=== PATIENT | female | born 1945 | race Caucasian/White ===

== ENCOUNTER 2016-09-07 17:40 | Inpatient (IN) | payer MEDICARE, MEDICAID ==
[~2016-09-07] VITALS: Ht 162.6 cm; Wt 69.9 kg
[~2016-09-07 17:40] MED LIST: /FEXO18TA OR; /LOR25TA OR; ADVI200C5 PO; ASPI81TA83 OR; BACL10TA2 OR; BACL10TA2 PO; BENA25CA2 PO; BETA0.3I SC; BETASERON SC; CALC12502 OR; CALC600T10 PO; CALCTAB68 PO; CALCTAB75 PO; CRAN500C2 PO; EFFEXOR XR; MACR100C3 PO; MS MEDICATION PO; NORT10CA2 PO; OMEP20TA7 OR; OMEP40CA2 PO; TECF240C PO; VENL150C43 PO; VENL37.5 OR; VENL75TA2 OR; VENL75TA3 PO; VITA400T13 PO; VITA500019 PO; VITA500047 PO; [UNRECOGNIZED DRUG - OTHER]
[2016-09-07 18:48] LABS: BASO % 0.2 % (0.0-1.0); EOS % 0.3 % (0.0-3.0); LARGE UNSTAINED CELL # 0.1 K/mm3 (0.0-0.4); LYMPH # 0.4 K/mm3 (1.5-4.5); LYMPH % 3.7 % (24.0-44.0); MEAN CORPUSCULAR HEMOGLOBIN 31.4 pg (27.0-33.0); MEAN CORPUSCULAR HGB CONC 34.2 g/dl (32.0-36.5); MEAN CORPUSCULAR VOLUME 91.9 fl (80.0-96.0); MONO # 0.6 K/mm3 (0.0-0.8); NEUTROPHILS % 89.9 % (36.0-66.0); PLATELET COUNT, AUTOMATED 241 k/mm3 (150-450); RED CELL DISTRIBUTION WIDTH 12.8 % (11.5-14.5); WHITE BLOOD COUNT 11.1 K/mm3 (4.0-10.0)
[2016-09-07] MEDS ORDERED: ACETAMINOPHEN 325 MG TAB As Ordered ONE (18:52)
[2016-09-07 18:55] LABS: ANION GAP 10 MEQ/L (8-16); BLOOD UREA NITROGEN 36 MG/DL (7-18); CALCIUM LEVEL 10.4 MG/DL (8.8-10.2); CARBON DIOXIDE LEVEL 31 MEQ/L (21-32); CHLORIDE LEVEL 103 MEQ/L (98-107); CREATININE FOR GFR 0.74 MG/DL (0.55-1.02); GLOMERULAR FILTRATION RATE > 60.0 (>45); GLUCOSE, FASTING 125 MG/DL (80-110); POTASSIUM SERUM 4.1 MEQ/L (3.5-5.1); SODIUM LEVEL 144 MEQ/L (136-145)
--- NOTE | 2016-09-07 19:17 | REP ---
CHEST, ONE VIEW: HISTORY: Fever. COMPARISON: 09/21/2015 There is elevation of the left hemidiaphragm. The lungs are clear. The heart is normal in size. The pulmonary vasculature is normal in appearance. IMPRESSION: No acute disease. Signed by Kervin Mulligan MD 09/07/2016 07:28 P
[2016-09-07] MEDS ORDERED: methylPREDNISolone 1000 MG VIAL (J2930) As Ordered ONE (19:50)
[2016-09-07] MEDS ORDERED: VITA500046 PO (19:57)
[2016-09-07] MEDS ORDERED: OMEP40CA2 PO (19:57)
[2016-09-07] MEDS ORDERED: FORT600S SC (19:57)
[2016-09-07] MEDS ORDERED: ALLE180T33 PO (19:57)
[2016-09-07] MEDS ORDERED: ASPI81TA85 PO (19:57)
[2016-09-07] MEDS ORDERED: GLUCOSE 4 GM CHEW TABLET PO PRN (20:15)
[2016-09-07] MEDS ORDERED: GLUCAGON FOR INJ 1 MG VIAL (J1610) SC PRN (20:15)
[2016-09-07] MEDS ORDERED: DEXTROSE 50% 50 ML SYRINGE IV PRN (20:15)
[2016-09-07] MEDS ORDERED: ONDANSETRON 4MG/2ML VIAL (J2405) IV PRN (20:15)
--- NOTE | 2016-09-07 21:21 | EDDOCDS ---
Nurse's Notes [facility] Name: Munira Harrison Age: 70 yrs Sex: Female : 1945 Arrival Date: 09/07/2016 Time: 17:40 Bed 18 Private MD: Zurdo Skelton E. Diagnosis: Multiple sclerosis Presentation: 09/07 18:34 Presenting complaint: Patient states: became weak at home, weaker than normal. Adult [facility] Sepsis Screening: The patient does not have new or worsening altered mentation. Patient's respiratory rate is less than 22. Systolic blood pressure is greater than 100. Patient has a qSOFA score of 0- Negative Sepsis Screen. Suicide/Homicide risk assessment- the patient denies having any suicidal and/or homicidal ideations and does not present with any other emotional, behavioral or mental health complaints. Status: Patient is not a farm service consultant or dependent. Transition of care: patient was not received from another setting of care. 18:34 Acuity: SOFIE Level 3 [facility] 18:34 Method Of Arrival: Ambulance [facility] Triage Assessment: 18:34 General: Appears in no apparent distress, comfortable, Behavior is appropriate for age, [facility] cooperative. Pain: Denies pain. Neurological: Level of Consciousness is awake, alert, Oriented to person, place, time. Respiratory: Airway is patent Respiratory effort is even, unlabored, Respiratory pattern is regular, symmetrical. : incontinent large amount foul smelling urine. Musculoskeletal: Range of motion intact in all extremities. Historical: - Allergies: PENICILLINS (Rash); - Home Meds: 1. baclofen 10 mg Oral tab 1 tab every 3 hours 2. Calcium + Vitamin D 600/400 Oral tab 600 mg daily 3. cranberry fruit 475 mg oral cap nightly 4. nortriptyline 10 mg Oral cap bid 5. omeprazole 40 mg Oral cpDR 1 cap once daily 6. Vitamin D Oral 5000 unit daily 7. Tecfidera 250 mg oral cpDR 2 times per day 8. Forteo 600 mcg/2.4ml daily 9. aspirin 81 mg Oral tab 1 tab once daily - PMHx: Multiple Sclerosis; Fatty Liver Disease; History of recurrent UTI's and urinary retention; Depression; Osteoporosis; Obesity; Vitamin D deficiency; hyperlipidemia; - PSHx: Tonsillectomy; Hysterectomy; - The history from nurses notes was reviewed: and I agree with what is documented. - Social history: Smoking status: Patient states was never smoker of tobacco. No barriers to communication noted. - : The pt / caregiver states he / she is not on anticoagulants. Home medication list is obtained from primary care notes. - Hospitalizations: : No recent hospitalization is reported. - Exposure Risk Screening:: None identified. - Immunization history:: All immunizations up-to-date. - Family history: Not pertinent. - Social history:: the patient is a non-smoker, the patient does not drink alcohol. Screenin:58 Screening information is obtained from the patient. Fall risk: At risk due to [facility] immobility. Assistance ADL's: requires no assistance with activities of daily living. Abuse/DV Screen: The patient / caregiver reports he/she is: not in a situation that causes fear, pain or injury. Nutritional screening: No deficits noted. Advance Directives: Currently, there is no health care proxy. There is no active DNR order. There is no living will. There is no Power of Hotbed Operator. home support is adequate. Assessment: 18:58 General: see bedside triage assessment. [facility] 19:48 General: No changes from previous assessment, visitor at bedside, denies needs. [facility] 20:00 General: visitor at bedside, discussed medications and plan of care, IV infusing cjh without difficulty, denies needs at this time. 20:00 General: Appears in no apparent distress, comfortable, Behavior is appropriate for age, cjh cooperative, awaiting admission, no new problems or complaints, no changes from previous assessment. Vital Signs: 18:01 BP 130 / 66; Pulse 102; Resp 20; Temp 100.5(TE); Pulse Ox 98% on R/A; Height 5 ft. 4 ar3 in. (162.56 cm) (R); Pain 0/10; 20:34 BP 107 / 60; Pulse 90; Resp 18; Temp 99.6(O); Pulse Ox 96% on R/A; Pain 0/10; macey Vitals: 18:34 Log In Time N/A - ambulance arrival. [facility] ED Course: 17:41 Patient visited by Arminda Osorio, Physics Teacher. lbd 17:41 Zurdo Skelton is Private Physician. lbd 17:41 Patient moved to Waiting lbd 17:42 Patient moved to 18 lbd 17:48 Jose Quigley MD is Attending Physician. pc 18:01 Patient visited by Jazmyne Garcia PCA. ar3 18:01 patient cleaned of incontinence twice. ar3 18:02 Patient visited by Jazmyne Garcia PCA. ar3 18:09 Patient visited by Jose Quigley MD. pc 18:30 BLOOD CULTURES Sent. ct3 18:30 -Blood Culture Sent. ct3 18:30 MED Profile Sent. ct3 18:30 CBC with Diff Sent. ct3 18:35 [facility] Payment Agreement was scanned into [employer] and attached to record. ks16 18:36 Triage Initiated cjh 18:53 Urine Culture Sent. ct3 18:53 Urinalysis Sent. ct3 18:58 The patient / caregiver is instructed regarding the plan of care and ED course. [facility] 18:58 No IV's were initiated during this patient's visit. No procedures done that require [facility] assistance. Rosario cath inserted 16 Fr. Balloon inflated. To gravity drainage. Urine specimen collected. returned cloudy urine. 19:00 Patient visited by Vikki Crowell RN. [facility] 19:18 Chest, 1 View Returned. EDMS 19:26 Meng Centeno MD is Hospitalizing Provider. pc 19:48 Inserted saline lock: 20 gauge in left forearm. cjh 20:35 Patient visited by Yumi Solano PCA. macey Administered Medications: 18:57 Drug: Acetaminophen 650 mg [acetaminophen 325 mg tablet (2 tabs)] Route: PO; [facility] 20:11 Drug: Solu-MEDROL 1000 mg [Solu-Medrol 500 mg intravenous solution (1000 mg)] Route: [facility] IVP; Site: left forearm; Output: 21:15 Urine: 300.00ml (Rosario); Total: 300.00ml. [facility] Order Results: Lab Order: Urinalysis; SPEC'M 09/07/16 18:21 Test: APPEARANCE, URINE; Value: CLOUDY; Range: CLEAR; Abnormal: Above high normal; Status: F Test: COLOR, URINE; Value: SUMMER; Range: YELLOW; Status: F Test: PH,URINE; Value: 6.0; Range: 5.0-9.0; Units: UNITS; Status: F Test: SPECIFIC GRAVITY URINE AUTO; Value: 1.018; Range: 1.002-1.035; Status: F Test: PROTEIN, URINE AUTO; Value: 1+; Range: NEGATIVE; Abnormal: Above high normal; Units: mg/dL; Status: F Test: GLUCOSE, URINE (UA) AUTO; Value: NEGATIVE; Range: NEGATIVE; Units: mg/dL; Status: F Test: KETONE, URINE AUTO; Value: TRACE; Range: NEGATIVE; Abnormal: Above high normal; Units: mg/dL; Status: F Test: UROBILINOGEN, URINE AUTO; Value: 0.2; Range: 0.0-2.0; Units: mg/dL; Status: F Test: BILIRUBIN, URINE AUTO; Value: NEGATIVE; Range: NEGATIVE; Status: F Test: NITRITE, URINE AUTO; Value: NEGATIVE; Range: NEGATIVE; Status: F Test: LEUKOCYTE ESTERASE, URINE AUTO; Value: TRACE; Range: NEGATIVE; Abnormal: Above high normal; Status: F Test: BLOOD, URINE BLOOD; Value: 1+; Range: NEGATIVE; Abnormal: Above high normal; Status: F Test: WBC, URINE AUTO; Value: 3; Range: 0-3; Units: /HPF; Status: F Test: RBC, URINE AUTO; Value: 5; Range: 0-3; Abnormal: Above high normal; Units: /HPF; Status: F Test: BACTERIA, URINE AUTO; Value: NEGATIVE; Range: NEGATIVE; Status: F Test: SQUAMOUS EPITHELIAL CELL UR AU; Value: 0; Range: 0-6; Units: /HPF; Status: F Test: MUCUS, URINE; Value: SMALL; Range: NEGATIVE; Status: F Test: HYALINE CAST, URINE AUTO; Value: 0; Range: 0-1; Units: /LPF; Status: F Test: AMORPHOUS SEDIMENT; Value: LARGE; Range: NEGATIVE; Abnormal: Above high normal; Status: F Lab Order: CBC with Diff; SPEC'M 09/07/16 18:26 Test: WHITE BLOOD COUNT; Value: 11.1; Range: 4.0-10.0; Abnormal: Above high normal; Units: K/mm3; Status: F Test: RED BLOOD COUNT; Value: 4.38; Range: 4.00-5.40; Units: M/mm3; Status: F Test: HEMOGLOBIN; Value: 13.8; Range: 12.0-16.0; Units: g/dl; Status: F Test: HEMATOCRIT; Value: 40.3; Range: 36.0-47.0; Units: %; Status: F Test: MEAN CORPUSCULAR VOLUME; Value: 91.9; Range: 80.0-96.0; Units: fl; Status: F Test: MEAN CORPUSCULAR HEMOGLOBIN; Value: 31.4; Range: 27.0-33.0; Units: pg; Status: F Test: MEAN CORPUSCULAR HGB CONC; Value: 34.2; Range: 32.0-36.5; Units: g/dl; Status: F Test: RED CELL DISTRIBUTION WIDTH; Value: 12.8; Range: 11.5-14.5; Units: %; Status: F Test: PLATELET COUNT, AUTOMATED; Value: 241; Range: 150-450; Units: k/mm3; Status: F Test: NEUTROPHILS %; Value: 89.9; Range: 36.0-66.0; Abnormal: Above high normal; Units: %; Status: F Test: LYMPH %; Value: 3.7; Range: 24.0-44.0; Abnormal: Below low normal; Units: %; Status: F Test: MONO %; Value: 5.0; Range: 0.0-5.0; Units: %; Status: F Test: EOS %; Value: 0.3; Range: 0.0-3.0; Units: %; Status: F Test: BASO %; Value: 0.2; Range: 0.0-1.0; Units: %; Status: F Test: LARGE UNSTAINED CELL %; Value: 1.0; Range: 0.0-4.0; Units: %; Status: F Test: NEUTROPHILS #; Value: 10.0; Range: 1.8-7.7; Abnormal: Above high normal; Units: K/mm3; Status: F Test: LYMPH #; Value: 0.4; Range: 1.5-4.5; Abnormal: Below low normal; Units: K/mm3; Status: F Test: MONO #; Value: 0.6; Range: 0.0-0.8; Units: K/mm3; Status: F Test: EOS #; Value: 0.0; Range: 0.0-0.50; Units: K/mm3; Status: F Test: BASO #; Value: 0.0; Range: 0.0-0.2; Units: K/mm3; Status: F Test: LARGE UNSTAINED CELL #; Value: 0.1; Range: 0.0-0.4; Units: K/mm3; Status: F Lab Order: MED Profile; SPEC'M 09/07/16 18:26 Test: GLUCOSE, FASTING; Value: 125; Range: 80-110; Abnormal: Above high normal; Units: MG/DL; Status: F Test: BLOOD UREA NITROGEN; Value: 36; Range: 7-18; Abnormal: Above high normal; Units: MG/DL; Status: F Test: CREATININE FOR GFR; Value: 0.74; Range: 0.55-1.02; Units: MG/DL; Status: F Test: GLOMERULAR FILTRATION RATE; Value: > 60.0; Range: >45; Status: F Test: SODIUM LEVEL; Value: 144; Range: 136-145; Units: MEQ/L; Status: F Test: POTASSIUM SERUM; Value: 4.1; Range: 3.5-5.1; Units: MEQ/L; Status: F Test: CHLORIDE LEVEL; Value: 103; Range: 98-107; Units: MEQ/L; Status: F Test: CARBON DIOXIDE LEVEL; Value: 31; Range: 21-32; Units: MEQ/L; Status: F Test: ANION GAP; Value: 10; Range: 8-16; Units: MEQ/L; Status: F Test: CALCIUM LEVEL; Value: 10.4; Range: 8.8-10.2; Abnormal: Above high normal; Units: MG/DL; Status: F Test Note: ; Units are mL/min/1.73 m2 Chronic Kidney Disease Staging per NKF: Stage I & II GFR >=60 Normal to Mildly Decreased Stage III GFR 30-59 Moderately Decreased Stage IV GFR 15-29 Severely Decreased Stage V GFR <15 Very Little GFR Left ESRD GFR <15 on MOLD FILLER PLASTIC DOLLS Lab Order: -Influenza A&B Rapid Antigen - Nose; SPEC'M 09/07/16 18:21 Test: INFLUENZA A RAPID SCR by ICA; Value: INFLUENZA A RESULTS NEGATIVE; Status: F Test: INFLUENZA A RAPID SCR by ICA; Value: Comments:; Status: F Test: INFLUENZA B RAPID SCR by ICA; Value: INFLUENZA B RESULTS NEGATIVE; Status: F Test Note: ; The Influenza test is a direct rapid immunoassay for the qualitative detection of Influenza viral antigen. Cell culture (Viral Culture) testing should be considered to confirm NEGATIVE results and to assist in detecting other viruses that can provide similar clinical symptoms. Please contact the lab within 24 hours ([phone]) if confirmatory testing is desired. Lab Order: THYROID STIMULATING HORMONE; SPEC'M 09/07/16 18:26 Test: THYROID STIMULATING HORMONE; Value: 0.726; Range: 0.358-3.740; Units: uIU/ML; Status: F Radiology Order: Chest, 1 View Test: Chest, 1 View REASON FOR EXAMINATION: fever; CHEST, ONE VIEW:; ; HISTORY: Fever.; ; COMPARISON: 09/21/2015; ; There is elevation of the left hemidiaphragm. The lungs are clear. The heart is; normal in size. The pulmonary vasculature is normal in appearance.; ; IMPRESSION:; ; No acute disease.; ; ; Signed by; Kervin Mulligan MD 09/07/2016 07:28 P; Outcome: 19:26 Decision to Hospitalize by Provider. 20:00 Discharge Assessment: Patient awake, alert and oriented x 3. No cognitive and/or [facility] functional deficits noted. Patient verbalized understanding of disposition instructions. patient administered narcotics - no. The following High Risk Discharge criteria are identified: None. Admitted to Med/Surg accompanied by tech, via stretcher, with chart. Condition: good Condition: stable Condition: improved. No special radiology studies were completed. Property :Personal belongings accompany Pt. 20:40 Admission hand-off: Report Faxed Fax receipt verified by Cindy Roblero RN. ko2 21:20 Patient left the ED. [facility] Signatures: Dispatcher [employer] EDMS Jose Quigley MD MD pc Daly, Linda, Physics Teacher Unit lbd Jazmyne Garcia, REFERENCE INVESTIGATOR REFERENCE INVESTIGATOR ar3 Yumi Solano, REFERENCE INVESTIGATOR REFERENCE INVESTIGATOR macey Becka Arvizu, REFERENCE INVESTIGATOR REFERENCE INVESTIGATOR ct3 Vikki Crowell RN RN [facility] Peyton Gresahm RN RN ko2 Candi Izaguirre, Reg Reg [email or web address] MTDD
--- NOTE | 2016-09-07 21:21 | EDDOCDS ---
Physician Documentation [facility] Name: Munira Harrison Age: 70 yrs Sex: Female : 1945 Arrival Date: 09/07/2016 Time: 17:40 Bed 18 Private MD: Zurdo Skelton E. Disposition: 09/07 19:25 Critical Care: Critical care not applicable. pc Disposition: 09/07/16 19:26 Hospitalization ordered by Meng Centeno for Inpatient Admission. Preliminary diagnosis is Multiple sclerosis. - Bed requested for 4 [place]. - Status is Inpatient Admission. [facility] - Condition is Stable. - Problem is an acute exacerbation. - Symptoms are unchanged. HPI: 18:14 This 70 yrs old Female presents to ER with complaints of Can't walk. pc 18:14 The history is obtained from the patient. She has MS and can only stand to transfer to her wheelchair. She is unable to stand today. She lives in an adult apartment complex and her friends have been helping her. She denies any recent illnesses, denies any fevers or chills. She did not want to come to the ED but her friends told her they could not continue to help her, that she needed help. 18:25 The patient has not experienced similar symptoms in the past. The patient has been pc recently seen by Dr. Valiente. Historical: - Allergies: PENICILLINS (Rash); - Home Meds: 1. baclofen 10 mg Oral tab 1 tab every 3 hours 2. Calcium + Vitamin D 600/400 Oral tab 600 mg daily 3. cranberry fruit 475 mg oral cap nightly 4. nortriptyline 10 mg Oral cap bid 5. omeprazole 40 mg Oral cpDR 1 cap once daily 6. Vitamin D Oral 5000 unit daily 7. Tecfidera 250 mg oral cpDR 2 times per day 8. Forteo 600 mcg/2.4ml daily 9. aspirin 81 mg Oral tab 1 tab once daily - PMHx: Multiple Sclerosis; Fatty Liver Disease; History of recurrent UTI's and urinary retention; Depression; Osteoporosis; Obesity; Vitamin D deficiency; hyperlipidemia; - PSHx: Tonsillectomy; Hysterectomy; - The history from nurses notes was reviewed: and I agree with what is documented. - Social history: Smoking status: Patient states was never smoker of tobacco. No barriers to communication noted. - : The pt / caregiver states he / she is not on anticoagulants. Home medication list is obtained from primary care notes. - Hospitalizations: : No recent hospitalization is reported. - Exposure Risk Screening:: None identified. - Immunization history:: All immunizations up-to-date. - Family history: Not pertinent. - Social history:: the patient is a non-smoker, the patient does not drink alcohol. ROS: 18:25 All systems are negative except as listed. pc Exam: 18:25 General Appearance: no acute distress, alert. pc 18:25 EENT: normal eye inspection, ears, nose and throat normal, pharynx normal, mucous membranes moist 18:25 Neck: The exam reveals no acute abnormalities. ROM is normal and painless. No nuchal rigidity is noted.. 18:25 Respiratory: no respiratory distress, normal breath sounds. 18:25 CVS: regular pulse rate, regular rhythm, normal S1 and S2, no murmurs, strong peripheral pulses. 18:25 Abdomen: soft, non-tender, no organomegaly, normal bowel sounds. 18:25 Back: normal inspection. 18:25 Skin: skin color is normal, warm, dry. 18:25 Extremities: The extremities have a grossly normal appearance. 18:25 Neuro: oriented x 3, cranial nerves normal as tested, strength testing is normal except for strength is 1/5 in right leg and left leg. Vital Signs: 18:01 BP 130 / 66; Pulse 102; Resp 20; Temp 100.5(TE); Pulse Ox 98% on R/A; Height 5 ft. 4 ar3 in. (162.56 cm) (R); Pain 0/10; 20:34 BP 107 / 60; Pulse 90; Resp 18; Temp 99.6(O); Pulse Ox 96% on R/A; Pain 0/10; macey MDM: 18:11 Rosario ordered. pc 18:11 -Blood Culture (Adults Only), peripheral from different site, or from device/port/PICC pc etc. if present ordered. 18:11 Obtain sample by nasopharyngeal swab ordered. pc 18:11 Acetaminophen Tablet 650 mg PO once ordered. pc 18:11 Urinalysis Ordered. EDMS 18:11 Urine Culture Ordered. EDMS 18:11 CBC with Diff Ordered. EDMS 18:11 MED Profile Ordered. EDMS 18:11 -Blood Culture Ordered. EDMS 18:11 -Influenza A&B Rapid Antigen - Nose Ordered. EDMS 18:13 Chest, 1 View Ordered. EDMS 18:20 -Blood Culture (Adults Only), peripheral from different site, or from device/port/PICC dem1 etc. if present complete. 18:21 BLOOD CULTURES Ordered. EDMS 18:25 Differential Diagnosis: new LE weakness with history of MS, likely acute flare r/o pc infections; urinary incontinence. Plan: labs, imaging, d/w Neurology. 18:34 Financial registration complete. ks 18:35 [facility] Payment Agreement was scanned into [employer] and attached to record. ks16 19:08 Urinalysis Reviewed. pc 19:08 CBC with Diff Reviewed. pc 19:08 MED Profile Reviewed. pc 19:23 Solu-MEDROL 1000 mg IVP once ordered. pc 19:25 Data reviewed: old medical records, vital signs, nurses notes, lab test results, all pc radiology studies and available results. Test interpretation: LAB - all labs as ordered have been reviewed, interpreted and considered in the overall management of the clinical presentation; X-RAY - interpreted by Radiologist and personally reviewed, 1 view chest no acute disease. The patient has been re-examined and re-evaluated. There is no appreciated change of the patient's symptoms at this time. Physician consultation: Dr. Jordi Farfan was contacted at 19:25, regarding patient's condition, and he advises IV steroids and he will assess her tomorrow and decide which MRIs to perform. 19:25 Physician consultation: Dr. Meng Centeno MD was contacted at 19:26, regarding admission, pc and will see patient in ED. Disposition: The historical points, examination findings, and any diagnostic results supporting the provided diagnosis, were discussed with the patient or legal guardian. The need for further work-up and/or treatment in the hospital was explained. 20:07 Admission / Observation Status ordered. EDMS 20:08 CONSISTENT CARBOHYDRATES ordered. EDMS 20:09 COMPLETE BLOOD COUNT Ordered. EDMS 20:16 THYROID STIMULATING HORMONE Ordered. EDMS 20:16 PTH INTACT Ordered. EDMS 20:16 VITAMIN D, 25-HYDROXY Ordered. EDMS 20:49 BASIC METABOLIC PROFILE Ordered. EDMS Administered Medications: 18:57 Drug: Acetaminophen 650 mg [acetaminophen 325 mg tablet (2 tabs)] Route: PO; [facility] 20:11 Drug: Solu-MEDROL 1000 mg [Solu-Medrol 500 mg intravenous solution (1000 mg)] Route: [facility] IVP; Site: left forearm; Signatures: Dispatcher [employer] Jose Mooney MD MD pc Lopresti, Mary-Elizabeth, [place] Worker Unit ml3 Joey Willson Vikki Crowell RN RN [facility] Candi Izaguirre, Reg Reg [email or web address] The chart was reviewed and I authenticate all verbal orders and agree with the evaluation and treatment provided.Corrections: (The following items were deleted from the chart) 18:26 18:14 She has MS and can only stand to transfer to her wheelchair. She is unable to pc stand today. She lives in an adult apartment complex and her friends have been helping her. She denies any recent illnesses, denies any fevers or chills. pc 20:16 20:09 THYROID STIMULATING HORMONE ordered. EDMS EDMS 20:49 20:09 BASIC METABOLIC PROFILE ordered. EDMS EDMS Attachments: 18:35 [facility] Payment Agreement [email or web address] MTDD
[2016-09-07 21:53] VITALS: BP 123/59
[2016-09-07] MEDS: HumaLOG INSULIN (NovoLOG) PER UNIT SC SCH (21:57)
[2016-09-07] MEDS: NS 1,000 ML IV SCH (22:13)
[2016-09-07] MEDS: BACLOFEN 10 MG TAB PO SCH (22:13)
[2016-09-07] MEDS: cefTRIAXone SOD 1 GM in D5W MINI-BAG PLUS 50 ML IV SCH (22:13)
[2016-09-07] MEDS: NORTRIPTYLINE 10 MG CAP PO SCH (22:29)
[2016-09-08] MEDS: ACETAMINOPHEN TAB 650MG DOSE (2X325MG) PO PRN (05:23)
[2016-09-08 06:00] VITALS: BP 135/69
[2016-09-08 06:18] LABS: ANION GAP 10 MEQ/L (8-16); BLOOD UREA NITROGEN 24 MG/DL (7-18); CALCIUM LEVEL 9.4 MG/DL (8.8-10.2); CARBON DIOXIDE LEVEL 28 MEQ/L (21-32); CHLORIDE LEVEL 107 MEQ/L (98-107); CREATININE FOR GFR 0.53 MG/DL (0.55-1.02); GLOMERULAR FILTRATION RATE > 60.0 (>45); GLUCOSE, FASTING 159 MG/DL (80-110); POTASSIUM SERUM 3.8 MEQ/L (3.5-5.1); SODIUM LEVEL 145 MEQ/L (136-145)
[2016-09-08 06:23] LABS: MEAN CORPUSCULAR HEMOGLOBIN 30.7 pg (27.0-33.0); MEAN CORPUSCULAR VOLUME 93.2 fl (80.0-96.0); RED CELL DISTRIBUTION WIDTH 13.7 % (11.5-14.5); WHITE BLOOD COUNT 10.6 K/mm3 (4.0-10.0)
[2016-09-08] MEDS: BACLOFEN 10 MG TAB PO SCH ×3 (08:26→22:01)
[2016-09-08] MEDS: VITAMIN D 1,000 INTERNATIONAL UNITS TABLET PO SCH (08:26)
[2016-09-08] MEDS: NORTRIPTYLINE 10 MG CAP PO SCH ×2 (08:27→22:01)
[2016-09-08] MEDS: HumaLOG INSULIN (NovoLOG) PER UNIT SC SCH ×4 (08:27→21:00)
[2016-09-08] MEDS: OMEPRAZOLE 20 MG CAP PO SCH (08:28)
[2016-09-08] MEDS: NS 1,000 ML IV SCH (08:28)
[2016-09-08] MEDS: ASPIRIN 81 MG ENTERIC TAB PO SCH (08:28)
[2016-09-08] MEDS: ENOXAPARIN 40 MG/0.4 ML SYRINGE (J1650) SC SCH (08:28)
[2016-09-08] MEDS: FEXOFENADINE 60 MG TAB PO SCH (08:28)
--- NOTE | 2016-09-08 08:39 | HPE ---
DATE OF ADMISSION: 09/07/2016 This is a patient of Dr. Steffanie Ramirez. CHIEF COMPLAINT: "I wasn't feeling well." SUMMARY OF PRESENTATION: This is a 70-year-old who is wheelchair-bound. Is unable to walk based on a history of multiple sclerosis (MS) since the age of 34. Yesterday she fell at home while trying to get her gloves. She was out of her chair and trying to walk. A rescue squad came and put her back in her wheelchair. She has not had any pain since then. She does not suffer from paresthesias. This evening when her friend brought dinner, she could not transfer from her chair, which is very usual. Although she cannot walk, she can usually transfer well. She does suffer from urinary tract infections and has neurogenic bladder. She never experiences burning but usually noticed increased frequency. She has not had increased frequency and has not had nocturia. She has an allergy to PENICILLIN, which makes her feel dizzy. Does not cause rash. MEDICATIONS AT HOME: Listed as: - cranberry extract - aspirin 81 mg daily - Baclofen 10 mg by mouth three times a day - calcium with vitamin D supplement - Eveline 180 mg by mouth daily - Forteo 0.8 mL subcutaneous daily - nortriptyline 10 mg by mouth twice a day - omeprazole 40 mg by mouth daily - Tecfidera 240 mg by mouth twice a day PAST MEDICAL HISTORY: Notable for: 1. Longstanding multiple sclerosis. 2. Neurogenic bladder. 3. She does say that she had her last MRI within the last year but thinks it was done at Dr. Valiente's office. 4. She has impaired fasting glucose. 5. Non-alcoholic fatty liver disease. 6. History of urinary retention. 7. Recurrent urinary tract infections (UTIs). 8. Depression. 9. Gastroesophageal reflux disease (GERD). 10. Allergic rhinitis. 11. Osteoporosis. 12. Obesity. 13. Vitamin D deficiency. 14. Hyperlipidemia. SURGICAL HISTORY: Notable for: 1. Colon[place] [address] Meyer. 2. Total abdominal hysterectomy with retained ovaries. 3. Tonsillectomy as a child. FAMILY HISTORY: Notable for a father who at age 94. Mother who is alive and well. She is unsure of her mother's age. SOCIAL HISTORY: She is not a smoker. Does not use any alcohol. Does not limit her diet. She has a healthcare proxy, who is her daughter. She apparently has an [id number] DO NOT RESUSCITATE. REVIEW OF SYSTEMS: She has no headache, no visual changes, no runny nose, no sore throat. No neck pain. No cough, no shortness of breath, no orthopnea, paroxysmal nocturnal dyspnea. No abdominal pain, no change in her bowel or bladder habits. No paresthesias. She feels generally weak, otherwise is unremarkable. PHYSICAL EXAMINATION: Blood pressure 130/66, pulse 102, respiratory rate 20, temperature 100.5, pulse oximetry 98% on room air. Her weight is not recorded. She is 5 feet 4 inches tall. She is awake and appropriately interactive. Somewhat halting in her speech but seems to be a reasonable historian. Head is normocephalic. She is wearing corrective lenses. The glass frame is quite bent. Sinuses are nontender. Pupils equal, round, reactive, anicteric. Nasal septum is midline. Mucous membranes are moist. Neck is supple. No cervical or supraclavicular adenopathy. Breathing is symmetrical, rested. Inspiratory to expiratory (I-to-E) ratio is 1:3. No wheezes, rales, or rhonchi. She is speaking in complete sentences. No accessory muscle use. Heart is in a regular rate and rhythm. Is tachycardic on my exam with a rate between 100-110. Distal pulses are 2+. Capillary refill is less than 2 seconds. Her nails are a little long. Abdomen soft, doughy, nontender. There is no significant lower extremity edema. There is no tenderness over her shoulders, elbows, wrists, hips, knees, or ankles. I appreciate no bruises on exam. She is moving all four extremities but quite weakly. There are labs available for me to review, which include the following. Sodium 144, potassium 4.1, chloride 103, bicarbonate 31, BUN 36, creatinine 0.74, calcium is 10.4. White cell count is 11.1, hemoglobin 13.8, and platelets are 241. UA is notable for 1+ protein, 1+ blood, 3 whites, 5 reds, a large amount of amorphous sediment and on physical exam apparently is quite odiferous and is thick and milky appearing. Blood and urine culture are pending. Influenza swab is negative. Chest x-ray shows an elevated left hemidiaphragm. ASSESSMENT: This is a 70-year-old with increasing weakness, possibly multiple sclerosis exacerbation, possibly related to an early recurrent urinary tract infection. Last positive urine culture was in June and grew Streptococcus viridans. She has previously grow an Enterococcus (E) coli, which was [place] sensitive. PLAN: 1. Multiple sclerosis. Patient has had increasing weakness. Can only at this point transfer at home. Will be seen by neurology. Dr. Farfan was called from the emergency department. Consult will be placed so he can follow her in the hospital. He has suggested giving a dose of Solu-Medrol, which is ordered. 2. Patient has urinary tract infection possibly and will be treated empirically , as she presented with fever and white cell count elevated above her normal range. Will await culture results. I would not be surprised if culture appeared contaminated. Rosario catheter is currently in place. That will be left for the evening. 3. Patient has impaired glucose tolerance with the use of high dose of Solu-Medrol. Will place the patient on sliding scale with fingersticks. 4. Patient has hypercalcemia. Cause of this is unclear. Will give her some minimal hydration tonight. Will check an intact parathyroid hormone (PTH) in the morning. A TSH has been ordered. Will check a vitamin D level. Will withhold her calcium and vitamin D supplement. 5. Patient has gastroesophageal reflux disease (GERD) Continue her proton pump inhibitor (PPI). 6. Deep vein thrombosis (DVT) prophylaxis has been ordered. 7. I am continuing her home medications, including Baclofen, nortriptyline, omeprazole, vitamin D, Tecfidera, and Forteo. The last two she will need to bring from home but can likely be withheld in the current setting if she does not bring them in. 8. Patient has an [id number] DO NOT RESUSCITATE and a healthcare proxy. Will attempt to obtain DO NOT RESUSCITATE in the computer. If we are unable to, will need to be brought in from the office. The patient did not bring it in. [facility]
--- NOTE | 2016-09-08 08:53 | IPNPDOC ---
Assessment/Plan Date Seen The patient was seen on 09/08/16. Problems Problems: (1) UTI (urinary tract infection) Status: Acute Problem Text: Hx of Neurogenic bladder and recurrent UTI. Urine cx pending. Ceftriaxone 1 gram IV. (2) Multiple sclerosis exacerbation Status: Acute Problem Specific Plan: Consult Specialist Problem Text: Without Tecfidera x 2 days. Nursing confirmed delivery within next few days. Solumedrol 1 gram IV q 24hrs. Neuro consulted. To see patient today. PT ordered. (3) Hyperlipidemia Status: Chronic Response to Treatment: Stable (4) GERD (gastroesophageal reflux disease) Status: Chronic Response to Treatment: Stable (5) LEAL (nonalcoholic steatohepatitis) Status: Chronic Response to Treatment: Stable (6) Impaired fasting blood sugar Status: Chronic Response to Treatment: Stable Problem Specific Plan: Monitor Clinically Problem Text: fasting glucose of 159 this am. Will monitor. Plan / VTE VTE Prophylaxis Ordered?: Yes (Lovenox) Plan / Urinary Catheter Reason for insertion/continuin: Critical Pt monitoring Plan Therapy: PT Plan Text Attending note: I saw and evaluated the patient, and agree with the plan of care as discussed and documented. However, MRI noted new possible mass lesion of the spine. Skeletal survey was ordered. We will need to discuss possible biopsy versus tumor markers to determine source. Candido Miller MD Subjective Review of Systems CC/HPI The patient is a 70-year-old female admitted with a reason for visit of Multiple Sclerosis Exacerbation. Events since last encounter Admitted overnight for MS exacerbation. Has been out of her Tecfidera x 2 days due to delay in mail in pharmacy. States unable to ambulate x 3 days. Ususally able to get OOB to wheelchair independently. UTI noted on w/u in ED. Bl cx and urine cx pending. Constitutional: Denies: Chills, Fever ENT: Denies: Head Aches Skin: Denies: Rash Pulmonary: Denies: Cough, Dyspnea Cardiovascular: Denies: Chest Pain, Lt Headedness, Palpitations Gastrointestinal: Denies: Abdominal Pain, Constipation, Diarrhea, Nausea, Vomiting Genitourinary: Reports: Other Symptoms (stated hx of UTI in the past. ), Denies: Dysuria, Frequency, Incontinence Musculoskeletal: Reports: Other Symptoms (generalized weakness, inability to transfer/stand) Neurological: Reports: Weakness Psych: Reports: Mood Normal Objective Physical Examination General Exam: Positive: Alert, No Acute Distress Eye Exam: Positive: EOMI, PERRLA ENT Exam: Positive: Atraumatic, Mucous membr. moist/pink Neck Exam: Positive: Supple, Negative: JVD Chest Exam: Positive: Clear to auscultation, Normal air movement Heart Exam: Positive: Normal S1, Normal S2, Rate Normal Abdomen Exam: Positive: Normal bowel sounds, Soft, Tenderness Skin Exam: Positive: Nl turgor and temperature Neuro Exam: Positive: Normal Speech, Other (BLE strength 3/5 Bilateral) Vital Signs/I&O Vital Signs Date Time Temp Pulse Resp B/P Pulse Ox O2 Delivery O2 Flow Rate FiO2 09/08/16 06:00 97.1 97 18 135/69 94 Room Air I&O- Last 24 Hours up to 6 AM 09/08/16 06:00 Intake Total 610 ml Output Total 725 ml Balance -115 ml Laboratory Data Labs 24H Laboratory Tests 2 09/07/16 18:21: Urine Amorphous Sediment LARGEH, Urine Appearance CLOUDYH, Urine Color SUMMER, Urine pH 6.0, Urine Specific [place] 1.018, Urine Protein 1+H, Urine Glucose (UA ) NEGATIVE, Urine Ketones TRACEH, Urine Urobilinogen 0.2, Urine Bilirubin NEGATIVE, Urine Leukocyte Esterase TRACEH, Urine Bacteria (Auto) NEGATIVE, Urine Blood 1+H, Urine Calcium Carbonate Cryst(Auto) , Urine Calcium Oxalate Cryst (Auto) , Urine Calcium Phosphate Janina (Auto) , Urine Cellular Casts , Urine Cystine Crystals , Urine Granular Casts (Auto) , Urine Hyaline Casts (Auto ) 0, Urine Leucine Crystals , Urine Mucus (Auto) SMALL, Urine Nitrite NEGATIVE, Urine Oval Fat Bodies (Auto) , Urine RBC (Auto) 5H, Urine Renal Epithelial Cells , Urine Sperm (Auto) , Urine Squamous Epithelial Cells 0, Urine Transitional Epithelial Cells , Urine Trichomonas (Auto) , Urine Triple Phosphate Cryst (Auto) , Urine Tyrosine Crystals , Urine Uric Acid Crystals ( Auto) , Urine WBC (Auto) 3, Urine Waxy Casts (Auto) , Urine Yeast-Like Cells ( Auto) 09/07/16 18:26: Anion Gap 10, White Blood Count 11.1H, Red Blood Count 4.38, Hemoglobin 13.8, Hematocrit 40.3, Mean Corpuscular Volume 91.9, Mean Corpuscular Hemoglobin 31.4 , Mean Corpuscular Hemoglobin Concent 34.2, Red Cell Distribution Width 12.8, Platelet Count 241, Neutrophils (%) (Auto) 89.9H, Lymphocytes (%) (Auto) 3.7L, Monocytes (%) (Auto) 5.0, Eosinophils (%) (Auto) 0.3, Basophils (%) (Auto) 0.2, Neutrophils # (Auto) 10.0H, Lymphocytes # (Auto) 0.4L, Monocytes # (Auto) 0.6, Eosinophils # (Auto) 0.0, Basophils # (Auto) 0.0, Blood Urea Nitrogen 36H, Creatinine 0.74, Sodium Level 144, Potassium Level 4.1, Chloride Level 103, Carbon Dioxide Level 31, Calcium Level 10.4H, Glomerular Filtration Rate > 60.0 , Large Unclassified Cells # 0.1, Large Unclassified Cells % 1.0, Thyroid Stimulating Hormone (TSH) 0.726 09/08/16 05:20: Anion Gap 10, Blood Urea Nitrogen 24H, Creatinine 0.53L, Sodium Level 145, Potassium Level 3.8, Chloride Level 107, Carbon Dioxide Level 28, Calcium Level 9.4, Glomerular Filtration Rate > 60.0 CBC/BMP Laboratory Tests 09/07/16 18:26 Calcium Level 10.4 H, Red Blood Count 4.38, Mean Corpuscular Volume 91.9, Mean Corpuscular Hemoglobin 31.4, Mean Corpuscular Hemoglobin Concent 34.2, Red Cell Distribution Width 12.8, Neutrophils (%) (Auto) 89.9 H, Lymphocytes (%) (Auto) 3.7 L, Monocytes (%) (Auto) 5.0, Eosinophils (%) (Auto) 0.3, Basophils (%) (Auto ) 0.2, Neutrophils # (Auto) 10.0 H, Lymphocytes # (Auto) 0.4 L, Monocytes # ( Auto) 0.6, Eosinophils # (Auto) 0.0, Basophils # (Auto) 0.0 09/08/16 05:20 Calcium Level 9.4, Red Blood Count 3.89 L, Mean Corpuscular Volume 93.2, Mean Corpuscular Hemoglobin 30.7, Mean Corpuscular Hemoglobin Concent 33.0, Red Cell Distribution Width 13.7 Microbiology Microbiology 09/07/16 Blood Culture, Received Pending 09/07/16 Blood Culture, Received Pending 09/07/16 Influenza Virus Type A Antigen - Final, Complete 09/07/16 Influenza Virus Type B Antigen - Final, Complete 09/07/16 Urine Culture, Received Pending Tosha Urban Sep 08, 2016 08:53 CANDIDO MILLER MD Sep 14, 2016 19:28
[2016-09-08] MEDS ORDERED: CALCIUM/VITAMIN D 500 MG TAB PO SCH (09:00)
[2016-09-08 15:00] VITALS: BP 129/73
[2016-09-08 22:00] VITALS: BP 107/56
[2016-09-08] MEDS: cefTRIAXone SOD 1 GM in D5W MINI-BAG PLUS 50 ML IV SCH (22:02)
[2016-09-09] MEDS: NS 1,000 ML IV SCH (02:36)
[2016-09-09 06:00] VITALS: BP 138/88
[2016-09-09 06:25] LABS: MEAN CORPUSCULAR HEMOGLOBIN 31.6 pg (27.0-33.0); MEAN CORPUSCULAR HGB CONC 33.9 g/dl (32.0-36.5); MEAN CORPUSCULAR VOLUME 93.3 fl (80.0-96.0); RED CELL DISTRIBUTION WIDTH 13.1 % (11.5-14.5); WHITE BLOOD COUNT 11.5 K/mm3 (4.0-10.0)
[2016-09-09 07:01] LABS: ANION GAP 6 MEQ/L (8-16); BLOOD UREA NITROGEN 22 MG/DL (7-18); CALCIUM LEVEL 9.2 MG/DL (8.8-10.2); CARBON DIOXIDE LEVEL 29 MEQ/L (21-32); CHLORIDE LEVEL 111 MEQ/L (98-107); GLOMERULAR FILTRATION RATE > 60.0 (>45); GLUCOSE, FASTING 109 MG/DL (80-110); SODIUM LEVEL 146 MEQ/L (136-145)
--- NOTE | 2016-09-09 08:22 | IPNPDOC ---
Assessment/Plan Date Seen The patient was seen on 09/09/16. Problems Problems: (1) UTI (urinary tract infection) Status: Acute Problem Text: Hx of Neurogenic bladder and recurrent UTI. Urine cx pending. Ceftriaxone 1 gram IV. Cx + for aeroccocus less than 80,000. Usually sensitive to cefepime and PCN or pipercillin. + PCN allergy. Changed to ceftaroline to help also cover skin structure infection. (2) Multiple sclerosis exacerbation Status: Acute Problem Specific Plan: Consult Specialist Problem Text: Without Tecfidera x 2 days. Nursing confirmed delivery within next few days. Solumedrol 1 gram IV q 24hrs. Neuro consulted. To see patient today. PT ordered. See Neuro Consult. (3) Cellulitis of right lower extremity Status: Acute Problem Text: Will r/o DVT based on patients decreased activity recently. Ceftaroline added on. Nursing to monitor. (4) Hyperlipidemia Status: Chronic Response to Treatment: Stable (5) GERD (gastroesophageal reflux disease) Status: Chronic Response to Treatment: Stable (6) LEAL (nonalcoholic steatohepatitis) Status: Chronic Response to Treatment: Stable (7) Impaired fasting blood sugar Status: Chronic Response to Treatment: Stable Problem Specific Plan: Monitor Clinically Problem Text: fasting glucose of 159 this am. Will monitor. Plan / VTE VTE Prophylaxis Ordered?: Yes (Lovenox) Plan / Urinary Catheter Reason for insertion/continuin: Critical Pt monitoring Plan Therapy: PT Subjective Review of Systems CC/HPI The patient is a 70-year-old female admitted with a reason for visit of Multiple Sclerosis Exacerbation. Events since last encounter RLE with erythema and swelling. Patient denies severe pain,but sensation in LE is diminished due to MS. Has some abrasions noted on right ankle on admission. Afebrile. Neuro has consulted. Attempting to get Tecfidera, so patient can resume her medication. Constitutional: Denies: Chills, Fever ENT: Denies: Head Aches Skin: Reports: Other (RLE erythema and swelling with warmth) Pulmonary: Denies: Cough, Dyspnea Cardiovascular: Denies: Chest Pain, Palpitations Gastrointestinal: Denies: Abdominal Pain, Diarrhea, Nausea, Vomiting Genitourinary: Reports: Other Symptoms ([place]) Endocrine: Denies: Polydipsia, Polyphagia, Polyuria Neurological: Reports: Weakness Psych: Reports: Mood Normal Objective Physical Examination General Exam: Positive: Alert, No Acute Distress Eye Exam: Positive: EOMI, PERRLA ENT Exam: Positive: Atraumatic, Mucous membr. moist/pink Neck Exam: Positive: Supple, Negative: JVD Chest Exam: Positive: Clear to auscultation, Normal air movement Heart Exam: Positive: Normal S1, Normal S2, Rate Normal Abdomen Exam: Positive: Normal bowel sounds, Soft, Tenderness Extremity Exam: Positive: Other (RLE: erythema and warmth up to mid thigh, + swelling. ) Skin Exam: Positive: Nl turgor and temperature Neuro Exam: Positive: Normal Speech, Other (BLE strength 3/5 Bilateral) Vital Signs/I&O Vital Signs Date Time Temp Pulse Resp B/P Pulse Ox O2 Delivery O2 Flow Rate FiO2 09/09/16 06:00 97.6 79 19 138/88 96 Room Air I&O- Last 24 Hours up to 6 AM 09/09/16 06:00 Intake Total 2370 ml Output Total 1225 ml Balance 1145 ml Laboratory Data Labs 24H Laboratory Tests 2 09/08/16 11:46: Bedside Glucose (Misc Panel) 145H 09/08/16 16:42: Bedside Glucose (Misc Panel) 120H 09/08/16 20:15: Bedside Glucose (Misc Panel) 118H 09/09/16 05:54: Anion Gap 6L, Blood Urea Nitrogen 22H, Creatinine 0.50L, Sodium Level 146H, Potassium Level 4.0, Chloride Level 111H, Carbon Dioxide Level 29, Calcium Level 9.2, Glomerular Filtration Rate > 60.0 CBC/BMP Laboratory Tests 09/09/16 05:54 Calcium Level 9.2, Red Blood Count 3.66 L, Mean Corpuscular Volume 93.3, Mean Corpuscular Hemoglobin 31.6, Mean Corpuscular Hemoglobin Concent 33.9, Red Cell Distribution Width 13.1 FSBS Laboratory Tests Test 09/08/16 11:46 09/08/16 16:42 09/08/16 20:15 Range/Units Bedside Glucose (Misc Panel) 145 120 118 80-115 MG/DL Microbiology Microbiology 09/07/16 Blood Culture - Preliminary, Resulted No growth after 24 hours . All specim... 09/07/16 Blood Culture - Preliminary, Resulted No growth after 24 hours . All specim... 09/07/16 Influenza Virus Type A Antigen - Final, Complete 09/07/16 Influenza Virus Type B Antigen - Final, Complete 09/07/16 Urine Culture - Final, Complete Aerococcus Urinae Tosha Urban [facility] Sep 09, 2016 08:21
[2016-09-09] MEDS: FEXOFENADINE 60 MG TAB PO SCH (08:50)
[2016-09-09] MEDS: ASPIRIN 81 MG ENTERIC TAB PO SCH (08:50)
[2016-09-09] MEDS: VITAMIN D 1,000 INTERNATIONAL UNITS TABLET PO SCH (08:50)
[2016-09-09] MEDS: BACLOFEN 10 MG TAB PO SCH ×3 (08:50→22:15)
[2016-09-09] MEDS: ENOXAPARIN 40 MG/0.4 ML SYRINGE (J1650) SC SCH (08:51)
[2016-09-09] MEDS: HumaLOG INSULIN (NovoLOG) PER UNIT SC SCH ×4 (08:51→21:00)
[2016-09-09] MEDS: NORTRIPTYLINE 10 MG CAP PO SCH ×2 (08:51→22:15)
[2016-09-09] MEDS: OMEPRAZOLE 20 MG CAP PO SCH (08:51)
[2016-09-09] MEDS ORDERED: CEFTAROLINE FOSAMIL 600 MG in D5W MINI-BAG PLUS 50 ML IV SCH (09:00)
[2016-09-09] MEDS ORDERED: PREVNAR 13 VACCINE SYRINGE (CPT CODE:90670) IM ONE (09:00)
[2016-09-09] MEDS ORDERED: diphenhydrAMINE INJ 50MG/ML VIAL (J1200) IV STA (11:13)
[2016-09-09] MEDS ORDERED: methylPREDNISolone INJ 40 MG/1 ML VIAL (J2920) IV STA (11:13)
[2016-09-09] MEDS ORDERED: methylPREDNISolone INJ 125 MG/2 ML VIAL (J2930) IV STA (11:16)
--- NOTE | 2016-09-09 11:55 | REP ---
Duplex extremity venous ultrasound: Right lower extremity. History: Question DVT. Findings: The deep veins are anechoic and fully compressible from the groin to the popliteal fossa in the right lower extremity. Color flow imaging is homogeneous. Spectral Doppler interrogation demonstrates intact respiratory variation in flow and normal manual augmentation of flow. There is no evidence of deep vein thrombosis. There is a normal-appearing right groin lymph node measuring 2.6 x 0.9 x 1.0 cm. Impression: Negative right lower extremity duplex venous ultrasound. No evidence of deep vein thrombosis. Signed by Angel Glasgow MD 09/09/2016 11:46 A
[2016-09-09] MEDS ORDERED: **NOTE PATIENT COMMENT** MISC XX SCH (12:45)
[2016-09-09] MEDS: NITROFURANTOIN (MACROBID) 100 MG CAP PO SCH ×2 (13:26→22:15)
[2016-09-09 14:00] VITALS: BP 156/74
[2016-09-09] MEDS ORDERED: methylPREDNISolone 1000 MG VIAL (J2930) IV SCH (21:00)
[2016-09-09 22:00] VITALS: BP 124/69
--- NOTE | 2016-09-09 22:21 | EDDOCDS ---
Physician Documentation [facility] Name: Munira Harrison Age: 70 yrs Sex: Female : 1945 Arrival Date: 09/07/2016 Time: 17:40 Bed 18 Private MD: Zurdo Skelton E. Disposition: 09/07 19:25 Critical Care: Critical care not applicable. pc Disposition: 09/07/16 19:26 Hospitalization ordered by Meng Centeno for Inpatient Admission. Preliminary diagnosis is Multiple sclerosis. - Bed requested for 4 Martin. - Status is Inpatient Admission. [facility] - Condition is Stable. - Problem is an acute exacerbation. - Symptoms are unchanged. HPI: 18:14 This 70 yrs old Female presents to ER with complaints of Can't walk. pc 18:14 The history is obtained from the patient. She has MS and can only stand to transfer to her wheelchair. She is unable to stand today. She lives in an adult apartment complex and her friends have been helping her. She denies any recent illnesses, denies any fevers or chills. She did not want to come to the ED but her friends told her they could not continue to help her, that she needed help. 18:25 The patient has not experienced similar symptoms in the past. The patient has been pc recently seen by Dr. Valiente. Historical: - Allergies: PENICILLINS (Rash); - Home Meds: 1. baclofen 10 mg Oral tab 1 tab every 3 hours 2. Calcium + Vitamin D 600/400 Oral tab 600 mg daily 3. cranberry fruit 475 mg oral cap nightly 4. nortriptyline 10 mg Oral cap bid 5. omeprazole 40 mg Oral cpDR 1 cap once daily 6. Vitamin D Oral 5000 unit daily 7. Tecfidera 250 mg oral cpDR 2 times per day 8. Forteo 600 mcg/2.4ml daily 9. aspirin 81 mg Oral tab 1 tab once daily - PMHx: Multiple Sclerosis; Fatty Liver Disease; History of recurrent UTI's and urinary retention; Depression; Osteoporosis; Obesity; Vitamin D deficiency; hyperlipidemia; - PSHx: Tonsillectomy; Hysterectomy; - The history from nurses notes was reviewed: and I agree with what is documented. - Social history: Smoking status: Patient states was never smoker of tobacco. No barriers to communication noted. - : The pt / caregiver states he / she is not on anticoagulants. Home medication list is obtained from primary care notes. - Hospitalizations: : No recent hospitalization is reported. - Exposure Risk Screening:: None identified. - Immunization history:: All immunizations up-to-date. - Family history: Not pertinent. - Social history:: the patient is a non-smoker, the patient does not drink alcohol. ROS: 18:25 All systems are negative except as listed. pc Exam: 18:25 General Appearance: no acute distress, alert. pc 18:25 EENT: normal eye inspection, ears, nose and throat normal, pharynx normal, mucous membranes moist 18:25 Neck: The exam reveals no acute abnormalities. ROM is normal and painless. No nuchal rigidity is noted.. 18:25 Respiratory: no respiratory distress, normal breath sounds. 18:25 CVS: regular pulse rate, regular rhythm, normal S1 and S2, no murmurs, strong peripheral pulses. 18:25 Abdomen: soft, non-tender, no organomegaly, normal bowel sounds. 18:25 Back: normal inspection. 18:25 Skin: skin color is normal, warm, dry. 18:25 Extremities: The extremities have a grossly normal appearance. 18:25 Neuro: oriented x 3, cranial nerves normal as tested, strength testing is normal except for strength is 1/5 in right leg and left leg. Vital Signs: 18:01 BP 130 / 66; Pulse 102; Resp 20; Temp 100.5(TE); Pulse Ox 98% on R/A; Height 5 ft. 4 ar3 in. (162.56 cm) (R); Pain 0/10; 20:34 BP 107 / 60; Pulse 90; Resp 18; Temp 99.6(O); Pulse Ox 96% on R/A; Pain 0/10; macey MDM: 18:11 Rosario ordered. pc 18:11 -Blood Culture (Adults Only), peripheral from different site, or from device/port/PICC pc etc. if present ordered. 18:11 Obtain sample by nasopharyngeal swab ordered. pc 18:11 Acetaminophen Tablet 650 mg PO once ordered. pc 18:11 Urinalysis Ordered. EDMS 18:11 Urine Culture Ordered. EDMS 18:11 CBC with Diff Ordered. EDMS 18:11 MED Profile Ordered. EDMS 18:11 -Blood Culture Ordered. EDMS 18:11 -Influenza A&B Rapid Antigen - Nose Ordered. EDMS 18:13 Chest, 1 View Ordered. EDMS 18:20 -Blood Culture (Adults Only), peripheral from different site, or from device/port/PICC dem1 etc. if present complete. 18:21 BLOOD CULTURES Ordered. EDMS 18:25 Differential Diagnosis: new LE weakness with history of MS, likely acute flare r/o pc infections; urinary incontinence. Plan: labs, imaging, d/w Neurology. 18:34 Financial registration complete. ks16 18:35 [facility] Payment Agreement was scanned into [employer] and attached to record. ks16 19:08 Urinalysis Reviewed. pc 19:08 CBC with Diff Reviewed. pc 19:08 MED Profile Reviewed. pc 19:23 Solu-MEDROL 1000 mg IVP once ordered. pc 19:25 Data reviewed: old medical records, vital signs, nurses notes, lab test results, all pc radiology studies and available results. Test interpretation: LAB - all labs as ordered have been reviewed, interpreted and considered in the overall management of the clinical presentation; X-RAY - interpreted by Radiologist and personally reviewed, 1 view chest no acute disease. The patient has been re-examined and re-evaluated. There is no appreciated change of the patient's symptoms at this time. Physician consultation: Dr. Jordi Farfan was contacted at 19:25, regarding patient's condition, and he advises IV steroids and he will assess her tomorrow and decide which MRIs to perform. 19:25 Physician consultation: Dr. Meng Centeno MD was contacted at 19:26, regarding admission, pc and will see patient in ED. Disposition: The historical points, examination findings, and any diagnostic results supporting the provided diagnosis, were discussed with the patient or legal guardian. The need for further work-up and/or treatment in the hospital was explained. 20:07 Admission / Observation Status ordered. EDMS 20:08 CONSISTENT CARBOHYDRATES ordered. EDMS 20:09 COMPLETE BLOOD COUNT Ordered. EDMS 20:16 THYROID STIMULATING HORMONE Ordered. EDMS 20:16 PTH INTACT Ordered. EDMS 20:16 VITAMIN D, 25-HYDROXY Ordered. EDMS 20:49 BASIC METABOLIC PROFILE Ordered. EDMS 18 09:05 PCR was scanned into [employer] and attached to record. gb Administered Medications: 09/07 18:57 Drug: Acetaminophen 650 mg [acetaminophen 325 mg tablet (2 tabs)] Route: PO; [facility] 20:11 Drug: Solu-MEDROL 1000 mg [Solu-Medrol 500 mg intravenous solution (1000 mg)] Route: [facility] IVP; Site: left forearm; Signatures: Dispatcher [employer] Jose Mooney MD MD Trish Reed, Reg Reg gb Yeyo Pierre, [employer] Cream Warmer Unit ml3 DemetrisBeverleyraphael dem1 Vikki Crowell RN RN [facility] Candi Izaguirre, Reg Reg ks16 The chart was reviewed and I authenticate all verbal orders and agree with the evaluation and treatment provided.Corrections: (The following items were deleted from the chart) 18:26 18:14 She has MS and can only stand to transfer to her wheelchair. She is unable to pc stand today. She lives in an adult apartment complex and her friends have been helping her. She denies any recent illnesses, denies any fevers or chills. pc 20:16 20:09 THYROID STIMULATING HORMONE ordered. EDMS EDMS 20:49 20:09 BASIC METABOLIC PROFILE ordered. EDMS EDMS Attachments: 18:35 [facility] Payment Agreement [email or web address] Chart Complete MTDD
--- NOTE | 2016-09-09 22:21 | EDDOCDS ---
Nurse's Notes [facility] Name: Munira Harrison Age: 70 yrs Sex: Female : 1945 Arrival Date: 09/07/2016 Time: 17:40 Bed 18 Private MD: Zurdo Skelton E. Diagnosis: Multiple sclerosis Presentation: 09/07 18:34 Presenting complaint: Patient states: became weak at home, weaker than normal. Adult [facility] Sepsis Screening: The patient does not have new or worsening altered mentation. Patient's respiratory rate is less than 22. Systolic blood pressure is greater than 100. Patient has a qSOFA score of 0- Negative Sepsis Screen. Suicide/Homicide risk assessment- the patient denies having any suicidal and/or homicidal ideations and does not present with any other emotional, behavioral or mental health complaints. 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 Transition of care: patient was not received from another setting of care. 18:34 Acuity: SOFIE Level 3 [facility] 18:34 Method Of Arrival: Ambulance [facility] Triage Assessment: 18:34 General: Appears in no apparent distress, comfortable, Behavior is appropriate for age, [facility] cooperative. Pain: Denies pain. Neurological: Level of Consciousness is awake, alert, Oriented to person, place, time. Respiratory: Airway is patent Respiratory effort is even, unlabored, Respiratory pattern is regular, symmetrical. : incontinent large amount foul smelling urine. Musculoskeletal: Range of motion intact in all extremities. Historical: - Allergies: PENICILLINS (Rash); - Home Meds: 1. baclofen 10 mg Oral tab 1 tab every 3 hours 2. Calcium + Vitamin D 600/400 Oral tab 600 mg daily 3. cranberry fruit 475 mg oral cap nightly 4. nortriptyline 10 mg Oral cap bid 5. omeprazole 40 mg Oral cpDR 1 cap once daily 6. Vitamin D Oral 5000 unit daily 7. Tecfidera 250 mg oral cpDR 2 times per day 8. Forteo 600 mcg/2.4ml daily 9. aspirin 81 mg Oral tab 1 tab once daily - PMHx: Multiple Sclerosis; Fatty Liver Disease; History of recurrent UTI's and urinary retention; Depression; Osteoporosis; Obesity; Vitamin D deficiency; hyperlipidemia; - PSHx: Tonsillectomy; Hysterectomy; - The history from nurses notes was reviewed: and I agree with what is documented. - Social history: Smoking status: Patient states was never smoker of tobacco. No barriers to communication noted. - : The pt / caregiver states he / she is not on anticoagulants. Home medication list is obtained from primary care notes. - Hospitalizations: : No recent hospitalization is reported. - Exposure Risk Screening:: None identified. - Immunization history:: All immunizations up-to-date. - Family history: Not pertinent. - Social history:: the patient is a non-smoker, the patient does not drink alcohol. Screenin:58 Screening information is obtained from the patient. Fall risk: At risk due to [facility] immobility. Assistance ADL's: requires no assistance with activities of daily living. Abuse/DV Screen: The patient / caregiver reports he/she is: not in a situation that causes fear, pain or injury. Nutritional screening: No deficits noted. Advance Directives: Currently, there is no health care proxy. There is no active DNR order. There is no living will. There is no Power of Bookkeeping Assistant. home support is adequate. Assessment: 18:58 General: see bedside triage assessment. [facility] 19:48 General: No changes from previous assessment, visitor at bedside, denies needs. [facility] 20:00 General: visitor at bedside, discussed medications and plan of care, IV infusing cjh without difficulty, denies needs at this time. 20:00 General: Appears in no apparent distress, comfortable, Behavior is appropriate for age, cjh cooperative, awaiting admission, no new problems or complaints, no changes from previous assessment. Vital Signs: 18:01 BP 130 / 66; Pulse 102; Resp 20; Temp 100.5(TE); Pulse Ox 98% on R/A; Height 5 ft. 4 ar3 in. (162.56 cm) (R); Pain 0/10; 20:34 BP 107 / 60; Pulse 90; Resp 18; Temp 99.6(O); Pulse Ox 96% on R/A; Pain 0/10; macey Vitals: 18:34 Log In Time N/A - ambulance arrival. [facility] ED Course: 17:41 Patient visited by Arminda Osorio, Lead Informatica Developer. lbd 17:41 Zurdo Skelton is Private Physician. lbd 17:41 Patient moved to Waiting lbd 17:42 Patient moved to 18 lbd 17:48 Jose Quigley MD is Attending Physician. pc 18:01 Patient visited by Jazmyne Garcia PCA. ar3 18:01 patient cleaned of incontinence twice. ar3 18:02 Patient visited by Jazmyne Garcia PCA. ar3 18:09 Patient visited by Jose Quigley MD. pc 18:30 BLOOD CULTURES Sent. ct3 18:30 -Blood Culture Sent. ct3 18:30 MED Profile Sent. ct3 18:30 CBC with Diff Sent. ct3 18:35 [facility] Payment Agreement was scanned into [employer] and attached to record. ks16 18:36 Triage Initiated cjh 18:53 Urine Culture Sent. ct3 18:53 Urinalysis Sent. ct3 18:58 The patient / caregiver is instructed regarding the plan of care and ED course. cjh 18:58 No IV's were initiated during this patient's visit. No procedures done that require [facility] assistance. Rosario cath inserted 16 Fr. Balloon inflated. To gravity drainage. Urine specimen collected. returned cloudy urine. 19:00 Patient visited by Vikki Crowell RN. [facility] 19:18 Chest, 1 View Returned. EDMS 19:26 Meng Centeno MD is Hospitalizing Provider. pc 19:48 Inserted saline lock: 20 gauge in left forearm. cjh 20:35 Patient visited by Yumi Solano PCA. macey 09/08 09:05 PCR was scanned into [employer] and attached to record. gb Administered Medications: 09/07 18:57 Drug: Acetaminophen 650 mg [acetaminophen 325 mg tablet (2 tabs)] Route: PO; [facility] 20:11 Drug: Solu-MEDROL 1000 mg [Solu-Medrol 500 mg intravenous solution (1000 mg)] Route: [facility] IVP; Site: left forearm; Output: 21:15 Urine: 300.00ml (Rosario); Total: 300.00ml. [facility] Order Results: Lab Order: Urinalysis; SPEC'M 09/07/16 18:21 Test: APPEARANCE, URINE; Value: CLOUDY; Range: CLEAR; Abnormal: Above high normal; Status: F Test: COLOR, URINE; Value: SUMMER; Range: YELLOW; Status: F Test: PH,URINE; Value: 6.0; Range: 5.0-9.0; Units: UNITS; Status: F Test: SPECIFIC GRAVITY URINE AUTO; Value: 1.018; Range: 1.002-1.035; Status: F Test: PROTEIN, URINE AUTO; Value: 1+; Range: NEGATIVE; Abnormal: Above high normal; Units: mg/dL; Status: F Test: GLUCOSE, URINE (UA) AUTO; Value: NEGATIVE; Range: NEGATIVE; Units: mg/dL; Status: F Test: KETONE, URINE AUTO; Value: TRACE; Range: NEGATIVE; Abnormal: Above high normal; Units: mg/dL; Status: F Test: UROBILINOGEN, URINE AUTO; Value: 0.2; Range: 0.0-2.0; Units: mg/dL; Status: F Test: BILIRUBIN, URINE AUTO; Value: NEGATIVE; Range: NEGATIVE; Status: F Test: NITRITE, URINE AUTO; Value: NEGATIVE; Range: NEGATIVE; Status: F Test: LEUKOCYTE ESTERASE, URINE AUTO; Value: TRACE; Range: NEGATIVE; Abnormal: Above high normal; Status: F Test: BLOOD, URINE BLOOD; Value: 1+; Range: NEGATIVE; Abnormal: Above high normal; Status: F Test: WBC, URINE AUTO; Value: 3; Range: 0-3; Units: /HPF; Status: F Test: RBC, URINE AUTO; Value: 5; Range: 0-3; Abnormal: Above high normal; Units: /HPF; Status: F Test: BACTERIA, URINE AUTO; Value: NEGATIVE; Range: NEGATIVE; Status: F Test: SQUAMOUS EPITHELIAL CELL UR AU; Value: 0; Range: 0-6; Units: /HPF; Status: F Test: MUCUS, URINE; Value: SMALL; Range: NEGATIVE; Status: F Test: HYALINE CAST, URINE AUTO; Value: 0; Range: 0-1; Units: /LPF; Status: F Test: AMORPHOUS SEDIMENT; Value: LARGE; Range: NEGATIVE; Abnormal: Above high normal; Status: F Lab Order: CBC with Diff; SPEC'M 09/07/16 18:26 Test: WHITE BLOOD COUNT; Value: 11.1; Range: 4.0-10.0; Abnormal: Above high normal; Units: K/mm3; Status: F Test: RED BLOOD COUNT; Value: 4.38; Range: 4.00-5.40; Units: M/mm3; Status: F Test: HEMOGLOBIN; Value: 13.8; Range: 12.0-16.0; Units: g/dl; Status: F Test: HEMATOCRIT; Value: 40.3; Range: 36.0-47.0; Units: %; Status: F Test: MEAN CORPUSCULAR VOLUME; Value: 91.9; Range: 80.0-96.0; Units: fl; Status: F Test: MEAN CORPUSCULAR HEMOGLOBIN; Value: 31.4; Range: 27.0-33.0; Units: pg; Status: F Test: MEAN CORPUSCULAR HGB CONC; Value: 34.2; Range: 32.0-36.5; Units: g/dl; Status: F Test: RED CELL DISTRIBUTION WIDTH; Value: 12.8; Range: 11.5-14.5; Units: %; Status: F Test: PLATELET COUNT, AUTOMATED; Value: 241; Range: 150-450; Units: k/mm3; Status: F Test: NEUTROPHILS %; Value: 89.9; Range: 36.0-66.0; Abnormal: Above high normal; Units: %; Status: F Test: LYMPH %; Value: 3.7; Range: 24.0-44.0; Abnormal: Below low normal; Units: %; Status: F Test: MONO %; Value: 5.0; Range: 0.0-5.0; Units: %; Status: F Test: EOS %; Value: 0.3; Range: 0.0-3.0; Units: %; Status: F Test: BASO %; Value: 0.2; Range: 0.0-1.0; Units: %; Status: F Test: LARGE UNSTAINED CELL %; Value: 1.0; Range: 0.0-4.0; Units: %; Status: F Test: NEUTROPHILS #; Value: 10.0; Range: 1.8-7.7; Abnormal: Above high normal; Units: K/mm3; Status: F Test: LYMPH #; Value: 0.4; Range: 1.5-4.5; Abnormal: Below low normal; Units: K/mm3; Status: F Test: MONO #; Value: 0.6; Range: 0.0-0.8; Units: K/mm3; Status: F Test: EOS #; Value: 0.0; Range: 0.0-0.50; Units: K/mm3; Status: F Test: BASO #; Value: 0.0; Range: 0.0-0.2; Units: K/mm3; Status: F Test: LARGE UNSTAINED CELL #; Value: 0.1; Range: 0.0-0.4; Units: K/mm3; Status: F Lab Order: MED Profile; SPEC'M 09/07/16 18:26 Test: GLUCOSE, FASTING; Value: 125; Range: 80-110; Abnormal: Above high normal; Units: MG/DL; Status: F Test: BLOOD UREA NITROGEN; Value: 36; Range: 7-18; Abnormal: Above high normal; Units: MG/DL; Status: F Test: CREATININE FOR GFR; Value: 0.74; Range: 0.55-1.02; Units: MG/DL; Status: F Test: GLOMERULAR FILTRATION RATE; Value: > 60.0; Range: >45; Status: F Test: SODIUM LEVEL; Value: 144; Range: 136-145; Units: MEQ/L; Status: F Test: POTASSIUM SERUM; Value: 4.1; Range: 3.5-5.1; Units: MEQ/L; Status: F Test: CHLORIDE LEVEL; Value: 103; Range: 98-107; Units: MEQ/L; Status: F Test: CARBON DIOXIDE LEVEL; Value: 31; Range: 21-32; Units: MEQ/L; Status: F Test: ANION GAP; Value: 10; Range: 8-16; Units: MEQ/L; Status: F Test: CALCIUM LEVEL; Value: 10.4; Range: 8.8-10.2; Abnormal: Above high normal; Units: MG/DL; Status: F Test Note: ; Units are mL/min/1.73 m2 Chronic Kidney Disease Staging per NKF: Stage I & II GFR >=60 Normal to Mildly Decreased Stage III GFR 30-59 Moderately Decreased Stage IV GFR 15-29 Severely Decreased Stage V GFR <15 Very Little GFR Left ESRD GFR <15 on HAZARDOUS SUBSTANCES ENGINEER Lab Order: -Influenza A&B Rapid Antigen - Nose; SPEC'M 09/07/16 18:21 Test: INFLUENZA A RAPID SCR by ICA; Value: INFLUENZA A RESULTS NEGATIVE; Status: F Test: INFLUENZA A RAPID SCR by ICA; Value: Comments:; Status: F Test: INFLUENZA B RAPID SCR by ICA; Value: INFLUENZA B RESULTS NEGATIVE; Status: F Test Note: ; The Influenza test is a direct rapid immunoassay for the qualitative detection of Influenza viral antigen. Cell culture (Viral Culture) testing should be considered to confirm NEGATIVE results and to assist in detecting other viruses that can provide similar clinical symptoms. Please contact the lab within 24 hours ([phone] if confirmatory testing is desired. Lab Order: THYROID STIMULATING HORMONE; SPEC'M 09/07/16 18:26 Test: THYROID STIMULATING HORMONE; Value: 0.726; Range: 0.358-3.740; Units: uIU/ML; Status: F Radiology Order: Chest, 1 View Test: Chest, 1 View REASON FOR EXAMINATION: fever; CHEST, ONE VIEW:; ; HISTORY: Fever.; ; COMPARISON: 09/21/2015; ; There is elevation of the left hemidiaphragm. The lungs are clear. The heart is; normal in size. The pulmonary vasculature is normal in appearance.; ; IMPRESSION:; ; No acute disease.; ; ; Signed by; Kervin Mulligan MD 09/07/2016 07:28 P; Outcome: 19:26 Decision to Hospitalize by Provider. 20:00 Discharge Assessment: Patient awake, alert and oriented x 3. No cognitive and/or [facility] functional deficits noted. Patient verbalized understanding of disposition instructions. patient administered narcotics - no. The following High Risk Discharge criteria are identified: None. Admitted to Med/Surg accompanied by tech, via stretcher, with chart. Condition: good Condition: stable Condition: improved. No special radiology studies were completed. Property :Personal belongings accompany Pt. 20:40 Admission hand-off: Report Faxed Fax receipt verified by Cindy Roblero RN. ko2 21:20 Patient left the ED. [facility] Signatures: Dispatcher [employer] EDMS Jose Quigley MD MD pc Daly, Linda, Lead Informatica Developer Unit lbd Trish Reed, Reg Reg gb Jose, Jazmyne, PRECISION DYER PRECISION DYER ar3 Yumi Solano, PRECISION DYER PRECISION DYER macey Arvizu, Becka, PRECISION DYER PRECISION DYER ct3 Vikki Crowell RN RN [facility] Peyton Gresham RN RN ko2 Candi Izaguirre, Reg Reg [email or web address] Chart Complete MTDD
--- NOTE | 2016-09-09 22:21 | EDDOCDS ---
Physician Documentation [facility] Name: Munira Harrison Age: 70 yrs Sex: Female : 1945 Arrival Date: 09/07/2016 Time: 17:40 Bed 18 Private MD: Zurdo Skelton E. Disposition: 09/07 19:25 Critical Care: Critical care not applicable. pc Disposition: 09/07/16 19:26 Hospitalization ordered by Meng Centeno for Inpatient Admission. Preliminary diagnosis is Multiple sclerosis. - Bed requested for 4 [place]. - Status is Inpatient Admission. [facility] - Condition is Stable. - Problem is an acute exacerbation. - Symptoms are unchanged. HPI: 18:14 This 70 yrs old Female presents to ER with complaints of Can't walk. pc 18:14 The history is obtained from the patient. She has MS and can only stand to transfer to her wheelchair. She is unable to stand today. She lives in an adult apartment complex and her friends have been helping her. She denies any recent illnesses, denies any fevers or chills. She did not want to come to the ED but her friends told her they could not continue to help her, that she needed help. 18:25 The patient has not experienced similar symptoms in the past. The patient has been pc recently seen by Dr. Valiente. Historical: - Allergies: PENICILLINS (Rash); - Home Meds: 1. baclofen 10 mg Oral tab 1 tab every 3 hours 2. Calcium + Vitamin D 600/400 Oral tab 600 mg daily 3. cranberry fruit 475 mg oral cap nightly 4. nortriptyline 10 mg Oral cap bid 5. omeprazole 40 mg Oral cpDR 1 cap once daily 6. Vitamin D Oral 5000 unit daily 7. Tecfidera 250 mg oral cpDR 2 times per day 8. Forteo 600 mcg/2.4ml daily 9. aspirin 81 mg Oral tab 1 tab once daily - PMHx: Multiple Sclerosis; Fatty Liver Disease; History of recurrent UTI's and urinary retention; Depression; Osteoporosis; Obesity; Vitamin D deficiency; hyperlipidemia; - PSHx: Tonsillectomy; Hysterectomy; - The history from nurses notes was reviewed: and I agree with what is documented. - Social history: Smoking status: Patient states was never smoker of tobacco. No barriers to communication noted. - : The pt / caregiver states he / she is not on anticoagulants. Home medication list is obtained from primary care notes. - Hospitalizations: : No recent hospitalization is reported. - Exposure Risk Screening:: None identified. - Immunization history:: All immunizations up-to-date. - Family history: Not pertinent. - Social history:: the patient is a non-smoker, the patient does not drink alcohol. ROS: 18:25 All systems are negative except as listed. pc Exam: 18:25 General Appearance: no acute distress, alert. pc 18:25 EENT: normal eye inspection, ears, nose and throat normal, pharynx normal, mucous membranes moist 18:25 Neck: The exam reveals no acute abnormalities. ROM is normal and painless. No nuchal rigidity is noted.. 18:25 Respiratory: no respiratory distress, normal breath sounds. 18:25 CVS: regular pulse rate, regular rhythm, normal S1 and S2, no murmurs, strong peripheral pulses. 18:25 Abdomen: soft, non-tender, no organomegaly, normal bowel sounds. 18:25 Back: normal inspection. 18:25 Skin: skin color is normal, warm, dry. 18:25 Extremities: The extremities have a grossly normal appearance. 18:25 Neuro: oriented x 3, cranial nerves normal as tested, strength testing is normal except for strength is 1/5 in right leg and left leg. Vital Signs: 18:01 BP 130 / 66; Pulse 102; Resp 20; Temp 100.5(TE); Pulse Ox 98% on R/A; Height 5 ft. 4 ar3 in. (162.56 cm) (R); Pain 0/10; 20:34 BP 107 / 60; Pulse 90; Resp 18; Temp 99.6(O); Pulse Ox 96% on R/A; Pain 0/10; macey MDM: 18:11 Rosario ordered. pc 18:11 -Blood Culture (Adults Only), peripheral from different site, or from device/port/PICC pc etc. if present ordered. 18:11 Obtain sample by nasopharyngeal swab ordered. pc 18:11 Acetaminophen Tablet 650 mg PO once ordered. pc 18:11 Urinalysis Ordered. EDMS 18:11 Urine Culture Ordered. EDMS 18:11 CBC with Diff Ordered. EDMS 18:11 MED Profile Ordered. EDMS 18:11 -Blood Culture Ordered. EDMS 18:11 -Influenza A&B Rapid Antigen - Nose Ordered. EDMS 18:13 Chest, 1 View Ordered. EDMS 18:20 -Blood Culture (Adults Only), peripheral from different site, or from device/port/PICC dem1 etc. if present complete. 18:21 BLOOD CULTURES Ordered. EDMS 18:25 Differential Diagnosis: new LE weakness with history of MS, likely acute flare r/o pc infections; urinary incontinence. Plan: labs, imaging, d/w Neurology. 18:34 Financial registration complete. [email or web address] 18:35 [facility] Payment Agreement was scanned into [employer] and attached to record. [email or web address] 19:08 Urinalysis Reviewed. pc 19:08 CBC with Diff Reviewed. pc 19:08 MED Profile Reviewed. pc 19:23 Solu-MEDROL 1000 mg IVP once ordered. pc 19:25 Data reviewed: old medical records, vital signs, nurses notes, lab test results, all pc radiology studies and available results. Test interpretation: LAB - all labs as ordered have been reviewed, interpreted and considered in the overall management of the clinical presentation; X-RAY - interpreted by Radiologist and personally reviewed, 1 view chest no acute disease. The patient has been re-examined and re-evaluated. There is no appreciated change of the patient's symptoms at this time. Physician consultation: Dr. Jordi Farfan was contacted at 19:25, regarding patient's condition, and he advises IV steroids and he will assess her tomorrow and decide which MRIs to perform. 19:25 Physician consultation: Dr. Meng Centeno MD was contacted at 19:26, regarding admission, pc and will see patient in ED. Disposition: The historical points, examination findings, and any diagnostic results supporting the provided diagnosis, were discussed with the patient or legal guardian. The need for further work-up and/or treatment in the hospital was explained. 20:07 Admission / Observation Status ordered. EDMS 20:08 CONSISTENT CARBOHYDRATES ordered. EDMS 20:09 COMPLETE BLOOD COUNT Ordered. EDMS 20:16 THYROID STIMULATING HORMONE Ordered. EDMS 20:16 PTH INTACT Ordered. EDMS 20:16 VITAMIN D, 25-HYDROXY Ordered. EDMS 20:49 BASIC METABOLIC PROFILE Ordered. EDMS 18 09:05 PCR was scanned into [employer] and attached to record. gb Administered Medications: 09/07 18:57 Drug: Acetaminophen 650 mg [acetaminophen 325 mg tablet (2 tabs)] Route: PO; [facility] 20:11 Drug: Solu-MEDROL 1000 mg [Solu-Medrol 500 mg intravenous solution (1000 mg)] Route: [facility] IVP; Site: left forearm; Signatures: Dispatcher [employer] Jose Mooney MD MD Trish Reed, Reg Reg gb Yeyo Pierre, Soil Technologist Unit ml3 DemetrisBeverleyraphael dem1 Vikki Crowell RN RN [facility] Candi Izaguirre, Reg Reg [email or web address] The chart was reviewed and I authenticate all verbal orders and agree with the evaluation and treatment provided.Corrections: (The following items were deleted from the chart) 18:26 18:14 She has MS and can only stand to transfer to her wheelchair. She is unable to pc stand today. She lives in an adult apartment complex and her friends have been helping her. She denies any recent illnesses, denies any fevers or chills. pc 20:16 20:09 THYROID STIMULATING HORMONE ordered. EDMS EDMS 20:49 20:09 BASIC METABOLIC PROFILE ordered. EDMS EDMS Attachments: 18:35 [facility] Payment Agreement [email or web address] Chart Complete MTDD
[2016-09-10 06:00] VITALS: BP 149/75
[2016-09-10 06:19] LABS: MEAN CORPUSCULAR HEMOGLOBIN 30.9 pg (27.0-33.0); MEAN CORPUSCULAR HGB CONC 33.4 g/dl (32.0-36.5); MEAN CORPUSCULAR VOLUME 92.5 fl (80.0-96.0); RED CELL DISTRIBUTION WIDTH 13.1 % (11.5-14.5); WHITE BLOOD COUNT 6.7 K/mm3 (4.0-10.0)
[2016-09-10 06:32] LABS: ANION GAP 8 MEQ/L (8-16); BLOOD UREA NITROGEN 24 MG/DL (7-18); CALCIUM LEVEL 9.3 MG/DL (8.8-10.2); CARBON DIOXIDE LEVEL 27 MEQ/L (21-32); CHLORIDE LEVEL 111 MEQ/L (98-107); CREATININE FOR GFR 0.55 MG/DL (0.55-1.02); GLOMERULAR FILTRATION RATE > 60.0 (>45); GLUCOSE, FASTING 131 MG/DL (80-110); POTASSIUM SERUM 3.9 MEQ/L (3.5-5.1); SODIUM LEVEL 146 MEQ/L (136-145)
[2016-09-10] MEDS: NORTRIPTYLINE 10 MG CAP PO SCH ×2 (08:10→22:09)
[2016-09-10] MEDS: NITROFURANTOIN (MACROBID) 100 MG CAP PO SCH ×2 (08:11→22:10)
[2016-09-10] MEDS: OMEPRAZOLE 20 MG CAP PO SCH (08:11)
[2016-09-10] MEDS: VITAMIN D 1,000 INTERNATIONAL UNITS TABLET PO SCH (08:11)
[2016-09-10] MEDS: FEXOFENADINE 60 MG TAB PO SCH (08:11)
[2016-09-10] MEDS: ENOXAPARIN 40 MG/0.4 ML SYRINGE (J1650) SC SCH (08:11)
[2016-09-10] MEDS: BACLOFEN 10 MG TAB PO SCH ×3 (08:11→22:10)
[2016-09-10] MEDS: ASPIRIN 81 MG ENTERIC TAB PO SCH (08:11)
[2016-09-10] MEDS: HumaLOG INSULIN (NovoLOG) PER UNIT SC SCH ×4 (08:12→21:00)
--- NOTE | 2016-09-10 08:28 | IPNPDOC ---
Assessment/Plan Date Seen The patient was seen on 09/10/16. Problems Problems: (1) Multiple sclerosis exacerbation Status: Acute Problem Specific Plan: Consult Specialist Problem Text: Without Tecfidera x 2 days. Nursing confirmed delivery within next few days. Solumedrol 1 gram IV q 24hrs. Neuro consulted. To see patient today. PT ordered. See Neuro Consult. s/p MRI: reports pending (2) UTI (urinary tract infection) Status: Acute Problem Text: Hx of Neurogenic bladder and recurrent UTI. Urine cx pending. Ceftriaxone 1 gram IV. Cx + for aeroccocus less than 80,000. Usually sensitive to cefepime and PCN or pipercillin. + PCN allergy. Changed to ceftaroline to help also cover skin structure infection. 09/10/2016: On Macrobid po. (3) Cellulitis of right lower extremity Status: Acute Problem Text: Will r/o DVT based on patients decreased activity recently. Ceftaroline added on. Nursing to monitor. (4) Hyperlipidemia Status: Chronic Response to Treatment: Stable (5) GERD (gastroesophageal reflux disease) Status: Chronic Response to Treatment: Stable (6) LEAL (nonalcoholic steatohepatitis) Status: Chronic Response to Treatment: Stable (7) Impaired fasting blood sugar Status: Chronic Response to Treatment: Stable Problem Specific Plan: Monitor Clinically Problem Text: fasting glucose of 159 this am. Will monitor. Plan / VTE VTE Prophylaxis Ordered?: Yes (Lovenox) Plan / Urinary Catheter Reason for insertion/continuin: Critical Pt monitoring Plan Therapy: PT Plan Text Attending note: I saw and evaluated the patient, and agree with the plan of care as discussed and documented above, with the following interval change: MRI of brain, thoracic spine, and lumbar spine done by neurology. Thoracic spine demonstrates possible metastatic lesion at T9. Patient has had a recent negative mammogram in 2016, recent colonoscopy within the last 10 years, and has a history of GIANNA with BSO, so unclear where this may be from, or if it is in fact metastatic disease. Will start with a skeletal survey. May need to involve oncology to review imaging, and give recommendations for further workup , including recommended tumor markers. Christian Pennington MD Subjective Review of Systems CC/HPI The patient is a 70-year-old female admitted with a reason for visit of Multiple Sclerosis Exacerbation. Events since last encounter Denies c/o. Had reaction to cephalosporin Abx yesterday. RLE erythema and swelling resolved with benadryl and Solumedrol IV x 1. Changed to macrobid or UTI. MRI completed. report pending. Constitutional: Denies: Chills, Fever, Malaise, Night Sweats, Weakness Eyes: Denies: Pain, Vision change ENT: Denies: Dysphagia, Ear Pain, Head Aches Skin: Reports: Other (abrasion Right lateral ankle) Pulmonary: Denies: Cough, Dyspnea Cardiovascular: Denies: Chest Pain, Lt Headedness, Orthopnea, Palpitations, Paroxysmal Noc. Dyspnea Gastrointestinal: Denies: Abdominal Pain, Diarrhea, Nausea, Vomiting Genitourinary: Reports: Other Symptoms ([place]. Hx of neurogenic bladder) Psych: Reports: Mood Normal, Denies: Depression, Memory Issues Objective Physical Examination General Exam: Positive: Alert, No Acute Distress Eye Exam: Positive: EOMI, PERRLA ENT Exam: Positive: Atraumatic, Mucous membr. moist/pink Neck Exam: Positive: Supple, Negative: JVD Chest Exam: Positive: Clear to auscultation, Normal air movement Heart Exam: Positive: Normal S1, Normal S2, Rate Normal Abdomen Exam: Positive: Normal bowel sounds, Soft, Tenderness Extremity Exam: Positive: Other (RLE: erythema and warmth up to mid thigh, + swelling. ) Skin Exam: Positive: Nl turgor and temperature Neuro Exam: Positive: Normal Speech, Other (BLE strength 3/5 Bilateral) Vital Signs/I&O Vital Signs Date Time Temp Pulse Resp B/P Pulse Ox O2 Delivery O2 Flow Rate FiO2 09/10/16 06:00 96.4 72 19 149/75 95 Room Air I&O- Last 24 Hours up to 6 AM 09/10/16 06:00 Intake Total 1680 ml Output Total 1100 ml Balance 580 ml Laboratory Data Labs 24H Laboratory Tests 2 09/09/16 11:29: Bedside Glucose (Misc Panel) 95 09/09/16 16:56: Bedside Glucose (Misc Panel) 146H 09/09/16 21:44: Bedside Glucose (Misc Panel) 129H 09/10/16 05:35: Anion Gap 8, Blood Urea Nitrogen 24H, Creatinine 0.55, Sodium Level 146H, Potassium Level 3.9, Chloride Level 111H, Carbon Dioxide Level 27, Calcium Level 9.3, Glomerular Filtration Rate > 60.0 CBC/BMP Laboratory Tests 09/10/16 05:35 Calcium Level 9.3, Red Blood Count 3.75 L, Mean Corpuscular Volume 92.5, Mean Corpuscular Hemoglobin 30.9, Mean Corpuscular Hemoglobin Concent 33.4, Red Cell Distribution Width 13.1 FSBS Laboratory Tests Test 09/09/16 11:29 09/09/16 16:56 09/09/16 21:44 Range/Units Bedside Glucose (Misc Panel) 95 146 129 80-115 MG/DL Microbiology Microbiology 09/07/16 Blood Culture - Preliminary, Resulted No Growth after 48 hours. All Specime... 09/07/16 Blood Culture - Preliminary, Resulted No Growth after 48 hours. All Specime... 09/07/16 Influenza Virus Type A Antigen - Final, Complete 09/07/16 Influenza Virus Type B Antigen - Final, Complete 09/07/16 Urine Culture - Final, Complete Aerococcus Urinae Tosha Urban Sep 10, 2016 08:28 CHRISTIAN PENNINGTON MD Sep 10, 2016 18:45
--- NOTE | 2016-09-10 08:32 | REP ---
MR BRAIN WITHOUT AND WITH CONTRAST: HISTORY: Multiple sclerosis. Contrast: ProHance 13 mL. Multiple areas of increased signal intensity on T2-weighted images are present in the periventricular and subcortical white matter. Additional areas of increased signal intensity are present in the corpus callosum. There is no intraparenchymal hemorrhage, mass or midline shift. There is no abnormal enhancement . The ventricular system and cortical sulci are dilated consistent with moderate volume loss. There is no extracerebral collection. Mucosal thickening is present in the right maxillary sinus. IMPRESSION: The above findings are consistent with multiple sclerosis. ? Signed by Kervin Mulligan MD 09/10/2016 08:42 A
--- NOTE | 2016-09-10 09:05 | REP ---
MR CERVICAL SPINE WITHOUT AND WITH CONTRAST: HISTORY: Multiple sclerosis. Contrast: ProHance 13 mL. A disc bulge is present at the C3-4 level. There is minimal effacement of the thecal sac without spinal cord compression. Bilateral uncinate process hypertrophy is present. This produces minimal narrowing of the C3 neural foramina. A disc bulge is present at the C4-5 level. There is mild effacement of the thecal sac without spinal cord compression. Bilateral uncinate process hypertrophy is present. This produces minimal narrowing of the C4 neural foramina. A disc bulge is present at the C5-6 level. There is mild effacement of the thecal sac without spinal cord compression. Uncinate process hypertrophy is present on the left. This produces minimal narrowing of the left C5 neural foramen. The right C5 neural foramen is patent. A disc bulge is present at the C6-7 level. There is minimal effacement of the thecal sac without spinal cord compression. Uncinate process hypertrophy is present on the right. This produces minimal narrowing of the right C6 neural foramen. The left C6 neural foremen is patent. There is no other disc bulge or herniation. The remaining neural foramina are patent. The spinal cord is normal in signal intensity. There is no intradural extramedullary lesion. There is no abnormal enhancement. The C3-4 through C5-6 intervertebral discs are decreased in height consistent with disc degeneration. Increased signal intensity on T2-weighted images is present in the superior endplate of the C7 vertebral body. This represents degenerative change. IMPRESSION: There is cervical spondylosis at the C3-4 through C6-7 levels without spinal cord compression. Signed by Kervin Mulligan MD 09/10/2016 09:08 A
--- NOTE | 2016-09-10 09:14 | REP ---
MR THORACIC SPINE WITHOUT AND WITH CONTRAST: HISTORY: Multiple sclerosis. Contrast: ProHance 13 mL. There is no disc bulge or herniation. Increased signal intensity on T2-weighted images is present in the posterior T9 vertebral body. There is extension into the pedicles and left T9 facet. There is moderate enhancement with contrast. Small epidural and paravertebral components are present. There is extension into the left T9 neural foremen. There is minimal spinal cord compression. There is no loss of vertebral body height. There is no subluxation. A hemangioma is present in the T11 vertebral body. Normal signal intensity is present in the remaining thoracic vertebral bodies. The spinal cord is normal in signal intensity. IMPRESSION: 1. There is no disc bulge or herniation. 2. There is an enhancing lesion in the T9 vertebral body with epidural and paravertebral extension and minimal spinal cord compression. This is consistent with a metastasis. ? Signed by Kervin Mulligan MD 09/10/2016 09:21 A
[2016-09-10 14:00] VITALS: BP 129/60
[2016-09-10] MEDS: FORTEO SQ SCH (17:00)
[2016-09-10 22:00] VITALS: BP 142/73
[2016-09-10] MEDS: methylPREDNISolone 1,000 MG, VIAL MATE ADAPTER 1 EACH in D5W 250 ML IV SCH (22:09)
[2016-09-10] MEDS: TECFIDERA PO SCH (22:10)
[2016-09-11 06:00] VITALS: BP 124/73
[2016-09-11 06:33] LABS: MEAN CORPUSCULAR HEMOGLOBIN 30.9 pg (27.0-33.0); MEAN CORPUSCULAR HGB CONC 33.4 g/dl (32.0-36.5); MEAN CORPUSCULAR VOLUME 92.4 fl (80.0-96.0); WHITE BLOOD COUNT 6.4 K/mm3 (4.0-10.0)
[2016-09-11 06:45] LABS: ANION GAP 8 MEQ/L (8-16); BLOOD UREA NITROGEN 26 MG/DL (7-18); CALCIUM LEVEL 9.2 MG/DL (8.8-10.2); CARBON DIOXIDE LEVEL 27 MEQ/L (21-32); CHLORIDE LEVEL 109 MEQ/L (98-107); CREATININE FOR GFR 0.52 MG/DL (0.55-1.02); GLOMERULAR FILTRATION RATE > 60.0 (>45); GLUCOSE, FASTING 141 MG/DL (80-110); POTASSIUM SERUM 3.6 MEQ/L (3.5-5.1); SODIUM LEVEL 144 MEQ/L (136-145)
[2016-09-11] MEDS: HumaLOG INSULIN (NovoLOG) PER UNIT SC SCH ×4 (08:14→21:39)
[2016-09-11] MEDS: TECFIDERA PO SCH ×2 (08:14→21:48)
[2016-09-11] MEDS: FEXOFENADINE 60 MG TAB PO SCH (08:14)
[2016-09-11] MEDS: VITAMIN D 1,000 INTERNATIONAL UNITS TABLET PO SCH (08:15)
[2016-09-11] MEDS: ASPIRIN 81 MG ENTERIC TAB PO SCH (08:15)
[2016-09-11] MEDS: OMEPRAZOLE 20 MG CAP PO SCH (08:15)
[2016-09-11] MEDS: BACLOFEN 10 MG TAB PO SCH ×3 (08:15→21:47)
[2016-09-11] MEDS: NORTRIPTYLINE 10 MG CAP PO SCH ×2 (08:15→21:47)
[2016-09-11] MEDS: ENOXAPARIN 40 MG/0.4 ML SYRINGE (J1650) SC SCH (08:15)
[2016-09-11] MEDS: NITROFURANTOIN (MACROBID) 100 MG CAP PO SCH (08:15)
--- NOTE | 2016-09-11 10:52 | IPNPDOC ---
Assessment/Plan Date Seen The patient was seen on 09/11/16. Problems Problems: (1) Metastasis Status: Acute Problem Text: 09/11/[address] series 09/09/16 incidental finding of T9 vertebral enhancing lesion c epidural extension , minimal cord compression 09/11/16 - WB bone survey 03/2007 - colonoscopy-Betsy 11/2015 normal B mammo Unknown primary source (2) Multiple sclerosis exacerbation Status: Acute Problem Specific Plan: Consult Specialist Problem Text: Without Tecfidera x 2 days. Nursing confirmed delivery within next few days. Solumedrol 1 gram IV q 24hrs. Neuro consulted. To see patient today. PT ordered. See Neuro Consult. s/p MRI: reports pending (3) UTI (urinary tract infection) Status: Acute Problem Text: patient asymptomatic Hx of Neurogenic bladder and recurrent UTI. D3 ceftaroline 07/12/17 nitro po held 07/08/17 UCX aeroccocus less than 80,000 (4) Cellulitis of right lower extremity Status: Acute Problem Text: improving D3 ceftaroline Plan / VTE VTE Prophylaxis Ordered?: Yes (Lovenox) Plan / Urinary Catheter Reason for insertion/continuin: Critical Pt monitoring Plan Therapy: PT Subjective Review of Systems CC/HPI The patient is a 70-year-old female admitted with a reason for visit of Multiple Sclerosis Exacerbation. Events since last encounter Found to have concern for a metastatic lesion to thoracic spine on MRI. Bone scan ordered, results pending. Mammogram and colonoscopy are up to date. Constitutional: Denies: Chills, Fever, Malaise, Night Sweats, Weakness ENT: Denies: Dysphagia, Ear Pain, Head Aches Skin: Denies: Breakdown, Lesions, Rash Pulmonary: Denies: Cough, Dyspnea Cardiovascular: Denies: Chest Pain, Lt Headedness, Orthopnea, Palpitations, Paroxysmal Noc. Dyspnea Gastrointestinal: Denies: Abdominal Pain, Diarrhea, Nausea, Vomiting Genitourinary: Denies: Dysuria, Frequency, Incontinence, Retention Hematologic: Denies: Bleeding Excessively, Bruising Neurological: Reports: Weakness (general and right sided) Psych: Reports: Mood Normal, Denies: Depression, Memory Issues Objective Physical Examination General Exam: Positive: Alert, No Acute Distress Eye Exam: Positive: EOMI, PERRLA ENT Exam: Positive: Atraumatic, Mucous membr. moist/pink Neck Exam: Positive: Supple, Negative: JVD Chest Exam: Positive: Clear to auscultation, Normal air movement Heart Exam: Positive: Normal S1, Normal S2, Rate Normal Abdomen Exam: Positive: Normal bowel sounds, Soft, Tenderness Extremity Exam: Positive: Other (RLE: erythema and warmth up to mid thigh, + swelling. ) Skin Exam: Positive: Nl turgor and temperature Neuro Exam: Positive: Normal Speech, Other (BLE strength 3/5 Bilateral) Vital Signs/I&O Vital Signs Date Time Temp Pulse Resp B/P Pulse Ox O2 Delivery O2 Flow Rate FiO2 09/11/16 09:00 Room Air 09/11/16 06:00 97.0 74 16 124/73 94 I&O- Last 24 Hours up to 6 AM 09/11/16 05:59 Intake Total 2026 ml Output Total 1400 ml Balance 626 ml Laboratory Data Labs 24H Laboratory Tests 2 09/10/16 11:29: Bedside Glucose (Misc Panel) 136H 09/10/16 16:28: Bedside Glucose (Misc Panel) 127H 09/10/16 20:18: Bedside Glucose (Misc Panel) 142H 09/11/16 06:07: Anion Gap 8, Blood Urea Nitrogen 26H, Creatinine 0.52L, Sodium Level 144, Potassium Level 3.6, Chloride Level 109H, Carbon Dioxide Level 27, Calcium Level 9.2, Glomerular Filtration Rate > 60.0 CBC/BMP Laboratory Tests 09/11/16 06:07 Calcium Level 9.2, Red Blood Count 3.85 L, Mean Corpuscular Volume 92.4, Mean Corpuscular Hemoglobin 30.9, Mean Corpuscular Hemoglobin Concent 33.4, Red Cell Distribution Width 13.0 FSBS Laboratory Tests Test 09/10/16 11:29 09/10/16 16:28 09/10/16 20:18 Range/Units Bedside Glucose (Misc Panel) 136 127 142 80-115 MG/DL Microbiology Microbiology 09/07/16 Blood Culture - Preliminary, Resulted No Growth after 72 hours. All specime... 09/07/16 Blood Culture - Preliminary, Resulted No Growth after 72 hours. All specime... 09/07/16 Influenza Virus Type A Antigen - Final, Complete 09/07/16 Influenza Virus Type B Antigen - Final, Complete 09/07/16 Urine Culture - Final, Complete Aerococcus Urinae Alberry,Tosha D [employer] Sep 11, 2016 10:52 Zurdo Skelton M.D. Sep 11, 2016 11:58 09/07/16 Urine Culture - Final, Complete Aerococcus UrTosha Yo [facility] Sep 11, 2016 10:52
--- NOTE | 2016-09-11 11:35 | REP ---
Adult bone survey: 16 views. History: Possible new metastatic disease. Enhancing lesion in the T9 vertebral body involving the left sided pedicle and epidural space seen on MRI study of the T-spine September 09, 2016. Technique: AP and lateral views of the skull, cervical, thoracic and lumbar spine, AP views of the pelvis and chest, and AP views of each humerus and each femur are presented. Findings: There are degenerative disc changes in the cervical spine at C4-5, C5-6 and C6-7. No bony calvarial defect is seen. There is a levoconvex scoliotic curve in the lumbar spine and some lumbar spine degenerative disc changes are seen. The pedicles and posterior elements appear intact in the thoracic spine on plain radiograph in the AP projection. The known T9 lesion is not well visualized radiographically. There are clips in the gallbladder fossa. No bony destructive lesion is seen in the pelvis. There is evidence of an old healed femoral neck fracture on the right. No bony destructive femoral or humeral lesion is seen. No vertebral collapse is noted. Impression: No focal bony destructive lesion is visible. Signed by Angel Glasgow MD 09/11/2016 01:14 P
[2016-09-11] MEDS ORDERED: GASTROGRAFIN SOLUTION 30ML (Q9963) PO ONE (13:00)
[2016-09-11] MEDS ORDERED: GASTROGRAFIN SOLUTION 30ML PO ONE (13:30)
[2016-09-11] MEDS ORDERED: ISOVUE-370 76% 100ML VIAL (Q9967) As Ordered ONE (14:30)
[2016-09-11] MEDS: FORTEO SQ SCH (16:10)
--- NOTE | 2016-09-11 18:36 | REP ---
CT abdomen pelvis without and with IV contrast. Bowel contrast is used on both phases of the study. Prior IV contrast scan is performed in the abdomen, pelvis not included. After IV contrast the abdomen and pelvis are included in the scan. There are no comparison studies. There are small lucencies posteriorly in the T9 vertebral body, nonspecific, hemangioma versus lytic lesions. There is a small sclerotic density anteriorly in the T9 vertebral body, nonspecific, bone island versus blastic lesion. There is advanced degenerative disc disease at L1-2 with disc space narrowing, osteophytic formation and eburnation of the opposing endplates. There is degenerative disc disease at L2-3 with this vacuum phenomenon small osteophytic growth. There is degenerative disc disease at the L 02/03. The disc space narrowing and irregularity of the inferior endplate of L3. There are two focal sclerotic lesions in the sacrum on the left, nonspecific, bone islands versus blastic metastases. There is an impacted fracture of the right femoral neck. There are no associated lytic, blastic or destructive skeletal changes. The hepatic parenchyma is homogeneous. There are surgical clips in the gallbladder fossa. The pancreas and spleen are normal size and homogeneous. The adrenals are unremarkable. There are two small nonobstructive right renal calculi at the mid pole approximately 3 mm diameter each. There is no hydronephrosis. There is a tiny less than 1 cm cyst in the lower pole of the right kidney. The left kidney is unremarkable. The abdominal aorta is unremarkable. There is no periaortic adenopathy. There are a few normal-sized mediastinal nodes. There is no bowel distension. No bowel wall thickening. Pelvis: The appendix is unremarkable. There is a hysterectomy. Vaginal cuff and adnexa are unremarkable. There is a Rosario catheter in the bladder. The bladder is otherwise unremarkable. There is no pelvic ascites or adenopathy. Impression: There are skeletal lesions as described. Fracture of the right femoral neck. Nonobstructive right renal calculi. No adenopathy or ascites. Rosario catheter. Cholecystectomy. Signed by Robert Ledezma MD 09/11/2016 06:27 P
[2016-09-11] MEDS: methylPREDNISolone 1,000 MG, VIAL MATE ADAPTER 1 EACH in D5W 250 ML IV SCH (21:47)
[2016-09-11 22:00] VITALS: BP 123/64
[2016-09-12 06:00] VITALS: BP 155/86
[2016-09-12 06:29] LABS: MEAN CORPUSCULAR HEMOGLOBIN 31.9 pg (27.0-33.0); MEAN CORPUSCULAR HGB CONC 34.2 g/dl (32.0-36.5); MEAN CORPUSCULAR VOLUME 93.2 fl (80.0-96.0)
[2016-09-12 06:42] LABS: ANION GAP 7 MEQ/L (8-16); BLOOD UREA NITROGEN 25 MG/DL (7-18); CALCIUM LEVEL 9.5 MG/DL (8.8-10.2); CARBON DIOXIDE LEVEL 30 MEQ/L (21-32); CHLORIDE LEVEL 107 MEQ/L (98-107); CREATININE FOR GFR 0.49 MG/DL (0.55-1.02); GLOMERULAR FILTRATION RATE > 60.0 (>45); GLUCOSE, FASTING 134 MG/DL (80-110); POTASSIUM SERUM 3.8 MEQ/L (3.5-5.1); SODIUM LEVEL 144 MEQ/L (136-145)
[2016-09-12] MEDS: TECFIDERA PO SCH ×2 (08:07→20:11)
[2016-09-12] MEDS: HumaLOG INSULIN (NovoLOG) PER UNIT SC SCH ×4 (08:07→21:00)
[2016-09-12] MEDS: VITAMIN D 1,000 INTERNATIONAL UNITS TABLET PO SCH (08:07)
[2016-09-12] MEDS: ENOXAPARIN 40 MG/0.4 ML SYRINGE (J1650) SC SCH (08:07)
[2016-09-12] MEDS: NORTRIPTYLINE 10 MG CAP PO SCH ×2 (08:07→20:11)
[2016-09-12] MEDS: FEXOFENADINE 60 MG TAB PO SCH (08:08)
[2016-09-12] MEDS: ASPIRIN 81 MG ENTERIC TAB PO SCH (08:08)
[2016-09-12] MEDS: BACLOFEN 10 MG TAB PO SCH ×3 (08:08→20:11)
[2016-09-12] MEDS: OMEPRAZOLE 20 MG CAP PO SCH (08:08)
--- NOTE | 2016-09-12 09:03 | REP ---
CTA chest, 09/11/2016: Indication: T9 vertebral body metastasis. Comparison: MRI thoracic spine without contrast, and subsequently following IV contrast. Findings: The thoracic aorta is without aneurysm or dissection. The heart is of normal size. There are no pathologically enlarged mediastinal or hilar lymph nodes. A small amount of dependent atelectasis in the lung bases bilaterally, left greater than right. There are no pleural effusions or pulmonary nodules. Visualized portions of the liver without focal lesions. The spleen, included portions of pancreas within normal limits. Adrenal glands are normal. Multiple lucencies are seen in the T9 vertebral body suggestive of hemangioma of bone. Additionally, there is superimposed sclerotic density seen within T9 vertebral body, which may represent blastic metastases. There is evidence of small enhancing lesion within the left side of T9 vertebral body with epidural enhancement and paravertebral extension. This likely intradural extramedullary mass measures approximately 9 mm AP by 5 mm transverse by 15 mm craniocaudal extension Impression: Thoracic aorta without aneurysm or dissection. No pathologically enlarged mediastinal or hilar adenopathy. Small intradural extramedullary mass, likely metastatic ,involving the T9 vertebral body measuring 9 x 5 x 15 mm. Benign hemangioma of bone is suggested of the T9 vertebral body. Small associated sclerotic focus raises concern for tiny blastic bony lesion. Signed by Sherrell Osorio MD 09/13/2016 10:51 A
--- NOTE | 2016-09-12 11:30 | IPNPDOC ---
Assessment/Plan Date Seen The patient was seen on 09/12/16. Problems Problems: (1) Metastasis Status: Acute Problem Text: 09/12/2016: 2 new lesions on sacrum. no Primary etiology per CT abd/pelvis and chest. Will eval CT neck. Bone scan order via Nuclear Medicine. Will be completed in am. 09/11/[address] series 09/09/16 incidental finding of T9 vertebral enhancing lesion c epidural extension , minimal cord compression 09/11/16 - WB bone survey 03/2007 - colonoscopy-Betsy 11/2015 normal B mammo Unknown primary source (2) Multiple sclerosis exacerbation Status: Acute Problem Specific Plan: Consult Specialist Problem Text: Without Tecfidera x 2 days. Nursing confirmed delivery within next few days. Solumedrol 1 gram IV q 24hrs. Neuro consulted. To see patient today. PT ordered. See Neuro Consult. s/p MRI: reports pending (3) Hip fracture, right Status: Acute Problem Text: Ortho consulted. MRI hip and plain films ordered per Ortho recommendations. NWB RLE. Nursing notified. Patient has no pain (4) UTI (urinary tract infection) Status: Acute Problem Text: patient asymptomatic Hx of Neurogenic bladder and recurrent UTI. D3 ceftaroline 07/12/17 nitro po held 07/08/17 UCX aeroccocus less than 80,000 (5) Cellulitis of right lower extremity Status: Acute Problem Text: improving D3 ceftaroline Plan / VTE VTE Prophylaxis Ordered?: Yes (Lovenox) Plan / Urinary Catheter Reason for insertion/continuin: Critical Pt monitoring Plan Therapy: PT Subjective Review of Systems CC/HPI The patient is a 70-year-old female admitted with a reason for visit of Multiple Sclerosis Exacerbation. Events since last encounter W/u for metastasis includes CT chest and abd/pelvis. Noted to have impacted right femoral neck fracture on CT abd/pelvis. Also 2 lesions to sacrum. Constitutional: Denies: Chills, Fever, Malaise, Night Sweats, Weakness ENT: Denies: Dysphagia, Ear Pain, Head Aches Skin: Denies: Breakdown, Lesions, Rash Pulmonary: Denies: Cough, Dyspnea Gastrointestinal: Denies: Abdominal Pain, Diarrhea, Nausea, Vomiting Genitourinary: Reports: Other Symptoms (neurogenic bladder. Braswell catheter) Musculoskeletal: Reports: Other Symptoms (RLE weakness) Neurological: Reports: Weakness Objective Physical Examination General Exam: Positive: Alert, No Acute Distress Eye Exam: Positive: EOMI, PERRLA ENT Exam: Positive: Atraumatic, Mucous membr. moist/pink Neck Exam: Positive: Supple, Negative: JVD Chest Exam: Positive: Clear to auscultation, Normal air movement Heart Exam: Positive: Normal S1, Normal S2, Rate Normal Abdomen Exam: Positive: Normal bowel sounds, Soft, Tenderness Extremity Exam: Positive: Other (RLE: erythema and warmth up to mid thigh, + swelling. ) Skin Exam: Positive: Nl turgor and temperature Neuro Exam: Positive: Normal Speech, Other (BLE strength 3/5 Bilateral) Vital Signs/I&O Vital Signs Date Time Temp Pulse Resp B/P Pulse Ox O2 Delivery O2 Flow Rate FiO2 09/12/16 09:00 Room Air 09/12/16 06:00 97.5 75 17 155/86 98 I&O- Last 24 Hours up to 6 AM 09/12/16 06:00 Intake Total 2066 ml Output Total 2200 ml Balance -134 ml Laboratory Data Labs 24H Laboratory Tests 2 09/11/16 12:02: Bedside Glucose (Misc Panel) 116H 09/11/16 17:20: Bedside Glucose (Misc Panel) 142H 09/11/16 20:30: Bedside Glucose (Misc Panel) 153H 09/12/16 06:05: Anion Gap 7L, Blood Urea Nitrogen 25H, Creatinine 0.49L, Sodium Level 144, Potassium Level 3.8, Chloride Level 107, Carbon Dioxide Level 30, Calcium Level 9.5, Glomerular Filtration Rate > 60.0 CBC/BMP Laboratory Tests 09/12/16 06:05 Calcium Level 9.5, Red Blood Count 4.08, Mean Corpuscular Volume 93.2, Mean Corpuscular Hemoglobin 31.9, Mean Corpuscular Hemoglobin Concent 34.2, Red Cell Distribution Width 13.0 FSBS Laboratory Tests Test 09/11/16 12:02 09/11/16 17:20 09/11/16 20:30 Range/Units Bedside Glucose (Misc Panel) 116 142 153 80-115 MG/DL Microbiology Microbiology 09/07/16 Blood Culture - Preliminary, Resulted No Growth after 72 hours. All specime... 09/07/16 Blood Culture - Preliminary, Resulted No Growth after 72 hours. All specime... 1/17/17 Influenza Virus Type A Antigen - Final, Complete 09/07/16 Influenza Virus Type B Antigen - Final, Complete 09/07/16 Urine Culture - Final, Complete Aerococcus Urinae Tosha UrbanP Sep 12, 2016 11:30
[2016-09-12] MEDS ORDERED: ISOVUE-370 76% 100ML VIAL (Q9967) As Ordered ONE (14:51)
[2016-09-12] MEDS: FORTEO SQ SCH (17:53)
--- NOTE | 2016-09-12 17:56 | REP ---
Right hip three views: There is an impacted fracture of the femoral neck. There is no dislocation. Mineralization is normal. There are no associated lytic, blastic or destructive skeletal changes. No unusual calcifications. Signed by Robert Ledezma MD 09/12/2016 05:47 P
[2016-09-12] MEDS: methylPREDNISolone 1,000 MG, VIAL MATE ADAPTER 1 EACH in D5W 250 ML IV SCH (20:11)
[2016-09-12 22:00] VITALS: BP 130/60
[2016-09-13 06:00] VITALS: BP 143/91
[2016-09-13 06:08] LABS: MEAN CORPUSCULAR HEMOGLOBIN 31.4 pg (27.0-33.0); MEAN CORPUSCULAR HGB CONC 33.6 g/dl (32.0-36.5); MEAN CORPUSCULAR VOLUME 93.4 fl (80.0-96.0); WHITE BLOOD COUNT 6.8 K/mm3 (4.0-10.0)
[2016-09-13 06:54] LABS: ANION GAP 10 MEQ/L (8-16); BLOOD UREA NITROGEN 31 MG/DL (7-18); CALCIUM LEVEL 9.4 MG/DL (8.8-10.2); CARBON DIOXIDE LEVEL 28 MEQ/L (21-32); CHLORIDE LEVEL 107 MEQ/L (98-107); CREATININE FOR GFR 0.59 MG/DL (0.55-1.02); GLOMERULAR FILTRATION RATE > 60.0 (>45); GLUCOSE, FASTING 121 MG/DL (80-110); POTASSIUM SERUM 4.5 MEQ/L (3.5-5.1); SODIUM LEVEL 145 MEQ/L (136-145); TOTAL PROTEIN 6.6 GM/DL (6.4-8.2)
--- NOTE | 2016-09-13 08:51 | CR ---
DATE OF CONSULTATION: 09/12/2016 REASON FOR CONSULTATION: Right femoral neck fracture and newly diagnosis of metastatic skeletal lesions. HISTORY OF PRESENT ILLNESS: She is a 70-year-old female with severe multiple sclerosis, who is a nonambulator with a manual wheelchair, who functions with just bed to chair, pivoting. On 09/07/2016 she was getting out of her wheelchair, standing to reach for some gloves and she fell over and presented to the emergency room and noted to have new onset weakness in her lower extremities on the right side. Thought to have an exacerbation of her multiple sclerosis and also found to have a urinary tract infection (UTI) and possibly some cellulitis of her lower extremities. She was treated with intravenous steroids, as well as antibiotic for urinary tract infection. Neurology consultation was obtained. During the evaluation, MRI scans of her spine showed a blastic lesion of T9 with extension into the intradural space but no spinal cord compression. Further workup for that lesion, including abdomen and pelvis CT scan, revealed a right femoral neck fracture. Because of that finding, I was called to see the patient. It was also noted that she had a sacral lesion as well, appears to be a blastic lesion. From my review of the CT scan, it was at S2 vertebrae and also in the sacrum on the left side. In addition, there were some degenerative changes at L2-3, which is chronic. No other metastatic lesion were noted. There are no multiple sclerotic lesions noted of her spine. There were multiple sclerosis lesions noted in her brain, to be expected. Skeletal survey did not reveal any other areas of obvious metastases. I was asked to see her for this problem. Presently, she is not really complaining of much pain anywhere at all, but she does feel that she has weakness in her right leg, it is getting a little bit stronger, she describes, but she has really no pain in her groin or hip area, but does notice that there is a change in her functional ability to move her right leg compared to how it was before 09/07/2016. PAST MEDICAL HISTORY: Significant for: 1. Severe multiple sclerosis. 2. Chronic Rosario catheter for neurogenic bladder. 3. Mild diabetes. 4. Gastric reflux. 5. Osteoporosis. 6. Obesity. 7. Depression. 8. Recurrent urinary tract infections. 9. Nonalcoholic fatty liver disease. 10. Hyperlipidemia. 11. Vitamin D deficiency. PAST SURGICAL HISTORY She has had: 1. Colonoscopy. 2. Total abdominal hysterectomy with retained ovaries. 3. Tonsillectomy in the past. PRIMARY CARE PROVIDER: Dr. Zurdo Skelton cares for her medically. SOCIAL HISTORY: She has three older brothers and a mother who is still living. She has a daughter. She lives in an independent living situation in an apartment complex in [place] that is handicapped accessible with her manual wheelchair. She does not smoke or drink alcohol excessively. REVIEW OF SYSTEMS: Otherwise per the history of present illness. When I examine her, she is a very pleasant female just getting back from her MRI scan and her x-ray of the right hip. I examined her lying in the hospital bed. She is alert. She is oriented. She does not have any pain. Present vital signs, she has a temperature of 97.5, pulse 75, respirations 17, blood pressure 155/86, oxygen saturation is 98% on room air. HEENT EXAM: Otherwise benign. UPPER EXTREMITIES EXAM: She had some mild weakness in her shoulder abductors, but she is able to elevate her arms up overhead, flex and extend her elbows, flex and extend her hands and fingers without neurologic compromise other than some mild weakness, which is basically, she felt, her baseline strength. Lower extremities: On the left side, she could do a straight leg raise. On the right side, she could just barely lift the right leg off the bed, but could just barely do so without discomfort or pain, just felt weak to her, but she had good dorsiflexion, plantar flexion, strength of her ankles. She has strong palpable pulses in both feet and had sensation that was intact to light touch throughout her lower extremities. There was some mild redness throughout both lower extremities, but no real pitting edema. As I internally and externally rotated her right hip, it really did not cause any significant irritability, surprisingly. IMAGING STUDIES: I reviewed. The MRI scan of her right hip I reviewed myself, not read yet by the radiologist, shows an impacted femoral neck fracture, consistent with this being several days old. Plain film x-rays look the same. Abdomen and pelvis CT scan showing the blastic lesion at S2. Chest CT, you can see the T9 lesion, which is again a blastic lesion in T9. The MRI scan in that area demonstrates the tumor has extruded posteriorly but off to the side and not directly impacting on the spinal cord. The osseus survey did not show any other fractures; however, on the pelvis view you can tell that there is a right femoral neck fracture. Ultrasound did not show a deep vein thrombosis (DVT). Brain MRI scan showed multiple sclerosis. Cervical and thoracic spine MRI as described above. Chest x-ray with no acute disease. LABORATORY STUDIES: Otherwise benign other than she did have a urinary tract culture that was positive for Aerococcus urinae. Influenza test was negative. Her white count today was normal at 6 with hematocrit of 38, platelets of 242. Chemistries showed sodium 144, potassium 3.8, chloride 107, bicarbonate 30, BUN 25, creatinine 0.49. Calcium was elevated at 9.5. She had a PTH on 09/08/2016, which was elevated at 75.7 with a vitamin D level of 40.7. IMPRESSION: My impression with putting this altogether is that the reason for her new onset weakness was probably because of the femoral neck fracture on the right side, not necessarily an exacerbation of her multiple sclerosis, but I defer that to the neurologist. If that is the case, we may want to back off on her intravenous steroids. However, this is also dependent upon a formal neurologic decision. Newly diagnosed of what would appear to be metastatic tumors at T9 and at her sacrum. There is some extrusion of the tumor posteriorly at T9, but it does not appear to affect the spinal cord. Would warrant oncologic evaluation and may need tissue diagnosis. I will defer that to her primary care doctor and oncologist. In terms of treatment for the femoral neck fracture, from an orthopedic standpoint, I think she is questionable surgical candidate given that she is a nonambulator with minimal pain and the fracture is impacted into valgus and therefore relatively stable. It may heal without surgery. However, we can always proceed with surgery if the fracture displaces and she becomes symptomatic. THe steroids and possible chemotherapeutic agents that might be employed in the future may negatively affect healing. We will have to monitor. I think that we will defer that decision until I get a chance to discuss this further with her primary care provider and once the workup from her neurologist and oncologist have been completed and we will discuss with the family. Presently, I talked to her about this and she is leaning toward nonsurgical management, because she does not really have much pain. JOSEMANUEL
--- NOTE | 2016-09-13 08:52 | REP ---
CT NECK WITH CONTRAST: HISTORY: Metastasis. CONTRAST: Isovue 370, 75 mL. The naso-, maylin-, and hypopharynx, larynx, and subglottic trachea are normal in appearance. The salivary and thyroid glands are normal. Small lymph nodes less than 1 cm in size are present in the internal jugular chains, posterior triangles, submandibular and submental areas. There is no neck mass or adenopathy. Degenerative change is present in the cervical spine. The lung apices are clear. The visualized sinuses are clear. IMPRESSION: There is no neck mass or adenopathy. Signed by Kervin Mulligan MD 09/13/2016 08:53 A
[2016-09-13] MEDS: HumaLOG INSULIN (NovoLOG) PER UNIT SC SCH ×4 (09:07→21:00)
[2016-09-13] MEDS: ASPIRIN 81 MG ENTERIC TAB PO SCH (09:08)
[2016-09-13] MEDS: VITAMIN D 1,000 INTERNATIONAL UNITS TABLET PO SCH (09:08)
[2016-09-13] MEDS: FEXOFENADINE 60 MG TAB PO SCH (09:08)
[2016-09-13] MEDS: NORTRIPTYLINE 10 MG CAP PO SCH ×2 (09:08→20:42)
[2016-09-13] MEDS: OMEPRAZOLE 20 MG CAP PO SCH (09:08)
[2016-09-13] MEDS: ENOXAPARIN 40 MG/0.4 ML SYRINGE (J1650) SC SCH (09:09)
[2016-09-13] MEDS: TECFIDERA PO SCH ×2 (09:09→20:42)
[2016-09-13] MEDS: BACLOFEN 10 MG TAB PO SCH ×3 (09:09→20:42)
--- NOTE | 2016-09-13 09:19 | REP ---
MRI study of the right hip without and with IV gadolinium: History: Impacted right hip fracture on CT abdomen and pelvis on plain radiographs. Question metastatic lesion. Comparison is made with CT study of the chest, abdomen, and pelvis from the previous day. Comparison is made with previous day's radiographs. Technique: Axial, coronal, and sagittal imaging planes were utilized. T1 and T2-weighted scans were obtained in the usual fashion with and without fat saturation. MR gadolinium enhancement dose: 14 mL of intravenous ProHance. MRI findings: A Rosario catheter is visible in the urinary bladder. Cortical and medullary bone signal intensity are normal in the femoral heads bilaterally. There is no evidence to suggest avascular necrosis. The bony pelvic ring appears intact. There is an impacted fracture in the femoral neck with slight varus. No evidence of pathologic fracture or metastatic lesion. There is a small amount of joint fluid in the right hip and minimal marrow edema is seen. Question subacute fracture. There is no evidence of skeletal metastatic disease elsewhere. There is some diffuse skeletal muscle edema in the medial thigh abductors and to a lesser extent in the lateral thigh musculature on the right side. No abdominal wall defect is seen. No other fracture is noted. Impression: Impacted and possibly subacute fracture of the femoral neck on the right side without evidence of pathologic fracture or metastatic lesion. Diffuse intramuscular soft tissue edema in the proximal thigh. No other evidence of skeletal lesion. Diffuse osteopenia. Signed by Angel Glasgow MD 09/13/2016 10:18 A
--- NOTE | 2016-09-13 10:54 | IPNPDOC ---
Assessment/Plan Date Seen The patient was seen on 09/13/16. Family Medicine Attending Note: Patient seen and examined; I d/w PEDRO Oliveros and I agree with her note below. Patient states she is feeling well today - has some generalized weakness but otherwise feels she is at baseline. Bone scan was negative for mets. Neuro following for MS exacerbation, currently being treated with solumedrol. (KES) Problems Problems: (1) Metastasis Status: Acute Problem Text: 09/13 - Neg CT neck, A & P, chest, bone scan pending. 09/12/2016: 2 new lesions on sacrum. no Primary etiology per CT abd/pelvis and chest. Will eval CT neck. Bone scan order via Nuclear Medicine. Will be completed in am. 09/11/[address] series 09/09/16 incidental finding of T9 vertebral enhancing lesion c epidural extension , minimal cord compression 09/11/16 - WB bone survey 03/2007 - colonoscopy-Betsy 11/2015 normal B mammo Unknown primary source (2) Multiple sclerosis exacerbation Status: Acute Problem Specific Plan: Consult Specialist Problem Text: Without Tecfidera x 2 days. Nursing confirmed delivery within next few days. Solumedrol 1 gram IV q 24hrs. Neuro consulted. To see patient today. PT ordered. See Neuro Consult. s/p MRI: reports pending 09/13 - Ortho saw pt, feels RLE weakness more likely related to Subacute fracture vs MS exacerbation, recommended reducing steroid dose, Neuro has been consulted await input on this. Pt opting for nonsurgical intervention at this point. (3) Hip fracture, right Status: Acute Problem Text: Ortho consulted. MRI hip and plain films ordered per Ortho recommendations. NWB RLE. Nursing notified. Patient has no pain 09/13 Ortho and pt leaning towards nonsurgical intervention, no pain. (4) UTI (urinary tract infection) Status: Acute Problem Text: patient asymptomatic Hx of Neurogenic bladder and recurrent UTI. D4 ceftaroline, listed under pts' own med 07/12/17 nitro po held 07/08/17 UCX aeroccocus less than 80,000 (5) Cellulitis of right lower extremity Status: Acute Problem Text: improving D4 ceftaroline Plan / VTE VTE Prophylaxis Ordered?: Yes (Lovenox) Plan / Urinary Catheter Reason for insertion/continuin: Critical Pt monitoring Plan Therapy: PT Subjective Review of Systems CC/HPI Pt feeling better. She is eager to go back home. She resides at [facility]. Constitutional: Denies: Chills, Fever Pulmonary: Denies: Cough, Dyspnea Cardiovascular: Denies: Palpitations Gastrointestinal: Denies: Nausea, Vomiting Musculoskeletal: Denies: Back Pain Neurological: Reports: Weakness Psych: Denies: Mood Normal Objective Physical Examination General Exam: Positive: Alert, No Acute Distress ENT Exam: Positive: Atraumatic, Mucous membr. moist/pink Neck Exam: Positive: Supple, Negative: JVD Chest Exam: Positive: Clear to auscultation, Normal air movement Heart Exam: Positive: Normal S1, Normal S2, Rate Normal Abdomen Exam: Positive: Normal bowel sounds, Soft, Tenderness Extremity Exam: Positive: Other (RLE: erythema over the mid thigh to the knee, no notable swelling, nontender) Skin Exam: Positive: Nl turgor and temperature Neuro Exam: Positive: Normal Speech, Other (BLE strength 3/5 Bilateral) Vital Signs/I&O Vital Signs Date Time Temp Pulse Resp B/P Pulse Ox O2 Delivery O2 Flow Rate FiO2 09/13/16 06:00 96.6 80 18 143/91 99 Room Air I&O- Last 24 Hours up to 6 AM 09/13/16 06:00 Intake Total 1826 ml Output Total 2650 ml Balance -824 ml Laboratory Data Labs 24H Laboratory Tests 2 09/12/16 11:50: Bedside Glucose (Misc Panel) 138H 09/12/16 17:43: Bedside Glucose (Misc Panel) 113 09/12/16 20:08: Bedside Glucose (Misc Panel) 200H 09/13/16 05:41: Anion Gap 10, Blood Urea Nitrogen 31H, Creatinine 0.59, Sodium Level 145, Potassium Level 4.5, Chloride Level 107, Carbon Dioxide Level 28, Calcium Level 9.4, Glomerular Filtration Rate > 60.0, Total Protein 6.6 CBC/BMP Laboratory Tests 09/13/16 05:41 Calcium Level 9.4, Red Blood Count 4.06, Mean Corpuscular Volume 93.4, Mean Corpuscular Hemoglobin 31.4, Mean Corpuscular Hemoglobin Concent 33.6, Red Cell Distribution Width 13.0 FSBS Laboratory Tests Test 09/12/16 11:50 09/12/16 17:43 09/12/16 20:08 Range/Units Bedside Glucose (Misc Panel) 138 113 200 80-115 MG/DL Microbiology Microbiology 09/07/16 Blood Culture - Final, Complete NO GROWTH AFTER 5 DAYS 09/07/16 Blood Culture - Final, Complete NO GROWTH AFTER 5 DAYS 09/07/16 Influenza Virus Type A Antigen - Final, Complete 09/07/16 Influenza Virus Type B Antigen - Final, Complete 09/07/16 Urine Culture - Final, Complete Aerococcus Urinae JEREMY GONZALES PA-C Sep 13, 2016 10:54 MATTHEW RIVAS MD Sep 13, 2016 19:21
[2016-09-13 12:00] VITALS: BP 131/67
--- NOTE | 2016-09-13 12:43 | REP ---
WHOLE BODY RADIONUCLIDE BONE SCAN: HISTORY: Check for metastatic lesions. No comparison study. Impacted right hip fracture radiographically. TECHNIQUE: 22.0 mCi technetium 99m MDP is injected and standard whole body bone scan imaging was acquired. SCINTIGRAPHIC FINDINGS: There is photopenia in the area of the right femoral head and neck at the site of the known impacted fracture. This may be seen in avascular necrosis and the fracture may have disrupted the blood supply to the femoral head. There is only slightly increased uptake across the intertrochanteric region of the right proximal femur. The right femur is subluxed somewhat superiorly because of the impaction with right leg shortening. Mild arthritic uptake is seen in both knees. There is degenerative disc uptake in the thoracic and lumbar spine. There is uptake in bilateral kidneys and in the urinary bladder. There is no evidence to suggest skeletal metastatic disease. IMPRESSION: No evidence to suggest skeletal metastases. Photopenia in the region of the femoral head on the right and slightly increased uptake in the intertrochanteric femur on the right at the site of the known impacted fracture here. Signed by Angel Glasgow MD 09/13/2016 01:43 P
[2016-09-13 12:59] LABS: ALBUMIN 3.56 GM/DL (3.29-5.55); ALBUMIN % 53.9 % (55.8-66.1); GAMMA GLOBULIN % 14.9 % (11.1-18.8)
[2016-09-13 14:00] VITALS: BP 131/62
[2016-09-13] MEDS: FORTEO SQ SCH (16:45)
[2016-09-13 22:00] VITALS: BP 138/77
[2016-09-14 06:00] VITALS: BP 136/72
[2016-09-14 07:03] LABS: MEAN CORPUSCULAR HEMOGLOBIN 31.1 pg (27.0-33.0); MEAN CORPUSCULAR HGB CONC 33.8 g/dl (32.0-36.5); MEAN CORPUSCULAR VOLUME 92.1 fl (80.0-96.0); WHITE BLOOD COUNT 6.4 K/mm3 (4.0-10.0)
[2016-09-14 07:29] LABS: ANION GAP 8 MEQ/L (8-16); BLOOD UREA NITROGEN 31 MG/DL (7-18); CALCIUM LEVEL 9.2 MG/DL (8.8-10.2); CARBON DIOXIDE LEVEL 31 MEQ/L (21-32); CHLORIDE LEVEL 106 MEQ/L (98-107); CREATININE FOR GFR 0.48 MG/DL (0.55-1.02); GLOMERULAR FILTRATION RATE > 60.0 (>45); GLUCOSE, FASTING 83 MG/DL (80-110); SODIUM LEVEL 145 MEQ/L (136-145)
[2016-09-14] MEDS: HumaLOG INSULIN (NovoLOG) PER UNIT SC SCH ×4 (07:30→21:00)
[2016-09-14] MEDS: OMEPRAZOLE 20 MG CAP PO SCH (08:47)
[2016-09-14] MEDS: NORTRIPTYLINE 10 MG CAP PO SCH ×2 (08:48→20:37)
[2016-09-14] MEDS: ASPIRIN 81 MG ENTERIC TAB PO SCH (08:48)
[2016-09-14] MEDS: TECFIDERA PO SCH ×2 (08:48→20:36)
[2016-09-14] MEDS: VITAMIN D 1,000 INTERNATIONAL UNITS TABLET PO SCH (08:48)
[2016-09-14] MEDS: FEXOFENADINE 60 MG TAB PO SCH (08:48)
[2016-09-14] MEDS: ENOXAPARIN 40 MG/0.4 ML SYRINGE (J1650) SC SCH (08:48)
[2016-09-14] MEDS: BACLOFEN 10 MG TAB PO SCH ×3 (08:48→20:37)
--- NOTE | 2016-09-14 09:54 | IPNPDOC ---
Assessment/Plan Date Seen The patient was seen on 09/14/16. Problems Problems: (1) Mass of thoracic vertebra Status: Acute Problem Text: favor outpatient by Dr. Castro 09/14 - WBBS 09/14 - SPEP 09/13 - CT neck. 09/12/2016: 2 new lesions on sacrum. no Primary etiology per CT abd/pelvis and chest. Will eval CT neck. Bone scan order via Nuclear Medicine. Will be completed in am. 09/11/[address] series 09/09/16 incidental finding of T9 vertebral enhancing lesion c epidural extension , minimal cord compression 09/11/16 - WB bone survey 03/2007 - colonoscopy-B[facility]y 11/2015 normal B mammo (2) Multiple sclerosis exacerbation Status: Acute Problem Specific Plan: Consult Specialist Problem Text: Without Tecfidera x 2 days. Nursing confirmed delivery within next few days. Solumedrol 1 gram IV q 24hrs. Neuro consulted. To see patient today. PT ordered. See Neuro Consult. s/p MRI: reports pending 09/13 - Ortho saw pt, feels RLE weakness more likely related to Subacute fracture vs MS exacerbation, recommended reducing steroid dose, Neuro has been consulted await input on this. Pt opting for nonsurgical intervention at this point. 09/14 - Solumedrol dose has been d/c. weakness secondary to fracture-not safe per PT (3) Hip fracture, right Status: Acute Problem Text: Ortho consulted. MRI hip and plain films ordered per Ortho recommendations. NWB RLE. Nursing notified. Patient has no pain 09/13 Ortho and pt leaning towards nonsurgical intervention, no pain. 09/14 - Pt working with PT, she has good UE strength and they anticipate just a couple days and she will be able to be d/c. (4) UTI (urinary tract infection) Status: Acute Problem Text: patient asymptomatic Hx of Neurogenic bladder and recurrent UTI. 07/12/17 nitro po held 07/08/17 UCX aeroccocus less than 80,000 09/14 rec 3 d IV abx Plan / VTE VTE Prophylaxis Ordered?: Yes (Lovenox) Plan / Urinary Catheter Reason for insertion/continuin: Critical Pt monitoring Plan Therapy: PT (PT to work with pt for next couple days, then plan for d/c.) Subjective Review of Systems CC/HPI Pt without new concerns. She notes that she has no pain. Eager to get home. General: Denies: Fatigue Constitutional: Denies: Chills, Fever ENT: Denies: Head Aches Pulmonary: Denies: Cough, Dyspnea Cardiovascular: Denies: Chest Pain, Palpitations Gastrointestinal: Denies: Diarrhea, Nausea, Vomiting Neurological: Denies: Weakness Psych: Reports: Mood Normal Objective Physical Examination General Exam: Positive: Alert, No Acute Distress ENT Exam: Positive: Atraumatic, Mucous membr. moist/pink Neck Exam: Positive: Supple, Negative: JVD Chest Exam: Positive: Clear to auscultation, Normal air movement Heart Exam: Positive: Normal S1, Normal S2, Rate Normal Abdomen Exam: Positive: Normal bowel sounds, Soft, Tenderness Extremity Exam: Positive: Other (RLE: erythema over the mid thigh to the knee, no notable swelling, nontender) Skin Exam: Positive: Nl turgor and temperature Neuro Exam: Positive: Normal Speech, Other (BLE strength 3/5 Bilateral) Vital Signs/I&O Vital Signs Date Time Temp Pulse Resp B/P Pulse Ox O2 Delivery O2 Flow Rate FiO2 09/14/16 06:00 97.5 76 20 136/72 97 09/13/16 21:00 Room Air I&O- Last 24 Hours up to 6 AM 09/14/16 06:00 Intake Total 2040 ml Output Total 1350 ml Balance 690 ml Laboratory Data Labs 24H Laboratory Tests 2 09/13/16 12:22: Bedside Glucose (Misc Panel) 148H 09/13/16 16:34: Bedside Glucose (Misc Panel) 118H 09/13/16 20:45: Bedside Glucose (Misc Panel) 135H 09/14/16 06:32: Anion Gap 8, Blood Urea Nitrogen 31H, Creatinine 0.48L, Sodium Level 145, Potassium Level 4.0, Chloride Level 106, Carbon Dioxide Level 31, Calcium Level 9.2, Glomerular Filtration Rate > 60.0 CBC/BMP Laboratory Tests 09/14/16 06:32 Calcium Level 9.2, Red Blood Count 4.01, Mean Corpuscular Volume 92.1, Mean Corpuscular Hemoglobin 31.1, Mean Corpuscular Hemoglobin Concent 33.8, Red Cell Distribution Width 13.0 FSBS Laboratory Tests Test 09/13/16 12:22 09/13/16 16:34 09/13/16 20:45 Range/Units Bedside Glucose (Misc Panel) 148 118 135 80-115 MG/DL Microbiology Microbiology 09/07/16 Blood Culture - Final, Complete NO GROWTH AFTER 5 DAYS 09/07/16 Blood Culture - Final, Complete NO GROWTH AFTER 5 DAYS 09/07/16 Influenza Virus Type A Antigen - Final, Complete 09/07/16 Influenza Virus Type B Antigen - Final, Complete 09/07/16 Urine Culture - Final, Complete Aerococcus Urinae JEREMY GONZALES PA-C Sep 14, 2016 09:54 Zurdo Skelton M.D. Sep 14, 2016 17:30
[2016-09-14 14:00] VITALS: BP 122/69
[2016-09-14] MEDS: FORTEO SQ SCH (17:29)
[2016-09-14 22:00] VITALS: BP 135/65
[2016-09-15 00:08] LABS: FREE KAPPA LIGHT CHAINS SERUM 9.29 mg/L (3.30-19.40); FREE LAMBDA LIGHT CHAINS SERUM 13.92 mg/L (5.71-26.30); KAPPA/LAMBDA RATIO SERUM 0.67 (0.26-1.65)
[2016-09-15] MEDS: ACETAMINOPHEN TAB 650MG DOSE (2X325MG) PO PRN ×2 (01:52→20:26)
[2016-09-15 06:00] VITALS: BP 121/64
[2016-09-15] MEDS: HumaLOG INSULIN (NovoLOG) PER UNIT SC SCH ×4 (07:25→21:09)
[2016-09-15] MEDS: TECFIDERA PO SCH ×2 (09:44→20:26)
[2016-09-15] MEDS: VITAMIN D 1,000 INTERNATIONAL UNITS TABLET PO SCH (09:45)
[2016-09-15] MEDS: BACLOFEN 10 MG TAB PO SCH ×3 (09:45→20:26)
[2016-09-15] MEDS: ENOXAPARIN 40 MG/0.4 ML SYRINGE (J1650) SC SCH (09:45)
[2016-09-15] MEDS: ASPIRIN 81 MG ENTERIC TAB PO SCH (09:45)
[2016-09-15] MEDS: OMEPRAZOLE 20 MG CAP PO SCH (09:45)
[2016-09-15] MEDS: NORTRIPTYLINE 10 MG CAP PO SCH ×2 (09:45→20:26)
[2016-09-15] MEDS: FEXOFENADINE 60 MG TAB PO SCH (09:45)
[2016-09-15 14:00] VITALS: BP 135/85
[2016-09-15] MEDS: FORTEO SQ SCH (16:25)
[2016-09-15 22:00] VITALS: BP 125/65
--- NOTE | 2016-09-15 23:48 | IPNPDOC ---
Assessment/Plan Date Seen The patient was seen on 09/15/16. Problems Problems: (1) Mass of thoracic vertebra Status: Acute Problem Text: favor outpatient by Dr. Castro 09/14 - WBBS 09/14 - SPEP 09/13 - CT neck. 09/12/2016: 2 new lesions on sacrum. no Primary etiology per CT abd/pelvis and chest. Will eval CT neck. Bone scan order via Nuclear Medicine. Will be completed in am. 09/11/[address] series 09/09/16 incidental finding of T9 vertebral enhancing lesion c epidural extension , minimal cord compression 09/11/16 - WB bone survey 03/2007 - colonoscopy-[facility] 11/2015 normal B mammo (2) Multiple sclerosis exacerbation Status: Acute Problem Specific Plan: Consult Specialist Problem Text: Without Tecfidera x 2 days. Nursing confirmed delivery within next few days. Solumedrol 1 gram IV q 24hrs. Neuro consulted. To see patient today. PT ordered. See Neuro Consult. s/p MRI: reports pending 09/13 - Ortho saw pt, feels RLE weakness more likely related to Subacute fracture vs MS exacerbation, recommended reducing steroid dose, Neuro has been consulted await input on this. Pt opting for nonsurgical intervention at this point. 09/14 - Solumedrol dose has been d/c. weakness secondary to fracture-not safe per PT (3) Hip fracture, right Status: Acute Problem Text: Ortho consulted. MRI hip and plain films ordered per Ortho recommendations. NWB RLE. Nursing notified. Patient has no pain 09/13 Ortho and pt leaning towards nonsurgical intervention, no pain. 09/14 - Pt working with PT, she has good UE strength and they anticipate just a couple days and she will be able to be d/c. 09/15 -- not clear yet per PT, per nursing most likely to be DCed to SNF vs PMR (4) UTI (urinary tract infection) Status: Acute Problem Text: patient asymptomatic Hx of Neurogenic bladder and recurrent UTI. 07/12/17 nitro po held 07/08/17 UCX aeroccocus less than 80,000 09/14 rec 3 d IV abx Plan / VTE VTE Prophylaxis Ordered?: Yes (Lovenox) Plan / Urinary Catheter Reason for insertion/continuin: Critical Pt monitoring Plan Therapy: PT (PT to work with pt for next couple days, then plan for d/c.) Subjective Review of Systems CC/HPI The patient is a 70-year-old female admitted with a reason for visit of weakness Events since last encounter Patient feels that she is doing a bit better. She has a visitor in room with her today. It is felt that she will need discharge to PMR or SNF secondary to her nonweightbearing status. Constitutional: Denies: Chills, Fever Pulmonary: Denies: Cough, Dyspnea Cardiovascular: Denies: Chest Pain Gastrointestinal: Denies: Constipation, Diarrhea, Nausea, Vomiting Objective Physical Examination General Exam: Positive: Alert, No Acute Distress Eye Exam: Positive: EOMI, PERRLA ENT Exam: Positive: Atraumatic, Mucous membr. moist/pink Neck Exam: Positive: Supple, Negative: JVD Chest Exam: Positive: Clear to auscultation, Normal air movement Heart Exam: Positive: Normal S1, Normal S2, Rate Normal Abdomen Exam: Positive: Normal bowel sounds, Soft, Negative: Tenderness Extremity Exam: Positive: Other (RLE: erythema over the mid thigh to the knee, no notable swelling, nontender; foam dressing over R lateral malleolus abrasion ; RLE externally rotated) Skin Exam: Positive: Nl turgor and temperature Neuro Exam: Positive: Normal Speech, Other (BLE strength 3/5 Bilateral) Vital Signs/I&O Vital Signs Date Time Temp Pulse Resp B/P Pulse Ox O2 Delivery O2 Flow Rate FiO2 09/15/16 22:00 97.8 92 18 125/65 96 Room Air I&O- Last 24 Hours up to 6 AM 09/15/16 06:00 Intake Total 1860 ml Output Total 3075 ml Balance -1215 ml Laboratory Data Labs 24H Laboratory Tests 2 09/15/16 06:44: Bedside Glucose (Misc Panel) 82 09/15/16 11:47: Bedside Glucose (Misc Panel) 108 09/15/16 16:31: Bedside Glucose (Misc Panel) 123H 09/15/16 20:59: Bedside Glucose (Misc Panel) 110 FSBS Laboratory Tests Test 09/15/16 06:44 09/15/16 11:47 09/15/16 16:31 09/15/16 20:59 Range/Units Bedside Glucose (Misc Panel) 82 108 123 110 80-115 MG/DL Microbiology Microbiology 09/07/16 Blood Culture - Final, Complete NO GROWTH AFTER 5 DAYS 09/07/16 Blood Culture - Final, Complete NO GROWTH AFTER 5 DAYS 09/07/16 Influenza Virus Type A Antigen - Final, Complete 09/07/16 Influenza Virus Type B Antigen - Final, Complete 09/07/16 Urine Culture - Final, Complete Aerococcus Urinae SHERRIE HOLLINGSWORTH DO Sep 15, 2016 23:48
[2016-09-16 06:00] VITALS: BP 118/65
[2016-09-16 06:47] LABS: MEAN CORPUSCULAR HEMOGLOBIN 30.8 pg (27.0-33.0); MEAN CORPUSCULAR HGB CONC 32.7 g/dl (32.0-36.5); MEAN CORPUSCULAR VOLUME 94.1 fl (80.0-96.0); PLATELET COUNT, AUTOMATED 185 k/mm3 (150-450); RED CELL DISTRIBUTION WIDTH 14.2 % (11.5-14.5); WHITE BLOOD COUNT 4.8 K/mm3 (4.0-10.0)
[2016-09-16 06:58] LABS: ALBUMIN 2.7 GM/DL (3.2-5.2); ALBUMIN/GLOBULIN RATIO 0.84 (1.00-1.93); ALKALINE PHOSPHATASE 62 U/L (45-117); ALT/SGPT 146 U/L (12-78); ANION GAP 6 MEQ/L (8-16); AST/SGOT 33 U/L (15-37); BILIRUBIN,TOTAL 0.6 MG/DL (0.2-1.0); BLOOD UREA NITROGEN 20 MG/DL (7-18); CALCIUM LEVEL 8.5 MG/DL (8.8-10.2); CARBON DIOXIDE LEVEL 31 MEQ/L (21-32); CHLORIDE LEVEL 104 MEQ/L (98-107); CREATININE FOR GFR 0.46 MG/DL (0.55-1.02); GLOMERULAR FILTRATION RATE > 60.0 (>45); GLUCOSE, FASTING 91 MG/DL (80-110); POTASSIUM SERUM 3.9 MEQ/L (3.5-5.1); SODIUM LEVEL 141 MEQ/L (136-145); TOTAL PROTEIN 5.9 GM/DL (6.4-8.2)
[2016-09-16 07:20] LABS: BANDS 3 % (< 11); EOSINOPHILS 12 % (0-5)
[2016-09-16] MEDS: HumaLOG INSULIN (NovoLOG) PER UNIT SC SCH ×4 (07:30→20:10)
[2016-09-16] MEDS: ENOXAPARIN 40 MG/0.4 ML SYRINGE (J1650) SC SCH (08:53)
[2016-09-16] MEDS: OMEPRAZOLE 20 MG CAP PO SCH (08:54)
[2016-09-16] MEDS: VITAMIN D 1,000 INTERNATIONAL UNITS TABLET PO SCH (08:54)
[2016-09-16] MEDS: NORTRIPTYLINE 10 MG CAP PO SCH ×2 (08:54→20:19)
[2016-09-16] MEDS: TECFIDERA PO SCH ×2 (08:54→20:19)
[2016-09-16] MEDS: BACLOFEN 10 MG TAB PO SCH ×3 (08:54→20:19)
[2016-09-16] MEDS: ASPIRIN 81 MG ENTERIC TAB PO SCH (08:54)
[2016-09-16] MEDS: FEXOFENADINE 60 MG TAB PO SCH (08:54)
--- NOTE | 2016-09-16 11:23 | IPNPDOC ---
Assessment/Plan Date Seen The patient was seen on 09/16/16. Problems Problems: (1) Mass of thoracic vertebra Status: Acute Problem Text: 09/16 case d/w Dr. Red dedicated T9 MRI and then IR biopsy ( if Oncology feels this is best approach to w/u), check CA 15-11/15-29 09/14 - WBBS 09/14 - SPEP, normal K/L ratio 09/13 - CT neck. 09/11/[address] CAP impacted R femoral neck fracture, T9 lesion and two focal sclerotic lesions in the sacrum on the left, nonspecific, bone islands versus blastic metastases 09/09/16 incidental finding of T9 vertebral enhancing lesion c epidural extension , minimal cord compression 09/11/16 - WB bone survey 03/2007 - colonoscopy-B[facility] 11/2015 normal B mammo (2) Multiple sclerosis exacerbation Status: Acute Problem Specific Plan: Consult Specialist Problem Text: Without Tecfidera x 2 days. Nursing confirmed delivery within next few days. Solumedrol 1 gram IV q 24hrs. Neuro consulted. To see patient today. PT ordered. See Neuro Consult. s/p MRI: reports pending 09/13 - Ortho saw pt, feels RLE weakness more likely related to Subacute fracture vs MS exacerbation, recommended reducing steroid dose, Neuro has been consulted await input on this. Pt opting for nonsurgical intervention at this point. 09/14 - Solumedrol dose has been d/c. weakness secondary to fracture-not safe per PT (3) Hip fracture, right Status: Acute Problem Text: Ortho consulted. MRI hip and plain films ordered per Ortho recommendations. NWB RLE. Nursing notified. Patient has no pain 09/13 Ortho and pt leaning towards nonsurgical intervention, no pain. 09/14 - Pt working with PT, she has good UE strength and they anticipate just a couple days and she will be able to be d/c. 09/15 -- not clear yet per PT, per nursing most likely to be DCed to SNF vs PMR (4) UTI (urinary tract infection) Status: Acute Problem Text: patient asymptomatic Hx of Neurogenic bladder and recurrent UTI. 07/12/17 nitro po held 07/08/17 UCX aeroccocus less than 80,000 09/14 rec 3 d IV abx Plan / VTE VTE Prophylaxis Ordered?: Yes (Lovenox) Plan / Urinary Catheter Reason for insertion/continuin: Critical Pt monitoring Plan Therapy: PT (PT to work with pt for next couple days, then plan for d/c.) Subjective Review of Systems CC/HPI Pt doing well. She has no new concerns. Waiting for insurance approval for PMR , otherwise will need STR General: Denies: Fatigue Constitutional: Denies: Chills, Fever Pulmonary: Denies: Cough, Dyspnea Cardiovascular: Denies: Chest Pain, Palpitations Gastrointestinal: Denies: Diarrhea, Nausea, Vomiting Neurological: Reports: Weakness Psych: Reports: Mood Normal Objective Physical Examination General Exam: Positive: Alert, No Acute Distress Eye Exam: Positive: EOMI, PERRLA ENT Exam: Positive: Atraumatic, Mucous membr. moist/pink Neck Exam: Positive: Supple, Negative: JVD Chest Exam: Positive: Clear to auscultation, Normal air movement Heart Exam: Positive: Normal S1, Normal S2, Rate Normal Abdomen Exam: Positive: Normal bowel sounds, Soft, Negative: Tenderness Extremity Exam: Positive: Other (RLE: erythema over the mid thigh to the knee, no notable swelling, nontender; foam dressing over R lateral malleolus abrasion ; RLE externally rotated) Skin Exam: Positive: Nl turgor and temperature Neuro Exam: Positive: Normal Speech, Other (BLE strength 3/5 Bilateral) Vital Signs/I&O Vital Signs Date Time Temp Pulse Resp B/P Pulse Ox O2 Delivery O2 Flow Rate FiO2 09/16/16 06:00 96.7 88 18 118/65 97 Room Air I&O- Last 24 Hours up to 6 AM 09/16/16 05:59 Intake Total 1400 ml Output Total 2425 ml Balance -1025 ml Laboratory Data Labs 24H Laboratory Tests 2 09/15/16 11:47: Bedside Glucose (Misc Panel) 108 09/15/16 16:31: Bedside Glucose (Misc Panel) 123H 09/15/16 20:59: Bedside Glucose (Misc Panel) 110 09/16/16 06:20: Blood Urea Nitrogen 20H, Creatinine 0.46L, Sodium Level 141, Potassium Level 3.9 , Chloride Level 104, Carbon Dioxide Level 31, Calcium Level 8.5L, Aspartate Amino Transf (AST/SGOT) 33, Alanine Aminotransferase (ALT/SGPT) 146H, Alkaline Phosphatase 62, Total Bilirubin 0.6, Total Protein 5.9L, Albumin 2.7L, Albumin/ Globulin Ratio 0.84L, Anion Gap 6L, Atypical Lymphocytes 1, Band Neutrophils 3, White Blood Count 4.8, Red Blood Count 4.41, Hemoglobin 13.6, Hematocrit 41.5, Mean Corpuscular Volume 94.1, Mean Corpuscular Hemoglobin 30.8, Mean Corpuscular Hemoglobin Concent 32.7, Red Cell Distribution Width 14.2, Platelet Count 185, Neutrophils (%) (Auto) , Lymphocytes (%) (Auto) , Monocytes (%) (Auto ) , Eosinophils (%) (Auto) , Basophils (%) (Auto) , Neutrophils # (Auto) , Lymphocytes # (Auto) , Monocytes # (Auto) , Eosinophils # (Auto) , Basophils # ( Auto) , Eosinophils (Manual) 12H, Glomerular Filtration Rate > 60.0, Large Unclassified Cells # , Large Unclassified Cells % , Lymphocytes (Manual) 13L, Monocytes (Manual) 8, Neutrophils 63, Platelet Estimate NORMAL CBC/BMP Laboratory Tests 09/16/16 06:20 Calcium Level 8.5 L, Aspartate Amino Transf (AST/SGOT) 33, Alanine Aminotransferase (ALT/SGPT) 146 H, Alkaline Phosphatase 62, Total Bilirubin 0.6 , Total Protein 5.9 L, Albumin 2.7 L, Red Blood Count 4.41, Mean Corpuscular Volume 94.1, Mean Corpuscular Hemoglobin 30.8, Mean Corpuscular Hemoglobin Concent 32.7, Red Cell Distribution Width 14.2, Neutrophils (%) (Auto) , Lymphocytes (%) (Auto) , Monocytes (%) (Auto) , Eosinophils (%) (Auto) , Basophils (%) (Auto) , Neutrophils # (Auto) , Lymphocytes # (Auto) , Monocytes # (Auto) , Eosinophils # (Auto) , Basophils # (Auto) FSBS Laboratory Tests Test 09/15/16 11:47 09/15/16 16:31 09/15/16 20:59 Range/Units Bedside Glucose (Misc Panel) 108 123 110 80-115 MG/DL Microbiology Microbiology 09/07/16 Blood Culture - Final, Complete NO GROWTH AFTER 5 DAYS 09/07/16 Blood Culture - Final, Complete NO GROWTH AFTER 5 DAYS 09/07/16 Influenza Virus Type A Antigen - Final, Complete 09/07/16 Influenza Virus Type B Antigen - Final, Complete 09/07/16 Urine Culture - Final, Complete Aerococcus Urinae JEREMY GONZALES PA-C Sep 16, 2016 11:23 Zurdo Skelton M.D. Sep 16, 2016 14:38
[2016-09-16 14:00] VITALS: BP 110/72
--- NOTE | 2016-09-16 17:38 | REP ---
MRI THORACIC SPINE WITHOUT CONTRAST: HISTORY: T9 mass. CONTRAST: ProHance 14.4 mL. COMPARISON: 09/09/2016 There is no disc bulge or herniation. Increased signal intensity on T2-weighted images is present in the posterior T9 vertebral body. There is extension into the pedicles and left T9 facet. There is moderate heterogeneous enhancement with contrast. These findings are consistent with a metastases. The T9 vertebral body is normal in height. Small paravertebral and epidural components are present. There is minimal spinal cord compression. There is extension into the left T9 neural foramen. There is compression of the left T9 nerve in the neural foramen. There is no subluxation. A hemangioma is present in the T11 vertebral body. Normal signal intensity is present in the remaining thoracic vertebral bodies. The spinal cord is normal in signal intensity. IMPRESSION: 1. There is no disc bulge or herniation. 2. 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 There is minimal spinal cord compression. Signed by Kervin Mulligan MD 09/16/2016 05:41 P
[2016-09-16] MEDS: FORTEO SQ SCH (18:26)
[2016-09-16] MEDS: ACETAMINOPHEN TAB 650MG DOSE (2X325MG) PO PRN (19:30)
[2016-09-16 22:00] VITALS: BP 112/57
[2016-09-17 06:00] VITALS: BP 125/80
[2016-09-17 06:19] LABS: BASO # 0.1 K/mm3 (0.0-0.2); BASO % 1.3 % (0.0-1.0); EOS # 0.4 K/mm3 (0.0-0.50); EOS % 5.4 % (0.0-3.0); LARGE UNSTAINED CELL # 0.2 K/mm3 (0.0-0.4); LARGE UNSTAINED CELL % 2.7 % (0.0-4.0); LYMPH # 0.6 K/mm3 (1.5-4.5); LYMPH % 5.2 % (24.0-44.0); MEAN CORPUSCULAR HEMOGLOBIN 30.9 pg (27.0-33.0); MEAN CORPUSCULAR HGB CONC 33.5 g/dl (32.0-36.5); MEAN CORPUSCULAR VOLUME 92.1 fl (80.0-96.0); MONO # 0.8 K/mm3 (0.0-0.8); MONO % 10.1 % (0.0-5.0); NEUTROPHILS # 5.6 K/mm3 (1.8-7.7); NEUTROPHILS % 75.2 % (36.0-66.0); PLATELET COUNT, AUTOMATED 200 k/mm3 (150-450); RED CELL DISTRIBUTION WIDTH 14.2 % (11.5-14.5); WHITE BLOOD COUNT 7.4 K/mm3 (4.0-10.0)
[2016-09-17 06:34] LABS: ALBUMIN 3.1 GM/DL (3.2-5.2); ALBUMIN/GLOBULIN RATIO 1.03 (1.00-1.93); ALKALINE PHOSPHATASE 65 U/L (45-117); ALT/SGPT 122 U/L (12-78); ANION GAP 10 MEQ/L (8-16); AST/SGOT 26 U/L (15-37); BILIRUBIN,TOTAL 0.6 MG/DL (0.2-1.0); BLOOD UREA NITROGEN 19 MG/DL (7-18); CALCIUM LEVEL 9.2 MG/DL (8.8-10.2); CARBON DIOXIDE LEVEL 28 MEQ/L (21-32); CHLORIDE LEVEL 103 MEQ/L (98-107); GLOMERULAR FILTRATION RATE > 60.0 (>45); GLUCOSE, FASTING 102 MG/DL (80-110); POTASSIUM SERUM 4.2 MEQ/L (3.5-5.1); SODIUM LEVEL 141 MEQ/L (136-145); TOTAL PROTEIN 6.1 GM/DL (6.4-8.2)
[2016-09-17] MEDS: HumaLOG INSULIN (NovoLOG) PER UNIT SC SCH ×4 (07:23→21:00)
[2016-09-17] MEDS: ENOXAPARIN 40 MG/0.4 ML SYRINGE (J1650) SC SCH (08:09)
[2016-09-17] MEDS: BACLOFEN 10 MG TAB PO SCH ×3 (08:09→20:34)
[2016-09-17] MEDS: TECFIDERA PO SCH ×2 (08:09→20:35)
[2016-09-17] MEDS: VITAMIN D 1,000 INTERNATIONAL UNITS TABLET PO SCH (08:10)
[2016-09-17] MEDS: OMEPRAZOLE 20 MG CAP PO SCH (08:10)
[2016-09-17] MEDS: ASPIRIN 81 MG ENTERIC TAB PO SCH (08:10)
[2016-09-17] MEDS: FEXOFENADINE 60 MG TAB PO SCH (08:10)
[2016-09-17] MEDS: NORTRIPTYLINE 10 MG CAP PO SCH ×2 (08:17→20:34)
[2016-09-17] MEDS: ACETAMINOPHEN TAB 650MG DOSE (2X325MG) PO PRN ×3 (10:02→18:49)
[2016-09-17 14:00] VITALS: BP 109/62
--- NOTE | 2016-09-17 15:55 | DSES ---
DATE OF ADMISSION: 09/07/2016 DATE OF DISCHARGE: [facility] facility (SNF) status: 09/17/2016 PRIMARY CARE PROVIDER: Dr. Zurdo Skelton Patient is a wheelchair bound 70-year-old female who has limited mobility secondary to multiple sclerosis (MS). She fell at home trying to get her gloves. She called the rescue squad who was able to get her back up and into her wheelchair. She denied any pain or paresthesias but she was having difficulty with transfers later in the evening and therefore was brought to the emergency room for further evaluation. She was felt to have a multiple sclerosis exacerbation. Neurology was consulted. She was started on high dose Solu-Medrol. She was also treated empirically for a urinary tract infection. Further evaluation revealed enhancing lesion of the T9 vertebral body as well as impacted fracture of the femoral neck. Orthopedic group was consulted who felt as though this was likely the cause of her lower extremity weakness and therefore her Solu-Medrol was discontinued. After discussion with orthopedic group, the orthopedist opted for conservative, nonsurgical management of this fracture and therefore, she is non-weightbearing on that extremity. Her pain is well controlled. She is on bowel care. In terms of the T9 mass, she did have a thoracic spine MRI which confirmed the suspicion of a metastatic lesion with minimal cord compression. Dr. Skelton has spoken with Dr. Orona who feels as though he will be able to biopsy this through interventional radiology. Subsequently, a CT guided biopsy order has been placed. Patient has continued to work with physical therapy, although the recommendation is for short-term rehabilitation and therefore she will be placed on senior care level of care until this can be coordinated for her. DISCHARGE DIAGNOSES: Include: 1. Mass of the T9 thoracic vertebrae. 2. Multiple sclerosis exacerbation. 3. Right hip fracture. 4. Urinary tract infection. Discharge medications and plan will be summarized at time of discharge from the hospital.
[2016-09-17] MEDS: FORTEO SQ SCH (17:14)
[2016-09-17] MEDS ORDERED: traMADol 50 MG TAB PO ONE (19:15)
[2016-09-18 06:00] VITALS: BP 135/74
[2016-09-18 06:05] LABS: BASO % 0.1 % (0.0-1.0); EOS # 0.2 K/mm3 (0.0-0.50); LARGE UNSTAINED CELL # 0.1 K/mm3 (0.0-0.4); LARGE UNSTAINED CELL % 2.2 % (0.0-4.0); LYMPH # 0.5 K/mm3 (1.5-4.5); LYMPH % 7.9 % (24.0-44.0); MEAN CORPUSCULAR HEMOGLOBIN 30.9 pg (27.0-33.0); MEAN CORPUSCULAR HGB CONC 33.1 g/dl (32.0-36.5); MEAN CORPUSCULAR VOLUME 93.6 fl (80.0-96.0); MONO # 0.5 K/mm3 (0.0-0.8); MONO % 7.5 % (0.0-5.0); NEUTROPHILS # 4.7 K/mm3 (1.8-7.7); NEUTROPHILS % 78.4 % (36.0-66.0); PLATELET COUNT, AUTOMATED 205 k/mm3 (150-450); RED CELL DISTRIBUTION WIDTH 13.2 % (11.5-14.5)
[2016-09-18 06:25] LABS: ALBUMIN 3.2 GM/DL (3.2-5.2); ALKALINE PHOSPHATASE 65 U/L (45-117); ALT/SGPT 94 U/L (12-78); ANION GAP 10 MEQ/L (8-16); AST/SGOT 19 U/L (15-37); BILIRUBIN,TOTAL 0.6 MG/DL (0.2-1.0); BLOOD UREA NITROGEN 19 MG/DL (7-18); CALCIUM LEVEL 9.4 MG/DL (8.8-10.2); CARBON DIOXIDE LEVEL 27 MEQ/L (21-32); CHLORIDE LEVEL 103 MEQ/L (98-107); CREATININE FOR GFR 0.44 MG/DL (0.55-1.02); GLOMERULAR FILTRATION RATE > 60.0 (>45); GLUCOSE, FASTING 110 MG/DL (80-110); POTASSIUM SERUM 4.1 MEQ/L (3.5-5.1); SODIUM LEVEL 140 MEQ/L (136-145); TOTAL PROTEIN 6.4 GM/DL (6.4-8.2)
[2016-09-18] MEDS: HumaLOG INSULIN (NovoLOG) PER UNIT SC SCH ×4 (06:44→20:12)
[2016-09-18] MEDS: VITAMIN D 1,000 INTERNATIONAL UNITS TABLET PO SCH (08:33)
[2016-09-18] MEDS: FEXOFENADINE 60 MG TAB PO SCH (08:33)
[2016-09-18] MEDS: OMEPRAZOLE 20 MG CAP PO SCH (08:33)
[2016-09-18] MEDS: NORTRIPTYLINE 10 MG CAP PO SCH ×2 (08:33→20:19)
[2016-09-18] MEDS: BACLOFEN 10 MG TAB PO SCH ×3 (08:33→20:19)
[2016-09-18] MEDS: ASPIRIN 81 MG ENTERIC TAB PO SCH (08:33)
[2016-09-18] MEDS: TECFIDERA PO SCH ×2 (08:34→20:19)
[2016-09-18] MEDS: ENOXAPARIN 40 MG/0.4 ML SYRINGE (J1650) SC SCH (08:34)
[2016-09-18 08:45] VITALS: BP 110/63
[2016-09-18 14:04] VITALS: BP 132/63
[2016-09-18] MEDS: ACETAMINOPHEN TAB 650MG DOSE (2X325MG) PO PRN (14:10)
[2016-09-18] MEDS: FORTEO SQ SCH (17:24)
[2016-09-19] MEDS: ACETAMINOPHEN TAB 650MG DOSE (2X325MG) PO PRN ×2 (01:47→13:37)
[2016-09-19 06:00] VITALS: BP 140/93
[2016-09-19 06:23] LABS: BASO # 0.1 K/mm3 (0.0-0.2); BASO % 1.3 % (0.0-1.0); EOS # 0.2 K/mm3 (0.0-0.50); EOS % 3.6 % (0.0-3.0); LARGE UNSTAINED CELL # 0.1 K/mm3 (0.0-0.4); LARGE UNSTAINED CELL % 1.9 % (0.0-4.0); LYMPH # 0.6 K/mm3 (1.5-4.5); LYMPH % 6.4 % (24.0-44.0); MEAN CORPUSCULAR HEMOGLOBIN 30.9 pg (27.0-33.0); MEAN CORPUSCULAR HGB CONC 33.4 g/dl (32.0-36.5); MEAN CORPUSCULAR VOLUME 92.5 fl (80.0-96.0); MONO # 0.6 K/mm3 (0.0-0.8); MONO % 8.6 % (0.0-5.0); NEUTROPHILS # 5.5 K/mm3 (1.8-7.7); NEUTROPHILS % 78.2 % (36.0-66.0); PLATELET COUNT, AUTOMATED 201 k/mm3 (150-450); RED CELL DISTRIBUTION WIDTH 14.3 % (11.5-14.5); WHITE BLOOD COUNT 7.1 K/mm3 (4.0-10.0)
[2016-09-19 06:43] LABS: ALBUMIN 3.2 GM/DL (3.2-5.2); ALKALINE PHOSPHATASE 58 U/L (45-117); ALT/SGPT 75 U/L (12-78); ANION GAP 9 MEQ/L (8-16); AST/SGOT 23 U/L (15-37); BILIRUBIN,TOTAL 0.5 MG/DL (0.2-1.0); BLOOD UREA NITROGEN 21 MG/DL (7-18); CARBON DIOXIDE LEVEL 28 MEQ/L (21-32); CHLORIDE LEVEL 104 MEQ/L (98-107); CREATININE FOR GFR 0.46 MG/DL (0.55-1.02); GLOMERULAR FILTRATION RATE > 60.0 (>45); GLUCOSE, FASTING 90 MG/DL (80-110); POTASSIUM SERUM 4.2 MEQ/L (3.5-5.1); SODIUM LEVEL 141 MEQ/L (136-145); TOTAL PROTEIN 6.1 GM/DL (6.4-8.2)
[2016-09-19] MEDS: HumaLOG INSULIN (NovoLOG) PER UNIT SC SCH ×4 (07:50→21:00)
[2016-09-19] MEDS: TECFIDERA PO SCH ×2 (09:40→20:28)
[2016-09-19] MEDS: ASPIRIN 81 MG ENTERIC TAB PO SCH (09:41)
[2016-09-19] MEDS: BACLOFEN 10 MG TAB PO SCH ×3 (09:41→20:27)
[2016-09-19] MEDS: FEXOFENADINE 60 MG TAB PO SCH (09:41)
[2016-09-19] MEDS: ENOXAPARIN 40 MG/0.4 ML SYRINGE (J1650) SC SCH (09:41)
[2016-09-19] MEDS: OMEPRAZOLE 20 MG CAP PO SCH (09:41)
[2016-09-19] MEDS: NORTRIPTYLINE 10 MG CAP PO SCH ×2 (09:41→20:27)
[2016-09-19] MEDS: VITAMIN D 1,000 INTERNATIONAL UNITS TABLET PO SCH (09:41)
[2016-09-19 14:00] VITALS: BP 125/66
[2016-09-19] MEDS: FORTEO SQ SCH (16:43)
[2016-09-19 22:00] VITALS: BP 127/73
[2016-09-20] MEDS: ACETAMINOPHEN TAB 650MG DOSE (2X325MG) PO PRN (05:01)
[2016-09-20 06:00] VITALS: BP 119/70
[2016-09-20 06:47] LABS: BASO # 0.1 K/mm3 (0.0-0.2); BASO % 0.9 % (0.0-1.0); EOS # 0.2 K/mm3 (0.0-0.50); EOS % 2.8 % (0.0-3.0); LARGE UNSTAINED CELL # 0.2 K/mm3 (0.0-0.4); LARGE UNSTAINED CELL % 1.8 % (0.0-4.0); LYMPH # 0.7 K/mm3 (1.5-4.5); LYMPH % 6.2 % (24.0-44.0); MEAN CORPUSCULAR HEMOGLOBIN 30.7 pg (27.0-33.0); MEAN CORPUSCULAR HGB CONC 33.2 g/dl (32.0-36.5); MEAN CORPUSCULAR VOLUME 92.3 fl (80.0-96.0); MONO # 0.6 K/mm3 (0.0-0.8); NEUTROPHILS # 6.9 K/mm3 (1.8-7.7); NEUTROPHILS % 81.3 % (36.0-66.0); PLATELET COUNT, AUTOMATED 214 k/mm3 (150-450); RED CELL DISTRIBUTION WIDTH 14.1 % (11.5-14.5); WHITE BLOOD COUNT 8.5 K/mm3 (4.0-10.0)
[2016-09-20 07:05] LABS: ALBUMIN 3.3 GM/DL (3.2-5.2); ALBUMIN/GLOBULIN RATIO 0.89 (1.00-1.93); ALKALINE PHOSPHATASE 63 U/L (45-117); ALT/SGPT 71 U/L (12-78); ANION GAP 9 MEQ/L (8-16); AST/SGOT 23 U/L (15-37); BILIRUBIN,TOTAL 0.5 MG/DL (0.2-1.0); BLOOD UREA NITROGEN 17 MG/DL (7-18); CALCIUM LEVEL 9.8 MG/DL (8.8-10.2); CARBON DIOXIDE LEVEL 27 MEQ/L (21-32); CHLORIDE LEVEL 103 MEQ/L (98-107); CREATININE FOR GFR 0.47 MG/DL (0.55-1.02); GLOMERULAR FILTRATION RATE > 60.0 (>45); GLUCOSE, FASTING 92 MG/DL (80-110); POTASSIUM SERUM 3.9 MEQ/L (3.5-5.1); SODIUM LEVEL 139 MEQ/L (136-145)
[2016-09-20] MEDS: HumaLOG INSULIN (NovoLOG) PER UNIT SC SCH ×4 (07:29→21:00)
[2016-09-20] MEDS: ENOXAPARIN 40 MG/0.4 ML SYRINGE (J1650) SC SCH (07:54)
[2016-09-20 08:14] LABS: INR 0.89
[2016-09-20] MEDS: TECFIDERA PO SCH ×2 (08:29→20:41)
[2016-09-20] MEDS: OMEPRAZOLE 20 MG CAP PO SCH (08:29)
[2016-09-20] MEDS: NORTRIPTYLINE 10 MG CAP PO SCH ×2 (08:29→20:41)
[2016-09-20] MEDS: VITAMIN D 1,000 INTERNATIONAL UNITS TABLET PO SCH (08:29)
[2016-09-20] MEDS: ASPIRIN 81 MG ENTERIC TAB PO SCH (08:29)
[2016-09-20] MEDS: FEXOFENADINE 60 MG TAB PO SCH (08:29)
[2016-09-20] MEDS: BACLOFEN 10 MG TAB PO SCH ×3 (08:29→20:41)
[2016-09-20] MEDS ORDERED: MOM 30ML SUSPENSION UDC PO PRN (10:15)
[2016-09-20] MEDS ORDERED: LIDOCAINE 1% MDV 20ML VIAL As Ordered ONE (12:49)
[2016-09-20] MEDS ORDERED: LIDOCAINE 2% MDV 20 ML VIAL As Ordered ONE (12:54)
[2016-09-20] MEDS ORDERED: SODIUM BICARBONATE 8.4% INJ 50MEQ 50 ML VIAL As Ordered ONE (12:54)
[2016-09-20] MEDS ORDERED: LIDOCAINE W/EPINEPHRINE 1% 20ML VIAL As Ordered ONE (12:54)
[2016-09-20] MEDS: FORTEO SQ SCH (16:21)
--- NOTE | 2016-09-20 16:41 | REPKIM ---
CLINICAL HISTORY: Patient presents with T9 lesion as documented by the recent MRI/CT. The referring service has asked a biopsy of the T9 vertebral body lesion. PROCEDURE PERFORMED: Percutaneous T9 vertebral body lesion under CT guidance INTERVENTIONALIST: Twyla Orona MD CONSENT: The risks, benefits and alternatives to the procedure were explained to the patient and informed written consent was obtained and witnessed. SEDATION: Local Lidocaine EBL: less than 3 mL PROCEDURE/FINDINGS: The patient was placed in the prone position on the CT table. Time out procedure was performed. CT of the thoracic spine /chest was performed. This localized the T9 vertebral body lesion corresponding to the prior MRI/CT study. Using CT guidance, a 16-gauge bone biopsy needle was advanced to the targeted T9 vertebral body lesion in a transpedicle approach on the left, after infiltration of the skin and deep tissues with local anesthetic. Then using coaxial technique, core samples were obtained using a 19-gauge biopsy device. The specimens also obtained using the 16-gauge bone biopsy needle. The specimens sent to pathology. Immediate follow-up imaging showed no obvious hemorrhage at the biopsy sites. Direct manual pressure was applied over the skin entrance site. A sterile dressing was applied. This procedure was performed using CT. The patient tolerated the procedure well with no immediate complications. Dr. Orona was present. IMPRESSION: Percutaneous biopsy of the T9 vertebral body lesion as described above. cc: MD MICHELLE Monahan MD Maria Alicea, PA-C MTDD
[2016-09-21 06:00] VITALS: BP 124/64
[2016-09-21 06:46] LABS: ALBUMIN 3.2 GM/DL (3.2-5.2); ALBUMIN/GLOBULIN RATIO 0.86 (1.00-1.93); ALKALINE PHOSPHATASE 64 U/L (45-117); ALT/SGPT 65 U/L (12-78); ANION GAP 9 MEQ/L (8-16); AST/SGOT 19 U/L (15-37); BILIRUBIN,TOTAL 0.4 MG/DL (0.2-1.0); BLOOD UREA NITROGEN 22 MG/DL (7-18); CALCIUM LEVEL 9.6 MG/DL (8.8-10.2); CARBON DIOXIDE LEVEL 25 MEQ/L (21-32); CHLORIDE LEVEL 105 MEQ/L (98-107); CREATININE FOR GFR 0.47 MG/DL (0.55-1.02); GLOMERULAR FILTRATION RATE > 60.0 (>45); GLUCOSE, FASTING 98 MG/DL (80-110); SODIUM LEVEL 139 MEQ/L (136-145); TOTAL PROTEIN 6.9 GM/DL (6.4-8.2)
[2016-09-21 07:00] LABS: BASO % 0.2 % (0.0-1.0); EOS # 0.2 K/mm3 (0.0-0.50); EOS % 1.9 % (0.0-3.0); LARGE UNSTAINED CELL # 0.2 K/mm3 (0.0-0.4); LARGE UNSTAINED CELL % 2.5 % (0.0-4.0); LYMPH # 0.5 K/mm3 (1.5-4.5); LYMPH % 5.7 % (24.0-44.0); MEAN CORPUSCULAR HGB CONC 32.5 g/dl (32.0-36.5); MEAN CORPUSCULAR VOLUME 95.4 fl (80.0-96.0); MONO # 0.5 K/mm3 (0.0-0.8); MONO % 5.7 % (0.0-5.0); NEUTROPHILS # 7.1 K/mm3 (1.8-7.7); PLATELET COUNT, AUTOMATED 190 k/mm3 (150-450); RED CELL DISTRIBUTION WIDTH 13.2 % (11.5-14.5); WHITE BLOOD COUNT 8.4 K/mm3 (4.0-10.0)
[2016-09-21] MEDS: HumaLOG INSULIN (NovoLOG) PER UNIT SC SCH ×4 (07:25→20:59)
[2016-09-21] MEDS: TECFIDERA PO SCH ×2 (09:00→21:00)
[2016-09-21] MEDS: OMEPRAZOLE 20 MG CAP PO SCH (09:13)
[2016-09-21] MEDS: VITAMIN D 1,000 INTERNATIONAL UNITS TABLET PO SCH (09:13)
[2016-09-21] MEDS: BACLOFEN 10 MG TAB PO SCH ×3 (09:14→21:00)
[2016-09-21] MEDS: NORTRIPTYLINE 10 MG CAP PO SCH ×2 (09:14→21:00)
[2016-09-21] MEDS: FEXOFENADINE 60 MG TAB PO SCH (09:14)
[2016-09-21] MEDS: ASPIRIN 81 MG ENTERIC TAB PO SCH (09:14)
[2016-09-21] MEDS: ENOXAPARIN 40 MG/0.4 ML SYRINGE (J1650) SC SCH (09:15)
[2016-09-21] MEDS: ACETAMINOPHEN TAB 650MG DOSE (2X325MG) PO PRN ×2 (11:07→17:20)
[2016-09-21] MEDS: FORTEO SQ SCH (16:38)
[2016-09-22] MEDS: ACETAMINOPHEN TAB 650MG DOSE (2X325MG) PO PRN (04:24)
[2016-09-22 06:00] VITALS: BP 110/80
[2016-09-22 06:25] LABS: BASO % 0.3 % (0.0-1.0); EOS # 0.2 K/mm3 (0.0-0.50); EOS % 3.5 % (0.0-3.0); LARGE UNSTAINED CELL # 0.1 K/mm3 (0.0-0.4); LARGE UNSTAINED CELL % 2.3 % (0.0-4.0); LYMPH # 0.4 K/mm3 (1.5-4.5); LYMPH % 7.7 % (24.0-44.0); MEAN CORPUSCULAR HEMOGLOBIN 30.4 pg (27.0-33.0); MEAN CORPUSCULAR HGB CONC 32.6 g/dl (32.0-36.5); MEAN CORPUSCULAR VOLUME 93.2 fl (80.0-96.0); MONO # 0.3 K/mm3 (0.0-0.8); MONO % 5.9 % (0.0-5.0); NEUTROPHILS # 4.6 K/mm3 (1.8-7.7); NEUTROPHILS % 80.3 % (36.0-66.0); PLATELET COUNT, AUTOMATED 199 k/mm3 (150-450); RED CELL DISTRIBUTION WIDTH 13.2 % (11.5-14.5); WHITE BLOOD COUNT 5.7 K/mm3 (4.0-10.0)
[2016-09-22 06:42] LABS: ALBUMIN 3.1 GM/DL (3.2-5.2); ALBUMIN/GLOBULIN RATIO 0.89 (1.00-1.93); ALKALINE PHOSPHATASE 62 U/L (45-117); ALT/SGPT 53 U/L (12-78); ANION GAP 7 MEQ/L (8-16); AST/SGOT 20 U/L (15-37); BILIRUBIN,TOTAL 0.4 MG/DL (0.2-1.0); BLOOD UREA NITROGEN 20 MG/DL (7-18); CALCIUM LEVEL 9.5 MG/DL (8.8-10.2); CARBON DIOXIDE LEVEL 29 MEQ/L (21-32); CHLORIDE LEVEL 105 MEQ/L (98-107); CREATININE FOR GFR 0.41 MG/DL (0.55-1.02); GLOMERULAR FILTRATION RATE > 60.0 (>45); GLUCOSE, FASTING 103 MG/DL (80-110); POTASSIUM SERUM 3.9 MEQ/L (3.5-5.1); SODIUM LEVEL 141 MEQ/L (136-145); TOTAL PROTEIN 6.6 GM/DL (6.4-8.2)
[2016-09-22] MEDS: HumaLOG INSULIN (NovoLOG) PER UNIT SC SCH ×4 (07:30→20:58)
[2016-09-22] MEDS: ENOXAPARIN 40 MG/0.4 ML SYRINGE (J1650) SC SCH (08:52)
[2016-09-22] MEDS: VITAMIN D 1,000 INTERNATIONAL UNITS TABLET PO SCH (08:53)
[2016-09-22] MEDS: TECFIDERA PO SCH ×2 (08:53→20:36)
[2016-09-22] MEDS: BACLOFEN 10 MG TAB PO SCH ×3 (08:54→20:36)
[2016-09-22] MEDS: OMEPRAZOLE 20 MG CAP PO SCH (08:54)
[2016-09-22] MEDS: NORTRIPTYLINE 10 MG CAP PO SCH ×2 (08:54→20:36)
[2016-09-22] MEDS: ASPIRIN 81 MG ENTERIC TAB PO SCH (08:55)
[2016-09-22] MEDS: FEXOFENADINE 60 MG TAB PO SCH (08:55)
[2016-09-22] MEDS: FORTEO SQ SCH (16:55)
[2016-09-23] MEDS: ACETAMINOPHEN TAB 650MG DOSE (2X325MG) PO PRN (03:30)
[2016-09-23 06:00] VITALS: BP 114/65
[2016-09-23] MEDS: HumaLOG INSULIN (NovoLOG) PER UNIT SC SCH ×4 (07:26→21:00)
[2016-09-23] MEDS: OMEPRAZOLE 20 MG CAP PO SCH (09:18)
[2016-09-23] MEDS: BACLOFEN 10 MG TAB PO SCH ×3 (09:18→20:27)
[2016-09-23] MEDS: ENOXAPARIN 40 MG/0.4 ML SYRINGE (J1650) SC SCH (09:18)
[2016-09-23] MEDS: VITAMIN D 1,000 INTERNATIONAL UNITS TABLET PO SCH (09:18)
[2016-09-23] MEDS: NORTRIPTYLINE 10 MG CAP PO SCH ×2 (09:18→20:27)
[2016-09-23] MEDS: ASPIRIN 81 MG ENTERIC TAB PO SCH (09:18)
[2016-09-23] MEDS: FEXOFENADINE 60 MG TAB PO SCH (09:18)
[2016-09-23] MEDS: TECFIDERA PO SCH ×2 (09:19→20:27)
[2016-09-23] MEDS: FORTEO SQ SCH (16:45)
[2016-09-23 22:00] VITALS: BP 122/67
[2016-09-24] MEDS: ACETAMINOPHEN TAB 650MG DOSE (2X325MG) PO PRN ×2 (02:30→08:10)
[2016-09-24 06:00] VITALS: BP 120/73
[2016-09-24] MEDS: HumaLOG INSULIN (NovoLOG) PER UNIT SC SCH ×4 (07:30→21:04)
[2016-09-24] MEDS: ASPIRIN 81 MG ENTERIC TAB PO SCH (08:10)
[2016-09-24] MEDS: VITAMIN D 1,000 INTERNATIONAL UNITS TABLET PO SCH (08:10)
[2016-09-24] MEDS: OMEPRAZOLE 20 MG CAP PO SCH (08:10)
[2016-09-24] MEDS: BACLOFEN 10 MG TAB PO SCH ×3 (08:11→21:11)
[2016-09-24] MEDS: ENOXAPARIN 40 MG/0.4 ML SYRINGE (J1650) SC SCH (08:11)
[2016-09-24] MEDS: NORTRIPTYLINE 10 MG CAP PO SCH ×2 (09:23→21:11)
[2016-09-24] MEDS: TECFIDERA PO SCH ×2 (09:23→21:12)
[2016-09-24] MEDS: FEXOFENADINE 60 MG TAB PO SCH (09:23)
--- NOTE | 2016-09-24 15:21 | IPNPDOC ---
Assessment/Plan Date Seen The patient was seen on 09/24/16. Problems Problems: (1) Mass of thoracic vertebra Status: Acute Problem Text: 09/24: Patient evaluated under ALC status; CT-guided biopsy of T9 mass done on 09/20/16 showed minute fragments of benign bone, and surrounding blood clot. No evidence for malignancy is noted in this specimen. 09/16 case d/w Dr. Red dedicated T9 MRI and then IR biopsy (if Oncology feels this is best approach to w/u), check CA 15-11/15-29 09/14 - WBBS 09/14 - SPEP, normal K/L ratio 09/13 - CT neck. 09/11/[address] CAP impacted R femoral neck fracture, T9 lesion and two focal sclerotic lesions in the sacrum on the left, nonspecific, bone islands versus blastic metastases 09/09/16 incidental finding of T9 vertebral enhancing lesion c epidural extension , minimal cord compression 09/11/16 - WB bone survey 03/2007 - colonoscopy-Betsy 11/2015 normal B mammo (2) Hip fracture, right Status: Acute Problem Text: Ortho and patient decided against surgical intervention; awaiting placement for rehab. Plan / VTE VTE Prophylaxis Ordered?: Yes (Lovenox) Plan / Urinary Catheter Reason for insertion/continuin: Critical Pt monitoring Plan Therapy: PT (PT to work with pt for next couple days, then plan for d/c.) Subjective Review of Systems CC/HPI The patient is a 70-year-old female admitted with a reason for visit of Multiple Sclerosis Exacerbation. General: Denies: Chills, Fatigue Constitutional: Denies: Chills, Fever ENT: Denies: Head Aches Skin: Denies: Rash Pulmonary: Denies: Cough, Dyspnea Cardiovascular: Denies: Chest Pain, Palpitations Gastrointestinal: Denies: Abdominal Pain, Nausea, Vomiting Musculoskeletal: Denies: Back Pain, Neck Pain Objective Physical Examination General Exam: Positive: Alert, No Acute Distress Eye Exam: Positive: EOMI, PERRLA ENT Exam: Positive: Atraumatic, Mucous membr. moist/pink Neck Exam: Positive: Supple, Negative: JVD Chest Exam: Positive: Clear to auscultation, Normal air movement Heart Exam: Positive: Normal S1, Normal S2, Rate Normal Abdomen Exam: Positive: Normal bowel sounds, Soft, Negative: Tenderness Extremity Exam: Positive: Other (RLE externally rotated) Skin Exam: Positive: Nl turgor and temperature Neuro Exam: Positive: Normal Speech Vital Signs/I&O Vital Signs Date Time Temp Pulse Resp B/P Pulse Ox O2 Delivery O2 Flow Rate FiO2 09/24/16 09:00 18 Room Air 09/24/16 06:00 97.2 98 120/73 97 I&O- Last 24 Hours up to 6 AM 09/24/16 06:00 Intake Total 840 ml Output Total 1450 ml Balance -610 ml Laboratory Data Labs 24H Laboratory Tests 2 09/23/16 16:29: Bedside Glucose (Misc Panel) 116H 09/23/16 21:12: Bedside Glucose (Misc Panel) 110 09/24/16 07:51: Bedside Glucose (Misc Panel) 111 09/24/16 11:55: Bedside Glucose (Misc Panel) 115 FSBS Laboratory Tests Test 09/23/16 16:29 09/23/16 21:12 09/24/16 07:51 09/24/16 11:55 Range/Units Bedside Glucose (Misc Panel) 116 110 111 115 80-115 MG/DL MATTHEW RIVAS MD Sep 24, 2016 15:18
[2016-09-24] MEDS: FORTEO SQ SCH (16:32)
[2016-09-25 06:00] VITALS: BP 106/59
[2016-09-25] MEDS: HumaLOG INSULIN (NovoLOG) PER UNIT SC SCH ×4 (07:30→21:00)
[2016-09-25] MEDS: ACETAMINOPHEN TAB 650MG DOSE (2X325MG) PO PRN (09:02)
[2016-09-25] MEDS: VITAMIN D 1,000 INTERNATIONAL UNITS TABLET PO SCH (09:02)
[2016-09-25] MEDS: ENOXAPARIN 40 MG/0.4 ML SYRINGE (J1650) SC SCH (09:03)
[2016-09-25] MEDS: TECFIDERA PO SCH ×2 (09:03→20:42)
[2016-09-25] MEDS: BACLOFEN 10 MG TAB PO SCH ×3 (09:03→20:42)
[2016-09-25] MEDS: NORTRIPTYLINE 10 MG CAP PO SCH ×2 (09:03→20:42)
[2016-09-25] MEDS: OMEPRAZOLE 20 MG CAP PO SCH (09:03)
[2016-09-25] MEDS: ASPIRIN 81 MG ENTERIC TAB PO SCH (09:03)
[2016-09-25] MEDS: FEXOFENADINE 60 MG TAB PO SCH (09:04)
[2016-09-25] MEDS: FORTEO SQ SCH (17:00)
[2016-09-26] MEDS: ACETAMINOPHEN TAB 650MG DOSE (2X325MG) PO PRN ×2 (00:08→14:40)
[2016-09-26 06:10] VITALS: BP 108/57
[2016-09-26] MEDS: HumaLOG INSULIN (NovoLOG) PER UNIT SC SCH ×4 (07:30→21:05)
[2016-09-26] MEDS: TECFIDERA PO SCH ×2 (08:17→20:32)
[2016-09-26] MEDS: NORTRIPTYLINE 10 MG CAP PO SCH ×2 (08:17→20:31)
[2016-09-26] MEDS: ASPIRIN 81 MG ENTERIC TAB PO SCH (08:18)
[2016-09-26] MEDS: FEXOFENADINE 60 MG TAB PO SCH (08:18)
[2016-09-26] MEDS: OMEPRAZOLE 20 MG CAP PO SCH (08:18)
[2016-09-26] MEDS: VITAMIN D 1,000 INTERNATIONAL UNITS TABLET PO SCH (08:19)
[2016-09-26] MEDS: BACLOFEN 10 MG TAB PO SCH ×3 (08:19→20:31)
[2016-09-26] MEDS: ENOXAPARIN 40 MG/0.4 ML SYRINGE (J1650) SC SCH (08:21)
[2016-09-26] MEDS: FORTEO SQ SCH (16:56)
[2016-09-27 06:00] VITALS: BP 108/68
[2016-09-27] MEDS: HumaLOG INSULIN (NovoLOG) PER UNIT SC SCH ×4 (07:30→20:08)
[2016-09-27] MEDS: ASPIRIN 81 MG ENTERIC TAB PO SCH (09:47)
[2016-09-27] MEDS: BACLOFEN 10 MG TAB PO SCH ×3 (09:47→20:12)
[2016-09-27] MEDS: VITAMIN D 1,000 INTERNATIONAL UNITS TABLET PO SCH (09:47)
[2016-09-27] MEDS: ENOXAPARIN 40 MG/0.4 ML SYRINGE (J1650) SC SCH (09:47)
[2016-09-27] MEDS: OMEPRAZOLE 20 MG CAP PO SCH (09:47)
[2016-09-27] MEDS: TECFIDERA PO SCH ×2 (09:48→20:12)
[2016-09-27] MEDS: NORTRIPTYLINE 10 MG CAP PO SCH ×2 (09:48→20:12)
[2016-09-27] MEDS: FEXOFENADINE 60 MG TAB PO SCH (09:48)
[2016-09-27] MEDS: FORTEO SQ SCH (16:59)
[2016-09-28 06:00] VITALS: BP 123/78
[2016-09-28] MEDS: HumaLOG INSULIN (NovoLOG) PER UNIT SC SCH ×4 (07:30→20:07)
[2016-09-28] MEDS: ACETAMINOPHEN TAB 650MG DOSE (2X325MG) PO PRN (08:06)
[2016-09-28] MEDS: ASPIRIN 81 MG ENTERIC TAB PO SCH (08:06)
[2016-09-28] MEDS: TECFIDERA PO SCH ×2 (08:06→20:07)
[2016-09-28] MEDS: VITAMIN D 1,000 INTERNATIONAL UNITS TABLET PO SCH (08:06)
[2016-09-28] MEDS: NORTRIPTYLINE 10 MG CAP PO SCH ×2 (08:06→20:07)
[2016-09-28] MEDS: FEXOFENADINE 60 MG TAB PO SCH (08:06)
[2016-09-28] MEDS: BACLOFEN 10 MG TAB PO SCH ×3 (08:06→20:07)
[2016-09-28] MEDS: OMEPRAZOLE 20 MG CAP PO SCH (08:06)
[2016-09-28] MEDS: ENOXAPARIN 40 MG/0.4 ML SYRINGE (J1650) SC SCH (08:07)
[2016-09-28] MEDS: FORTEO SQ SCH (16:11)
[2016-09-29 06:00] VITALS: BP 116/71
[2016-09-29] MEDS: HumaLOG INSULIN (NovoLOG) PER UNIT SC SCH ×4 (07:21→21:00)
[2016-09-29] MEDS: NORTRIPTYLINE 10 MG CAP PO SCH ×2 (07:51→21:54)
[2016-09-29] MEDS: VITAMIN D 1,000 INTERNATIONAL UNITS TABLET PO SCH (07:51)
[2016-09-29] MEDS: FEXOFENADINE 60 MG TAB PO SCH (07:51)
[2016-09-29] MEDS: ENOXAPARIN 40 MG/0.4 ML SYRINGE (J1650) SC SCH (07:52)
[2016-09-29] MEDS: BACLOFEN 10 MG TAB PO SCH ×3 (07:52→21:54)
[2016-09-29] MEDS: OMEPRAZOLE 20 MG CAP PO SCH (07:52)
[2016-09-29] MEDS: ACETAMINOPHEN TAB 650MG DOSE (2X325MG) PO PRN ×2 (07:52→21:56)
[2016-09-29] MEDS: ASPIRIN 81 MG ENTERIC TAB PO SCH (07:52)
[2016-09-29] MEDS: TECFIDERA PO SCH ×2 (07:53→21:54)
[2016-09-29] MEDS: FORTEO SQ SCH (16:21)
[2016-09-30 06:00] VITALS: BP 124/78
[2016-09-30] MEDS: HumaLOG INSULIN (NovoLOG) PER UNIT SC SCH ×2 (07:30→12:00)
[2016-09-30] MEDS: VITAMIN D 1,000 INTERNATIONAL UNITS TABLET PO SCH (08:38)
[2016-09-30] MEDS: NORTRIPTYLINE 10 MG CAP PO SCH (08:38)
[2016-09-30] MEDS: ASPIRIN 81 MG ENTERIC TAB PO SCH (08:38)
[2016-09-30] MEDS: FEXOFENADINE 60 MG TAB PO SCH (08:38)
[2016-09-30] MEDS: OMEPRAZOLE 20 MG CAP PO SCH (08:38)
[2016-09-30] MEDS: BACLOFEN 10 MG TAB PO SCH (08:38)
[2016-09-30] MEDS: TECFIDERA PO SCH (08:40)
== END 2016-09-30 13:25 | DRG 478 ==
LOC: M ED 17:40 → M ED INP 20:03 → M MSPAV 21:23
PROVIDERS: ADMIT Internal Medicine; ATTEND Family Medicine
PROC: 0PB43ZX Excision of Thoracic Vertebra, Percutaneous Approach, Diagnostic (ICD-10-PCS; principal; 2016-09-20)
DX: S72.001A Fracture of unspecified part of neck of right femur, initial encounter for closed fracture (principal); N39.0 Urinary tract infection, site not specified; L03.113 Cellulitis of right upper limb; G95.89 Other specified diseases of spinal cord; G35 Multiple sclerosis; Z79.899 Other long term (current) drug therapy; Z66 Do not resuscitate; Z79.82 Long term (current) use of aspirin; K21.9 Gastro-esophageal reflux disease without esophagitis; E66.9 Obesity, unspecified; E55.9 Vitamin D deficiency, unspecified; E78.5 Hyperlipidemia, unspecified; F32.9 Major depressive disorder, single episode, unspecified; N31.9 Neuromuscular dysfunction of bladder, unspecified; K76.0 Fatty (change of) liver, not elsewhere classified; E83.52 Hypercalcemia; R73.01 Impaired fasting glucose; W18.30XA Fall on same level, unspecified, initial encounter; Y92.009 Unspecified place in unspecified non-institutional (private) residence as the place of occurrence of the external cause

== ENCOUNTER → 2016-10-04 | Outpatient (REF) ==
[~2016-10-04] MED LIST changes: +ALLE180T33 PO; +ASPI81TA85 PO; +FORT600S SC; +VITA500046 PO
[2016-10-04 08:21] LABS: ANION GAP 8 MEQ/L (8-16); BLOOD UREA NITROGEN 18 MG/DL (7-18); CALCIUM LEVEL 9.8 MG/DL (8.8-10.2); CARBON DIOXIDE LEVEL 29 MEQ/L (21-32); CHLORIDE LEVEL 103 MEQ/L (98-107); CREATININE FOR GFR 0.48 MG/DL (0.55-1.02); GLOMERULAR FILTRATION RATE > 60.0 (>45); GLUCOSE, FASTING 91 MG/DL (80-110); POTASSIUM SERUM 3.9 MEQ/L (3.5-5.1); SODIUM LEVEL 140 MEQ/L (136-145)
== END ==
LOC: SKLAB2 07:00
PROVIDERS: ATTEND Family Medicine
DX: E55.9 Vitamin D deficiency, unspecified (principal)

== ENCOUNTER → 2016-11-01 | Outpatient (REF) ==
[2016-11-01 09:22] LABS: ANION GAP 10 MEQ/L (8-16); BLOOD UREA NITROGEN 15 MG/DL (7-18); CALCIUM LEVEL 10.1 MG/DL (8.8-10.2); CARBON DIOXIDE LEVEL 29 MEQ/L (21-32); CHLORIDE LEVEL 104 MEQ/L (98-107); CREATININE FOR GFR 0.66 MG/DL (0.55-1.02); GLOMERULAR FILTRATION RATE > 60.0 (>45); GLUCOSE, FASTING 135 MG/DL (80-110); POTASSIUM SERUM 4.5 MEQ/L (3.5-5.1); SODIUM LEVEL 143 MEQ/L (136-145)
== END ==
LOC: SKLAB2 07:30
PROVIDERS: ATTEND Family Medicine
DX: I10 Essential (primary) hypertension (principal)

== ENCOUNTER → 2016-11-05 | Outpatient (REF) ==
[2016-11-05 12:38] LABS: BASO % 0.5 % (0.0-1.0); EOS # 0.3 K/mm3 (0.0-0.50); EOS % 6.5 % (0.0-3.0); LARGE UNSTAINED CELL # 0.1 K/mm3 (0.0-0.4); LARGE UNSTAINED CELL % 2.4 % (0.0-4.0); LYMPH # 0.5 K/mm3 (1.5-4.5); LYMPH % 8.1 % (24.0-44.0); MEAN CORPUSCULAR HEMOGLOBIN 30.4 pg (27.0-33.0); MEAN CORPUSCULAR HGB CONC 32.8 g/dl (32.0-36.5); MEAN CORPUSCULAR VOLUME 92.8 fl (80.0-96.0); MONO # 0.4 K/mm3 (0.0-0.8); MONO % 8.2 % (0.0-5.0); NEUTROPHILS # 3.8 K/mm3 (1.8-7.7); NEUTROPHILS % 74.3 % (36.0-66.0); PLATELET COUNT, AUTOMATED 263 k/mm3 (150-450); RED CELL DISTRIBUTION WIDTH 13.4 % (11.5-14.5); WHITE BLOOD COUNT 5.1 K/mm3 (4.0-10.0)
[2016-11-05 13:01] LABS: ANION GAP 6 MEQ/L (8-16); BLOOD UREA NITROGEN 16 MG/DL (7-18); CALCIUM LEVEL 9.2 MG/DL (8.8-10.2); CARBON DIOXIDE LEVEL 33 MEQ/L (21-32); CHLORIDE LEVEL 102 MEQ/L (98-107); CREATININE FOR GFR 0.45 MG/DL (0.55-1.02); GLOMERULAR FILTRATION RATE > 60.0 (>45); GLUCOSE, FASTING 91 MG/DL (80-110); POTASSIUM SERUM 4.1 MEQ/L (3.5-5.1); SODIUM LEVEL 141 MEQ/L (136-145)
== END ==
LOC: SKLAB2 11:56
PROVIDERS: ATTEND Family Medicine
DX: Z51.81 Encounter for therapeutic drug level monitoring (principal); Z79.899 Other long term (current) drug therapy

== ENCOUNTER → 2016-11-15 | Outpatient (REF) ==
--- NOTE | 2016-11-15 14:22 | REP ---
Clinical: Fracture. Technique: AP and cross-table lateral views of the right hip. Comparison: 09/12/2016. Findings: Fracture through the femoral neck is again appreciated. Impression: Fracture through the right femoral neck. Signed by Rafael Elkins MD 11/15/2016 02:13 P
== END ==
LOC: SKLAB2 13:00
PROVIDERS: ATTEND Family Medicine
DX: S72.001A Fracture of unspecified part of neck of right femur, initial encounter for closed fracture (principal); X58.XXXA Exposure to other specified factors, initial encounter; Y92.89 Other specified places as the place of occurrence of the external cause; Y93.89 Activity, other specified; Y99.8 Other external cause status

== ENCOUNTER → 2016-11-23 | Outpatient (REF) | LOC: SKLAB2 14:17 | PROVIDERS: ATTEND Family Medicine | DX: N39.0 Urinary tract infection, site not specified (principal) ==

== ENCOUNTER → 2016-11-29 | Outpatient (REF) | LOC: SKLAB2 07:00 | PROVIDERS: ATTEND Family Medicine | DX: I10 Essential (primary) hypertension (principal) ==

== ENCOUNTER → 2016-12-01 | Outpatient (REF) | payer MEDICARE, MEDICAID ==
[2016-12-01 14:00] LABS: BASO % 0.8 % (0.0-1.0); EOS # 0.2 K/mm3 (0.0-0.50); EOS % 6.2 % (0.0-3.0); LARGE UNSTAINED CELL # 0.2 K/mm3 (0.0-0.4); LARGE UNSTAINED CELL % 3.9 % (0.0-4.0); LYMPH # 0.6 K/mm3 (1.5-4.5); MEAN CORPUSCULAR HGB CONC 32.7 g/dl (32.0-36.5); MEAN CORPUSCULAR VOLUME 91.7 fl (80.0-96.0); MONO # 0.4 K/mm3 (0.0-0.8); MONO % 8.8 % (0.0-5.0); NEUTROPHILS # 2.8 K/mm3 (1.8-7.7); NEUTROPHILS % 69.2 % (36.0-66.0); PLATELET COUNT, AUTOMATED 280 k/mm3 (150-450); RED CELL DISTRIBUTION WIDTH 13.5 % (11.5-14.5)
[2016-12-01 14:24] LABS: ALBUMIN 3.8 GM/DL (3.2-5.2); ALBUMIN/GLOBULIN RATIO 1.15 (1.00-1.93); ALKALINE PHOSPHATASE 79 U/L (45-117); ALT/SGPT 45 U/L (12-78); ANION GAP 7 MEQ/L (8-16); AST/SGOT 30 U/L (15-37); BILIRUBIN,TOTAL 0.4 MG/DL (0.2-1.0); BLOOD UREA NITROGEN 15 MG/DL (7-18); CALCIUM LEVEL 10.1 MG/DL (8.8-10.2); CARBON DIOXIDE LEVEL 31 MEQ/L (21-32); CHLORIDE LEVEL 101 MEQ/L (98-107); CREATININE FOR GFR 0.46 MG/DL (0.55-1.02); GLOMERULAR FILTRATION RATE > 60.0 (>45); GLUCOSE, FASTING 99 MG/DL (80-110); POTASSIUM SERUM 4.9 MEQ/L (3.5-5.1); SODIUM LEVEL 139 MEQ/L (136-145); TOTAL PROTEIN 7.1 GM/DL (6.4-8.2)
== END ==
LOC: M LABNEURO 13:18
PROVIDERS: ATTEND Psychiatry & Neurology Neurology
DX: G35 Multiple sclerosis (principal)

== ENCOUNTER → 2016-12-27 | Outpatient (REF) ==
[2016-12-27 08:55] LABS: ANION GAP 7 MEQ/L (8-16); BLOOD UREA NITROGEN 19 MG/DL (7-18); CALCIUM LEVEL 10.1 MG/DL (8.8-10.2); CARBON DIOXIDE LEVEL 30 MEQ/L (21-32); CHLORIDE LEVEL 104 MEQ/L (98-107); CREATININE FOR GFR 0.47 MG/DL (0.55-1.02); GLOMERULAR FILTRATION RATE > 60.0 (>45); GLUCOSE, FASTING 92 MG/DL (80-110); POTASSIUM SERUM 4.3 MEQ/L (3.5-5.1); SODIUM LEVEL 141 MEQ/L (136-145)
== END ==
LOC: SKLAB2 07:00
PROVIDERS: ATTEND Family Medicine
DX: G35 Multiple sclerosis (principal)

== ENCOUNTER → 2017-02-01 | Outpatient (REF) | payer MEDICARE, MEDICAID ==
[~2017-02-01] MED LIST changes: -CALC600T10 PO; +CALC600T31 PO; +DICL1GEL; +LORA10TA2; -MACR100C3 PO; +MACR100C43 PO; +TAB-TAB; +TRAM50TA2
== END ==
LOC: M SMT 13:02
PROVIDERS: ATTEND Nurse Practitioner Women's Health
DX: N31.9 Neuromuscular dysfunction of bladder, unspecified (principal); G35 Multiple sclerosis; Z79.82 Long term (current) use of aspirin; Z79.891 Long term (current) use of opiate analgesic; Z79.899 Other long term (current) drug therapy
CPT/HCPCS: 51798; 81001; 87086; G0463

== ENCOUNTER → 2017-02-02 | Outpatient (REF) | payer MEDICARE, MEDICAID | LOC: M SMT 17:57 | PROVIDERS: ATTEND Nurse Practitioner Women's Health | DX: N31.9 Neuromuscular dysfunction of bladder, unspecified (principal) ==

== ENCOUNTER → 2017-02-09 | Outpatient (REF) | payer MEDICARE, MEDICAID ==
[2017-02-09 18:12] LABS: CALCIUM OXALATE CRYSTALS SMALL
== END ==
LOC: M SFHCPLAZ 16:56
PROVIDERS: ATTEND Physician Assistant Medical
DX: R30.0 Dysuria (principal)

== ENCOUNTER → 2017-02-15 | Outpatient (REF) | payer MEDICARE, MEDICAID ==
[~2017-02-15] MED LIST changes: +CALC600T10 PO; -CALC600T31 PO; -DICL1GEL; -LORA10TA2; +MACR100C3 PO; -MACR100C43 PO; -TAB-TAB; -TRAM50TA2
[2017-02-15 14:48] LABS: ALBUMIN 3.8 GM/DL (3.2-5.2); ALBUMIN/GLOBULIN RATIO 1.09 (1.00-1.93); ALKALINE PHOSPHATASE 84 U/L (45-117); ALT/SGPT 40 U/L (12-78); ANION GAP 7 MEQ/L (8-16); AST/SGOT 23 U/L (15-37); BILIRUBIN,TOTAL 0.5 MG/DL (0.2-1.0); BLOOD UREA NITROGEN 18 MG/DL (7-18); CALCIUM LEVEL 9.7 MG/DL (8.8-10.2); CARBON DIOXIDE LEVEL 30 MEQ/L (21-32); CHLORIDE LEVEL 103 MEQ/L (98-107); CREATININE FOR GFR 0.65 MG/DL (0.55-1.02); GLOMERULAR FILTRATION RATE > 60.0 (>45); GLUCOSE, FASTING 105 MG/DL (80-110); SODIUM LEVEL 140 MEQ/L (136-145); TOTAL PROTEIN 7.3 GM/DL (6.4-8.2)
== END ==
LOC: M SHH 13:21
PROVIDERS: ATTEND Physician Assistant Medical
DX: R30.0 Dysuria (principal); E55.9 Vitamin D deficiency, unspecified

== ENCOUNTER → 2017-02-16 | Outpatient (REF) | payer MEDICARE, MEDICAID ==
[~2017-02-16] MED LIST changes: -CALC600T10 PO; +CALC600T31 PO; +DICL1GEL; +LORA10TA2; -MACR100C3 PO; +MACR100C43 PO; +TAB-TAB; +TRAM50TA2
== END ==
LOC: M LAB REF 09:06
PROVIDERS: ATTEND Physician Assistant Medical
DX: R30.0 Dysuria (principal)

== ENCOUNTER → 2017-04-04 | Outpatient (REF) | payer MEDICARE, MEDICAID ==
[2017-04-04 13:15] LABS: BASO % 0.5 % (0.0-1.0); EOS # 0.2 K/mm3 (0.0-0.50); EOS % 4.3 % (0.0-3.0); LARGE UNSTAINED CELL # 0.1 K/mm3 (0.0-0.4); LARGE UNSTAINED CELL % 2.3 % (0.0-4.0); LYMPH # 0.3 K/mm3 (1.5-4.5); LYMPH % 6.1 % (24.0-44.0); MEAN CORPUSCULAR HEMOGLOBIN 30.9 pg (27.0-33.0); MEAN CORPUSCULAR HGB CONC 33.2 g/dl (32.0-36.5); MEAN CORPUSCULAR VOLUME 92.9 fl (80.0-96.0); MONO # 0.3 K/mm3 (0.0-0.8); MONO % 5.6 % (0.0-5.0); NEUTROPHILS # 4.4 K/mm3 (1.8-7.7); NEUTROPHILS % 81.1 % (36.0-66.0); PLATELET COUNT, AUTOMATED 304 k/mm3 (150-450); RED CELL DISTRIBUTION WIDTH 13.2 % (11.5-14.5); WHITE BLOOD COUNT 5.4 K/mm3 (4.0-10.0)
[2017-04-04 13:31] LABS: ALBUMIN 3.8 GM/DL (3.2-5.2); ALBUMIN/GLOBULIN RATIO 1.03 (1.00-1.93); ALKALINE PHOSPHATASE 97 U/L (45-117); ALT/SGPT 28 U/L (12-78); ANION GAP 4 MEQ/L (8-16); AST/SGOT 17 U/L (15-37); BILIRUBIN,TOTAL 0.4 MG/DL (0.2-1.0); BLOOD UREA NITROGEN 28 MG/DL (7-18); CALCIUM LEVEL 9.9 MG/DL (8.8-10.2); CARBON DIOXIDE LEVEL 31 MEQ/L (21-32); CHLORIDE LEVEL 107 MEQ/L (98-107); CREATININE FOR GFR 0.43 MG/DL (0.55-1.02); GLOMERULAR FILTRATION RATE > 60.0 (>45); GLUCOSE, FASTING 93 MG/DL (80-110); POTASSIUM SERUM 4.3 MEQ/L (3.5-5.1); SODIUM LEVEL 142 MEQ/L (136-145); TOTAL PROTEIN 7.5 GM/DL (6.4-8.2)
== END ==
LOC: M LABNEURO 11:05
PROVIDERS: ATTEND Psychiatry & Neurology Neurology
DX: G35 Multiple sclerosis (principal); Z79.899 Other long term (current) drug therapy

== ENCOUNTER → 2017-05-10 | Outpatient (REF) | payer MEDICARE, MEDICAID ==
[2017-05-10 18:24] LABS: FREE T4 0.95 NG/DL (0.76-1.46)
[2017-05-10 18:38] LABS: MEAN CORPUSCULAR HEMOGLOBIN 30.3 pg (27.0-33.0); MEAN CORPUSCULAR HGB CONC 32.9 g/dl (32.0-36.5); MEAN CORPUSCULAR VOLUME 92.2 fl (80.0-96.0); RED CELL DISTRIBUTION WIDTH 13.2 % (11.5-14.5); WHITE BLOOD COUNT 4.8 K/mm3 (4.0-10.0)
[2017-05-10 19:10] LABS: CALCIUM OXALATE CRYSTALS MODERATE
== END ==
LOC: M SFHCPLAZ 16:29
PROVIDERS: ATTEND Family Medicine
DX: N39.0 Urinary tract infection, site not specified (principal); J30.89 Other allergic rhinitis; M81.0 Age-related osteoporosis without current pathological fracture; N31.9 Neuromuscular dysfunction of bladder, unspecified; K21.9 Gastro-esophageal reflux disease without esophagitis; F32.9 Major depressive disorder, single episode, unspecified; E55.9 Vitamin D deficiency, unspecified; G35 Multiple sclerosis; Z23 Encounter for immunization; Z79.82 Long term (current) use of aspirin; Z79.899 Other long term (current) drug therapy
CPT/HCPCS: 36415; 80061; 81001; 82550; 84439; 84443; 85007; 85027; 86140; 87088; 87186; 90662; G0008; G0463

== ENCOUNTER 2017-06-09 07:05 | Emergency (ER) | payer MEDICARE, MEDICAID ==
[~2017-06-09] VITALS: Ht 162.6 cm; Wt 65.8 kg
[~2017-06-09 07:05] MED LIST changes: -DICL1GEL; -LORA10TA2; -TAB-TAB; -TRAM50TA2
[2017-06-09] MEDS ORDERED: LORA10TA2 (07:20)
[2017-06-09] MEDS ORDERED: TRAM50TA2 (07:20)
[2017-06-09] MEDS ORDERED: DICL1GEL (07:20)
[2017-06-09] MEDS ORDERED: TAB-TAB (07:20)
[2017-06-09 07:22] VITALS: BP 117/65
== END 2017-06-09 09:30 | disposition home or self-care (01) ==
LOC: M ED 07:05
DX: M25.551 Pain in right hip (principal); G89.29 Other chronic pain; W19.XXXA Unspecified fall, initial encounter; Y92.89 Other specified places as the place of occurrence of the external cause; Y93.89 Activity, other specified; Y99.8 Other external cause status; G35 Multiple sclerosis; K76.0 Fatty (change of) liver, not elsewhere classified; E78.9 Disorder of lipoprotein metabolism, unspecified; Z79.82 Long term (current) use of aspirin; Z79.899 Other long term (current) drug therapy; Z88.1 Allergy status to other antibiotic agents; Z88.0 Allergy status to penicillin; Z87.440 Personal history of urinary (tract) infections; Z87.81 Personal history of (healed) traumatic fracture

== ENCOUNTER → 2017-09-15 | Outpatient (REF) | payer MEDICARE, MEDICAID | LOC: M SFHCPLAZ 11:33 | DX: N39.0 Urinary tract infection, site not specified (principal) | CPT/HCPCS: 87186 ==

== ENCOUNTER → 2017-09-16 | Outpatient (REF) | payer MEDICARE, MEDICAID ==
[2017-09-16 16:27] LABS: ALBUMIN 3.7 GM/DL (3.2-5.2); ALBUMIN/GLOBULIN RATIO 0.93 (1.00-1.93); ALKALINE PHOSPHATASE 124 U/L (45-117); ALT/SGPT 55 U/L (12-78); ANION GAP 7 MEQ/L (8-16); AST/SGOT 34 U/L (7-37); BILIRUBIN,TOTAL 0.2 MG/DL (0.2-1.0); BLOOD UREA NITROGEN 26 MG/DL (7-18); CALCIUM LEVEL 9.8 MG/DL (8.8-10.2); CARBON DIOXIDE LEVEL 31 MEQ/L (21-32); CHLORIDE LEVEL 103 MEQ/L (98-107); CREATININE FOR GFR 0.56 MG/DL (0.55-1.02); GLOMERULAR FILTRATION RATE > 60.0 (>45); GLUCOSE, FASTING 92 MG/DL (70-100); SODIUM LEVEL 141 MEQ/L (136-145); TOTAL PROTEIN 7.7 GM/DL (6.4-8.2)
[2017-09-16 16:31] LABS: ALPHA FETOPROTEIN TUMOR QUANT 1.8 NG/ML (<8.1); PTH INTACT 34.4 PG/ML (14.0-72.0); TOTAL 25(OH) VITAMIN D 75.4 NG/ML (30.0-100.0)
[2017-09-16 16:32] LABS: AMMONIA 21 uMOL/L (<32)
[2017-09-16 16:40] LABS: BASO # 0.1 10^3/uL (0.0-0.2); EOS # 0.3 10^3/uL (0.0-0.50); EOS % 5.7 % (0.0-3.0); HEMATOCRIT 37.3 % (36.0-47.0); IMMATURE GRANULOCYTE % 0.2 % (0-0); LYMPH # 0.9 10^3/uL (1.5-4.5); LYMPH % 17.2 % (24.0-44.0); MEAN CORPUSCULAR HEMOGLOBIN 29.9 pg (27.0-33.0); MEAN CORPUSCULAR HGB CONC 32.2 g/dl (32.0-36.5); MONO # 0.4 10^3/uL (0.0-0.8); MONO % 8.9 % (0.0-5.0); NEUTROPHILS # 3.3 10^3/uL (1.8-7.7); PLATELET COUNT, AUTOMATED 397 10^3/uL (150-450); RED BLOOD COUNT 4.01 10^6/uL (4.00-5.40); RED CELL DISTRIBUTION WIDTH 13.7 % (11.5-14.5); WHITE BLOOD COUNT 4.9 10^3/uL (4.0-10.0)
[2017-09-16 17:21] LABS: INR 0.98; PROTHROMBIN TIME 13.1 SECONDS (12.4-14.5)
[2017-09-16 17:22] LABS: PARTIAL THROMBOPLASTIN TIME 30.2 SECONDS (26.8-37.9)
== END ==
LOC: M SFHCPLAZ 13:23
DX: N39.0 Urinary tract infection, site not specified (principal); G35 Multiple sclerosis; E55.9 Vitamin D deficiency, unspecified; K76.0 Fatty (change of) liver, not elsewhere classified; D72.819 Decreased white blood cell count, unspecified; E78.2 Mixed hyperlipidemia; J30.89 Other allergic rhinitis; M81.0 Age-related osteoporosis without current pathological fracture; N31.9 Neuromuscular dysfunction of bladder, unspecified; K21.9 Gastro-esophageal reflux disease without esophagitis; F32.9 Major depressive disorder, single episode, unspecified
CPT/HCPCS: 82140

== ENCOUNTER → 2017-12-06 | Outpatient (REF) | payer MEDICARE, MEDICAID ==
[2017-12-06 15:38] LABS: BASO % 0.5 % (0.0-1.0); EOS # 0.2 10^3/uL (0.0-0.50); EOS % 3.9 % (0.0-3.0); HEMATOCRIT 40.4 % (36.0-47.0); HEMOGLOBIN 13.2 g/dl (12.0-15.5); IMMATURE GRANULOCYTE % 0.2 % (0-3.0); LYMPH # 0.6 10^3/uL (1.5-4.5); LYMPH % 10.8 % (24.0-44.0); MEAN CORPUSCULAR HEMOGLOBIN 30.2 pg (27.0-33.0); MEAN CORPUSCULAR HGB CONC 32.7 g/dl (32.0-36.5); MEAN CORPUSCULAR VOLUME 92.4 fl (80.0-96.0); MONO # 0.5 10^3/uL (0.0-0.8); MONO % 9.2 % (0.0-5.0); NEUTROPHILS # 4.5 10^3/uL (1.8-7.7); NEUTROPHILS % 75.4 % (36.0-66.0); PLATELET COUNT, AUTOMATED 295 10^3/uL (150-450); RED BLOOD COUNT 4.37 10^6/uL (4.00-5.40); RED CELL DISTRIBUTION WIDTH 14.3 % (11.5-14.5); WHITE BLOOD COUNT 5.9 10^3/uL (4.0-10.0)
[2017-12-06 15:53] LABS: ALBUMIN/GLOBULIN RATIO 0.98 (1.00-1.93); ALKALINE PHOSPHATASE 103 U/L (45-117); ALT/SGPT 36 U/L (12-78); ANION GAP 6 MEQ/L (8-16); AST/SGOT 26 U/L (7-37); BILIRUBIN,TOTAL 0.4 MG/DL (0.2-1.0); BLOOD UREA NITROGEN 30 MG/DL (7-18); C REACTIVE PROTEIN QUANTITATIV 1.13 MG/DL (0.00-0.30); CALCIUM LEVEL 10.3 MG/DL (8.8-10.2); CARBON DIOXIDE LEVEL 28 MEQ/L (21-32); CHLORIDE LEVEL 107 MEQ/L (98-107); CHOLESTEROL LEVEL 217 MG/DL (<200); CHOLESTEROL RISK RATIO 3.945 (<5); CPK CREATINE PHOSPHOKINASE 25 U/L (26-192); CREATININE FOR GFR 0.66 MG/DL (0.55-1.30); GLOMERULAR FILTRATION RATE > 60.0 (>45); GLUCOSE, FASTING 102 MG/DL (70-100); HDL CHOLESTEROL 55 MG/DL (>40); LDL CHOLESTEROL 134.2 MG/DL (<100); NON-HDL-C 162 MG/DL; SODIUM LEVEL 141 MEQ/L (136-145); TOTAL PROTEIN 8.1 GM/DL (6.4-8.2); TRIGLYCERIDES LEVEL 139 MG/DL (<150)
[2017-12-07 13:01] LABS: ALBUMIN 4.36 GM/DL (3.29-5.55); ALBUMIN % 53.8 % (55.8-66.1); ALPHA-1-GLOBULIN % 4.8 % (2.9-4.9); ALPHA-1-GLOBULINS 0.39 GM/DL (0.17-0.41); ALPHA-2-GLOBULINS 1.21 GM/DL (0.42-0.99); ALPHA-2-GLOBULINS % 14.9 % (7.1-11.8); BETA-1-GLOBULINS % 6.2 % (4.7-7.2); BETA-2-GLOBULINS 0.43 GM/DL (0.19-0.55); BETA-2-GLOBULINS % 5.3 % (3.2-6.5)
[2017-12-07 13:02] LABS: GAMMA GLOBULINS 1.22 GM/DL (0.65-1.58)
== END ==
LOC: M SFHCPLAZ 11:55
DX: D72.819 Decreased white blood cell count, unspecified (principal); E78.2 Mixed hyperlipidemia; N39.0 Urinary tract infection, site not specified
CPT/HCPCS: 82550

== ENCOUNTER 2017-12-07 12:44 | Emergency (ER) | payer MEDICARE, MEDICAID | END 2017-12-07 16:32 | disposition home or self-care (01) | LOC: M ED 12:44 | DX: S82.831A Other fracture of upper and lower end of right fibula, initial encounter for closed fracture (principal); X58.XXXA Exposure to other specified factors, initial encounter; Y92.89 Other specified places as the place of occurrence of the external cause; G35 Multiple sclerosis; F33.9 Major depressive disorder, recurrent, unspecified; M19.90 Unspecified osteoarthritis, unspecified site; Z79.82 Long term (current) use of aspirin; Z88.1 Allergy status to other antibiotic agents; Z88.0 Allergy status to penicillin | CPT/HCPCS: 73610 ==

== ENCOUNTER 2017-12-30 21:48 | Emergency (ER) | payer MEDICARE, MEDICAID ==
[2017-12-30 22:35] LABS: AMORPHOUS SEDIMENT RFX SMALL (NEGATIVE); KETONE, URINE AUTO RFX NEGATIVE (NEGATIVE); MUCUS, URINE RFX SMALL (NEGATIVE); NITRITE, URINE AUTO RFX NEGATIVE (NEGATIVE); RBC, URINE AUTO RFX 17 /HPF (0-3); SPECIFIC GRAVITY UR AUTO RFX 1.015 (1.002-1.035); SQUAM EPITHELIAL CELL UR AURFX 0 /HPF (0-6)
[2017-12-30 22:36] LABS: LEUKOCYTE ESTERASE UR AUTO RFX 2+ (NEGATIVE); WBC, URINE AUTO RFX 133 /HPF (0-3)
[2017-12-30] MEDS: CIPROFLOXACIN 250 MG TAB PO (23:45)
== END 2017-12-31 00:49 | disposition home or self-care (01) ==
LOC: M ED 12-31 00:49
DX: N39.0 Urinary tract infection, site not specified (principal); Z87.440 Personal history of urinary (tract) infections; S72.001D Fracture of unspecified part of neck of right femur, subsequent encounter for closed fracture with routine healing; W05.0XXD Fall from non-moving wheelchair, subsequent encounter; Y92.009 Unspecified place in unspecified non-institutional (private) residence as the place of occurrence of the external cause; G35 Multiple sclerosis; E78.5 Hyperlipidemia, unspecified; K21.9 Gastro-esophageal reflux disease without esophagitis; Z87.19 Personal history of other diseases of the digestive system; Z87.448 Personal history of other diseases of urinary system; Z98.890 Other specified postprocedural states; Z88.0 Allergy status to penicillin; Z88.1 Allergy status to other antibiotic agents; Z79.899 Other long term (current) drug therapy; Z79.82 Long term (current) use of aspirin
CPT/HCPCS: 71045

== ENCOUNTER → 2018-02-06 | Outpatient (REF) | payer MEDICARE, MEDICAID ==
[2018-02-06 12:46] LABS: ALBUMIN 3.9 GM/DL (3.2-5.2); ALBUMIN/GLOBULIN RATIO 0.98 (1.00-1.93); ALKALINE PHOSPHATASE 96 U/L (45-117); ALT/SGPT 28 U/L (12-78); ANION GAP 8 MEQ/L (8-16); AST/SGOT 16 U/L (7-37); BILIRUBIN,TOTAL 0.6 MG/DL (0.2-1.0); BLOOD UREA NITROGEN 28 MG/DL (7-18); CALCIUM LEVEL 9.3 MG/DL (8.8-10.2); CARBON DIOXIDE LEVEL 29 MEQ/L (21-32); CHLORIDE LEVEL 105 MEQ/L (98-107); CREATININE FOR GFR 0.59 MG/DL (0.55-1.30); GLOMERULAR FILTRATION RATE > 60.0 (>39); GLUCOSE, FASTING 79 MG/DL (70-100); POTASSIUM SERUM 4.3 MEQ/L (3.5-5.1); SODIUM LEVEL 142 MEQ/L (136-145); TOTAL PROTEIN 7.9 GM/DL (6.4-8.2)
== END ==
LOC: M SFHCPLAZ 09:20
DX: Z00.00 Encounter for general adult medical examination without abnormal findings (principal)
CPT/HCPCS: 80053

== ENCOUNTER → 2018-02-09 | Outpatient (CLI) | payer MEDICARE ==
[~2018-02-09] MED LIST changes: -/FEXO18TA OR; -/LOR25TA OR; -ADVI200C5 PO; -ALLE180T33 PO; -ASPI81TA83 OR; -ASPI81TA85 PO; -BACL10TA2 OR; -BACL10TA2 PO; -BENA25CA2 PO; -BETA0.3I SC; -BETASERON SC; -CALC12502 OR; -CALC600T31 PO; -CALCTAB68 PO; -CALCTAB75 PO; -CRAN500C2 PO; -EFFEXOR XR; -FORT600S SC; -MACR100C43 PO; -MS MEDICATION PO; -NORT10CA2 PO; -OMEP20TA7 OR; -OMEP40CA2 PO; +PROHANCE 279.3MG/ML 15ML VIAL (A9576) As Ordered; -TECF240C PO; -VENL150C43 PO; -VENL37.5 OR; -VENL75TA2 OR; -VENL75TA3 PO; -VITA400T13 PO; -VITA500019 PO; -VITA500046 PO; -VITA500047 PO; -[UNRECOGNIZED DRUG - OTHER]
== END ==
LOC: M RAD 08:14
DX: D18.09 Hemangioma of other sites (principal)
CPT/HCPCS: A9576

== ENCOUNTER → 2018-04-21 | Outpatient (REF) | payer MEDICARE, MEDICAID ==
[2018-04-21 13:58] LABS: BASO # 0.1 10^3/uL (0.0-0.2); BASO % 1.1 % (0.0-1.0); EOS # 0.3 10^3/uL (0.0-0.50); EOS % 6.8 % (0.0-3.0); HEMATOCRIT 40.3 % (36.0-47.0); HEMOGLOBIN 12.9 g/dl (12.0-15.5); IMMATURE GRANULOCYTE % 0.4 % (0-3.0); LYMPH # 0.7 10^3/uL (1.5-4.5); LYMPH % 15.5 % (24.0-44.0); MEAN CORPUSCULAR HEMOGLOBIN 29.9 pg (27.0-33.0); MEAN CORPUSCULAR VOLUME 93.3 fl (80.0-96.0); MONO # 0.4 10^3/uL (0.0-0.8); MONO % 9.3 % (0.0-5.0); NEUTROPHILS % 66.9 % (36.0-66.0); PLATELET COUNT, AUTOMATED 274 10^3/uL (150-450); RED BLOOD COUNT 4.32 10^6/uL (4.00-5.40); RED CELL DISTRIBUTION WIDTH 14.1 % (11.5-14.5); WHITE BLOOD COUNT 4.5 10^3/uL (4.0-10.0)
[2018-04-21 14:36] LABS: ALBUMIN 3.8 GM/DL (3.2-5.2); ALKALINE PHOSPHATASE 86 U/L (45-117); ALT/SGPT 34 U/L (12-78); ANION GAP 3 MEQ/L (8-16); AST/SGOT 19 U/L (7-37); BILIRUBIN,TOTAL 0.3 MG/DL (0.2-1.0); BLOOD UREA NITROGEN 20 MG/DL (7-18); CALCIUM LEVEL 9.5 MG/DL (8.8-10.2); CARBON DIOXIDE LEVEL 31 MEQ/L (21-32); CHLORIDE LEVEL 105 MEQ/L (98-107); GLOMERULAR FILTRATION RATE > 60.0 (>39); GLUCOSE, FASTING 88 MG/DL (70-100); POTASSIUM SERUM 4.5 MEQ/L (3.5-5.1); SODIUM LEVEL 139 MEQ/L (136-145)
[2018-04-21 15:11] LABS: TOTAL 25(OH) VITAMIN D 83.2 NG/ML (30.0-100.0)
== END ==
LOC: M SFHCPLAZ 11:47
DX: D72.819 Decreased white blood cell count, unspecified (principal); Z79.899 Other long term (current) drug therapy
CPT/HCPCS: 80053

== ENCOUNTER → 2018-07-10 | Outpatient (CLI) | payer MEDICARE, MEDICAID | LOC: M WHC 09:14 | DX: Z12.31 Encounter for screening mammogram for malignant neoplasm of breast (principal) | CPT/HCPCS: 77067 ==

== ENCOUNTER → 2018-08-09 | Outpatient (REF) | payer MEDICARE, MEDICAID ==
[~2018-08-09] MED LIST changes: +/FEXO18TA OR; +/LOR25TA OR; +ADVI200C5 PO; +ALLE180T33 PO; +ASPI81TA83 OR; +ASPI81TA85 PO; +BACL10TA2 OR; +BACL10TA2 PO; +BENA25CA2 PO; +BETA0.3I SC; +BETASERON SC; +CALC12502 OR; +CALC600T31 PO; +CALCTAB68 PO; +CALCTAB75 PO; +CIPR250T3 PO; +CLAR10CA3 PO; +CRAN500C2 PO; +DICL1GEL; +EFFEXOR XR; +FORT600S SC; +LORA-243; +MACR100C43 PO; +MS MEDICATION PO; +NORT10CA2 PO; +OMEP20TA7 OR; +OMEP40CA2 PO; -PROHANCE 279.3MG/ML 15ML VIAL (A9576) As Ordered; +TAB-TAB; +TECF240C PO; +TRAM50TA2; +VENL150C43 PO; +VENL37.5 OR; +VENL75TA2 OR; +VENL75TA3 PO; +VITA400T13 PO; +VITA500019 PO; +VITA500046 PO; +VITA500047 PO; +[UNRECOGNIZED DRUG - OTHER]
[2018-08-09 13:55] LABS: BASO % 0.5 % (0.0-1.0); EOS # 0.3 10^3/uL (0.0-0.50); EOS % 3.9 % (0.0-3.0); HEMATOCRIT 38.9 % (36.0-47.0); HEMOGLOBIN 12.4 g/dl (12.0-15.5); LYMPH # 0.7 10^3/uL (1.5-4.5); LYMPH % 9.4 % (24.0-44.0); MEAN CORPUSCULAR HEMOGLOBIN 29.9 pg (27.0-33.0); MEAN CORPUSCULAR HGB CONC 31.9 g/dl (32.0-36.5); MEAN CORPUSCULAR VOLUME 93.7 fl (80.0-96.0); MONO # 0.6 10^3/uL (0.0-0.8); MONO % 7.8 % (0.0-5.0); NEUTROPHILS % 78.1 % (36.0-66.0); PLATELET COUNT, AUTOMATED 348 10^3/uL (150-450); RED BLOOD COUNT 4.15 10^6/uL (4.00-5.40); WHITE BLOOD COUNT 7.7 10^3/uL (4.0-10.0)
[2018-08-09 13:58] LABS: ALBUMIN 3.6 GM/DL (3.2-5.2); ALT/SGPT 34 U/L (12-78); BILIRUBIN,TOTAL 0.3 MG/DL (0.2-1.0); BLOOD UREA NITROGEN 28 MG/DL (7-18); CALCIUM LEVEL 9.9 MG/DL (8.8-10.2); CARBON DIOXIDE LEVEL 30 MEQ/L (21-32); CHLORIDE LEVEL 104 MEQ/L (98-107); CREATININE FOR GFR 0.72 MG/DL (0.55-1.30); GLOMERULAR FILTRATION RATE > 60.0 (>39); GLUCOSE, FASTING 104 MG/DL (70-100); POTASSIUM SERUM 4.6 MEQ/L (3.5-5.1); SODIUM LEVEL 140 MEQ/L (136-145); TOTAL PROTEIN 7.9 GM/DL (6.4-8.2)
[2018-08-09 14:09] LABS: FOLATE > 24.0 NG/ML; VITAMIN B12 LEVEL 1151 PG/ML
== END ==
LOC: M LABNEURO 10:33
PROVIDERS: ATTEND Psychiatry & Neurology Neurology
DX: G35 Multiple sclerosis (principal)

== ENCOUNTER → 2018-09-05 | Outpatient (REF) | payer MEDICARE, MEDICAID ==
[2018-09-05 13:50] LABS: BASO % 0.7 % (0.0-1.0); EOS # 0.2 10^3/uL (0.0-0.50); HEMATOCRIT 41.6 % (36.0-47.0); HEMOGLOBIN 13.1 g/dl (12.0-15.5); LYMPH # 0.6 10^3/uL (1.5-4.5); LYMPH % 13.4 % (24.0-44.0); MEAN CORPUSCULAR HEMOGLOBIN 29.7 pg (27.0-33.0); MEAN CORPUSCULAR HGB CONC 31.5 g/dl (32.0-36.5); MEAN CORPUSCULAR VOLUME 94.3 fl (80.0-96.0); MONO # 0.5 10^3/uL (0.0-0.8); MONO % 11.7 % (0.0-5.0); NEUTROPHILS # 2.9 10^3/uL (1.8-7.7); PLATELET COUNT, AUTOMATED 230 10^3/uL (150-450); RED BLOOD COUNT 4.41 10^6/uL (4.00-5.40); WHITE BLOOD COUNT 4.2 10^3/uL (4.0-10.0)
[2018-09-05 13:54] LABS: ALBUMIN 4.2 GM/DL (3.2-5.2); ALT/SGPT 35 U/L (12-78); BILIRUBIN,TOTAL 0.5 MG/DL (0.2-1.0); BLOOD UREA NITROGEN 30 MG/DL (7-18); CARBON DIOXIDE LEVEL 26 MEQ/L (21-32); CHLORIDE LEVEL 102 MEQ/L (98-107); CREATININE FOR GFR 0.68 MG/DL (0.55-1.30); GLOMERULAR FILTRATION RATE > 60.0 (>39); GLUCOSE, FASTING 95 MG/DL (70-100); POTASSIUM SERUM 3.7 MEQ/L (3.5-5.1); SODIUM LEVEL 139 MEQ/L (136-145); TOTAL PROTEIN 7.6 GM/DL (6.4-8.2)
[2018-09-05 14:00] LABS: TOTAL 25(OH) VITAMIN D 102.2 NG/ML (30.0-100.0)
[2018-09-05 14:01] LABS: PTH INTACT 41.9 PG/ML (18.5-88.0)
[2018-09-05 15:07] LABS: VITAMIN B12 LEVEL 590 PG/ML (247-911)
== END ==
LOC: M SFHCPLAZ 10:57
PROVIDERS: ATTEND Family Medicine
DX: D72.819 Decreased white blood cell count, unspecified (principal); E55.9 Vitamin D deficiency, unspecified
CPT/HCPCS: 36415; 80053; 82306; 82607; 83970; 85025; 96372; G0463; J0897

== ENCOUNTER → 2019-02-05 | Outpatient (REF) | payer MEDICARE, MEDICAID ==
[~2019-02-05] MED LIST changes: +VENL-142 PO; -VENL75TA3 PO
[2019-02-05 18:30] LABS: BASO % 0.6 % (0.0-1.0); EOS # 0.2 10^3/uL (0.0-0.50); EOS % 2.9 % (0.0-3.0); HEMATOCRIT 44.3 % (36.0-47.0); HEMOGLOBIN 14.2 g/dl (12.0-15.5); LYMPH # 0.6 10^3/uL (1.5-4.5); LYMPH % 9.6 % (24.0-44.0); MEAN CORPUSCULAR HEMOGLOBIN 31.3 pg (27.0-33.0); MEAN CORPUSCULAR HGB CONC 32.1 g/dl (32.0-36.5); MEAN CORPUSCULAR VOLUME 97.8 fl (80.0-96.0); MONO # 0.5 10^3/uL (0.0-0.8); MONO % 6.8 % (0.0-5.0); NEUTROPHILS # 5.3 10^3/uL (1.8-7.7); NEUTROPHILS % 79.9 % (36.0-66.0); PLATELET COUNT, AUTOMATED 246 10^3/uL (150-450); RED BLOOD COUNT 4.53 10^6/uL (4.00-5.40); WHITE BLOOD COUNT 6.6 10^3/uL (4.0-10.0)
[2019-02-05 18:41] LABS: ALBUMIN 4.2 GM/DL (3.2-5.2); ALT/SGPT 42 U/L (12-78); BILIRUBIN,TOTAL 0.5 MG/DL (0.2-1.0); BLOOD UREA NITROGEN 22 MG/DL (7-18); CALCIUM LEVEL 10.2 MG/DL (8.8-10.2); CARBON DIOXIDE LEVEL 31 MEQ/L (21-32); CHLORIDE LEVEL 105 MEQ/L (98-107); CHOLESTEROL LEVEL 221 MG/DL (<200); CHOLESTEROL RISK RATIO 3.745 (<5); CPK CREATINE PHOSPHOKINASE 103 U/L (26-192); CREATININE FOR GFR 0.66 MG/DL (0.55-1.30); FREE T4 0.86 NG/DL (0.76-1.46); GLOMERULAR FILTRATION RATE > 60.0 (>39); GLUCOSE, FASTING 90 MG/DL (70-100); HDL CHOLESTEROL 59 MG/DL (>40); LDL CHOLESTEROL 131 MG/DL (<100); NON-HDL-C 162 MG/DL; POTASSIUM SERUM 3.9 MEQ/L (3.5-5.1); PTH INTACT 53.3 PG/ML (18.5-88.0); SODIUM LEVEL 141 MEQ/L (136-145); TOTAL 25(OH) VITAMIN D 62.1 NG/ML (30.0-100.0); TOTAL PROTEIN 8.2 GM/DL (6.4-8.2); TRIGLYCERIDES LEVEL 153 MG/DL (<150)
[2019-02-05 18:43] LABS: APPEARANCE, URINE TURBID (CLEAR); BACTERIA, URINE AUTO 3+ (NEGATIVE); BILIRUBIN, URINE AUTO NEGATIVE (NEGATIVE); BLOOD, URINE BLOOD NEGATIVE (NEGATIVE); COLOR, URINE AMBER (YELLOW); GLUCOSE, URINE (UA) AUTO NEGATIVE (NEGATIVE); KETONE, URINE AUTO NEGATIVE (NEGATIVE); LEUKOCYTE ESTERASE, URINE AUTO 3+ (NEGATIVE); NITRITE, URINE AUTO NEGATIVE (NEGATIVE); PROTEIN, URINE AUTO 2+ mg/dL (NEGATIVE); RBC, URINE AUTO 35 /HPF (0-3); SPECIFIC GRAVITY URINE AUTO 1.011 (1.002-1.035); SQUAMOUS EPITHELIAL CELL UR AU 5 /HPF (0-6); TRANSITIONAL EPITHELIAL AUTO <1 /HPF; UROBILINOGEN, URINE AUTO 0.2 mg/dL (0.0-2.0); WBC, URINE AUTO 41 /HPF (0-3)
== END ==
LOC: M SFHCPLAZ 12:43
PROVIDERS: ATTEND Family Medicine
DX: E55.9 Vitamin D deficiency, unspecified (principal); N39.0 Urinary tract infection, site not specified; D72.819 Decreased white blood cell count, unspecified; E78.2 Mixed hyperlipidemia
CPT/HCPCS: 36415; 80053; 80061; 81001; 82306; 82550; 83970; 84439; 84443; 85025; 86140; 87086; G0463

== ENCOUNTER → 2019-02-12 | Outpatient (REF) | payer MEDICARE, MEDICAID ==
[2019-02-13 13:30] LABS: AMORPHOUS SEDIMENT LARGE (NEGATIVE); APPEARANCE, URINE TURBID (CLEAR); BACTERIA, URINE AUTO NEGATIVE (NEGATIVE); BILIRUBIN, URINE AUTO NEGATIVE (NEGATIVE); BLOOD, URINE BLOOD NEGATIVE (NEGATIVE); COLOR, URINE YELLOW (YELLOW); GLUCOSE, URINE (UA) AUTO NEGATIVE (NEGATIVE); KETONE, URINE AUTO NEGATIVE (NEGATIVE); LEUKOCYTE ESTERASE, URINE AUTO 1+ (NEGATIVE); NITRITE, URINE AUTO NEGATIVE (NEGATIVE); PROTEIN, URINE AUTO 3+ mg/dL (NEGATIVE); RBC, URINE AUTO 0 /HPF (0-3); SPECIFIC GRAVITY URINE AUTO 1.014 (1.002-1.035); SQUAMOUS EPITHELIAL CELL UR AU 0 /HPF (0-6); TRIPLE PHOSPHATE CRYSTALS MODERATE; UROBILINOGEN, URINE AUTO 0.2 mg/dL (0.0-2.0); WBC, URINE AUTO 0 /HPF (0-3)
== END ==
LOC: M SFHCPLAZ 11:54
PROVIDERS: ATTEND Family Medicine
DX: N39.0 Urinary tract infection, site not specified (principal)

== ENCOUNTER → 2019-03-28 | Outpatient (REF) | payer MEDICARE, MEDICAID ==
[2019-03-28 16:18] LABS: BASO % 0.6 % (0.0-1.0); EOS # 0.2 10^3/uL (0.0-0.50); EOS % 3.2 % (0.0-3.0); HEMATOCRIT 40.8 % (36.0-47.0); HEMOGLOBIN 13.4 g/dl (12.0-15.5); LYMPH # 0.7 10^3/uL (1.5-4.5); LYMPH % 9.5 % (24.0-44.0); MEAN CORPUSCULAR HEMOGLOBIN 31.2 pg (27.0-33.0); MEAN CORPUSCULAR HGB CONC 32.8 g/dl (32.0-36.5); MEAN CORPUSCULAR VOLUME 94.9 fl (80.0-96.0); MONO # 0.5 10^3/uL (0.0-0.8); MONO % 7.1 % (0.0-5.0); NEUTROPHILS # 5.5 10^3/uL (1.8-7.7); NEUTROPHILS % 79.3 % (36.0-66.0); PLATELET COUNT, AUTOMATED 246 10^3/uL (150-450)
[2019-03-28 16:49] LABS: ALBUMIN 4.3 GM/DL (3.2-5.2); ALT/SGPT 39 U/L (12-78); BILIRUBIN,TOTAL 0.5 MG/DL (0.2-1.0); BLOOD UREA NITROGEN 26 MG/DL (7-18); CALCIUM LEVEL 9.7 MG/DL (8.8-10.2); CARBON DIOXIDE LEVEL 29 MEQ/L (21-32); CHLORIDE LEVEL 104 MEQ/L (98-107); CREATININE FOR GFR 0.61 MG/DL (0.55-1.30); GLOMERULAR FILTRATION RATE > 60.0 (>39); GLUCOSE, FASTING 85 MG/DL (70-100); POTASSIUM SERUM 3.7 MEQ/L (3.5-5.1); SODIUM LEVEL 139 MEQ/L (136-145); TOTAL PROTEIN 7.8 GM/DL (6.4-8.2)
== END ==
LOC: M LABNEURO 14:09
PROVIDERS: ATTEND Psychiatry & Neurology Neurology
DX: G35 Multiple sclerosis (principal)

== ENCOUNTER 2019-06-07 08:47 | Inpatient (IN) | payer MEDICARE, MEDICAID ==
[~2019-06-07] VITALS: Ht 162.6 cm; Wt 71.9 kg
[~2019-06-07 08:47] MED LIST changes: -OMEP40CA2 PO; +OMEP40CA97 PO
[2019-06-07 09:21] LABS: BILIRUBIN, URINE MANUAL OBSCURED (NEGATIVE); GLUCOSE, URINE (UA) MANUAL NEGATIVE (NEGATIVE); KETONE, URINE MANUAL OBSCURED mg/dL (NEGATIVE); UROBILINOGEN, URINE MANUAL OBSCURED mg/dl (NORMAL)
[2019-06-07] MEDS ORDERED: ACETAMINOPHEN TAB 650MG DOSE (2X325MG) PO ONE (09:45)
[2019-06-07 09:47] LABS: BASO % 0.1 % (0.0-1.0); EOS % 0.2 % (0.0-3.0); HEMATOCRIT 38.4 % (36.0-47.0); HEMOGLOBIN 12.6 g/dl (12.0-15.5); LYMPH # 0.6 10^3/uL (1.5-5.0); LYMPH % 3.9 % (24.0-44.0); MEAN CORPUSCULAR HEMOGLOBIN 31.5 pg (27.0-33.0); MEAN CORPUSCULAR HGB CONC 32.8 g/dl (32.0-36.5); MONO # 1.6 10^3/uL (0.0-0.8); NEUTROPHILS # 12.4 10^3/uL (1.5-8.5); NEUTROPHILS % 84.1 % (36.0-66.0); PLATELET COUNT, AUTOMATED 215 10^3/uL (150-450); WHITE BLOOD COUNT 14.8 10^3/uL (4.0-10.0)
[2019-06-07] MEDS ORDERED: OMEP-221 (10:03)
[2019-06-07] MEDS ORDERED: TAB-TAB3 PO (10:03)
[2019-06-07] MEDS ORDERED: CRAN450T4 PO (10:03)
[2019-06-07 10:04] LABS: INR 1.12; PROTHROMBIN TIME 14.1 SECONDS (11.8-14.0)
[2019-06-07 10:05] LABS: PARTIAL THROMBOPLASTIN TIME 27.6 SECONDS (25.0-38.4)
--- NOTE | 2019-06-07 10:14 | REP ---
Single view chest: 06/07/2019. Indication: Altered mental status. Comparison: 12/30/2017. Findings: Poor inspiratory result is noted. The lungs are clear. There is no evidence of significant pleural fluid or pneumothorax. Cardiac silhouette is unremarkable. Impression: No acute cardiopulmonary process. Electronically Signed by Fabio Chung DO 06/07/2019 10:05 A
[2019-06-07 10:15] LABS: RBC, URINE TNTC /hpf (0-3)
[2019-06-07] MEDS ORDERED: MEROPENEM INJ 1 GM in IV 1 EA IV ONE (10:15)
[2019-06-07 10:16] LABS: AMORPHOUS SEDIMENT, URINE LARGE AMOUNT (NEGATIVE); BACTERIA, URINE SMALL AMOUNT; RENAL EPITHELIAL CELLS, URINE SMALL AMOUNT /hpf; TRIPLE PHOSPHATE CRYSTAL,URINE SMALL AMOUNT /hpf
[2019-06-07] MEDS ORDERED: VITA2000 PO (10:17)
[2019-06-07] MEDS ORDERED: ACET1TAB55 PO (10:17)
[2019-06-07] MEDS ORDERED: LORA-674 PO (10:17)
[2019-06-07 10:18] LABS: ALBUMIN 3.7 GM/DL (3.2-5.2); ALT/SGPT 42 U/L (12-78); BILIRUBIN,DIRECT 0.5 MG/DL (0.0-0.2); BILIRUBIN,TOTAL 1.3 MG/DL (0.2-1.0); CK-MB VALUE MASS < 1.0 NG/ML (<3.6); CPK CREATINE PHOSPHOKINASE 82 U/L (26-192); LIPASE 97 U/L (73-393); MB/CK RELATIVE INDEX 1.22 (< OR =4); TOTAL PROTEIN 8.3 GM/DL (6.4-8.2); TROPONIN I < 0.02 NG/ML (< 0.10)
[2019-06-07] MEDS ORDERED: NS 1,000 ML IV ONE ×2 (10:45→12:15)
--- NOTE | 2019-06-07 10:52 | REP ---
CT brain: 06/07/2019. Indication: Altered mental status. Stroke. History of multiple sclerosis. Comparison: MRI brain dated 09/09/2016. Technique: Unenhanced axial CT images of the brain were obtained from skull base to vertex. Findings: There is no acute intracranial hemorrhage, acute cortical infarction, mass effect or hydrocephalous. Volume loss and patchy areas of white matter hypoattenuation are noted. The visualized paranasal sinuses and mastoid air cells are clear. Impression: No acute intracranial process. Volume loss and areas of white matter hypoattenuation likely representing combination of sequelae of multiple sclerosis as well as chronic small vessel disease. Electronically Signed by Fabio Chung DO 06/07/2019 10:43 A
[2019-06-07 10:56] LABS: BLOOD UREA NITROGEN 55 MG/DL (7-18); CALCIUM LEVEL 10.3 MG/DL (8.8-10.2); CARBON DIOXIDE LEVEL 26 MEQ/L (21-32); CHLORIDE LEVEL 107 MEQ/L (98-107); GLOMERULAR FILTRATION RATE 22.3 (>39); GLUCOSE, FASTING 131 MG/DL (70-100); POTASSIUM SERUM 3.5 MEQ/L (3.5-5.1); SODIUM LEVEL 140 MEQ/L (136-145)
--- NOTE | 2019-06-07 11:37 | REP ---
CT abdomen and pelvis without IV or oral contrast: History: Hematuria. Comparison abdomen CT study September 11, 2016. CT findings: Preliminary digital professional sports scout radiograph shows air and stool in nondistended colon loops. The lung bases are clear. The liver and the spleen are normal in size, homogeneous in texture. The gallbladder is surgically absent. There is a hemangioma in the 9th thoracic vertebral body. No adrenal lesion is seen. No abnormality is noted in the pancreas. There is moderate bilateral hydronephrosis. There are three intrarenal calculi in the right kidney each approximately 4-5 mm in size. There is a tiny intrarenal calculus in the left kidney. On the right there is diffuse thickening of the urinary bladder wall question cystitis. The bladder is not well distended. No retroperitoneal mass or adenopathy is observed. Moderate stool is seen throughout the colon. There is no evidence of free air or obstructive lesion. No abdominal wall defect is seen. No bony destructive lesion is appreciated. Normal appendix is seen. The uterus is surgically absent. Impression: 1. Bilateral moderate to marked hydronephrosis and hydroureter due to bilateral large obstructing distal ureteral calculi 2. Bilateral intrarenal nephrolithiasis, right greater than left. 3. Moderate colonic stool. 4. Diffuse thickening of the urinary bladder wall, question cystitis. 5. Post hysterectomy and cholecystectomy. Electronically Signed by Angel Glasgow MD 06/07/2019 06:23 P
[2019-06-07 12:21] LABS: INFLUENZA A AMPLIFICATION NEGATIVE (NEGATIVE); INFLUENZA B AMPLIFICATION NEGATIVE (NEGATIVE)
[2019-06-07] MEDS ORDERED: APAP325T4 PO (12:39)
--- NOTE | 2019-06-07 13:17 | CR.PDOC ---
General Date of Consultation: Jun 07, 2019 Consultation REASON FOR CONSULTATION/CHIEF COMPLAINT: Bilateral hydronephrosis HISTORY OF PRESENT ILLNESS: 73-year-old female with a history of recurrent urinary tract infections. Patient has a history of a neurogenic bladder secondary to multiple sclerosis. Patient generally has symptoms of change in mental status with each infection. Patient was evaluated in the emergency department for a change in mental status. Urinalysis was found to have too numerous to count WBCs. A serum creatinine was found to be elevated at 2.3. Patient was reported to have a normal baseline creatinine in the past. Patient denies any urinary symptoms. She denies abdominal or flank pain. She denies fever or chills. Patient is a poor historian and somewhat confused. A CT scan of the abdomen and pelvis was performed and reviewed on today's visit. Patient was found to have bilateral hydronephrosis with bilateral obstructing ureteral calculi. ALLERGIES: Please see below. HOME MEDICATIONS: Please see below. PAST MEDICAL HISTORY: 1. Multiple sclerosis. 2. GERD. 3. Neurogenic bladder with recurrent urinary tract infection PAST SURGICAL HISTORY: 1. Total abdominal hysterectomy FAMILY HISTORY: Unable to obtain SOCIAL HISTORY: Unable to obtain REVIEW OF SYSTEMS: Unable to obtain PHYSICAL EXAMINATION: VITAL SIGNS: Please see below. GENERAL APPEARANCE: Awake and lying comfortably on a stretcher in no apparent distress. HEENT: Unremarkable. RESPIRATORY: No respiratory distress. CARDIOVASCULAR: No peripheral edema. ABDOMEN: Soft nondistended nontender with no CVA tenderness. LABORATORY DATA: Please see below. ASSESSMENT/PLAN: 1. Patient likely has a urinary tract infection with bilateral obstructive uropathy secondary to bilateral ureteral calculi. Patient will require cystoscopy with placement of bilateral double-J stents. Recommend urine and blood cultures with IV antibiotics and IV hydration. Informed consent was obtained from the patient and her daughter, Azul Nance by phone. After patient's infection has cleared she will require bilateral ureteroscopy with laser lithotripsy. Vital Signs/I&O Vital Signs Date Time Temp Pulse Resp B/P (MAP) Pulse Ox O2 Delivery O2 Flow Rate FiO2 06/07/19 12:37 120/58 (78) 06/07/19 12:32 98 18 98 Room Air 06/07/19 09:25 100.3 Laboratory Data Labs 24H Laboratory Tests 2 06/07/19 08:55: Immature Granulocyte % (Auto) 0.7, Neutrophils (%) (Auto) 84.1H, Lymphocytes (%) (Auto) 3.9L, Monocytes (%) (Auto) 11.0H, Eosinophils (%) (Auto) 0.2, Basophils (%) (Auto) 0.1, Neutrophils # (Auto) 12.4H, Lymphocytes # (Auto) 0.6L, Monocytes # (Auto) 1.6H, Eosinophils # (Auto) 0.0, Basophils # (Auto) 0.0, Nucleated Red Blood Cells % (auto) 0.0, Prothrombin Time 14.1H, Prothromb Time International Ratio 1.12, Activated Partial Thromboplast Time 27.6, Anion Gap 7L, Glomerular Filtration Rate 22.3L, Lactic Acid Level 1.4, Calcium Level 10.3H, Total Bilirubin 1.3H, Direct Bilirubin 0.5H, Aspartate Amino Transf (AST/SGOT) 21, Alanine Aminotransferase (ALT/SGPT) 42, Alkaline Phosphatase 89, Total Creatine Kinase 82, Creatine Kinase MB < 1.0, Creatine Kinase MB Relative Index 1.22, Troponin I < 0.02, Total Protein 8.3H, Albumin 3.7, Albumin/Globulin Ratio 0.80L, Lipase 97 06/07/19 09:07: Urine Color (NAZARIO) BROWNH, Urine Appearance (NAZARIO) CLOUDYH, Urine pH (NAZARIO) 9.0, Urine Specific [place] (NAZARIO) 1.015, Urine Protein 3+H, Bedside Urine Glucose (UA) NEGATIVE, Bedside Urine Ketones (LAB) OBSCUREDH, Bedside Urine Blood POSITIVEH, Bedside Urine Nitrite (LAB) OBSCUREDH, Bedside Urine Bilirubin (LAB) OBSCUREDH, Bedside Urine Urobilinogen (LAB) OBSCUREDH, Bedside Urine Leukocyte Esterase (L POSITIVEH, Urine Sediment Examination PERFORMED, Urine RBC TNTCH, Urine WBC 3-5H, Urine Squamous Epithelial Cells , Urine Renal Epithelial Cells SMALL AMOUNTH, Urine Triple Phosphate Crystals SMALL AMOUNTH, Urine Amorphous Sediment LARGE AMOUNTH, Urine Bacteria SMALL AMOUNTH, Urine Hyaline Casts 06/07/19 11:40: Influenza Type A (RT-PCR) NEGATIVE, Influenza Type B (RT-PCR) NEGATIVE CBC/BMP Laboratory Tests 06/07/19 08:55 Microbiology Microbiology 06/07/19 Urine Culture, Received Pending 06/07/19 Blood Culture, Received Pending 06/07/19 Blood Culture, Received Pending Allergies Coded Allergies: Cephalosporins (Verified Allergy, Intermediate, rash, 06/07/19) Penicillins (Verified Adverse Reaction, Mild, whoozy , 06/07/19) Home Medications Scheduled Acetaminophen (Acetaminophen) 325 Mg Tablet, 650 MG PO DAILY, (Reported) Aspirin (Aspir 81) 81 Mg Tab, 81 MG PO DAILY, (Reported) Baclofen (Baclofen) 10 Mg Tab, 10 MG PO TID, (Reported) Cholecalciferol (Vitamin D3) (Vitamin D3) 2,000 Unit Capsule, 2,000 UNIT PO DA JAYLIN, (Reported) Cranberry Fruit (Cranberry) 450 Mg Tablet, 450 MG PO QHS, (Reported) Dimethyl Fumarate (Tecfidera) 240 Mg Cap, 240 MG PO BID, (Reported) Loratadine (Loratadine) 10 Mg Tablet, 10 MG PO DAILY, (Reported) Multivitamin (Tab-A-Aparna) 1 Each Tablet, 1 TAB PO DAILY, (Reported) Nortriptyline HCl (Nortriptyline HCl) 10 Mg Cap, 10 MG PO BID, (Reported) Omeprazole (Omeprazole) 40 Mg Cap, 40 MG PO DAILY, (Reported) Scheduled PRN Acetaminophen (Acetaminophen) 325 Mg Tablet, 650 MG PO Q6H PRN for PAIN, (Reported) Armando Jordan MD Jun 07, 2019 13:17
[2019-06-07] MEDS ORDERED: ACETAMINOPHEN 325 MG TAB PO PRN (13:30)
[2019-06-07] MEDS ORDERED: CONRAY-60 60% 50ML VIAL (Q9961) As Ordered ONE (13:41)
--- NOTE | 2019-06-07 14:29 | HPE ---
DATE OF ADMISSION: 06/07/2019 PRIMARY CARE PROVIDER: Dr. Zurdo Skelton CHIEF COMPLAINT: Hematuria, altered mental status and foul smelling urine. HISTORY OF PRESENT ILLNESS: This is a 73-year-old female with a history of multiple sclerosis, urinary retention, recurrent urinary tract infections with Escherichia (E) coli, Aerococcus. She lives alone at home, wheelchair bound with an aide, Tracie Mckeon, who is also her healthcare proxy, . The patient usually has Meals on Wheels, but her aide sees her every day except for the weekends. On Tuesday she was found to be increasingly confused in the late afternoon when she was seen by her aide. This progressed to Tuesday. When she was being helped to go into the shower she was unable to transfer out of her wheelchair to the shower chair, which she is usually able to do. According to the aide, she has also noticed some gross hematuria on the diaper. The patient denies any fevers, chills, flank pain, or any dysuria, urgency or frequency. The patient appeared confused and stated questions of "Why I am like this?" "I don't understand." According to the aide, this is was significantly different from her baseline. She has also been having some foul smelling urine without documented fever, chills or flank pain. The patient was then brought into the emergency room for evaluation. She was found to have a creatinine of 2.3, white count of 14,000, with low grade temperature of 100.3. CT of the abdomen and pelvis showed large kidney stones, bilateral hydronephrosis. The patient was evaluated by urologist, Dr. Armando Jordan, and felt that the patient will require stent placement and stone extraction. Per the daughter, who lives in [place], Azul Nance, phone number is [phone], the patient is a FULL CODE with a trial of intubation and cardiopulmonary resuscitation (CPR) She agrees with proceeding to surgery and is available for the surgeon to obtain consent, along with Tracie Mckeon, who is a co healthcare proxy, . The patient last ate some oatmeal at 8:00 a.m. this morning. She is confused at the bedside, unable to provide any history or consent for surgery. PAST MEDICAL HISTORY: 1. Multiple sclerosis, relapsing, remitting. Seen at [facility]. 2. Impaired fasting glucose. 3. Non-alcoholic fatty liver disease with liver ultrasound showing diffuse fatty liver 06/2011. Normal workup in January 2004. 4. History of urinary retention, recurrent UTIs. 5. Depression. 6. Gastroesophageal reflux disease (GERD). 7. Allergic rhinitis. 8. Osteoporosis. 9. Obesity. 10. Vitamin D deficiency. 11. Dyslipidemia. 12. Femoral neck fracture, not repaired per patient request and therefore nonambulatory with multiple sclerosis, but has no pain. August 2016. 13. T9 atypical benign hemangioma by MRI of the thoracic spine, minimal compression, status post CT guided biopsy, which was also benign. 14. Nondisplaced right distal fibular fracture 11/2017, casted by Dr. Gould. 15. Recurrent urinary tract infections. ALLERGIES: PENICILLIN, making her feel woozy, CEPHALOSPORIN, unknown allergy. PAST SURGICAL HISTORY: 1. Total abdominal hysterectomy, bilateral salpingo-oophorectomy for noncancerous reasons. 2. Tonsillectomy as a child. 3. Colonoscopy with moderate diverticulosis and hemorrhoids, Dr. Meyer in March 2007. 4. Cholecystectomy. FAMILY HISTORY: Father at age 94. Seven brothers, one sister. One sister at . Healthcare proxy is the daughter, Azul Nance, in [place]. The patient is a FULL CODE, trial of intubation and CPR. The patient is a nonsmoker. Lives alone. Chronically in a wheelchair. She has Meals on Wheels and an aide to see her every day, who sets out her dinner and leaves her food for the weekend. HOME MEDICATIONS: - acetaminophen 650 mg daily, every 6 hours as needed for pain - aspirin 81 mg daily - Baclofen 10 mg twice a day - vitamin D 2000 units daily - loratadine 10 mg daily - nortriptyline 10 mg twice a day - omeprazole 40 mg daily - Tecfidera 240 mg by mouth twice a day - multivitamin one tablet daily REVIEW OF SYSTEMS: Could not be obtained due to the patient's confusion. History was obtained from [facility], , the patient's aide. PHYSICAL EXAMINATION: Temperature is 100.3, pulse 100, respiratory rate 20, blood pressure 120/58, 98% on room air. GENERAL: The patient is awake, alert, oriented to herself only. She is answering questions appropriately, but has poor memory, could not recall what has been transpiring for the past few days. She is anicteric with no jaundice. No jugular venous distention (JVD) or thyromegaly. Dry mucous membranes. Halitosis. Poor dentition. No cervical lymphadenopathy. No thyromegaly. No stridor. LUNGS: Clear to auscultation. No wheezing, rales or rhonchi. HEART: S1, S2. Sinus rhythm. No murmurs, rubs or gallops. ABDOMEN: Soft, nontender, nondistended. The patient has a diaper with foul smelling urine. Per nursing, the patient had gross hematuria when she was catheterized for the urine sample, currently has no blood in her diaper. EXTREMITIES: No cyanosis, clubbing or any pitting edema. The patient has resting tremors of her hands. LABORATORY DATA: White count 14, hemoglobin 12, hematocrit 38, platelet count 215. 84% neutrophils. Sodium 140, potassium 3.5, chloride 107, bicarbonate 27, BUN 55, creatinine 2.3, glucose 131, lactic acid 1.4, total bilirubin 1.3, direct bilirubin 0.5. AST 21, ALT 42, alkaline phosphatase 89, total CK 82, MB fraction less than 1, troponin less than 0.02, total protein 8.3, albumin 3.7, lipase of 97. Urine culture is pending. Blood culture is pending. Urinalysis showed brown, cloudy urine, pH of 9, 3+ protein, positive urine for blood, too numerous to count RBCs, 3 to 5 WBCs. IMAGING STUDIES: Chest x-ray showed no acute cardiopulmonary process. CT of the head showed volume loss of white matter representing multiple sclerosis and chronic small vessel disease. CT of the abdomen and pelvis showed large bilateral obstructing distal ureteral calculi, bilateral moderate to marked hydronephrosis and hydroureter, bilateral intrarenal nephrolithiasis, right greater than left, moderate colonic stool, diffuse thickening of the urinary bladder wall, question cystitis. Post hysterectomy and cholecystectomy. ASSESSMENT AND PLAN: 73-year-old FULL CODE, multiple sclerotic patient with healthcare proxy in [place], the patient's daughter Azul Nance, and [facility] [phone], presented to the emergency room with a few day history of worsening confusion from Tuesday onwards. The patient was found to have urinary tract infection, cystitis with bilateral large kidney stones and moderate hydronephrosis bilaterally, right greater than left. THe patient will be admitted as an inpatient for two midnights for the following issues: ACTIVE ISSUES: 1. Obstructive uropathy due to bilateral intrarenal nephrolithiasis, large obstructing distal ureteral calculi with moderate to marked hydronephrosis bilaterally, right greater than left with cystitis. The patient is nothing by mouth, provided IV fluids, IV meropenem with no signs of respiratory distress or rash and white count of 14,000. She is medically optimized to proceed to the operating room for cystoscopy, stone extraction and stent placement. Urologist, Dr. Armando Jordan, has been consulted. 2. Medical clearance. The patient is optimized to proceed to surgery. She is currently nothing by mouth. Aspirin has been held. Blood pressure is adequate. She has been given IV fluids in the emergency room. No complaints of cardiac ischemic symptoms. Electrocardiogram (EKG) is unremarkable and shows no signs of acute ischemia. The patient may proceed to the operating room. 3. Multiple sclerosis. May resume home dose of Tecfidera postoperatively. Continue on Baclofen and Tecfidera. 4. Chronic small vessel ischemic disease. Hold aspirin due to preoperative management. 5. Allergic rhinitis. On loratadine. 6. Vitamin D deficiency. On vitamin D. 7. Reflux. On Prilosec. 8. Chronic urinary tract infection (UTI). Currently on IV meropenem. Despite history of penicillin/cephalosporin allergy, the patient is not complaining of any respiratory distress. No angioedema or rash noted currently. 9. Deep vein thrombosis (DVT) prophylaxis with compression stockings due to gross hematuria. 10. Gross hematuria with acute blood loss. No signs of anemia at this time. No need for blood transfusion. 11. Acute metabolic encephalopathy due to acute renal failure from obstructive uropathy. on ivfluids, cystoscopy planned for kidney stone extraction, stent placement, and on iv antibiotics. await urine culture results. 12. acute kidney injury with baseline serum creatinine of 0.61-0.66 and presenting creatinine of 2.30 due to obstructive kidney stone.Urology consulted. Code Status:Full code, trial of intubation. CPR. The patient has been signed out to Dr. Jona Wetterhahn, who will assume care of this patient as the patient's primary care is Dr. Zurdo Skelton, [facility]. [facility]
[2019-06-07 14:34] VITALS: BP 128/64
[2019-06-07] MEDS: KCL 10MEQ IN D5/0.45NS 1000ML 1,000 ML IV SCH (14:55)
[2019-06-07] MEDS: TECFIDERA 240MG CAPSULE (PATIENT'S OWN MED) PO SCH (15:32)
--- NOTE | 2019-06-07 15:40 | ECGEPIP ---
[facility] - ED Test Date: 2019-06-07 Pat Name: TONI CUEVAS Department: Room: - Gender: Female Supervisor [employer]: : [id number] Requested By: Balta Woodward Order Number: [id number] Reading MD: Marietta Sarkar Measurements Intervals [place] Rate: 99 P: 30 [place]: 123 QRS: -3 QRSD: 90 T: -1 QT: 315 QTc: 405 Interpretive Statements SINUS RHYTHM LOW VOLTAGE NSTTW abnormalities PRWP baseline artifact may affect interpretation NO PRIOR Electronically Signed on 06-07-2019 15:40:23 EDT by Marietta Sarkar
[2019-06-07] MEDS ORDERED: MEROPENEM INJ 1 GM in IV 1 EA IV SCH (18:00)
[2019-06-07] MEDS ORDERED: MIDAZOLAM INJ 2 MG/2 ML VIAL (J2250) As Ordered ONE (18:13)
[2019-06-07] MEDS ORDERED: LIDOCAINE 2% INJ 100 MG/5 ML SDV (FOR ANES.) As Ordered ONE (18:13)
[2019-06-07] MEDS ORDERED: PROPOFOL 200 MG/20 ML VIAL As Ordered ONE (18:13)
[2019-06-07] MEDS ORDERED: PHENYLephrine HCL 500 MCG/5 ML (100MCG/ML) SYRINGE (J2370) As Ordered ONE (18:13)
[2019-06-07] MEDS ORDERED: fentaNYL 100 MCG/2 ML INJECTION (J3010) As Ordered ONE (18:13)
--- NOTE | 2019-06-07 18:53 | ROOPDOC ---
[facility] Report Of Operation Report of Operation DATE OF PROCEDURE: 06/07/19 PREPROCEDURE DIAGNOSES: Bilateral ureteral calculi. POSTPROCEDURE DIAGNOSES: Same. PROCEDURE: Cystoscopy, left retrograde pyelogram, left double-J stent, right double-J stent. SURGEON: Armando Jordan MD ANESTHESIA: MAC. ESTIMATED BLOOD LOSS: Approximately less than 20 mL. COMPLICATIONS: None. REMARKS: 6 Azerbaijani left double-J stent, 5 Azerbaijani right double-J stent. PROCEDURE NOTE: Patient was brought the operating room and following administration of IV sedation was placed in the dorsal lithotomy position prepped and draped in usual sterile fashion. A 22 Azerbaijani cystoscope was inserted. Bladder had a large amount of debris which was irrigated from the bladder. The bladder showed evidence of chronic cystitis. A 5 Azerbaijani open-ended catheter was placed into the left ureteral orifice. A 0.038 guidewire was then advanced through the catheter past the obstructive stone and into the renal pelvis. The open-ended catheter was advanced over the wire to the renal pelvis and the wire was removed. A hydronephrotic drip was noted. Retrograde pyelogram performed revealing hydronephrosis. The wire was replaced and the open-ended catheter was removed. A 6 Azerbaijani double-J stent was then inserted under direct vision using fluoroscopy guidance. Once good position was confirmed the wires removed leaving this stent in place. Next the open-ended catheter was placed into the right ureteral orifice. Attempts were made to pass an 0.038 guidewire past the obstructing stone which was unsuccessful. A 0.035 Glidewire was then utilized and was manipulated beyond the stones into the renal pelvis. The open- ended catheter could not be advanced beyond the stones. The open-ended catheter was removed. A 5 Azerbaijani double-J stent was then inserted over the wire under direct vision using fluoroscopy guidance. Once the stent was in position the wires removed. Once the wire was removed the distal end of the stent migrated in to the ureter and did not protrude through the urethral orifice. A grasping forcep was then utilized and passed into the ureteral orifice. Utilizing f luoroscopy the stent was grabbed and brought out into the bladder. Once a good curl was obtained on the stent the bladder was emptied and the cystoscope was removed. Patient tolerated procedure well returned to recovery room in satisfactory condition. Armando Jordan MD Jun 07, 2019 18:53
[2019-06-07] MEDS ORDERED: fentaNYL 100 MCG/2 ML INJECTION (J3010) IV PRN (19:15)
[2019-06-07] MEDS ORDERED: LR 1,000 ML IV SCH (19:15)
[2019-06-07] MEDS ORDERED: ONDANSETRON 4MG/2ML VIAL (J2405) IV PRN (19:15)
[2019-06-07] MEDS ORDERED: oxyCODONE 5MG TAB PO PRN (19:15)
[2019-06-07 19:45] VITALS: BP 118/64
[2019-06-07 20:15] VITALS: BP 116/68
[2019-06-07] MEDS: NORTRIPTYLINE 10 MG CAP PO SCH (21:12)
[2019-06-07 21:15] VITALS: BP 119/64
[2019-06-07 22:15] VITALS: BP 110/62
[2019-06-07 23:15] VITALS: BP 118/62
[2019-06-07] MEDS: MEROPENEM INJ 500 MG in IV 1 EA IV SCH (23:48)
[2019-06-08 00:15] VITALS: BP 122/64
[2019-06-08] MEDS: KCL 10MEQ IN D5/0.45NS 1000ML 1,000 ML IV SCH ×3 (01:37→21:16)
[2019-06-08 04:00] VITALS: BP 108/60
[2019-06-08 05:49] LABS: HEMATOCRIT 33.6 % (36.0-47.0); HEMOGLOBIN 10.7 g/dl (12.0-15.5); MEAN CORPUSCULAR HEMOGLOBIN 31.3 pg (27.0-33.0); MEAN CORPUSCULAR HGB CONC 31.8 g/dl (32.0-36.5); MEAN CORPUSCULAR VOLUME 98.2 fl (80.0-96.0); PLATELET COUNT, AUTOMATED 172 10^3/uL (150-450); RED BLOOD COUNT 3.42 10^6/uL (4.00-5.40); WHITE BLOOD COUNT 8.2 10^3/uL (4.0-10.0)
[2019-06-08 05:59] LABS: CALCIUM LEVEL 8.6 MG/DL (8.8-10.2); CREATININE FOR GFR 1.3 MG/DL (0.55-1.30); POTASSIUM SERUM 3.8 MEQ/L (3.5-5.1)
--- NOTE | 2019-06-08 07:14 | IPNPDOC ---
Date Seen The patient was seen on 06/08/19. Progress Note SUBJECTIVE: Patient awake and alert without complaints. Denies pain OBJECTIVE PHYSICAL EXAMINATION: VITAL SIGNS: Please see below. Abdomen: soft non tender no CVA-tenderness LABORATORY DATA, IMAGING STUDIES, MICROBIOLOGY: Please see below. WBC 8.2 Creatinine 1.3 cultures pending ASSESSMENT AND PLAN: Patient is urologically stable s/p insertion of bilateral ureteral stents. Patient to follow up in office one week after discharge to schedule bilateral ureteroscopies with laser lithotripsy VS, I&O, 24H, Fishbone Vital Signs/I&O Vital Signs Date Time Temp Pulse Resp B/P (MAP) Pulse Ox O2 Delivery O2 Flow Rate FiO2 06/08/19 04:00 98.3 73 17 108/60 (76) 96 Room Air I&O- Last 24 Hours up to 6 AM 06/08/19 06:00 Intake Total 2360 ml Balance 2360 ml Laboratory Data 24H LABS Laboratory Tests 2 06/07/19 08:55: Immature Granulocyte % (Auto) 0.7, Neutrophils (%) (Auto) 84.1H, Lymphocytes (%) (Auto) 3.9L, Monocytes (%) (Auto) 11.0H, Eosinophils (%) (Auto) 0.2, Basophils (%) (Auto) 0.1, Neutrophils # (Auto) 12.4H, Lymphocytes # (Auto) 0.6L, Monocytes # (Auto) 1.6H, Eosinophils # (Auto) 0.0, Basophils # (Auto) 0.0, Nucleated Red Blood Cells % (auto) 0.0, Prothrombin Time 14.1H, Prothromb Time International Ratio 1.12, Activated Partial Thromboplast Time 27.6, Anion Gap 7L, Glomerular Filtration Rate 22.3L, Lactic Acid Level 1.4, Calcium Level 10.3H, Total Bilirubin 1.3H, Direct Bilirubin 0.5H, Aspartate Amino Transf (AST/SGOT) 21, Alanine Aminotransferase (ALT/SGPT) 42, Alkaline Phosphatase 89, Total Creatine Kinase 82, Creatine Kinase MB < 1.0, Creatine Kinase MB Relative Index 1.22, Troponin I < 0.02, Total Protein 8.3H, Albumin 3.7, Albumin/Globulin Ratio 0.80L, Lipase 97 06/07/19 09:07: Urine Color (NAZARIO) BROWNH, Urine Appearance (NAZARIO) CLOUDYH, Urine pH (NAZARIO) 9.0, Urine Specific [place] (NAZARIO) 1.015, Urine Protein 3+H, Bedside Urine Glucose (UA) NEGATIVE, Bedside Urine Ketones (LAB) OBSCUREDH, Bedside Urine Blood POSITIVEH, Bedside Urine Nitrite (LAB) OBSCUREDH, Bedside Urine Bilirubin (LAB) OBSCUREDH, Bedside Urine Urobilinogen (LAB) OBSCUREDH, Bedside Urine Leukocyte Esterase (L POSITIVEH, Urine Sediment Examination PERFORMED, Urine RBC TNTCH, Urine WBC 3-5H, Urine Squamous Epithelial Cells , Urine Renal Epithelial Cells SMALL AMOUNTH, Urine Triple Phosphate Crystals SMALL AMOUNTH, Urine Amorphous Sediment LARGE AMOUNTH, Urine Bacteria SMALL AMOUNTH, Urine Hyaline Casts 06/07/19 11:40: Influenza Type A (RT-PCR) NEGATIVE, Influenza Type B (RT-PCR) NEGATIVE 06/08/19 05:11: Nucleated Red Blood Cells % (auto) 0.0, Anion Gap 7L, Glomerular Filtration Rate 43.0, Calcium Level 8.6#L CBC/BMP Laboratory Tests 06/07/19 08:55 06/08/19 05:11 Microbiology Microbiology 06/07/19 Urine Culture, Received Pending 06/07/19 Blood Culture, Received Pending 06/07/19 Blood Culture, Received Pending Armando Jordan MD Jun 08, 2019 07:14
[2019-06-08 08:00] VITALS: BP 113/55
[2019-06-08] MEDS: OMEPRAZOLE 20 MG CAP PO SCH (08:47)
[2019-06-08] MEDS: LORATADINE 10 MG TAB PO SCH (08:47)
[2019-06-08] MEDS: NORTRIPTYLINE 10 MG CAP PO SCH ×2 (08:47→21:16)
[2019-06-08] MEDS: VITAMIN D 1,000 INTERNATIONAL UNITS TABLET PO SCH (08:47)
--- NOTE | 2019-06-08 08:48 | IPNPDOC ---
Subjective Date Seen The patient was seen on 06/08/19. Subjective Chief Complaint/HPI Patient feels well today without complaints Constitutional: Denies: Chills, Fever Pulmonary: Denies: Dyspnea, Cough Cardiovascular: Denies: Chest Pain, Palpitations Gastrointestinal: Denies: Nausea, Vomiting, Abdominal Pain, Diarrhea, Constipation Genitourinary: Denies: Dysuria Objective Physical Examination General Exam: Positive: Alert, No Acute Distress Chest Exam: Positive: Clear to auscultation; Negative: Rales, Rhonchi, Wheezing Heart Exam: Positive: Rate Normal, Regular Rhythm Abdomen Exam: Positive: Normal bowel sounds, Soft; Negative: Tenderness Extremity Exam: Negative: Edema Psych Exam: Positive: Mental status NL Assessment /Plan Problems (1) Obstructive uropathy Status: Acute Response to Treatment: Improving Problem Text: 06/08 - CT on admission: 1. Bilateral moderate to marked hydronephrosis and hydroureter due to bilateral large obstructing distal ureteral calculi 2. Bilateral intrarenal nephrolithiasis, right greater than left. 3. Moderate colonic stool. 4. Diffuse thickening of the urinary bladder wall, question cystitis. 5. Post hysterectomy and cholecystectomy Urology following - 06/07 performed - insertion of bilateral ureteral stents. Patient to follow up in office one week after discharge to schedule bilateral ureteroscopies with laser lithotripsy (2) CAROL (acute kidney injury) Status: Resolved Problem Text: Renal fx improved with ureteral stent placement and IVF (3) Metabolic encephalopathy Status: Resolved Problem Text: Patient was confused on admission, but Mental status back to baseline today (4) Chronic UTI (urinary tract infection) Problem Text: U/C and B/C pending Cont Meropenem - tolerating despite Cephalosporin and PCN allergy listed (5) Multiple sclerosis Status: Chronic Response to Treatment: Stable Problem Text: Normally on Tecfidera 240 BID, Baclofen 10 BID, Nortityline 10 BI D - On hold due to AMS on admission Restart and monitor mental status (6) GERD (gastroesophageal reflux disease) Status: Chronic Plan/VTE VTE Prophylaxis Ordered?: Yes VTE Exclusion Pharmacological: Active Bleeding (SCDs ordered - no anticoag due to hematuria) Plan Therapy: PT VS, I&O, 24H, Fishbone Vital Signs/I&O Vital Signs Date Time Temp Pulse Resp B/P (MAP) Pulse Ox O2 Delivery O2 Flow Rate FiO2 06/08/19 08:00 99.9 80 18 113/55 (74) 99 Room Air I&O- Last 24 Hours up to 6 AM0 06/08/19 06:00 Intake Total 2360 ml Balance 2360 ml Laboratory Data 24H LABS Laboratory Tests 2 06/07/19 08:55: Immature Granulocyte % (Auto) 0.7, Neutrophils (%) (Auto) 84.1H, Lymphocytes (%) (Auto) 3.9L, Monocytes (%) (Auto) 11.0H, Eosinophils (%) (Auto) 0.2, Basophils (%) (Auto) 0.1, Neutrophils # (Auto) 12.4H, Lymphocytes # (Auto) 0.6L, Monocytes # (Auto) 1.6H, Eosinophils # (Auto) 0.0, Basophils # (Auto) 0.0, Nucleated Red Blood Cells % (auto) 0.0, Prothrombin Time 14.1H, Prothromb Time International Ratio 1.12, Activated Partial Thromboplast Time 27.6, Anion Gap 7L, Glomerular Filtration Rate 22.3L, Lactic Acid Level 1.4, Calcium Level 10.3H, Total Bilirubin 1.3H, Direct Bilirubin 0.5H, Aspartate Amino Transf (AST/SGOT) 21, Alanine Aminotransferase (ALT/SGPT) 42, Alkaline Phosphatase 89, Total Creatine Kinase 82, Creatine Kinase MB < 1.0, Creatine Kinase MB Relative Index 1.22, Troponin I < 0.02, Total Protein 8.3H, Albumin 3.7, Albumin/Globulin Ratio 0.80L, Lipase 97 06/07/19 09:07: Urine Color (NAZARIO) BROWNH, Urine Appearance (NAZARIO) CLOUDYH, Urine pH (NAZARIO) 9.0, Urine Specific [place] (NAZARIO) 1.015, Urine Protein 3+H, Bedside Urine Glucose (UA) NEGATIVE, Bedside Urine Ketones (LAB) OBSCUREDH, Bedside Urine Blood POSITIVEH, Bedside Urine Nitrite (LAB) OBSCUREDH, Bedside Urine Bilirubin (LAB) OBSCUREDH, Bedside Urine Urobilinogen (LAB) OBSCUREDH, Bedside Urine Leukocyte Esterase (L POSITIVEH, Urine Sediment Examination PERFORMED, Urine RBC TNTCH, Urine WBC 3-5H, Urine Squamous Epithelial Cells , Urine Renal Epithelial Cells SMALL AMOUNTH, Urine Triple Phosphate Crystals SMALL AMOUNTH, Urine Amorphous Sediment LARGE AMOUNTH, Urine Bacteria SMALL AMOUNTH, Urine Hyaline Casts 06/07/19 11:40: Influenza Type A (RT-PCR) NEGATIVE, Influenza Type B (RT-PCR) NEGATIVE 06/08/19 05:11: Nucleated Red Blood Cells % (auto) 0.0, Anion Gap 7L, Glomerular Filtration Rate 43.0, Calcium Level 8.6#L CBC/BMP Laboratory Tests 06/07/19 08:55 06/08/19 05:11 Microbiology Microbiology 06/07/19 Urine Culture, Received Pending 06/07/19 Blood Culture, Received Pending 06/07/19 Blood Culture, Received Pending NORI CHIN PA-C Jun 08, 2019 08:48
--- NOTE | 2019-06-08 09:11 | REP ---
Retrograde pyelogram: Three views. History: Cystoscopy. Bilateral stent. 3 minutes 54 seconds of fluoroscopy time is reported. Findings: A sequence of three last image hold fluoroscopically obtained spot radiographs of the abdomen document bilateral ureteral stenting. Contrast injection shows bilateral hydronephrosis right greater than left. Electronically Signed by Angel Glasgow MD 06/08/2019 09:14 A
[2019-06-08] MEDS ORDERED: ACETAMINOPHEN TAB 650MG DOSE (2X325MG) PO PRN (09:30)
[2019-06-08] MEDS: ASPIRIN 81 MG ENTERIC TAB PO SCH (10:36)
[2019-06-08] MEDS: BACLOFEN 10 MG TAB PO SCH ×3 (10:36→21:16)
[2019-06-08] MEDS: ACETAMINOPHEN TAB 650MG DOSE (2X325MG) PO SCH (10:36)
[2019-06-08] MEDS: MEROPENEM INJ 500 MG in IV 1 EA IV SCH ×2 (10:37→23:57)
[2019-06-08] MEDS: TECFIDERA 240MG CAPSULE (PATIENT'S OWN MED) PO SCH ×2 (15:36→21:17)
[2019-06-08 15:58] VITALS: BP 107/58
[2019-06-08 16:54] VITALS: BP 132/53
[2019-06-08 21:21] VITALS: BP 127/59
[2019-06-09] MEDS: KCL 10MEQ IN D5/0.45NS 1000ML 1,000 ML IV SCH ×2 (05:20→16:35)
[2019-06-09 06:01] VITALS: BP 112/59
[2019-06-09 07:12] LABS: HEMATOCRIT 36.2 % (36.0-47.0); HEMOGLOBIN 11.8 g/dl (12.0-15.5); MEAN CORPUSCULAR HEMOGLOBIN 31.5 pg (27.0-33.0); MEAN CORPUSCULAR HGB CONC 32.6 g/dl (32.0-36.5); MEAN CORPUSCULAR VOLUME 96.5 fl (80.0-96.0); PLATELET COUNT, AUTOMATED 187 10^3/uL (150-450); RED BLOOD COUNT 3.75 10^6/uL (4.00-5.40); WHITE BLOOD COUNT 4.2 10^3/uL (4.0-10.0)
[2019-06-09 07:32] LABS: BLOOD UREA NITROGEN 25 MG/DL (7-18); CALCIUM LEVEL 8.9 MG/DL (8.8-10.2); CARBON DIOXIDE LEVEL 25 MEQ/L (21-32); CHLORIDE LEVEL 111 MEQ/L (98-107); GLOMERULAR FILTRATION RATE > 60.0 (>39); GLUCOSE, FASTING 124 MG/DL (70-100); POTASSIUM SERUM 3.7 MEQ/L (3.5-5.1); SODIUM LEVEL 141 MEQ/L (136-145)
[2019-06-09] MEDS: TECFIDERA 240MG CAPSULE (PATIENT'S OWN MED) PO SCH ×2 (08:00→20:31)
[2019-06-09] MEDS: BACLOFEN 10 MG TAB PO SCH ×3 (08:01→20:31)
[2019-06-09] MEDS: OMEPRAZOLE 20 MG CAP PO SCH (08:01)
[2019-06-09] MEDS: NORTRIPTYLINE 10 MG CAP PO SCH ×2 (08:01→20:31)
[2019-06-09] MEDS: VITAMIN D 1,000 INTERNATIONAL UNITS TABLET PO SCH (08:01)
[2019-06-09] MEDS: ACETAMINOPHEN TAB 650MG DOSE (2X325MG) PO SCH (08:01)
[2019-06-09] MEDS: ASPIRIN 81 MG ENTERIC TAB PO SCH (08:01)
[2019-06-09] MEDS: LORATADINE 10 MG TAB PO SCH (08:01)
[2019-06-09] MEDS: MEROPENEM INJ 500 MG in IV 1 EA IV SCH ×2 (11:16→22:27)
--- NOTE | 2019-06-09 12:09 | IPNPDOC ---
Subjective Review oF Systems Chief Complaint The patient is a 73-year-old female admitted with a reason for visit of Hydronephrosis. Events since Last Encounter S: "I feel better" General: Denies: ROS Unobtainable, Chills, Night Sweats, Fatigue, Malaise, Normal Appetite, Other Symptoms Constitutional: Denies: Fever, Chills, Sweats, Weakness, Malaise, Other Genitourinary: Denies: Dysuria, Frequency, Incontinence, Hematuria, Retention, Other Symptoms Objective Physical Examination General Exam: Alert, Cooperative, No Acute Distress Chest Exam: Normal air movement Heart Exam: Positive: Rate Normal, Regular Rhythm ABDOMEN EXAM: Normal bowel sounds Vital Signs/I&O Vital Signs Date Time Temp Pulse Resp B/P (MAP) Pulse Ox O2 Delivery O2 Flow Rate FiO2 06/09/19 06:01 98.1 89 19 112/59 (76) 98 Room Air I&O- Last 24 Hours up to 6 AM 06/09/19 06:00 Intake Total 1520 ml Output Total 200 ml Balance 1320 ml Laboratory Data Labs 24H Laboratory Tests 2 06/08/19 17:18: Bedside Glucose (Misc Panel) 105 06/09/19 06:43: Nucleated Red Blood Cells % (auto) 0.0, Anion Gap 5L, Glomerular Filtration Rate > 60.0, Calcium Level 8.9 CBC/BMP Laboratory Tests 06/09/19 06:43 FSBS Laboratory Tests Test 06/08/19 17:18 Range/Units Bedside Glucose (Misc Panel) 105 83-110 MG/DL Microbiology Microbiology 06/07/19 Urine Culture, Received Pending 06/07/19 Blood Culture - Preliminary, Resulted No Growth after 48 hours. All Specime... 06/07/19 Blood Culture - Preliminary, Resulted No Growth after 48 hours. All Specime... Assessment/Plan Date Seen The patient was seen on 06/09/19. Patient Summary A: Improving post stent placement with normalization of renal fxn P: Home when urine culture known (BC -) Will need 1 week f/u to schedule for stone mgmt. Following. Problems (1) Obstructive uropathy Status: Acute (2) CAROL (acute kidney injury) Status: Resolved (3) Metabolic encephalopathy Status: Resolved (4) Chronic UTI (urinary tract infection) (5) Multiple sclerosis Status: Chronic (6) GERD (gastroesophageal reflux disease) Status: Chronic Plan/VTE VTE Prophylaxis Ordered?: Yes VTE Exclusion Pharmacological: Active Bleeding (SCDs ordered - no anticoag due to hematuria) Plan Therapy: PT MODETSO CHRISTIANSON MD Jun 09, 2019 12:09
[2019-06-09 14:00] VITALS: BP 126/67
--- NOTE | 2019-06-09 20:02 | IPNPDOC ---
Subjective Date Seen The patient was seen on 06/09/19. Subjective Chief Complaint/HPI afebrile, no abdominal pain Constitutional: Denies: Chills, Fever Eyes: Denies: Pain ENT: Denies: Head Aches Skin: Denies: Rash, Lesions Pulmonary: Denies: Dyspnea, Cough Cardiovascular: Denies: Chest Pain, Palpitations Gastrointestinal: Denies: Nausea, Vomiting Objective Physical Examination General Exam: Positive: Alert, No Acute Distress Chest Exam: Positive: Clear to auscultation; Negative: Rales, Rhonchi, Wheezing Heart Exam: Positive: Rate Normal, Regular Rhythm Abdomen Exam: Positive: Normal bowel sounds, Soft; Negative: Tenderness Extremity Exam: Negative: Edema Psych Exam: Positive: Mental status NL Assessment /Plan Problems (1) UTI (urinary tract infection) Status: Acute Problem Text: D2 brigitte 06/09 AF since admit, WBC 4.2 (06/07 14.8) 06/07 BCX2 NG 06/07 UCX P (2) Obstructive uropathy Status: Acute Response to Treatment: Improving Problem Text: POD2 B double J stents-[facility] Urology following - 06/07 performed - insertion of bilateral ureteral stents. Patient to follow up in office one week after discharge to schedule bilateral ureteroscopies with laser lithotripsy (3) CAROL (acute kidney injury) Status: Resolved Problem Text: cr back to baseline 0.8 (4) Multiple sclerosis Status: Chronic Response to Treatment: Stable Problem Text: Normally on Tecfidera 240 BID, Baclofen 10 BID, Nortityline 10 BID - On hold due to AMS on admission Restart and monitor mental status (5) GERD (gastroesophageal reflux disease) Status: Chronic (6) SIRS (systemic inflammatory response syndrome) Status: Acute Problem Text: as per UTI Plan/VTE VTE Prophylaxis Ordered?: Yes VTE Exclusion Pharmacological: Active Bleeding (SCDs ordered - no anticoag due to hematuria) Plan Therapy: PT VS, I&O, 24H, Fishbone Vital Signs/I&O Vital Signs Date Time Temp Pulse Resp B/P (MAP) Pulse Ox O2 Delivery O2 Flow Rate FiO2 06/09/19 14:00 97.8 74 20 126/67 (86) 99 Room Air I&O- Last 24 Hours up to 6 AM 06/09/19 06:00 Intake Total 1520 ml Output Total 200 ml Balance 1320 ml Laboratory Data 24H LABS Laboratory Tests 2 06/09/19 06:43: Nucleated Red Blood Cells % (auto) 0.0, Anion Gap 5L, Glomerular Filtration Rate > 60.0, Calcium Level 8.9 CBC/BMP Laboratory Tests 06/09/19 06:43 Microbiology Microbiology 06/07/19 Urine Culture, Received Pending 06/07/19 Blood Culture - Preliminary, Resulted No Growth after 48 hours. All Specime... 06/07/19 Blood Culture - Preliminary, Resulted No Growth after 48 hours. All Specime... Zurdo Skelton M.D. Jun 09, 2019 20:02
[2019-06-09 22:00] VITALS: BP 125/68
[2019-06-10 06:15] VITALS: BP 116/66
[2019-06-10 06:54] LABS: HEMOGLOBIN 11.5 g/dl (12.0-15.5); MEAN CORPUSCULAR HEMOGLOBIN 30.8 pg (27.0-33.0); MEAN CORPUSCULAR HGB CONC 32.9 g/dl (32.0-36.5); MEAN CORPUSCULAR VOLUME 93.8 fl (80.0-96.0); PLATELET COUNT, AUTOMATED 196 10^3/uL (150-450); RED BLOOD COUNT 3.73 10^6/uL (4.00-5.40)
[2019-06-10 07:15] LABS: BLOOD UREA NITROGEN 18 MG/DL (7-18); CALCIUM LEVEL 8.9 MG/DL (8.8-10.2); CARBON DIOXIDE LEVEL 26 MEQ/L (21-32); CHLORIDE LEVEL 108 MEQ/L (98-107); CREATININE FOR GFR 0.65 MG/DL (0.55-1.30); GLOMERULAR FILTRATION RATE > 60.0 (>39); GLUCOSE, FASTING 92 MG/DL (70-100); POTASSIUM SERUM 3.5 MEQ/L (3.5-5.1); SODIUM LEVEL 140 MEQ/L (136-145)
[2019-06-10] MEDS: OMEPRAZOLE 20 MG CAP PO SCH (09:52)
[2019-06-10] MEDS: BACLOFEN 10 MG TAB PO SCH ×3 (09:52→22:20)
[2019-06-10] MEDS: LORATADINE 10 MG TAB PO SCH (09:52)
[2019-06-10] MEDS: NORTRIPTYLINE 10 MG CAP PO SCH ×2 (09:52→22:20)
[2019-06-10] MEDS: ASPIRIN 81 MG ENTERIC TAB PO SCH (09:52)
[2019-06-10] MEDS: ACETAMINOPHEN TAB 650MG DOSE (2X325MG) PO SCH (09:53)
[2019-06-10] MEDS: TECFIDERA 240MG CAPSULE (PATIENT'S OWN MED) PO SCH ×2 (09:53→22:21)
[2019-06-10] MEDS: MEROPENEM INJ 500 MG in IV 1 EA IV SCH ×2 (09:53→23:48)
[2019-06-10] MEDS: VITAMIN D 1,000 INTERNATIONAL UNITS TABLET PO SCH (09:53)
--- NOTE | 2019-06-10 11:39 | IPNPDOC ---
Subjective Review oF Systems Chief Complaint The patient is a 73-year-old female admitted with a reason for visit of Hydronephrosis. Events since Last Encounter No complaints. Feeling better. General: Denies: ROS Unobtainable, Chills, Night Sweats, Fatigue, Malaise, Normal Appetite, Other Symptoms Constitutional: Denies: Fever, Chills, Sweats, Weakness, Malaise, Other ENT: Denies: Head Aches, Ear Pain, Dysphagia, Sinus Congestion, Post Nasal Drip, Sore Throat, Epistaxis, Other Symptoms Gastrointestinal: Denies: Nausea, Vomiting, Abdominal Pain, Diarrhea, Constipation, Melena, Hematochezia, Other Symptoms Genitourinary: Denies: Dysuria, Frequency, Incontinence, Hematuria, Retention, Other Symptoms Objective Physical Examination General Exam: Alert, Cooperative, No Acute Distress Chest Exam: Normal air movement Heart Exam: Positive: Rate Normal, Regular Rhythm ABDOMEN EXAM: Normal bowel sounds Psych Exam: Mood NL, Oriented x 3 Vital Signs/I&O Vital Signs Date Time Temp Pulse Resp B/P (MAP) Pulse Ox O2 Delivery O2 Flow Rate FiO2 06/10/19 06:15 98.1 84 16 116/66 (83) 98 Room Air I&O- Last 24 Hours up to 6 AM 06/10/19 06:00 Intake Total 4200 ml Output Total 1800 ml Balance 2400 ml Laboratory Data Labs 24H Laboratory Tests 2 06/10/19 06:40: Nucleated Red Blood Cells % (auto) 0.0, Anion Gap 6L, Glomerular Filtration Rate > 60.0, Calcium Level 8.9 CBC/BMP Laboratory Tests 06/10/19 06:40 Microbiology Microbiology 06/07/19 Urine Culture, Received Pending 06/07/19 Blood Culture - Preliminary, Resulted No Growth after 72 hours. All specime... 06/07/19 Blood Culture - Preliminary, Resulted No Growth after 72 hours. All specime... Assessment/Plan Date Seen The patient was seen on 06/10/19. Patient Summary A: Improving. Urine culture still pending. B ureteral stones, s/p B stent placement P: Home on culture directed abx when C&S known Problems (1) UTI (urinary tract infection) Status: Acute (2) Obstructive uropathy Status: Acute (3) CAROL (acute kidney injury) Status: Resolved (4) Multiple sclerosis Status: Chronic (5) GERD (gastroesophageal reflux disease) Status: Chronic (6) SIRS (systemic inflammatory response syndrome) Status: Acute Plan/VTE VTE Prophylaxis Ordered?: Yes VTE Exclusion Pharmacological: Active Bleeding (SCDs ordered - no anticoag due to hematuria) Plan Therapy: PT MODESTO CHRISTIANSON MD Jun 10, 2019 11:39
--- NOTE | 2019-06-10 12:07 | IPNPDOC ---
Subjective Date Seen The patient was seen on 06/10/19. Subjective Chief Complaint/HPI wants to dc home Constitutional: Denies: Chills Eyes: Denies: Pain ENT: Denies: Head Aches Skin: Denies: Rash Pulmonary: Denies: Dyspnea, Cough Cardiovascular: Denies: Chest Pain, Palpitations Gastrointestinal: Denies: Nausea, Vomiting, Abdominal Pain Objective Physical Examination General Exam: Positive: Alert, No Acute Distress Chest Exam: Positive: Clear to auscultation; Negative: Rales, Rhonchi, Wheezing Heart Exam: Positive: Rate Normal, Regular Rhythm Abdomen Exam: Positive: Normal bowel sounds, Soft; Negative: Tenderness Extremity Exam: Negative: Edema Psych Exam: Positive: Mental status NL Assessment /Plan Problems (1) UTI (urinary tract infection) Status: Acute Problem Text: D3 brigitte 06/10 AF since admit, WBC 5.0 (06/07 14.8) 06/07 BCX2 NG 06/07 UCX P (2) Obstructive uropathy Status: Acute Response to Treatment: Improving Problem Text: POD 3 B double J stents-Jordan plan at md fu c [facility] Uro in 1W to schedule bilateral laser lithotripsy (3) CAROL (acute kidney injury) Status: Resolved Problem Text: cr back to baseline 0.8 (4) Multiple sclerosis Status: Chronic Response to Treatment: Stable Problem Text: Normally on Tecfidera 240 BID, Baclofen 10 BID, Nortityline 10 BID - On hold due to AMS on admission Restart and monitor mental status (5) GERD (gastroesophageal reflux disease) Status: Chronic (6) SIRS (systemic inflammatory response syndrome) Status: Acute Problem Text: as per UTI (7) Physical deconditioning Status: Chronic Problem Text: 06/10 NSFH per PT-only has HHN M-F, baseline stands/pivots on own-cannot do here Plan/VTE VTE Prophylaxis Ordered?: Yes VTE Exclusion Pharmacological: Active Bleeding (SCDs ordered - no anticoag due to hematuria) Plan Therapy: PT VS, I&O, 24H, Fishbone Vital Signs/I&O Vital Signs Date Time Temp Pulse Resp B/P (MAP) Pulse Ox O2 Delivery O2 Flow Rate FiO2 06/10/19 06:15 98.1 84 16 116/66 (83) 98 Room Air I&O- Last 24 Hours up to 6 AM 06/10/19 06:00 Intake Total 4200 ml Output Total 1800 ml Balance 2400 ml Laboratory Data 24H LABS Laboratory Tests 2 06/10/19 06:40: Nucleated Red Blood Cells % (auto) 0.0, Anion Gap 6L, Glomerular Filtration Rate > 60.0, Calcium Level 8.9 CBC/BMP Laboratory Tests 06/10/19 06:40 Microbiology Microbiology 06/07/19 Urine Culture, Received Pending 06/07/19 Blood Culture - Preliminary, Resulted No Growth after 72 hours. All specime... 06/07/19 Blood Culture - Preliminary, Resulted No Growth after 72 hours. All specime... Zurdo Skelton M.D. Jun 10, 2019 12:07
[2019-06-10 14:42] VITALS: BP 109/64
[2019-06-10 22:00] VITALS: BP 112/56
[2019-06-11 06:00] VITALS: BP 140/70
[2019-06-11 06:29] LABS: HEMATOCRIT 34.8 % (36.0-47.0); HEMOGLOBIN 11.5 g/dl (12.0-15.5); MEAN CORPUSCULAR HEMOGLOBIN 30.8 pg (27.0-33.0); MEAN CORPUSCULAR VOLUME 93.3 fl (80.0-96.0); PLATELET COUNT, AUTOMATED 225 10^3/uL (150-450); RED BLOOD COUNT 3.73 10^6/uL (4.00-5.40); WHITE BLOOD COUNT 4.4 10^3/uL (4.0-10.0)
[2019-06-11 06:51] LABS: BLOOD UREA NITROGEN 24 MG/DL (7-18); CARBON DIOXIDE LEVEL 26 MEQ/L (21-32); CHLORIDE LEVEL 107 MEQ/L (98-107); CREATININE FOR GFR 0.69 MG/DL (0.55-1.30); GLOMERULAR FILTRATION RATE > 60.0 (>39); GLUCOSE, FASTING 89 MG/DL (70-100); SODIUM LEVEL 139 MEQ/L (136-145)
[2019-06-11] MEDS: VITAMIN D 1,000 INTERNATIONAL UNITS TABLET PO SCH (09:34)
[2019-06-11] MEDS: TECFIDERA 240MG CAPSULE (PATIENT'S OWN MED) PO SCH (09:34)
[2019-06-11] MEDS: OMEPRAZOLE 20 MG CAP PO SCH (09:35)
[2019-06-11] MEDS: LORATADINE 10 MG TAB PO SCH (09:35)
[2019-06-11] MEDS: BACLOFEN 10 MG TAB PO SCH (09:35)
[2019-06-11] MEDS: ACETAMINOPHEN TAB 650MG DOSE (2X325MG) PO SCH (09:35)
[2019-06-11] MEDS: NORTRIPTYLINE 10 MG CAP PO SCH (09:35)
[2019-06-11] MEDS: ASPIRIN 81 MG ENTERIC TAB PO SCH (09:35)
[2019-06-11] MEDS: MEROPENEM INJ 500 MG in IV 1 EA IV SCH (09:36)
[2019-06-11] MEDS ORDERED: DOXY100C PO (11:31)
[2019-06-11 14:00] VITALS: BP 101/65
--- NOTE | 2019-06-11 14:25 | IPNPDOC ---
Subjective Review oF Systems Chief Complaint The patient is a 73-year-old female admitted with a reason for visit of Hydronephrosis. Events since Last Encounter I'm feeling better. General: Denies: ROS Unobtainable, Chills, Night Sweats, Fatigue, Malaise, Normal Appetite, Other Symptoms Constitutional: Denies: Fever, Chills, Sweats, Weakness, Malaise, Other Eyes: Denies: Pain, Vision change, Conjunctivae inflammation, Eyelid inflammation, Redness, Other Cardiovascular: Denies Chest Pain, Denies Palpitations, Denies Orthopnea, Denies Paroxysmal Noc. Dyspnea, Denies Edema, Denies Lt Headedness, Denies Other Symptoms Objective Physical Examination General Exam: Alert, Cooperative, No Acute Distress Chest Exam: Normal air movement Heart Exam: Positive: Rate Normal, Regular Rhythm ABDOMEN EXAM: Normal bowel sounds Psych Exam: Mood NL, Oriented x 3 Vital Signs/I&O Vital Signs Date Time Temp Pulse Resp B/P (MAP) Pulse Ox O2 Delivery O2 Flow Rate FiO2 06/11/19 06:00 98.8 84 20 140/70 (93) 96 Room Air I&O- Last 24 Hours up to 6 AM 06/11/19 06:00 Intake Total 1200 ml Balance 1200 ml Laboratory Data Labs 24H Laboratory Tests 2 06/11/19 05:51: Nucleated Red Blood Cells % (auto) 0.0, Anion Gap 6L, Glomerular Filtration Rate > 60.0, Calcium Level 9.0 CBC/BMP Laboratory Tests 06/11/19 05:51 Microbiology Microbiology 06/07/19 Urine Culture - Final, Complete Aerococcus Viridans Corynebacterium Species 06/07/19 Blood Culture - Preliminary, Resulted 06/07/19 Blood Culture - Preliminary, Resulted No Growth after 72 hours. All specime... Assessment/Plan Date Seen The patient was seen on 06/11/19. Patient Summary Urine culture growing to pansensitive organisms. Impression: Urolithiasis, status post stenting with coincident urinary infection, now improved. Problems (1) UTI (urinary tract infection) Status: Acute (2) Obstructive uropathy Status: Acute Urology Problem Text: Plan: Broad-spectrum antibiotic coverage for now. Follow up one week to arrange ureteroscopic stone extraction. She is agreeable to this plan. Her questions are answered. (3) CAROL (acute kidney injury) Status: Resolved (4) Multiple sclerosis Status: Chronic (5) GERD (gastroesophageal reflux disease) Status: Chronic (6) SIRS (systemic inflammatory response syndrome) Status: Acute (7) Physical deconditioning Status: Chronic Plan/VTE VTE Prophylaxis Ordered?: Yes VTE Exclusion Pharmacological: Active Bleeding (SCDs ordered - no anticoag due to hematuria) Plan Therapy: PT MODESTO CHRISTIANSON MD Jun 11, 2019 14:25
--- NOTE | 2019-06-11 18:35 | DSES ---
DATE OF ADMISSION: 06/07/2019 DATE OF DISCHARGE: 06/11/2019 PRIMARY CARE PROVIDER: Dr. Zurdo Skelton ATTENDING PHYSICIAN: Dr. Terrance Gant HISTORY OF PRESENT ILLNESS: This is a 73-year-old female who presented to [facility] for complaints of hematuria, altered mental status, and foul-smelling urine. The patient was found to be increasingly confused a few days prior to her presentation and slowly progressed. Upon presentation to the emergency department (ED), the patient was found to have a creatinine of 2.3, white count of 14,000, and a low-grade temperature of 100.3. CT abdomen and pelvis noted large kidney stones with bilateral hydronephrosis. The patient was subsequently admitted to family medicine service with a urology consult placed. HOSPITAL COURSE: The patient was consulted by Dr. Armando Jordan, urologist who performed a cystoscopy with placement of double-J stents bilaterally. The patient was hydrated with IV fluids. Mentation did slowly improve. Her home medications were resumed yesterday and the patient has had no further mental status changes since her hospitalization. The patient did grow Aerococcus and Corynebacterium on her urine culture. IMAGING: Chest x-ray, head CT, CT abdomen and pelvis, and a retrograde pyelogram. CONSULTATIONS: Dr. Armando Jordan, urology. PROCEDURE: Bilateral double-J stent placement via cystoscopy. PHYSICAL EXAMINATION: On physical examination today, the patient is alert and oriented times three. Vital signs are stable. She is afebrile. HEENT: Neck is supple without lymphadenopathy or jugular venous distention (JVD). CARDIOVASCULAR: Heart rate and rhythm are regular. PULMONARY: Lungs are clear. ABDOMEN: Soft and nontender. ASSESSMENT: 1. Bilateral obstructive renal calculi with hydronephrosis. 2. Urinary tract infection (UTI) secondary to Aerococcus. 3. Multiple sclerosis. 4. Chronic small vessel ischemic disease. 5. Allergic rhinitis. 6. Vitamin D deficiency. 7. Reflux. 8. History of chronic UTI. 9. Acute metabolic encephalopathy secondary to acute renal failure from obstructive uropathy. 10. Acute kidney injury. PLAN: The patient will be discharged to home with home health services resuming. Diet is as tolerated. Activity is as tolerated. MEDICATIONS: Are as follows: - doxycycline hyclate 100 mg by mouth twice a day for 10 days - acetaminophen 325 two by mouth daily - acetaminophen 325 two by mouth every six hours as needed for pain - aspirin 81 mg one daily - baclofen 10 mg by mouth three times a day - vitamin D3 2000 international units by mouth daily - cranberry pills 450 mg by mouth at bedtime - Tecfidera 240 mg by mouth twice a day - loratadine 10 mg daily - multivitamin one tablet daily - nortriptyline 10 mg twice a day - omeprazole 40 mg daily The patient is discharged in stable and satisfactory condition with no further questions at the time of discharge.
== END 2019-06-11 16:35 | disposition home health service (06) | DRG 693 ==
LOC: M ED 08:47 → M ED INP 12:20 → M PCU 14:21 → M MS5PR 06-08 16:50
PROVIDERS: ADMIT General Practice; ATTEND Family Medicine
PROC: 0TJB8ZZ Inspection of Bladder, Via Natural or Artificial Opening Endoscopic (ICD-10-PCS; 2019-06-07)
PROC: 0T783DZ Dilation of Bilateral Ureters with Intraluminal Device, Percutaneous Approach (ICD-10-PCS; principal; 2019-06-07 12:55)
DX: N13.2 Hydronephrosis with renal and ureteral calculous obstruction (principal); G93.41 Metabolic encephalopathy; G35 Multiple sclerosis; R33.9 Retention of urine, unspecified; R73.01 Impaired fasting glucose; K76.0 Fatty (change of) liver, not elsewhere classified; F32.9 Major depressive disorder, single episode, unspecified; K21.9 Gastro-esophageal reflux disease without esophagitis; J30.9 Allergic rhinitis, unspecified; M81.0 Age-related osteoporosis without current pathological fracture; N30.20 Other chronic cystitis without hematuria; E55.9 Vitamin D deficiency, unspecified; E78.5 Hyperlipidemia, unspecified; Z87.81 Personal history of (healed) traumatic fracture; Z88.0 Allergy status to penicillin; Z88.1 Allergy status to other antibiotic agents; Z90.49 Acquired absence of other specified parts of digestive tract; Z79.82 Long term (current) use of aspirin; Z79.899 Other long term (current) drug therapy; N17.9 Acute kidney failure, unspecified; N31.9 Neuromuscular dysfunction of bladder, unspecified; Z87.440 Personal history of urinary (tract) infections

== ENCOUNTER → 2019-07-03 | Outpatient (REF) | payer MEDICARE, MEDICAID ==
[~2019-07-03] MED LIST changes: +ACET1TAB55 PO; +APAP325T4 PO; +CRAN450T4 PO; +DOXY100C PO; +LORA-674 PO; +OMEP-221; +TAB-TAB3 PO; +VITA2000 PO
[2019-07-03 12:14] LABS: BASO % 0.6 % (0.0-1.0); EOS # 0.3 10^3/uL (0.0-0.5); EOS % 5.4 % (0.0-3.0); HEMATOCRIT 39.2 % (36.0-47.0); HEMOGLOBIN 12.5 g/dl (12.0-15.5); LYMPH # 0.5 10^3/uL (1.5-5.0); LYMPH % 11.3 % (24.0-44.0); MEAN CORPUSCULAR HEMOGLOBIN 30.7 pg (27.0-33.0); MEAN CORPUSCULAR HGB CONC 31.9 g/dl (32.0-36.5); MEAN CORPUSCULAR VOLUME 96.3 fl (80.0-96.0); MONO # 0.5 10^3/uL (0.0-0.8); MONO % 10.4 % (0.0-5.0); NEUTROPHILS # 3.3 10^3/uL (1.5-8.5); NEUTROPHILS % 72.1 % (36.0-66.0); PLATELET COUNT, AUTOMATED 262 10^3/uL (150-450); RED BLOOD COUNT 4.07 10^6/uL (4.00-5.40); WHITE BLOOD COUNT 4.6 10^3/uL (4.0-10.0)
[2019-07-03 12:24] LABS: ALBUMIN 3.7 GM/DL (3.2-5.2); ALT/SGPT 38 U/L (12-78); BILIRUBIN,TOTAL 0.5 MG/DL (0.2-1.0); BLOOD UREA NITROGEN 24 MG/DL (7-18); CALCIUM LEVEL 10.2 MG/DL (8.8-10.2); CARBON DIOXIDE LEVEL 31 MEQ/L (21-32); CHLORIDE LEVEL 105 MEQ/L (98-107); CREATININE FOR GFR 0.72 MG/DL (0.55-1.30); GLOMERULAR FILTRATION RATE > 60.0 (>39); GLUCOSE, FASTING 105 MG/DL (70-100); POTASSIUM SERUM 3.8 MEQ/L (3.5-5.1); SODIUM LEVEL 141 MEQ/L (136-145); TOTAL PROTEIN 7.7 GM/DL (6.4-8.2)
[2019-07-03 12:27] LABS: INR 1.01
[2019-07-03 12:28] LABS: PARTIAL THROMBOPLASTIN TIME 26.8 SECONDS (25.0-38.4)
[2019-07-03 12:33] LABS: PTH INTACT 61.9 PG/ML (18.5-88.0); TOTAL 25(OH) VITAMIN D 69.9 NG/ML (30.0-100.0)
== END ==
LOC: M SFHCPLAZ 10:16
PROVIDERS: ATTEND Family Medicine
DX: Z01.818 Encounter for other preprocedural examination (principal); E55.9 Vitamin D deficiency, unspecified; K76.0 Fatty (change of) liver, not elsewhere classified
CPT/HCPCS: 36415; 80053; 82306; 83970; 85025; 85610; 85730; G0463

== ENCOUNTER → 2019-07-18 | Outpatient (REF) | payer MEDICARE, MEDICAID ==
[2019-07-18 13:46] LABS: APPEARANCE, URINE CLOUDY (CLEAR); BACTERIA, URINE AUTO 2+ (NEGATIVE); BILIRUBIN, URINE AUTO NEGATIVE (NEGATIVE); BLOOD, URINE BLOOD 2+ (NEGATIVE); COLOR, URINE YELLOW (YELLOW); GLUCOSE, URINE (UA) AUTO NEGATIVE (NEGATIVE); KETONE, URINE AUTO NEGATIVE (NEGATIVE); LEUKOCYTE ESTERASE, URINE AUTO 3+ (NEGATIVE); NITRITE, URINE AUTO NEGATIVE (NEGATIVE); PROTEIN, URINE AUTO 1+ mg/dL (NEGATIVE); RBC, URINE AUTO 78 /HPF (0-3); SPECIFIC GRAVITY URINE AUTO 1.015 (1.002-1.035); SQUAMOUS EPITHELIAL CELL UR AU 0 /HPF (0-6); UROBILINOGEN, URINE AUTO 0.2 mg/dL (0.0-2.0); WBC, URINE AUTO TNTC /HPF (0-3)
== END ==
LOC: M SMT 12:44
PROVIDERS: ATTEND Nurse Practitioner Women's Health
DX: Z01.818 Encounter for other preprocedural examination (principal); N20.0 Calculus of kidney; N39.0 Urinary tract infection, site not specified

== ENCOUNTER 2019-07-27 07:22 | Day surgery (SDC) | payer MEDICARE, MEDICAID ==
[~2019-07-27] VITALS: Ht 160 cm; Wt 68.5 kg
[~2019-07-27 07:22] MED LIST changes: +LIDOCAINE 1% MDV 20ML VIAL SQ PRN; +LR 1,000 ML IV ONE; +LevoFLOXacin IV 500 MG in IV 1 EA IV ONE
[2019-07-27] MEDS ORDERED: ONDANSETRON 4MG/2ML VIAL (J2405) As Ordered ONE (07:45)
[2019-07-27] MEDS ORDERED: dexameTHASONE 4 MG/ML 1ML VIAL (J1100) As Ordered ONE (07:45)
[2019-07-27] MEDS ORDERED: PROPOFOL 500 MG/50 ML VIAL As Ordered ONE (07:46)
[2019-07-27] MEDS ORDERED: LIDOCAINE 2% INJ 100 MG/5 ML SDV (FOR ANES.) As Ordered ONE (07:48)
[2019-07-27] MEDS ORDERED: PROPOFOL 200 MG/20 ML VIAL As Ordered ONE (07:57)
[2019-07-27] MEDS: ASPIRIN 81 MG ENTERIC TAB PO SCH (09:00)
[2019-07-27] MEDS ORDERED: fentaNYL 100 MCG/2 ML INJECTION (J3010) As Ordered ONE (09:14)
[2019-07-27] MEDS ORDERED: CONRAY-60 60% 50ML VIAL (Q9961) As Ordered ONE (09:23)
[2019-07-27] MEDS ORDERED: ONDANSETRON 4MG/2ML VIAL (J2405) IV PRN ×2 (09:30→12:45)
[2019-07-27] MEDS ORDERED: ACETAMINOPHEN TAB 650MG DOSE (2X325MG) PO PRN (09:30)
[2019-07-27] MEDS ORDERED: PERCOCET 5MG/325MG TAB PO PRN (09:30)
--- NOTE | 2019-07-27 11:55 | REP ---
Clinical: Stent placement. Technique: Intraoperative fluoroscopic imaging. Findings: Final image demonstrates bilateral ureteral stents and bilateral hydronephrosis (left greater than right). Total fluoroscopic time 16 seconds. Impression: Bilateral ureteral stents in satisfactory position. Bilateral hydronephrosis noted. Electronically Signed by Rafael Elkins MD 07/27/2019 11:46 A
[2019-07-27] MEDS ORDERED: METOCLOPRAMIDE INJ 10MG/2ML VIAL (J2765) IV PRN (12:45)
[2019-07-27] MEDS ORDERED: fentaNYL 100 MCG/2 ML INJECTION (J3010) IV PRN (12:45)
[2019-07-27] MEDS ORDERED: LR 1,000 ML IV SCH (12:45)
[2019-07-27 13:10] VITALS: BP 121/71
[2019-07-27 14:46] VITALS: BP 118/70
[2019-07-27 15:57] VITALS: BP 116/70
[2019-07-27 16:45] VITALS: BP 138/79
[2019-07-27] MEDS: BACLOFEN 10 MG TAB PO SCH ×2 (17:14→20:58)
[2019-07-27 18:00] VITALS: BP 108/67
[2019-07-27 20:35] VITALS: BP 138/83
[2019-07-27] MEDS: NORTRIPTYLINE 10 MG CAP PO SCH (20:58)
[2019-07-27] MEDS: DOXYCYCLINE HYCLATE 100 MG TAB PO SCH (20:58)
[2019-07-27] MEDS ORDERED: OMEPRAZOLE 20 MG CAP PO SCH (21:00)
[2019-07-27] MEDS ORDERED: LORATADINE 10 MG TAB PO SCH (21:00)
[2019-07-27] MEDS ORDERED: ENTER DRUG NAME HERE (PATIENT'S OWN MED) PO SCH (21:00)
[2019-07-28 06:22] VITALS: BP 106/57
[2019-07-28] MEDS: ASPIRIN 81 MG ENTERIC TAB PO SCH (09:11)
[2019-07-28] MEDS: NORTRIPTYLINE 10 MG CAP PO SCH (09:11)
[2019-07-28] MEDS: BACLOFEN 10 MG TAB PO SCH (09:12)
[2019-07-28] MEDS: DOXYCYCLINE HYCLATE 100 MG TAB PO SCH (09:12)
[2019-07-28 09:30] VITALS: BP 106/57
--- NOTE | 2019-07-28 09:39 | RO ---
DATE OF PROCEDURE: 07/27/2019 PREPROCEDURE DIAGNOSIS: Bilateral kidney and ureteral stones. POSTPROCEDURE DIAGNOSIS: Bilateral kidney and ureteral stones. PROCEDURE: Cystoscopy, bilateral ureteroscopy with laser lithotripsy and basket extraction of stones, bilateral retrograde pyelograms with intraoperative interpretation of images, bilateral ureteral stent exchange. SURGEON: Fernando Gifford MD DITCH RIDER: None. ANESTHESIA: General. OPERATIVE INDICATIONS: This is a 73-year-old female who was found to have bilateral obstructing ureteral stones as well as stones in her kidneys. She previously underwent bilateral ureteral stent placement. She was brought to the operating room today for definitive management of her stones. DESCRIPTION OF PROCEDURE: The patient was brought to the operating room and general anesthesia was induced. Prophylactic antibiotics were infused. She was then placed in dorsal lithotomy position and prepped and draped in the usual sterile fashion. A rigid cystoscope was inserted into the urethral meatus and advanced into the bladder. The previously placed right ureteral stent was then grasped and withdrawn until the distal end was seen protruding from the urethral meatus. We then advanced the Guidewire up the right collecting system and then removed the stent completely. I then went up the right collecting system with a short semi rigid ureteroscope and within the distal ureter an approximately 1 cm size stone was seen. The stone was fragmented into smaller pieces using a 272 micron laser fiber. All the fragments were then removed using a basket. I then went into the more proximal ureter and no additional stones were seen within the ureter. I then removed the short semi rigid ureteroscope and advanced a ureteral access sheath up into the right collecting system. I went up the access sheath with a flexible ureteroscope and examined the right kidney thoroughly. There were approximately two stones within the right kidney measuring around 3-4 mm in size. Both of these stones were removed using a basket. No additional stones were seen. A retrograde pyelogram was performed notable for moderate right hydronephrosis with no extravasation. I then retrieved the ureteroscope along with the access sheath and once again, no stones were seen in the ureter. I then utilized the wire to advance a 6 [place] by 22-32 cm JJ ureteral stent up into the right collecting system. The wire was removed and there were adequate curls of the stent in the right renal pelvis and in the bladder. I then turned my attention to the left collecting system. The previously placed left ureteral stent was then grasped and withdrawn until the distal end was seen protruding from the urethral meatus. I then advanced a Guidewire up the left collecting system and then removed the stent. I then advanced the ureteral access sheath over the wire into the left collecting system. While doing this, the previously seen proximal left ureteral stone was pushed into the left kidney. The left kidney was thoroughly examined with a flexible ureteroscope and the only stone see was an approximately 1 cm sized stone. This stone was then fragmented into the smaller pieces using a 272 micron laser fiber. All of the fragments were then removed using a basket. I then examined the remainder of the kidney and not additional large stone fragments were seen. There was just tiny stone debris. A retrograde pyelogram was performed notable for moderate left hydronephrosis with no extravasation. I then retrieved the ureteroscope along with the access sheath and no additional stones were seen within the ureter. I then utilized the previously placed wire to advance a 6 [place] by 22-32 cm JJ ureteral stent up into the left collecting system. The wire was removed and there were adequate curls of the stent in the left renal pelvis and in the bladder. The bladder was then emptied of all fluids and this marked the conclusion of the procedure. The patient was taken out of dorsal lithotomy position, awakened from anesthesia and transferred to the recovery room in stable condition. ESTIMATED BLOOD LOSS: 5 mL. COMPLICATIONS: None. SPECIMENS: Kidney stone fragments. PLAN: The patient will be kept in the hospital overnight as she is wheelchair bound and has no family at home to help her. She will be discharged home tomorrow with a plan for her to followup in the clinic in a few weeks for stent removal.
== END 2019-07-28 14:40 | disposition home or self-care (01) ==
LOC: M SDC 07:22 → M MS5PR 12:57 → M SDC 07-28 14:40
PROVIDERS: ATTEND Urology
DX: N20.0 Calculus of kidney (principal); N20.1 Calculus of ureter; K21.9 Gastro-esophageal reflux disease without esophagitis; K76.9 Liver disease, unspecified; G35 Multiple sclerosis; Z79.899 Other long term (current) drug therapy; Z79.82 Long term (current) use of aspirin; Z88.0 Allergy status to penicillin
CPT/HCPCS: 52356; 74420; 82360; 88300; C1769; C1894; C2617; J1100; J1956; J2405; J3010; Q9961

== ENCOUNTER → 2020-05-27 | Outpatient (REF) | payer MEDICARE, MEDICAID ==
[~2020-05-27] MED LIST changes: -ASPI81TA85 PO; +ASPI81TA86 PO; -LIDOCAINE 1% MDV 20ML VIAL SQ PRN; -LR 1,000 ML IV ONE; -LevoFLOXacin IV 500 MG in IV 1 EA IV ONE; -TAB-TAB; +TAB-TAB2
== END ==
LOC: M SFHCPLAZ 11:54
PROVIDERS: ATTEND Physician Assistant
DX: R35.0 Frequency of micturition (principal)
CPT/HCPCS: 81002; 87088; 87186; G0463

== ENCOUNTER 2020-07-02 15:09 | Emergency (ER) | payer MEDICARE, MEDICAID ==
[~2020-07-02] VITALS: Ht 162.6 cm; Wt 61.4 kg
[2020-07-02] MEDS ORDERED: ZOFR4TAB16 PO (15:24)
--- NOTE | 2020-07-02 16:35 | REP ---
INDICATION: trauma. COMPARISON: CT abdomen pelvis with reconstructions 06/07/2019 TECHNIQUE: AP pelvis with 2 hip films FINDINGS: AP pelvis: Shows an old transverse fracture through the femoral neck with resorption of the femoral neck and displacement of the femur proximally on the femoral head which remains well seated in the acetabulum. This is unchanged compared to the CT on 06/07/2019. Pelvic ring is intact pubic rami are unremarkable. Hip joint space on the right side is preserved. SI joints intact left hip shows some mild central joint space narrowing with small peripheral osteophyte at the acetabular roof. Right hip: Old remodeled and ununited fracture the femoral neck with the residual portion of femoral head well seated in the [place] acetabulum and the major distal fragment including the trochanters and femoral shaft displaced superiorly so that the greater trochanter is couple of cm above the superior margin of the femoral head in the acetabulum. There is some distraction as well. No other findings. IMPRESSION: Old ununited and remodeled fracture of the femoral neck with superior displacement of the major distal fragment as described. No acute fracture. Bones demineralized. Appearance unchanged from the 06/07/2019 CT abdomen pelvis <Electronically signed by Jase Brewster > 07/02/20 [id number]
--- NOTE | 2020-07-02 16:37 | REP ---
INDICATION: trauma. COMPARISON: None. TECHNIQUE: Four views were provided. FINDINGS: Bones are demineralized. There is no visible or displaced fracture of the tibia or fibula. Degenerative changes are seen at the knee. Mortise joint appears grossly symmetric. Some mild soft tissue swelling in the calf is noted. No abnormal soft tissue calcification or avulsion. No focal bone lesion. IMPRESSION: 1. No visible or displaced fracture, avulsion, soft tissue calcification or other acute bony finding. There is some soft tissue swelling about the lower leg. 2. Some degenerative changes in the knee with bones demineralized. No gross effusion. No metallic foreign body. <Electronically signed by Jase Brewster > 07/02/20 0881
--- NOTE | 2020-07-02 16:40 | REP ---
INDICATION: trauma. COMPARISON: 12/07/2017 TECHNIQUE: 3 views FINDINGS: There is soft tissue swelling about the of the lower calf and ankle. On the mortise joint was symmetric and preserved with no talar dome osteochondral defect. Previously noted distal fibular nondisplaced fracture is healed. Distal fibula fracture or focal lesion. Subtalar joints are intact. No plantar calcaneal heel spurs. Talonavicular and calcaneocuboid joints are normal. All of the bones are demineralized. IMPRESSION: 1. Some diffuse soft tissue swelling, osteoporosis and degenerative changes about the ankle and hindfoot but no visible or displaced fracture, avulsion, disruption of the mortise joint, talar dome osteochondral defect, heel spurs nor other acute bony finding. <Electronically signed by Jase Brewster > 07/02/20 1520
--- NOTE | 2020-07-02 16:43 | REP ---
INDICATION: trauma. COMPARISON: 06/07/2019 TECHNIQUE: AP seated FINDINGS: Lung mccullough are adequately inflated. There is no pleural effusion, acute infiltrate, atelectasis or mass. The heart is not enlarged. The aorta is tortuous, ectatic and calcified at the arch but unchanged. The airway is intact. Bones are demineralized. No free air under the diaphragm. IMPRESSION: No acute cardiopulmonary disease, stable chest. <Electronically signed by Jase Brewster > 07/02/20 2449
[2020-07-02 18:52] VITALS: BP 119/61
== END 2020-07-02 19:15 | disposition home or self-care (01) ==
LOC: EDBD 15:09 → M ED 15:09
DX: S70.01XA Contusion of right hip, initial encounter (principal); W19.XXXA Unspecified fall, initial encounter; Y92.018 Other place in single-family (private) house as the place of occurrence of the external cause; G35 Multiple sclerosis; E55.9 Vitamin D deficiency, unspecified; F33.9 Major depressive disorder, recurrent, unspecified; K21.9 Gastro-esophageal reflux disease without esophagitis; M81.0 Age-related osteoporosis without current pathological fracture; Z79.899 Other long term (current) drug therapy; Z79.82 Long term (current) use of aspirin; Z88.1 Allergy status to other antibiotic agents

== ENCOUNTER → 2020-07-03 | Outpatient (REF) | payer MEDICARE, MEDICAID ==
[~2020-07-03] MED LIST changes: +ZOFR4TAB16 PO
[2020-07-03 13:27] LABS: AMORPHOUS SEDIMENT SMALL (NEGATIVE); APPEARANCE, URINE TURBID (CLEAR); BACTERIA, URINE AUTO NEGATIVE (NEGATIVE); BILIRUBIN, URINE AUTO NEGATIVE (NEGATIVE); BLOOD, URINE BLOOD 1+ (NEGATIVE); COLOR, URINE AMBER (YELLOW); GLUCOSE, URINE (UA) AUTO NEGATIVE (NEGATIVE); KETONE, URINE AUTO TRACE mg/dL (NEGATIVE); LEUKOCYTE ESTERASE, URINE AUTO 2+ (NEGATIVE); MUCUS, URINE SMALL (NEGATIVE); NITRITE, URINE AUTO POSITIVE (NEGATIVE); PROTEIN, URINE AUTO 2+ mg/dL (NEGATIVE); RBC, URINE AUTO 38 /HPF (0-3); SPECIFIC GRAVITY URINE AUTO 1.021 (1.002-1.035); SQUAMOUS EPITHELIAL CELL UR AU 2 /HPF (0-6); UROBILINOGEN, URINE AUTO 0.2 mg/dL (0.0-2.0); WBC, URINE AUTO TNTC /HPF (0-3)
== END ==
LOC: M SFHCPLAZ 12:54
PROVIDERS: ATTEND Family Medicine
DX: N39.0 Urinary tract infection, site not specified (principal)

== ENCOUNTER → 2020-07-09 | Outpatient (REF) | payer MEDICARE, MEDICAID ==
[2020-07-09 12:55] LABS: BASO # 0.1 10^3/uL (0.0-0.2); BASO % 1.1 % (0.0-1.0); EOS # 0.4 10^3/uL (0.0-0.5); EOS % 7.6 % (0.0-3.0); HEMATOCRIT 38.2 % (36.0-47.0); HEMOGLOBIN 12.4 g/dl (12.0-15.5); LYMPH # 0.8 10^3/uL (1.5-5.0); LYMPH % 16.4 % (24.0-44.0); MEAN CORPUSCULAR HGB CONC 32.5 g/dl (32.0-36.5); MEAN CORPUSCULAR VOLUME 98.7 fl (80.0-96.0); MONO # 0.6 10^3/uL (0.0-0.8); MONO % 12.9 % (0.0-5.0); NEUTROPHILS # 2.8 10^3/uL (1.5-8.5); NEUTROPHILS % 61.6 % (36.0-66.0); PLATELET COUNT, AUTOMATED 251 10^3/uL (150-450); RED BLOOD COUNT 3.87 10^6/uL (4.00-5.40); WHITE BLOOD COUNT 4.6 10^3/uL (4.0-10.0)
[2020-07-09 13:26] LABS: ALBUMIN 3.5 GM/DL (3.2-5.2); ALT/SGPT 36 U/L (12-78); BILIRUBIN,TOTAL 0.3 MG/DL (0.2-1.0); BLOOD UREA NITROGEN 23 MG/DL (7-18); CALCIUM LEVEL 9.5 MG/DL (8.8-10.2); CARBON DIOXIDE LEVEL 31 MEQ/L (21-32); CHLORIDE LEVEL 105 MEQ/L (98-107); CHOLESTEROL LEVEL 172 MG/DL (<200); CHOLESTEROL RISK RATIO 3.372 (<5); CREATININE FOR GFR 0.66 MG/DL (0.55-1.30); FREE T4 0.91 NG/DL (0.76-1.46); GLOMERULAR FILTRATION RATE > 60.0 (>39); GLUCOSE, FASTING 78 MG/DL (70-100); HDL CHOLESTEROL 51 MG/DL (>40); LDL CHOLESTEROL 89 MG/DL (<100); NON-HDL-C 121 MG/DL; POTASSIUM SERUM 4.1 MEQ/L (3.5-5.1); SODIUM LEVEL 140 MEQ/L (136-145); TOTAL PROTEIN 6.8 GM/DL (6.4-8.2); TRIGLYCERIDES LEVEL 160 MG/DL (<150)
[2020-07-09 13:29] LABS: PTH INTACT 69.3 PG/ML (18.5-88.0); TOTAL 25(OH) VITAMIN D 57.2 NG/ML (30.0-100.0)
[2020-07-09 14:39] LABS: HEMOGLOBIN A1c 5.3 %
== END ==
LOC: M LAB REF 12:08
PROVIDERS: ATTEND Family Medicine
DX: E55.9 Vitamin D deficiency, unspecified (principal); E78.2 Mixed hyperlipidemia; N39.0 Urinary tract infection, site not specified; D72.819 Decreased white blood cell count, unspecified; Z79.899 Other long term (current) drug therapy

== ENCOUNTER → 2020-08-26 | Outpatient (CLI) | payer MEDICARE, MEDICAID ==
--- NOTE | 2020-08-26 13:01 | REP ---
INDICATION: UTI. COMPARISON: 02/16/2008. TECHNIQUE: Real-time sonographic evaluation of the kidneys is performed. FINDINGS: Renal cortical echogenicity pattern is normal on the left, with increased echotexture diffusely of the right kidney. Right kidney is atrophic.. There is no evidence of hydronephrosis, cyst, mass, or calculus in either kidney. The right kidney measures 8.9 x 4.3 x 4.5 cm. Left renal dimensions are 11.4 x 5.5 x 5.9 cm. Bladder wall appears trabeculated diffusely with multiple small diverticula present. IMPRESSION: Right renal atrophy with diffuse increased echotexture of the right kidney. No hydronephrosis bilaterally. Bladder wall appears thickened and trabeculated with multiple small diverticula. <Electronically signed by Robert Dong > 08/26/20 1257
== END ==
LOC: M RAD 12:07
PROVIDERS: ATTEND Family Medicine
DX: N26.1 Atrophy of kidney (terminal) (principal); N39.0 Urinary tract infection, site not specified

== ENCOUNTER → 2021-06-19 | Outpatient (CLI) | payer MEDICARE, MEDICAID ==
[~2021-06-19] MED LIST changes: -DOXY100C PO; +DOXY100C3 PO; +OMEP40CA4 PO; -OMEP40CA97 PO
[2021-06-19 15:33] LABS: BASO # 0.1 10^3/uL (0.0-0.2); BASO % 1.4 % (0.0-1.0); EOS # 0.2 10^3/uL (0.0-0.5); EOS % 5.5 % (0.0-3.0); HEMATOCRIT 42.8 % (36.0-47.0); HEMOGLOBIN 13.8 g/dl (12.0-15.5); LYMPH # 0.7 10^3/uL (1.5-5.0); LYMPH % 17.2 % (24.0-44.0); MEAN CORPUSCULAR HEMOGLOBIN 30.3 pg (27.0-33.0); MEAN CORPUSCULAR HGB CONC 32.2 g/dl (32.0-36.5); MEAN CORPUSCULAR VOLUME 94.1 fl (80.0-96.0); MONO # 0.5 10^3/uL (0.0-0.8); MONO % 11.2 % (2.0-8.0); NEUTROPHILS # 2.7 10^3/uL (1.5-8.5); NEUTROPHILS % 64.5 % (36.0-66.0); PLATELET COUNT, AUTOMATED 236 10^3/uL (150-450); RED BLOOD COUNT 4.55 10^6/uL (4.00-5.40); WHITE BLOOD COUNT 4.2 10^3/uL (4.0-10.0)
[2021-06-19 15:54] LABS: HEMOGLOBIN A1c 5.4 %
[2021-06-19 16:02] LABS: ALBUMIN 4.1 GM/DL (3.2-5.2); BLOOD UREA NITROGEN 23 MG/DL (7-18); CALCIUM LEVEL 10.5 MG/DL (8.8-10.2); CARBON DIOXIDE LEVEL 31 MEQ/L (21-32); CHLORIDE LEVEL 106 MEQ/L (98-107); CREATININE FOR GFR 0.71 MG/DL (0.55-1.30); GLOMERULAR FILTRATION RATE > 60.0 (>39); GLUCOSE, FASTING 98 MG/DL (70-100); PHOSPHORUS LEVEL 2.9 MG/DL (2.5-4.9); POTASSIUM SERUM 3.9 MEQ/L (3.5-5.1); SODIUM LEVEL 141 MEQ/L (136-145)
[2021-06-19 16:13] LABS: PTH INTACT 90.7 PG/ML (18.5-88.0); TOTAL 25(OH) VITAMIN D 51.6 NG/ML (30.0-100.0)
[2021-06-24 00:07] LABS: TISSUE TRANSGLUTAMINASE IgA <2 U/mL (0-3)
== END ==
LOC: M PLALAB 14:06
PROVIDERS: ATTEND Family Medicine
DX: E55.9 Vitamin D deficiency, unspecified (principal); D72.819 Decreased white blood cell count, unspecified; K76.0 Fatty (change of) liver, not elsewhere classified; N39.0 Urinary tract infection, site not specified; Z79.899 Other long term (current) drug therapy
CPT/HCPCS: 36415; 80069; 82105; 82172; 82306; 83010; 83036; 83516; 83625; 83883; 83970; 85025; G0463

== ENCOUNTER 2021-06-24 06:49 | Emergency (ER) | payer MEDICARE, OTHER ==
[~2021-06-24] VITALS: Ht 162.6 cm; Wt 60.0 kg
--- OUTSIDE RECORDS SUMMARY | 2021-06-24 06:57 | CCD ---
Author Author [facility] Organization [facility] Address Unknown Phone Unavailable Care Team Providers Care Assurance Senior Name Role Phone Zurdo Skelton Unavailable PROBLEMS Type Condition ICD9-CM Code [id number] Code Onset Dates Condition S tatus W/U Status Risk SNOMED Code Notes Problem Breast cancer screening Z12.39 Active confirmed 021046469 Problem Vitamin D deficiency E55.9 Active confirmed 88530783 Problem Depression F32.9 Active confirmed 82513857 Problem GERD (gastroesophageal reflux disease) K21.9 A ctive confirmed 666930467 Problem Osteoporosis M81.0 Active confirmed 8894654 6 Problem MS (multiple sclerosis) G35 Active confirmed 21157668 Problem Perennial allergic rhinitis, unspecified allergi c rhinitis trigger J30.89 Active confirmed 952235544 Problem Mixed hyperlipidemia E78.2 Active confirmed 777796541 Problem Ataxia R27.0 Active confirmed 56390089 Problem Neurogenic bladder N31.9 Active confirmed 3 16776741 Problem Paraplegia G82.20 Active confirmed 95193507 Problem Recurrent UTI N39.0 Active confirmed 345423 001 Problem NAFLD (nonalcoholic fatty liver disease) K76.0 Active confirmed 612582351 Problem 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 Active confirmed 92048432 Problem 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, 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 Active confirmed 055451099 Problem 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 Active confirmed 874987234914706 ALLERGIES Allergen (clinical drug ingredient) Drug/Non Drug Allergy do cumented on EMR Reaction Allergy Type Onset Date Status Penicillin (For Allergies Use Only) whoozy Drug Allerg y Active Cephalosporins Cephalosporins "unknown" Non Drug Allergy Active ENCOUNTERS from 1945 to 2021-06-04 Encounter Location Date Provider Diagnosis [id number] [place] [address] May, Zurdo Costa Paraplegia G82.20 and MS (mu ltiple sclerosis) G35 IMMUNIZATIONS Vaccine Route Administration Date Status Prolia 60mg/1mL Denosumab SC Subcutaneous Jul 10, 2019 Admini stered Prolia 60mg/1mL Denosumab SC Subcutaneous Sep 05, 2018 Admini stered Prolia 60mg/1mL Denosumab IM Intramuscular February 02, 2018 Admin istered Influenza (High Dose 65 & up) IM Intramuscular May 10, 2017 A dministered Influenza (High Dose 65 & up) IM Intramuscular May 14, 2016 A dministered Influenza (High Dose 65 & up) Unknown November 18, 2015 Ot hers Prolia 60mg/1mL Denosumab IM Intramuscular Jul 24, 2020 Admin istered Zoster 0.65mL Zostavax IM Intramuscular February 10, 2012 Administ ered Influenza Pharmacy Given IM Intramuscular May 26, 2018 Admini stered TDAP IM Intramuscular Apr 05, 2014 Administered Influenza 6mo & up Fluzone IM Intramuscular Jun 17, 2011 Admi nistered SOCIAL HISTORY Tobacco Use: Social History Observation Description Date Details (start date - stop date) Never Smoker Sex Assigned At : Social History Observation Description Sex Assigned At Unknown Alcohol Screening: Question Answer Notes Did you have a drink containing alcohol in the past year? No Points 0 Interpretation Negative Tobacco Use: Question Answer Notes Are you a: never smoker REASON FOR REFERRAL No Information VITAL SIGNS No information MEDICATIONS Medication SIG (Take, Route, Frequency, Duration) Notes Start Da te End Date Status Nortriptyline HCl 10 MG 1 capsule Orally BID at 8am and 8pm for 30 Da ys Active Multivitamins - 1 tablet Orally Daily for 30 days Active Fit Right Pull-ups xlarge Dx N31.9/G35 Daily for 30 day(s) [facility]. May, Active Loratadine 10 MG 1 cap Orally Once a day at 8am for 30 Days Active Cholecalciferol 2000 UNIT 1 capsule Orally Once a day for 90 day(s) Active May Use - as directed comode over toil et with frame Daily DX: N39.0 for 99 months Nov, Active Aspir-81 81 MG 1 tablet Orally Once a day for 30 days Active Cranberry 450 MG 1 cap(s) Orally qhs for 30 Days Active Cranberry 450 MG 1 cap(s) Orally qhs for 30 days Active Acetaminophen 325 MG 2 tab Orally once day at 6am for 30 Days Active Cranberry 450 MG TAKE ONE TABLET BY MOUTH @8PM for 28 Active Cholecalciferol 2000 UNIT 1 capsule Orally Once a day for 28 Active Prolia 60mg/ml as directed Active Aspirin Low Dose 81 MG TAKE ONE TABLET BY MOUTH @8AM for 28 Active Tecfidera 250 mg 1 tablet Orally Twice a day Active Multivitamin - TAKE ONE TABLET BY MOUTH @8AM for 28 Active Wheelchair - as directed DX:G35 Daily for 99 months Nov Active Baclofen 10 MG 1 tablet with food or milk b y mouth three times a day MDD:3 for 90 day(s) Active Tylenol 325 MG 2 tablets Orally daily and q6h prn pain for 28 Active Omeprazole 40 MG TAKE ONE CAPSULE BY MOUTH @6AM for 28 Active Vitamin D3 50 MCG (2000 UT) TAKE ONE CAPSULE BY MOUTH @8AM for 28 Active Wheelchair - as directed G35, G82.2 _ for 999 days May, Active Poise Pad Pads 1 pad Dx: 788.2 twice a day as needed for 30 Active PROCEDURES No Information RESULTS No Results REASON FOR VISIT needs a wheelchair MEDICAL (GENERAL) HISTORY Type Description Date Medical History multiple sclerosis, relapsing remitting Medical History impaired fasting glucose Medical History nonalcoholic fatty liver dis ease-06/2011 liver US c diffuse fatty liver, January 2004 normal workup Medical History history of urinary retention and recurre nt UTIs Medical History depression Medical History GERD Medical History allergic rhinitis Medical History osteoporosis Medical History obesity Medical History vitamin D deficiency Medical History hyperlipidemia 2B Medical History R ND femoral neck fracture n ot repaired per patient request (nonambulatory c MS and no pain)-08/2016 Medical History T9 atypical benign hemangiom a by 08/2016 MRI thoracic spine c minimal SC compression sp CT guided biopsy-benign, -TBBS-08/2016 Medical History ND R distal fibula metaphysi s fracture 12/07/17-seen by R foot/ankle xray-rxed c cast by Dr. Gould Medical History 05/2019 hydronephrosis s/p stent placmen t Medical History Kidney stones Surgical History colonoscopy-moderate diverticulosis, hem orrhoids-Betsy March 2007 Surgical History GIANNA BSO for noncancerous reasons Surgical History Tonsillectomy as a child Surgical History bilateral uterescopy with laser litho Surgical History B laser lithotripsy, B ureteral stent ex change-[place] 08/07/19 Hospitalization History UTI/SIRS 2 Aerococcus urinae-rxed c Levaquin/Macrobid 09/21-09/24/15 Hospitalization History [facility]ized due [facility] fall [facility] rehab, R hip fracture no repaired 09/07/16 -09/30/2016 Hospitalization History fracture of right foot 12/07/17- Hospitalization History Kidney stones c bilateral hy dronephrosis s/p J stent placement via cystoscopy 06/07- 06/11/2019 Hospitalization History B ureteral stones c B hydronephrosis /PN 05/2019 Goals Section No Information Health Concerns No Information MEDICAL EQUIPMENT No Information MENTAL STATUS No Information FUNCTIONAL STATUS No Information ASSESSMENTS Encounter Date Diagnosis Assessment Notes Treatment Notes Treatm ent Clinical Notes May, Paraplegia (ICD-10 - G82.20) May, MS (multiple sclerosis) (ICD-10 - G35) PLAN OF TREATMENT Medication Medication Name Sig Start Date Stop Date Cranberry 450 MG TAKE ONE TABLET BY MOUTH @8PM for 28 Vitamin D3 50 MCG (1999 UT) TAKE ONE CAPSULE BY MOUTH @8AM for 2 8 Acetaminophen 325 MG 2 tab Orally once day at 6am for 30 Days Cranberry 450 MG 1 cap(s) Orally qhs for 30 days Baclofen 10 MG 1 tablet with food or milk b y mouth three times a day MDD:3 for 90 day(s) Omeprazole 40 MG TAKE ONE CAPSULE BY MOUTH @6AM for 28 Prolia 60mg/ml as directed Multivitamin - TAKE ONE TABLET BY MOUTH @8AM for 28 Fit Right Pull-ups xlarge Dx N31.9/G35 Daily for 30 day(s) 2016 Aspirin Low Dose 81 MG TAKE ONE TABLET BY MOUTH @8AM for 28 Aspir-81 81 MG 1 tablet Orally Once a day for 30 days Cholecalciferol 2000 UNIT 1 capsule Orally Once a day for 90 day (s) Wheelchair - as directed G35, G82.2 _ for 999 days May, Tecfidera 250 mg 1 tablet Orally Twice a day Multivitamins - 1 tablet Orally Daily for 30 days Poise Pad Pads 1 pad Dx: 788.2 twice a day as needed for 30 Loratadine 10 MG 1 cap Orally Once a day at 8am for 30 Days Nortriptyline HCl 10 MG 1 capsule Orally BID at 8am and 8pm for 30 Days Next Appt Details Provider Name:Zurdo Skelton, 2021-06-19 1 1:15:00 AM, [address] [facility], , [place], [address], Insurance Providers Payer Name Payer Address Payer Phone Insured Name Patient Relati onship to Insured Coverage Start Date Coverage End Date MEDICAID [employer] [address] [facility] [address] [place] MEDICARE COMPLETE UNITED HEALTHCARE [address] [facility] [address] [place]
--- OUTSIDE RECORDS SUMMARY | 2021-06-24 06:57 | CCD ---
Author Author [facility] Organization [facility] Address Unknown Phone Unavailable Care Team Providers Care Computer Information Science Professor Name Role Phone Zurdo Skelton Unavailable PROBLEMS Type Condition ICD9-CM Code ETF14-KE Code Onset Dates Condition S tatus W/U Status Risk SNOMED Code Notes Problem Depression F32.9 Active confirmed 14884641 Problem Breast cancer screening Z12.39 Active confirmed 542728913 Problem Osteoporosis M81.0 Active confirmed 7091286 6 Problem Vitamin D deficiency E55.9 Active confirmed 16872914 Problem Neurogenic bladder N31.9 Active confirmed 3 07111594 Problem MS (multiple sclerosis) G35 Active confirmed 92529656 Problem Perennial allergic rhinitis, unspecified allergi c rhinitis trigger J30.89 Active confirmed 675884701 Problem 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 Active confirmed 761244686155749 Problem Recurrent UTI N39.0 Active confirmed 199027 001 Problem Ataxia R27.0 Active confirmed 57583898 Problem GERD (gastroesophageal reflux disease) K21.9 A ctive confirmed 646001783 Problem Mixed hyperlipidemia E78.2 Active confirmed 184956999 Problem 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 Active confirmed 59102832 Problem NAFLD (nonalcoholic fatty liver disease) K76.0 Active confirmed 348195059 Problem 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, 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 Active confirmed 332100037 ALLERGIES Allergen (clinical drug ingredient) Drug/Non Drug Allergy do cumented on EMR Reaction Allergy Type Onset Date Status Penicillin (For Allergies Use Only) whoozy Drug Allerg y Active Cephalosporins Cephalosporins "unknown" Non Drug Allergy Active ENCOUNTERS from 1945 to 2021-04-30 Encounter Location Date Provider Diagnosis [facility] [address] [facility] [phone] [place] [address] Apr, Zurdo Skelton Recurrent UTI N39.0 IMMUNIZATIONS Vaccine Route Administration Date Status Prolia [...] and 8pm for 30 Da ys Active Fit Right Pull-ups large Dx N31.9/G35 Daily for 30 day(s) May, Active Loratadine 10 MG 1 cap Orally Once a day at 8am for 30 Days Active Prolia 60mg/ml as directed Active May Use - as directed comode [...] TABLET BY MOUTH @8PM for 28 Active Baclofen 10 MG 1 tablet with food or milk b y mouth three times a day MDD:3 for 90 day(s) Active Cholecalciferol 2000 UNIT 1 capsule Orally Once a day for 28 Active Aspirin Low Dose 81 MG TAKE ONE TABLET BY MOUTH @8AM for 28 Active Poise Pad Pads 1 pad Dx: 788.2 twice a day as needed for 30 Active Multivitamin - TAKE ONE TABLET BY MOUTH @8AM for 28 Active Cholecalciferol 2000 UNIT 1 capsule Orally Once a day for 90 day(s) Active Tecfidera 250 mg 1 tablet Orally Twice a day Active Tylenol 325 MG 2 tablets Orally daily and q6h prn pain for 28 Active Omeprazole 40 MG TAKE ONE CAPSULE BY MOUTH @6AM for 28 Active Vitamin D3 50 MCG (1999 UT) TAKE ONE CAPSULE BY MOUTH @8AM for 28 Active Wheelchair - as directed DX:G35 Daily for 99 months Nov Active Multivitamins - 1 tablet Orally Daily for 30 days Active PROCEDURES No Information RESULTS No Results REASON FOR VISIT refill MEDICAL (GENERAL) HISTORY Type Description Date Medical [...] due to a fall [facility] rehab, R hip fracture no repaired 09/07/16 [...] Notes Treatment Notes Treatm ent Clinical Notes Apr, Recurrent UTI (ICD-10 - N39.0) PLAN OF TREATMENT Medication Medication Name Sig Start Date Stop Date Cranberry 450 MG TAKE ONE TABLET BY MOUTH @8PM for 28 Vitamin D3 50 MCG (1999 UT) TAKE ONE CAPSULE BY MOUTH @8AM for 2 8 Acetaminophen 325 MG 2 tab Orally once day at 6am for 30 Days Cranberry 450 MG 1 cap(s) Orally qhs for 30 days Tecfidera 250 mg 1 tablet Orally Twice a day Baclofen 10 MG 1 tablet with food or milk b y mouth three times a day MDD:3 for 90 day(s) Omeprazole 40 MG TAKE ONE CAPSULE BY MOUTH @6AM for 28 Aspirin Low Dose 81 MG TAKE ONE TABLET BY MOUTH @8AM for 28 Aspir-81 81 MG 1 tablet Orally Once a day for 30 days Prolia 60mg/ml as directed Cholecalciferol 2000 UNIT 1 capsule Orally Once a day for 90 day (s) Poise Pad Pads 1 pad Dx: 788.2 twice a day as needed for 30 Nortriptyline HCl 10 MG 1 capsule Orally BID at 8am and 8pm for 30 Days Multivitamins - 1 tablet Orally Daily for 30 days Multivitamin - TAKE ONE TABLET BY MOUTH @8AM for 28 Loratadine 10 MG 1 cap Orally Once a day at 8am for 30 Days Next Appt Details Provider Name:Zurdo Skelton, 2021-06-19 1 1:15:00 AM, [address] [facility], , [place], [address], Insurance Providers Payer Name Payer Address Payer Phone Insured Name Patient Relati onship to Insured Coverage Start Date Coverage End Date MEDICARE COMPLETE UNITED HEALTHCARE [address] [address] [facility] [phone] [place] MEDICAID [facility] [address] [facility] [address] [place] self
--- OUTSIDE RECORDS SUMMARY | 2021-06-24 06:57 | CCD ---
Author Author [facility] Organization [facility] Address Unknown Phone Unavailable Care Team Providers Care [facility] Former Name Role Phone Zurdo Skelton Unavailable PROBLEMS Type Condition ICD9-CM Code [id number] Code Onset Dates Condition S tatus W/U Status Risk SNOMED Code Notes Problem Breast cancer screening Z12.39 Active confirmed 711096932 Problem Vitamin D deficiency E55.9 Active confirmed 57827937 Problem Depression F32.9 Active confirmed 86910301 Problem GERD (gastroesophageal reflux disease) K21.9 A ctive confirmed 538586958 Problem Osteoporosis M81.0 Active confirmed 7781242 6 Problem MS (multiple sclerosis) G35 Active confirmed 95192383 Problem Perennial allergic rhinitis, unspecified allergi c rhinitis trigger J30.89 Active confirmed 519555676 Problem Mixed hyperlipidemia E78.2 Active confirmed 998635813 Problem Ataxia R27.0 Active confirmed 40655664 Problem Neurogenic bladder N31.9 Active confirmed 3 42723545 Problem Paraplegia G82.20 Active confirmed 34253649 Problem Recurrent UTI N39.0 Active confirmed 101451 001 Problem NAFLD (nonalcoholic fatty liver disease) K76.0 Active confirmed 171927303 Problem 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 Active confirmed 68189254 Problem 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, 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 Active confirmed 306312132 Problem 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 Active confirmed 089284992866150 ALLERGIES Allergen (clinical drug ingredient) Drug/Non Drug Allergy do cumented on EMR Reaction Allergy Type Onset Date Status Penicillin (For Allergies Use Only) whoozy Drug Allerg y Active Cephalosporins Cephalosporins "unknown" Non Drug Allergy Active ENCOUNTERS from 1945 to 2021-06-02 Encounter Location Date Provider Diagnosis [address] [phone] [place] [address] May, Zurdo Skelton IMMUNIZATIONS Vaccine Route Administration Date Status Prolia [...] Information RESULTS No Results REASON FOR VISIT pull ups MEDICAL (GENERAL) HISTORY Type Description Date Medical [...] R foot/ankle xray-rxed c cast by Dr. Guold Medical History 05/2019 hydronephrosis s/p stent placmen [...] due to a fall [facility] rehab, R hip fracture no repaired 09/07/16 -09/30/2016 Hospitalization History fracture of right foot 12/07/17- Hospitalization History Kidney stones c bilateral hy dronephrosis s/p J stent placement via cystoscopy 06/07- 06/11/2019 Hospitalization History B ureteral stones c B hydronephrosis /PN 05/2019 Goals Section No Information Health Concerns No Information MEDICAL EQUIPMENT No Information MENTAL STATUS No Information FUNCTIONAL STATUS No Information ASSESSMENTS No Information PLAN OF TREATMENT Medication Medication Name Sig Start Date Stop Date Cranberry 450 MG TAKE ONE TABLET BY MOUTH @8PM for 28 Vitamin D3 50 MCG (2000 UT) TAKE [...] Name:Zurdo Skelton, 2021-06-19 1 1:15:00 AM, [address] [facility], , [place], [address], Insurance Providers Payer Name Payer Address Payer Phone Insured Name Patient Relati onship to Insured Coverage Start Date Coverage End Date MEDICAID [employer] [address] [facility] [id number] [place] MEDICARE COMPLETE [employer] [address] [address] [facility] [id number] [place]UE[place]AS
--- OUTSIDE RECORDS SUMMARY | 2021-06-24 06:58 | CCD ---
Author Author [facility] Organization [facility] Address Unknown Phone Unavailable Care Team Providers Care Corporate Trainer Name Role Phone Zurdo Skelton Unavailable PROBLEMS Type Condition ICD9-CM Code [id number] Code Onset Dates Condition S tatus W/U Status Risk SNOMED Code Notes Problem Depression F32.9 Active confirmed 14168659 Problem Breast cancer screening Z12.39 Active confirmed 310678844 Problem Osteoporosis M81.0 Active confirmed 5442296 6 Problem Vitamin D deficiency E55.9 Active confirmed 65193797 Problem Neurogenic bladder N31.9 Active confirmed 3 95840987 Problem MS (multiple sclerosis) G35 Active confirmed 71040435 Problem Perennial allergic rhinitis, unspecified allergi c rhinitis trigger J30.89 Active confirmed 816869864 Problem 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 Active confirmed 056549783195485 Problem Recurrent UTI N39.0 Active confirmed 640654 001 Problem Ataxia R27.0 Active confirmed 61744089 Problem GERD (gastroesophageal reflux disease) K21.9 A ctive confirmed 238295787 Problem Mixed hyperlipidemia E78.2 Active confirmed 396310958 Problem 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 Active confirmed 19142087 Problem NAFLD (nonalcoholic fatty liver disease) K76.0 Active confirmed 513966684 Problem 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, 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 Active confirmed 658572385 ALLERGIES Allergen (clinical drug ingredient) Drug/Non Drug Allergy do cumented on EMR Reaction Allergy Type Onset Date Status Penicillin (For Allergies Use Only) whoozy Drug Allerg y Active Cephalosporins Cephalosporins "unknown" Non Drug Allergy Active ENCOUNTERS from 1945 to 2021-04-02 Encounter Location Date Provider Diagnosis [facility] [address] [facility] [phone] [place] [address] Mar, Zurdo Skelton IMMUNIZATIONS Vaccine Route Administration Date [...] Zostavax IM Intramuscular February 10, 2012 Administ [facility] Given IM Intramuscular May 26, [...] Notes Start Da te End Date Status Aspir-81 81 MG 1 tablet Orally Once a day Active Cranberry 450 MG 1 cap(s) Orally qhs for 30 Days Active Multivitamin - TAKE ONE TABLET BY MOUTH @8AM for 28 Active Tecfidera 250 mg 1 tablet Orally Twice a day Active Tylenol 325 MG 2 tablets Orally daily and q6h prn pain for 28 Active Cholecalciferol 2000 UNIT 1 capsule Orally Once a day for 90 day(s) Active Cranberry 450 MG 1 cap(s) Orally qhs for 90 day(s) Active Aspirin Low Dose 81 MG TAKE ONE TABLET BY MOUTH @8AM for 28 Active Wheelchair - as directed DX:G35 Daily for 99 months Nov Active Cranberry 450 MG TAKE ONE TABLET BY MOUTH @8PM for 28 Active Fit Right Pull-ups large Dx N31.9/G35 Daily for 30 day(s) May, Active Poise Pad Pads 1 pad Dx: 788.2 twice a day as needed for 30 Active Prolia 60mg/ml as directed Active Multivitamins - 1 tablet Orally Daily Active Acetaminophen 325 MG TAKE TWO TABLETS BY MOUTH @6AM for 28 Active Baclofen 10 MG 1 tablet with food or milk b y mouth three times a day MDD:3 for 90 day(s) Active May Use - as directed comode over toil et with frame Daily DX: N39.0 for 99 months Nov, Active Loratadine 10 MG TAKE ONE TABLET BY MOUTH @8AM for 28 Active Omeprazole 40 MG TAKE ONE CAPSULE BY MOUTH @6AM for 28 Active Vitamin D3 50 MCG (2000 UT) TAKE ONE CAPSULE BY MOUTH @8AM for 28 Active Cholecalciferol 2000 UNIT 1 capsule Orally Once a day for 28 Active Nortriptyline HCl 10 MG TAKE ONE CAPSULE BY MOUTH @8 AM and TAKE ONE CAPSULE @8PM for 28 Active PROCEDURES No Information RESULTS No Results REASON FOR VISIT place/date of exam blank MEDICAL (GENERAL) HISTORY Type Description Date Medical [...] due to a fall [facility] rehab, R hip fracture no repaired [...] CAPSULE BY MOUTH @8AM for 2 8 Cholecalciferol 2000 UNIT 1 capsule Orally Once a day for 90 day (s) Aspirin Low Dose 81 MG TAKE ONE TABLET BY MOUTH @8AM for 28 Nortriptyline HCl 10 MG TAKE ONE CAPSULE BY MOUTH @8 AM and TAKE ONE CAPSULE @8PM for 28 Multivitamins - 1 tablet Orally Daily Omeprazole 40 MG TAKE ONE CAPSULE BY MOUTH @6AM for 28 Baclofen 10 MG 1 tablet with food or milk b y mouth three times a day MDD:3 for 90 day(s) Prolia 60mg/ml as directed Poise Pad Pads 1 pad Dx: 788.2 twice a day as needed for 30 Tecfidera 250 mg 1 tablet Orally Twice a day Aspir-81 81 MG 1 tablet Orally Once a day Cranberry 450 MG 1 cap(s) Orally qhs for 90 day(s) Multivitamin - TAKE ONE TABLET BY MOUTH @8AM for 28 Acetaminophen 325 MG TAKE TWO TABLETS BY MOUTH @6AM for 28 Loratadine 10 MG TAKE ONE TABLET BY MOUTH @8AM for 28 Next Appt Details Provider Name:Zurdo Skelton, 2021-06-19 1 1:15:00 AM, [address] [facility], , [place], [address], Insurance Providers Payer Name Payer Address Payer Phone Insured Name Patient Relati onship to Insured Coverage Start Date Coverage End Date MEDICARE COMPLETE [facility] [address] [address] [facility] [phone] [place] self MEDICAID [id number] [address] [place] [id number] [place] self
--- OUTSIDE RECORDS SUMMARY | 2021-06-24 06:58 | CCD ---
Author Author [facility] Organization [facility] Address Unknown Phone Unavailable Care Team Providers Care Buffer Inflated Pad Name Role Phone Carlos Valiente Unavailable Unavailable SteffanieCarlos Unavailable Unavailable Steffanie, Christian MEREDITH Unavailable Unavailable SteffanieCarlos Unavailable Unavailable SteffanieCarlos mahajan Unavailable Unavailable SteffanieCarlos mahajan Unavailable Unavailable SteffanieCarlos mahajan Unavailable Unavailable SteffanieCarlos mahajan Unavailable Unavailable SteffanieCarlos Unavailable Unavailable SteffanieCarlos Unavailable Unavailable SteffanieCarlos Unavailable Unavailable SteffanieCarlos Unavailable Unavailable SteffnaieCarlos Unavailable Unavailable SteffanieCarlos Unavailable Unavailable SteffanieCarlos Unavailable Unavailable SteffanieCarlos Unavailable Unavailable SteffanieCarlos Unavailable Unavailable SteffanieCarlos Unavailable Unavailable SteffanieCarlos Unavailable Unavailable Steffanie, Christian MD Unavailable Unavailable Steffanie, Christian MEREDITH Unavailable Unavailable Steffanie, Christian MEREDITH Unavailable Unavailable Steffanie, Christian MEREDITH Unavailable Unavailable Steffanie, Christian MEREDITH Unavailable Unavailable Steffanie, Christian MEREDITH Unavailable Unavailable Steffanie, Christian MEREDITH Unavailable Unavailable Steffanie, Christian MEREDITH Unavailable Unavailable Steffanie, Christian MEREDITH Unavailable Unavailable Steffanie, Christian MD Unavailable Unavailable Steffanie, Chrsitian MD Unavailable Unavailable Steffanie, Christian MD Unavailable Unavailable Steffanie, Christian MD Unavailable Unavailable Steffanie, Christian MD Unavailable Unavailable Steffanie, Christian MD Unavailable Unavailable Steffanie, Christian MD Unavailable Unavailable Steffanie, Christian MD Unavailable Unavailable Steffanie, Christian MD Unavailable Unavailable Steffanie, Christian MD Unavailable Unavailable Steffanie, Christian MD Unavailable Unavailable Steffanie, Christian MD Unavailable Unavailable Steffanie, Christian MD Unavailable Unavailable Steffanie, Christian MD Unavailable Unavailable Steffanie, Christian MD Unavailable Unavailable Steffanie, Christian MD Unavailable Unavailable Steffanie, Christian MD Unavailable Unavailable Steffanie, Christian MD Unavailable Unavailable Steffanie, Christian MD Unavailable Unavailable Steffanie, Christian MD Unavailable Unavailable Steffanie, Christian MD Unavailable Unavailable Steffanie, Christian MD Unavailable Unavailable Steffanie, Christian MD Unavailable Unavailable Steffanie, Christian MD Unavailable Unavailable Steffanie, Christian MD Unavailable Unavailable Steffanie, Christian MD Unavailable Unavailable Steffanie, Christian MD Unavailable Unavailable Steffanie, Christian MD Unavailable Unavailable Steffanie, Christian MD Unavailable Unavailable Steffanie, Christian MD Unavailable Unavailable Steffanie, Christian MD Unavailable Unavailable Steffanie, Christian MD Unavailable Unavailable Steffanie, Christian MD Unavailable Unavailable Steffanie, Christian MD Unavailable Unavailable Re-disclosure Warning The records that you are about to access may contain information from federally-assisted alcohol or drug abuse programs. If such information is present, then the following federally mandated warning applies: This information has been disclosed to you from records protected by federal confidentiality rules (42 CFR part 2). The federal rules prohibit you from making any further disclosure of this information unless further disclosure is expressly permitted by the written consent of the person to whom it pertains or as otherwise permitted by 42 CFR part 2. A general authorization for the release of medical or other information is NOT sufficient for this purpose. The Federal rules restrict any use of the information to criminally investigate or prosecute any alcohol or drug abuse patient.The records that you are about to access may contain highly sensitive health information, the redisclosure of which is protected by Article 27-F of the [facility] Public Health law. If you continue you may have access to information: Regarding HIV / AIDS; Provided by facilities licensed or operated by the [facility] Office of Mental Health; or Provided by the [facility] Office for People With Developmental Disabilities. If such information is present, then the following [facility] mandated warning applies: This information has been disclosed to you from confidential records which are protected by state law. State law prohibits you from making any further disclosure of this information without the specific written consent of the person to whom it pertains, or as otherwise permitted by law. Any unauthorized further disclosure in violation of state law may result in a fine or chcf sentence or both. A general authorization for the release of medical or other information is NOT sufficient authorization for further disc losure. Family History Family Member Name Family Member Gender Family Member Status Date o f Status Description Data Source(s) Unknown Male Problem MEDENT ([facility]) Encounters Encounter Providers Location Date Indications Data Source(s ) Unknown [address] [facility] [place] [address] 06/01/2021 12:00:00 AM EDT [facility] [address] [facility] [place] [address] 05/27/2021 12:00:00 AM EDT [facility] Unknown [address] [facility] [place] [address] 04/30/2021 12:00:00 AM EDT [facility] Unknown [address] [facility] [place] [address] 04/01/2021 12:00:00 AM EDT [facility]CW1 [facility] Unknown [address] [facility] [address] [address] 02/27/2021 12:00:00 AM EDT eCW1 [facility]) Unknown [address] [facility] [address] [address] 02/25/2021 12:00:00 AM EDT eCW1 ([facility]) Outpatient [address] [facility] [address] [address] 02/09/2021 12:00:00 AM EDT eCW1 ([facility]) Unknown [address] [facility] [place] [address] 02/09/2021 12:00:00 AM EDT eCW1 ([facility]) Outpatient Attender: Christian Valiente MD Main office - [place] 12/30/2020 11:00:00 AM EDT [facility] ([facility]) Unknown [address] [facility] [place] [address] 12/15/2020 12:00:00 AM EDT eCW1 ([facility]) Unknown [address] [facility] [place] [address] 12/04/2020 12:00:00 AM EDT eCW1 ([facility]) Outpatient [address] [facility] [place] [address] 10/10/2020 12:00:00 AM EST eCW1 ([facility]) Unknown [address] [facility] [place] [address] 09/11/2020 12:00:00 AM EST eCW1 ([facility]) Unknown [address] [facility] [place] [address] 09/02/2020 12:00:00 AM EST eCW1 ([facility]) Unknown [address] [facility] [place] [address] 08/21/2020 12:00:00 AM EST eCW1 ([facility]) Outpatient [address] [place] [address], [place] [address] 07/24/2020 12:00:00 AM EST eCW1 ([facility]) Unknown [address] [facility] [place] [address] 07/24/2020 12:00:00 AM EST eCW1 ([facility]) Unknown [address] [facility] [place] [address] 07/10/2020 12:00:00 AM EST eCW1 ([facility]) Unknown [address] [facility] [place] [address] 07/08/2020 12:00:00 AM EST eCW1 ([facility]) Unknown [address] [facility] [place] [address] 07/07/2020 12:00:00 AM EST eCW1 ([facility]) Outpatient [address] [facility] [place] [address] 07/04/2020 12:00:00 AM EST eCW1 ([facility]) Unknown [address] [facility] [place] [address] 07/04/2020 12:00:00 AM EST eCW1 ([facility]) Unknown [address] [facility] [place] [address] 07/03/2020 12:00:00 AM EST eCW1 ([facility]) Unknown [address] [facility] [place] [address] 07/03/2020 12:00:00 AM EST eCW1 ([facility]) Unknown [address] [facility] [place] [address] 07/03/2020 12:00:00 AM EST eCW1 ([facility]) Office Visit, Est Pt., Level 4 PC [address] [place] [address] 06/13/2020 12:00:00 AM EDT eCW1 ([facility]) Unknown [address] [facility] [place] [address] 06/10/2020 12:00:00 AM EDT eCW1 ([facility]) Unknown [address] [facility] [address] 06/09/2020 12:00:00 AM EDT eCW1 ([facility]) Unknown [address] [facility] [place] [address] 05/29/2020 12:00:00 AM EDT eCW1 ([facility]) Outpatient [address] [facility] [place] [address] 05/27/2020 12:00:00 AM EDT eCW1 ([facility]) Unknown [address] [facility] [place] [address] 05/26/2020 12:00:00 AM EDT eCW1 ([facility]) Unknown [address] [facility] [address] 05/26/2020 12:00:00 AM EDT eCW1 ([facility]) Outpatient Attender: Christian Valiente MD Main office - [place] 05/12/2020 10:00:00 AM EDT MEDENT ([facility]) Immunizations Vaccine Date Status Description Data Source(s) COVID-19 VACCINE Moderna 11/19/2020 12:00:00 AM EDT completed [facility] Vaccine Series Complete: YESThis Data wa s Submitted to [facility] Via [employer]. COVID-19 VACCINE Moderna 10/22/2020 12:00:00 AM EST completed [facility] Vaccine Series Complete: NOThis Data was Submitted to [facility] [employer]. 07/24/2020 11:41:00 AM EST completed e CW1 ([facility]) 07/24/2020 11:41:00 AM EST completed e CW1 ([facility]) 07/24/2020 11:41:00 AM EST completed e CW1 ([facility]) 07/24/2020 11:41:00 AM EST completed e CW1 ([facility]) 07/24/2020 11:41:00 AM EST completed e CW1 ([facility]) 07/24/2020 11:41:00 AM EST completed e CW1 ([facility]) 07/24/2020 11:41:00 AM EST completed e CW1 ([facility]) 07/24/2020 11:41:00 AM EST completed e CW1 ([facility]) 07/24/2020 11:41:00 AM EST completed e CW1 ([facility]) 07/24/2020 11:41:00 AM EST completed e CW1 ([facility]) 07/24/2020 11:41:00 AM EST completed e CW1 ([facility]) 07/24/2020 11:41:00 AM EST completed e CW1 ([facility]) 07/24/2020 11:41:00 AM EST completed e CW1 ([facility]) 07/24/2020 11:41:00 AM EST completed e CW1 ([facility]) 07/24/2020 11:41:00 AM EST completed e CW1 ([facility]) 07/24/2020 11:41:00 AM EST completed e CW1 ([facility]) Medications Medication Brand Name Start Date Product Form Dose Route Admi nistrative Instructions Pharmacy Instructions Status Indications Reaction Description Data Source(s) Wheelchair - Wheelchair - 05/28/2021 12:00:00 AM EDT active Wheelchair - eCW1 ([facility]) Wheelchair - Wheelchair - 05/28/2021 12:00:00 AM EDT active Wheelchair - eCW1 ([facility]) dimethyl fumarate 240 MG Delayed Release Oral Capsule Dimeth yl Fumarate 07/11/2020 12:00:00 AM EST active MEDENT ([facility]) Bactroban 2% UNK 07/04/2020 12:00:00 AM EST activ e Bactroban 2% eCW1 ([facility]) Bactroban 2% UNK 07/04/2020 12:00:00 AM EST activ e Bactroban 2% eCW1 ([facility]) Bactroban 2% UNK 07/04/2020 12:00:00 AM EST activ e Bactroban 2% eCW1 ([facility]) Bactroban 2% UNK 07/04/2020 12:00:00 AM EST activ e Bactroban 2% eCW1 ([facility]) Bactroban 2% UNK 07/04/2020 12:00:00 AM EST activ e Bactroban 2% eCW1 ([facility]) Bactroban 2% UNK 07/04/2020 12:00:00 AM EST activ e Bactroban 2% eCW1 ([facility]) Bactroban 2% UNK 07/04/2020 12:00:00 AM EST activ e Bactroban 2% eCW1 ([facility]) Bactroban 2% UNK 07/04/2020 12:00:00 AM EST activ e Bactroban 2% eCW1 ([facility]) Bactroban 2% UNK 07/04/2020 12:00:00 AM EST activ e Bactroban 2% eCW1 ([facility]) Bactroban 2% UNK 07/04/2020 12:00:00 AM EST activ e Bactroban 2% eCW1 ([facility]) Bactroban 2% UNK 07/04/2020 12:00:00 AM EST activ e Bactroban 2% eCW1 ([facility]) Bactroban 2% UNK 07/04/2020 12:00:00 AM EST activ e Bactroban 2% eCW1 ([facility]) Ciprofloxacin 500 MG Oral Tablet Ciprofloxacin HCl 500 MG Ciprofloxacin HCl 500 MG 07/03/2020 12:00:00 AM EST 1.0 {tablet} activ e Ciprofloxacin HCl 500 MG eCW1 ([facility]) Ciprofloxacin 500 MG Oral Tablet Ciprofloxacin HCl 500 MG Ciprofloxacin HCl 500 MG 07/03/2020 12:00:00 AM EST 1.0 {tablet} activ e Ciprofloxacin HCl 500 MG eCW1 ([facility]) Ciprofloxacin 500 MG Oral Tablet Ciprofloxacin HCl 500 MG Ciprofloxacin HCl 500 MG 07/03/2020 12:00:00 AM EST 1.0 {tablet} activ e Ciprofloxacin HCl 500 MG eCW1 ([facility]) Ciprofloxacin 500 MG Oral Tablet Ciprofloxacin HCl 500 MG Ciprofloxacin HCl 500 MG 07/03/2020 12:00:00 AM EST 1.0 {tablet} activ e Ciprofloxacin HCl 500 MG eCW1 ([facility]) Ciprofloxacin 500 MG Oral Tablet Ciprofloxacin HCl 500 MG Ciprofloxacin HCl 500 MG 07/03/2020 12:00:00 AM EST 1.0 {tablet} activ e Ciprofloxacin HCl 500 MG eCW1 ([facility]) Ciprofloxacin 500 MG Oral Tablet Ciprofloxacin HCl 500 MG Ciprofloxacin HCl 500 MG 07/03/2020 12:00:00 AM EST 1.0 {tablet} activ e Ciprofloxacin HCl 500 MG eCW1 ([facility]) Ciprofloxacin 500 MG Oral Tablet Ciprofloxacin HCl 500 MG Ciprofloxacin HCl 500 MG 07/03/2020 12:00:00 AM EST 1.0 {tablet} activ e Ciprofloxacin HCl 500 MG eCW1 ([facility]) Ciprofloxacin 500 MG Oral Tablet Ciprofloxacin HCl 500 MG Ciprofloxacin HCl 500 MG 07/03/2020 12:00:00 AM EST 1.0 {tablet} activ e Ciprofloxacin HCl 500 MG eCW1 ([facility]) Ciprofloxacin 500 MG Oral Tablet Ciprofloxacin HCl 500 MG Ciprofloxacin HCl 500 MG 07/03/2020 12:00:00 AM EST 1.0 {tablet} activ e Ciprofloxacin HCl 500 MG eCW1 ([facility]) Ciprofloxacin 500 MG Oral Tablet Ciprofloxacin HCl 500 MG Ciprofloxacin HCl 500 MG 07/03/2020 12:00:00 AM EST 1.0 {tablet} activ e Ciprofloxacin HCl 500 MG eCW1 ([facility]) Ciprofloxacin 500 MG Oral Tablet Ciprofloxacin HCl 500 MG Ciprofloxacin HCl 500 MG 07/03/2020 12:00:00 AM EST 1.0 {tablet} activ e Ciprofloxacin HCl 500 MG eCW1 ([facility]) Ciprofloxacin 500 MG Oral Tablet Ciprofloxacin HCl 500 MG Ciprofloxacin HCl 500 MG 07/03/2020 12:00:00 AM EST 1.0 {tablet} activ e Ciprofloxacin HCl 500 MG eCW1 ([facility]) Ciprofloxacin 500 MG Oral Tablet Ciprofloxacin HCl 500 MG Ciprofloxacin HCl 500 MG 07/03/2020 12:00:00 AM EST 1.0 {tablet} activ e Ciprofloxacin HCl 500 MG eCW1 ([facility]) Sulfamethoxazole 800 MG / Trimethoprim 1 60 MG Oral Tablet [Bactrim] Bactrim DS 800-160 MG Bactrim DS 800-160 MG 05/29/2020 12:00:00 AM EDT 1.0 {table t} active Bactrim DS 800-160 MG eCW1 ( [facility]) Sulfamethoxazole 800 MG / Trimethoprim 1 60 MG Oral Tablet [Bactrim] Bactrim DS 800-160 MG Bactrim DS 800-160 MG 05/29/2020 12:00:00 AM EDT 1.0 {table t} active Bactrim DS 800-160 MG eCW1 ( [facility]) Sulfamethoxazole 800 MG / Trimethoprim 1 60 MG Oral Tablet [Bactrim] Bactrim DS 800-160 MG Bactrim DS 800-160 MG 05/29/2020 12:00:00 AM EDT 1.0 {table t} active Bactrim DS 800-160 MG eCW1 ( [facility]) Sulfamethoxazole 800 MG / Trimethoprim 1 60 MG Oral Tablet [Bactrim] Bactrim DS 800-160 MG Bactrim DS 800-160 MG 05/29/2020 12:00:00 AM EDT 1.0 {table t} active Bactrim DS 800-160 MG eCW1 ( [facility]) Sulfamethoxazole 800 MG / Trimethoprim 1 60 MG Oral Tablet [Bactrim] Bactrim DS 800-160 MG Bactrim DS 800-160 MG 05/29/2020 12:00:00 AM EDT 1.0 {table t} active Bactrim DS 800-160 MG eCW1 ( [facility]) Sulfamethoxazole 800 MG / Trimethoprim 1 60 MG Oral Tablet [Bactrim] Bactrim DS 800-160 MG Bactrim DS 800-160 MG 05/29/2020 12:00:00 AM EDT 1.0 {table t} active Bactrim DS 800-160 MG eCW1 ( [facility]) Sulfamethoxazole 800 MG / Trimethoprim 1 60 MG Oral Tablet [Bactrim] Bactrim DS 800-160 MG Bactrim DS 800-160 MG 05/29/2020 12:00:00 AM EDT 1.0 {table t} active Bactrim DS 800-160 MG eCW1 ( [facility]) NITROFURANTOIN, MACROCRYSTALS 25 MG / Ni trofurantoin, Monohydrate 75 MG Oral Capsule [Macrobid] Macrobid 100 MG Macrobid 100 MG 05/27/2020 12:00:00 AM EDT 1.0 {capsule_with_food} active Macrobid 100 MG eCW1 ([facility]) NITROFURANTOIN, MACROCRYSTALS 25 MG / Ni trofurantoin, Monohydrate 75 MG Oral Capsule [Macrobid] Macrobid 100 MG Macrobid 100 MG 05/27/2020 12:00:00 AM EDT 1.0 {capsule_with_food} active Macrobid 100 MG eCW1 ([facility]) NITROFURANTOIN, MACROCRYSTALS 25 MG / Ni trofurantoin, Monohydrate 75 MG Oral Capsule [Macrobid] Macrobid 100 MG Macrobid 100 MG 05/27/2020 12:00:00 AM EDT 1.0 {capsule_with_food} active Macrobid 100 MG eCW1 ([facility]) NITROFURANTOIN, MACROCRYSTALS 25 MG / Ni trofurantoin, Monohydrate 75 MG Oral Capsule [Macrobid] Macrobid 100 MG Macrobid 100 MG 05/27/2020 12:00:00 AM EDT 1.0 {capsule_with_food} active Macrobid 100 MG eCW1 ([facility]) NITROFURANTOIN, MACROCRYSTALS 25 MG / Ni trofurantoin, Monohydrate 75 MG Oral Capsule [Macrobid] Macrobid 100 MG Macrobid 100 MG 05/27/2020 12:00:00 AM EDT 1.0 {capsule_with_food} active Macrobid 100 MG eCW1 ([facility]) NITROFURANTOIN, MACROCRYSTALS 25 MG / Ni trofurantoin, Monohydrate 75 MG Oral Capsule [Macrobid] Macrobid 100 MG Macrobid 100 MG 05/27/2020 12:00:00 AM EDT 1.0 {capsule_with_food} active Macrobid 100 MG eCW1 ([facility]) NITROFURANTOIN, MACROCRYSTALS 25 MG / Ni trofurantoin, Monohydrate 75 MG Oral Capsule [Macrobid] Macrobid 100 MG Macrobid 100 MG 05/27/2020 12:00:00 AM EDT 1.0 {capsule_with_food} active Macrobid 100 MG eCW1 ([facility]) Insurance Providers Payer name Policy type / Coverage type Policy ID Covered democrat ID Covered democrat's relationship to cooper Policy Cooper Plan Information [id number] A MEDICARE COMPLETE [id number] Medicaid [facility] Part B [id number] Self [id number] [facility] Commercial [id number] Self [id number] [place] [id number] 13226.0 Self [id number] Medicaid [place] Medigap Part B [id number] 26298.0 Self [id number] [facility] ([facility]) Commercial [id number] Self [id number] [facility] [id number] 89545.0 Self [id number] [place] [id number] 42074.0 Self [id number] [facility] ([facility]) Commercial [id number] Self [id number] Medicaid [facility] Part B [id number] 22508.0 Self [id number] [facility] ([facility]) Commercial [id number] Self [id number] [facility] Commercial [id number] Self [id number] [facility] [employer] [id number] Self [id number] MEDICARE COMPLETE [id number] SP [id number] ANSI-Medicaid [id number] ANSI-Medicare Part B [id number] ANSI-Medicaid [id number] ANSI-Medicare Part B [id number] ANSI-Medicaid [id number] ANSI-Medicare Part B [id number] ANSI-Medicaid [id number] ANSI-Medicare Part B [id number] ANSI-Medicaid [id number] ANSI-Medicare Part B [id number] ANSI-Medicaid [id number] ANSI-Medicare Part B [id number] ANSI-Medicaid [id number] ANSI-Medicare Part B [id number] ANSI-Medicare Part B [id number] ANSI-Medicaid [id number] ANSI-Medicaid [id number] ANSI-Medicare Part B [id number] ANSI-Medicare Part B [id number] ANSI-Medicaid [id number] ANSI-Medicaid [id number] ANSI-Medicare Part B [id number] ANSI-Medicaid [id number] ANSI-Medicare Part B [id number] ANSI-Medicaid [id number] ANSI-Medicare Part B [id number] ANSI-Medicare Part B [id number] ANSI-Medicaid [id number] ANSI-Medicare Part B [id number] ANSI-Medicaid [id number] ANSI-Medicaid [id number] ANSI-Medicare Part B [id number] ANSI-Medicare Part B [id number] ANSI-Medicaid [id number] ANSI-Medicaid [id number] ANSI-Medicare Part B [id number] ANSI-Medicare Part B [id number] ANSI-Medicaid [id number] ANSI-Medicare Part B [id number] ANSI-Medicaid [id number] ANSI-Medicare Part B [id number] ANSI-Medicaid [id number] ANSI-Medicare Part B [id number] ANSI-Medicaid [id number] [place]-Medicare Part B [id number] ANSI-Medicaid [id number] MEDICARE COMPLETE [id number] SP [id number] [facility] [id number] Self [id number] Medicaid [facility] Part B [id number] Self [id number] [facility] [id number] Self [id number] MEDICARE COMPLETE-UHC O [id number] S [id number] MEDICARE [id number] SP [id number] A Medicaid [facility] Part B [id number] Self [id number] [facility]) [employer] [id number] Self [id number] SELF PAY UNAVAILABLE SP UNAVAILA BLE [id number] [place] Med[place] [id number] Self [id number] [facility] MEDICAID [id number] SP [id number] MEDICARE COMPLETE [id number] SP [id number] MEDICARE COMPLETE [id number] SP [id number] EMEDNY [id number] SP [id number] MEDICARE COMPLETE-UHC O [id number] S [id number] MEDICAID M [id number] S [id number] MEDICARE COMPLETE [id number] SP [id number] MEDICAID [id number] SP [id number] MEDICARE [id number] SP [id number] MEDICARE COMPLETE [id number] SP [id number] ANS-Medicaid [id number] [facility]-Medicare Part B [id number] Problems, Conditions, and Diagnoses Code Display Name Description Problem Type Effective Dates Data Source(s) G82.20 26427330 Paraplegia Problem 05/28/2021 12:00:00 AM ED T eCW1 ([facility]) Surgeries/Procedures Procedure Description Date Indications Data Source(s) Unclassified biologics 02/09/2021 12:00:00 AM EDT eCW1 ([facility]) Unclassified biologics 07/24/2020 12:00:00 AM EST eCW1 ([facility]) Results ID Date Data Source Reticulocyte Count Sysmex 07/09/2020 12:00:00 AM EST eCW1 ([facility]) Name Value Range Interpretation Code Description Data Steffanie rce(s) Supporting Document(s) 1.7 0.5-1.5 W1 (Count includes the [facility]) ID Date Data Source LIPID PANEL (CARDIAC RISK) 07/09/2020 12:00:00 AM EST eCW1 ( [facility]) Name Value Range Interpretation Code Description Data Steffanie rce(s) Supporting Document(s) Cholesterol in LDL [Mass/volume] in Serum or Plasma by calculation 89 <100 LDL CHOLESTEROL eCW1 ([facility]) Triglyceride [Mass/volume] in Serum or Plasma by calculation 160 <150 TRIGLYCERIDES LEVEL eCW1 ([facility]) Cholesterol [Moles/volume] in Serum or Plasma 172 <200 CHOLESTEROL LEVEL eCW1 ([facility]) Cholesterol in HDL [Moles/volume] in Serum or Plasma 51 >40 HDL CHOLESTEROL eCW1 ([facility]) 3.372 <5 CHOLESTEROL RISK RATIO eCW1 ([facility]) 121 NON-HDL-C eCW1 (Count includes the [facility]) ID Date Data Source VITAMIN D 25-HYDROXY 07/09/2020 12:00:00 AM EST eCW1 ([facility]) Name Value Range Interpretation Code Description Data Steffanie rce(s) Supporting Document(s) 57.2 30.0-100.0 TOTAL 25(OH) VITAMIN D eC W1 ([facility]) ID Date Data Source PTH INTACT 07/09/2020 12:00:00 AM EST eCW1 ([facility]) Name Value Range Interpretation Code Description Data Steffanie rce(s) Supporting Document(s) 69.3 18.5-88.0 PTH INTACT eCW1 ([facility]) ID Date Data Source [id number] 07/09/2020 12:00:00 AM EST eCW1 ([facility]) Name Value Range Interpretation Code Description Data Steffanie rce(s) Supporting Document(s) Hemoglobin A1c/Hemoglobin.total in Blood 5.3 eCW1 ([facility]) ID Date Data Source FREE T4 & TSH PANEL 07/09/2020 12:00:00 AM EST eCW1 ([facility]) Name Value Range Interpretation Code Description Data Steffanie rce(s) Supporting Document(s) 0.91 0.76-1.46 FREE T4 eCW1 (Count includes the [facility]) 1.160 0.358-3.740 THYROID STIMULATING HORM ONE eCW1 ([facility]) ID Date Data Source Comprehensive Metabolic Profile (CMP) 07/09/2020 12:00:00 AM EST eCW1 ([facility]) Name Value Range Interpretation Code Description Data Steffanie rce(s) Supporting Document(s) 23 7-18 BLOOD UREA NITROGEN eCW1 ([facility]) > 60.0 >39 GLOMERULAR FILTRATION RATE eCW 1 ([facility]) 78 70-100 GLUCOSE, FASTING eCW1 ([facility]) 0.66 0.55-1.30 CREATININE FOR GFR eCW1 ([facility]) 4.1 3.5-5.1 POTASSIUM SERUM eCW1 ([facility]) 31 21-32 CARBON DIOXIDE LEVEL eCW1 ([facility] hospital) 140 136-145 SODIUM LEVEL eCW1 ([facility]) 105 98-107 CHLORIDE LEVEL eCW1 ([facility]) 9.5 8.8-10.2 CALCIUM LEVEL eCW1 ([facility]) 20 7-37 AST/SGOT eCW1 (Count includes the [facility]) 36 12-78 ALT/SGPT eCW1 (Count includes the [facility]) 0.3 0.2-1.0 BILIRUBIN,TOTAL eCW1 ([facility]) 77 45-117 ALKALINE PHOSPHATASE eCW1 (Critical access hospital) 6.8 6.4-8.2 TOTAL PROTEIN eCW1 ([facility]) 3.5 3.2-5.2 ALBUMIN eCW1 (Count includes the [facility]) 1.1 1.2-2.2 ALBUMIN/GLOBULIN RATIO eCW1 ([facility]) ID Date Data Source CBC with Differential 07/09/2020 12:00:00 AM EST eCW1 ([facility]) Name Value Range Interpretation Code Description Data Steffanie rce(s) Supporting Document(s) 4.6 4.0-10.0 WHITE BLOOD COUNT eCW1 ([facility]) 3.87 4.00-5.40 RED BLOOD COUNT eCW1 ([facility]) 98.7 80.0-96.0 MEAN CORPUSCULAR VOLUME e CW1 ([facility]) 12.4 12.0-15.5 HEMOGLOBIN eCW1 ([facility]) 38.2 36.0-47.0 HEMATOCRIT eCW1 ([facility]) 32.0 27.0-33.0 MEAN CORPUSCULAR HEMOGLOB IN eCW1 ([facility]) 61.6 36.0-66.0 NEUTROPHILS % eCW1 ([facility]) 13.2 11.5-14.5 RED CELL DISTRIBUTION WID TH eCW1 ([facility]) 32.5 32.0-36.5 MEAN CORPUSCULAR HGB CONC eCW1 ([facility]) 16.4 24.0-44.0 LYMPH % eCW1 (Count includes the [facility]) 251 150-450 PLATELET COUNT, AUTOMATED eCW1 ([facility]) 2.8 1.5-8.5 NEUTROPHILS # eCW1 ([facility]) 7.6 0.0-3.0 EOS % eCW1 (Count includes the [facility]) 1.1 0.0-1.0 BASO % eCW1 (Count includes the [facility]) 12.9 0.0-5.0 MONO % eCW1 (Count includes the [facility]) 0.4 0.0-0.5 EOS # eCW1 (Count includes the [facility]) 0.6 0.0-0.8 MONO # eCW1 (Count includes the [facility]) 0.1 0.0-0.2 BASO # eCW1 (Count includes the [facility]) 0.8 1.5-5.0 LYMPH # eCW1 (Count includes the [facility]) ID Date Data Source UA URINALYSIS 07/03/2020 04:36:19 AM EST eCW1 ([facility]) Name Value Range Interpretation Code Description Data Steffanie rce(s) Supporting Document(s) Laboratory studies (set) UA URINALYS IS eCW1 ([facility]) ID Date Data Source URINE CULTURE 05/29/2020 05:49:45 AM EDT W1 ([facility]) Name Value Range Interpretation Code Description Data Steffanie rce(s) Supporting Document(s) Laboratory studies (set) URINE CULTU RE W1 ([facility]) ID Date Data Source Urinalysis, no micro 05/27/2020 12:55:13 PM EDT eCW1 ([facility]) Name Value Range Interpretation Code Description Data Steffanie rce(s) Supporting Document(s) 9.0 pH W1 (Count includes the [facility]) + Nitrate eCW1 (Count includes the [facility]) 2+ Leukocyte eCW1 (Count includes the [facility]) 1.005 Spec gravity eCW1 ([facility]) nl Glucose eCW1 (Count includes the [facility]) neg Ketones eCW1 (Count includes the [facility]) trace Protein eCW1 (Count includes the [facility]) neg Urobili eCW1 (Count includes the [facility]) 50 Blood eCW1 (Count includes the [facility]) neg Bilirubin eCW1 (Count includes the [facility]) yes Internal QC Acceptable (Y/N) e CW1 ([facility]) Procedure Social History Code Duration Value Status Description Data Source(s ) Smoking 02/09/2021 12:00:00 AM EDT Never Smoker completed Never S moker eCW1 ([facility]) Smoking 02/09/2021 12:00:00 AM EDT Never Smoker completed Never S moker eCW1 ([facility]) Smoking 02/09/2021 12:00:00 AM EDT Never Smoker completed Never S moker eCW1 ([facility]) Smoking 02/09/2021 12:00:00 AM EDT Never Smoker completed Never S moker eCW1 ([facility]) Smoking 02/09/2021 12:00:00 AM EDT Never Smoker completed Never S moker eCW1 ([facility]) Smoking 02/09/2021 12:00:00 AM EDT Never Smoker completed Never S moker eCW1 ([facility]) Smoking 02/09/2021 12:00:00 AM EDT Never Smoker completed Never S moker eCW1 ([facility]) Smoking 02/09/2021 12:00:00 AM EDT Never Smoker completed Never S moker eCW1 ([facility]) Smoking 10/10/2020 12:00:00 AM EST Never Smoker completed Never S moker eCW1 ([facility]) Smoking 10/10/2020 12:00:00 AM EST Never Smoker completed Never S moker eCW1 ([facility]) Smoking 10/10/2020 12:00:00 AM EST Never Smoker completed Never S moker eCW1 ([facility]) Smoking 07/04/2020 12:00:00 AM EST Never Smoker completed Never S moker eCW1 ([facility]) Smoking 07/04/2020 12:00:00 AM EST Never Smoker completed Never S moker eCW1 ([facility]) Smoking 07/04/2020 12:00:00 AM EST Never Smoker completed Never S moker eCW1 ([facility]) Smoking 07/04/2020 12:00:00 AM EST Never Smoker completed Never S moker eCW1 ([facility]) Smoking 07/04/2020 12:00:00 AM EST Never Smoker completed Never S moker eCW1 ([facility]) Smoking 07/04/2020 12:00:00 AM EST Never Smoker completed Never S moker eCW1 ([facility]) Smoking 07/04/2020 12:00:00 AM EST Never Smoker completed Never S moker eCW1 ([facility]) Smoking 07/04/2020 12:00:00 AM EST Never Smoker completed Never S moker eCW1 ([facility]) Smoking 07/04/2020 12:00:00 AM EST Never Smoker completed Never S moker eCW1 ([facility]) Smoking 07/04/2020 12:00:00 AM EST Never Smoker completed Never S moker eCW1 ([facility]) Smoking 07/04/2020 12:00:00 AM EST Never Smoker completed Never S moker eCW1 ([facility]) Smoking 07/04/2020 12:00:00 AM EST Never Smoker completed Never S moker eCW1 ([facility]) Smoking 06/13/2020 12:00:00 AM EDT Never Smoker completed Never S moker eCW1 ([facility]) Smoking 06/13/2020 12:00:00 AM EDT Never Smoker completed Never S moker eCW1 ([facility]) Smoking 06/13/2020 12:00:00 AM EDT Never Smoker completed Never S moker eCW1 ([facility]) Smoking 05/27/2020 12:00:00 AM EDT Never Smoker completed Never S moker eCW1 ([facility]) Smoking 05/27/2020 12:00:00 AM EDT Never Smoker completed Never S moker eCW1 ([facility]) Smoking 05/27/2020 12:00:00 AM EDT Never Smoker completed Never S moker eCW1 ([facility]) Smoking 05/27/2020 12:00:00 AM EDT Never Smoker completed Never S moker eCW1 ([facility]) Vital Signs ID Date Data Source UNK Name Value Range Interpretation Code Description Data Source(s) Body weight 163.6 [lb_av] 163.6 [lb_av] eCW1 ([facility]) Body temperature 97.8 [degF] 97.8 [degF] eCW1 ( [facility]) Systolic blood pressure 138 mm[Hg] 138 mm[Hg] e CW1 ([facility]) Diastolic blood pressure 70 mm[Hg] 70 mm[Hg] eCW1 ([facility]) Body height 64 [in_i] 64 [in_i] eCW1 ([facility]) Body mass index (BMI) [Ratio] 28.08 kg/m2 28.08 kg/m2 W1 ([facility]) Heart rate 120 /min 120 /min eCW1 ([facility]) Respiratory rate 18 /min 18 /min eCW1 ([facility]) Body weight 155 [lb_av] 155 [lb_av] eCW1 ([facility]) Body height 64 [in_i] 64 [in_i] eCW1 ([facility]) Body mass index (BMI) [Ratio] 26.60 kg/m2 26.60 kg/m2 eCW1 ([facility]) Heart rate 108 /min 108 /min eCW1 ([facility]) Respiratory rate 18 /min 18 /min eCW1 ([facility]) Body temperature 98.9 [degF] 98.9 [degF] eCW1 ( [facility]) Systolic blood pressure 130 mm[Hg] 130 mm[Hg] e CW1 ([facility]) Diastolic blood pressure 72 mm[Hg] 72 mm[Hg] eCW1 ([facility]) Body weight [lb_av] eCW1 ([facility]) Body height 64 [in_i] 64 [in_i] eCW1 ([facility]) Body mass index (BMI) [Ratio] 26.64 kg/m2 26.64 kg/m2 eCW1 ([facility]) Heart rate 98 /min 98 /min eCW1 ([facility]) Respiratory rate 18 /min 18 /min eCW1 ([facility]) Body temperature 97.1 [degF] 97.1 [degF] eCW1 ( [facility]) Systolic blood pressure 130 mm[Hg] 130 mm[Hg] e CW1 ([facility]) Diastolic blood pressure 82 mm[Hg] 82 mm[Hg] eCW1 ([facility]) Body weight 155.2 [lb_av] 155.2 [lb_av] eCW1 ([facility]) Body height 64 [in_i] 64 [in_i] eCW1 ([facility]) Body mass index (BMI) [Ratio] 26.64 kg/m2 26.64 kg/m2 eCW1 ([facility]) Heart rate 98 /min 98 /min eCW1 ([facility]) Respiratory rate 18 /min 18 /min eCW1 ([facility]) Body temperature 97.7 [degF] 97.7 [degF] eCW1 ( [facility]) Systolic blood pressure 122 mm[Hg] 122 mm[Hg] e CW1 ([facility]) Diastolic blood pressure 74 mm[Hg] 74 mm[Hg] eCW1 ([facility]) Body weight 156 [lb_av] 156 [lb_av] eCW1 ([facility]) Body height 64 [in_i] 64 [in_i] eCW1 ([facility]) Body mass index (BMI) [Ratio] 26.77 kg/m2 26.77 kg/m2 eCW1 ([facility]) Heart rate 121 /min 121 /min eCW1 ([facility]) Respiratory rate 18 /min 18 /min eCW1 ([facility]) Body temperature 98.6 [degF] 98.6 [degF] eCW1 ( [facility]) Systolic blood pressure 130 mm[Hg] 130 mm[Hg] e CW1 ([facility]) Diastolic blood pressure 78 mm[Hg] 78 mm[Hg] eCW1 ([facility]) Patient Treatment Plan of Care Planned Activity Planned Date Details Description Data Source (s) Wheelchair - 05/28/2021 12:00:00 AM EDT e CW1 ([facility]) Wheelchair - 05/28/2021 12:00:00 AM EDT e CW1 ([facility]) Bactroban 2% 07/04/2020 12:00:00 AM EST e CW1 ([facility]) Bactroban 2% 07/04/2020 12:00:00 AM EST e CW1 ([facility]) Bactroban 2% 07/04/2020 12:00:00 AM EST e CW1 ([facility]) Bactroban 2% 07/04/2020 12:00:00 AM EST e CW1 ([facility]) Bactroban 2% 07/04/2020 12:00:00 AM EST e CW1 ([facility]) Bactroban 2% 07/04/2020 12:00:00 AM EST e CW1 ([facility]) Bactroban 2% 07/04/2020 12:00:00 AM EST e CW1 ([facility]) Bactroban 2% 07/04/2020 12:00:00 AM EST e CW1 ([facility]) Bactroban 2% 07/04/2020 12:00:00 AM EST e CW1 ([facility]) Bactroban 2% 07/04/2020 12:00:00 AM EST e CW1 ([facility]) Bactroban 2% 07/04/2020 12:00:00 AM EST e CW1 ([facility]) Bactroban 2% 07/04/2020 12:00:00 AM EST e CW1 ([facility]) Ciprofloxacin 500 MG Oral Tablet 07/03/2020 12:00:00 AM EST eCW1 ([facility]) Ciprofloxacin 500 MG Oral Tablet 07/03/2020 12:00:00 AM EST eCW1 ([facility]) Ciprofloxacin 500 MG Oral Tablet 07/03/2020 12:00:00 AM EST eCW1 ([facility]) Ciprofloxacin 500 MG Oral Tablet 07/03/2020 12:00:00 AM EST eCW1 ([facility]) Ciprofloxacin 500 MG Oral Tablet 07/03/2020 12:00:00 AM EST eCW1 ([facility]) Ciprofloxacin 500 MG Oral Tablet 07/03/2020 12:00:00 AM EST eCW1 ([facility]) Ciprofloxacin 500 MG Oral Tablet 07/03/2020 12:00:00 AM EST eCW1 ([facility]) Ciprofloxacin 500 MG Oral Tablet 07/03/2020 12:00:00 AM EST eCW1 ([facility]) Ciprofloxacin 500 MG Oral Tablet 07/03/2020 12:00:00 AM EST eCW1 ([facility]) Ciprofloxacin 500 MG Oral Tablet 07/03/2020 12:00:00 AM EST eCW1 ([facility]) Ciprofloxacin 500 MG Oral Tablet 07/03/2020 12:00:00 AM EST eCW1 ([facility]) Ciprofloxacin 500 MG Oral Tablet 07/03/2020 12:00:00 AM EST eCW1 ([facility]) Ciprofloxacin 500 MG Oral Tablet 07/03/2020 12:00:00 AM EST eCW1 ([facility]) Sulfamethoxazole 800 MG / Trimethoprim 160 MG Oral Tab let [Bactrim] 05/29/2020 12:00:00 AM EDT eCW1 (Count includes the [facility]) Sulfamethoxazole 800 MG / Trimethoprim 160 MG Oral Tab let [Bactrim] 05/29/2020 12:00:00 AM EDT eCW1 (Count includes the [facility]) Sulfamethoxazole 800 MG / Trimethoprim 160 MG Oral Tab let [Bactrim] 05/29/2020 12:00:00 AM EDT eCW1 (Count includes the [facility]) Sulfamethoxazole 800 MG / Trimethoprim 160 MG Oral Tab let [Bactrim] 05/29/2020 12:00:00 AM EDT eCW1 (Count includes the [facility]) NITROFURANTOIN, MACROCRYSTALS 25 MG / Ni trofurantoin, Monohydrate 75 MG Oral Capsule [Macrobid] 05/27/2020 12:00:00 AM EDT eC W1 ([facility]) NITROFURANTOIN, MACROCRYSTALS 25 MG / Ni trofurantoin, Monohydrate 75 MG Oral Capsule [Macrobid] 05/27/2020 12:00:00 AM EDT eC W1 ([facility]) NITROFURANTOIN, MACROCRYSTALS 25 MG / Ni trofurantoin, Monohydrate 75 MG Oral Capsule [Macrobid] 05/27/2020 12:00:00 AM EDT eC W1 ([facility]) NITROFURANTOIN, MACROCRYSTALS 25 MG / Ni trofurantoin, Monohydrate 75 MG Oral Capsule [Macrobid] 05/27/2020 12:00:00 AM EDT eC W1 ([facility])
[2021-06-24] MEDS ORDERED: NS 1,000 ML IV ONE (07:30)
--- OUTSIDE RECORDS SUMMARY | 2021-06-24 07:59 | CCD ---
Author Author [facility] Organization [facility] Address Unknown Phone Unavailable Care Team Providers Care Saddle Mechanic Name Role Phone Carlos Valiente Unavailable Unavailable [...] Unavailable Unavailable Steffanie, Christian MD Unavailable Unavailable Setffanie, Christian MD Unavailable Unavailable Steffanie, Chrsitian MD Unavailable Unavailable Steffanie, Christian MD Unavailable Unavailable Steffanie, Christian MD Unavailable Unavailable Steffanie, Christian MD Unavailable Unavailable Steffanie, Christian MD Unavailable Unavailable Steffanie, Christian MD Unavailable Unavailable Steffanie, Christian MD Unavailable Unavailable Steffanie, Christian MD Unavailable Unavailable Steffanie, Chrisitan MD Unavailable Unavailable Steffanie, Christian MD Unavailable [...] is protected by Article 27-F of the [facility] Public Health law. If you continue you may have access to information: Regarding HIV / AIDS; Provided by facilities licensed or operated by the [facility] Office of Mental Health; or Provided by the [facility] Office for People With Developmental Disabilities. If such information is present, then the following [facility] mandated warning applies: This information has been [...] law may result in a fine or half-way sentence or both. A general authorization for the release of medical or other information is NOT sufficient authorization for further disc losure. Family History Family Member Name Family Member Gender Family Member Status Date o f Status Description Data Source(s) Unknown Male Problem MEDENT ([facility]) Encounters Encounter Providers Location Date Indications Data Source(s ) Unknown [address] [facility] [place] [address] 06/01/2021 12:00:00 AM EDT eCW1 [facility] Unknown [address] [facility] [place] [address] 05/27/2021 12:00:00 AM EDT [facility]CW1 [facility] Unknown [address] [facility] [place] [address] 04/30/2021 12:00:00 AM EDT [facility] Unknown [address] [facility] [place] [address] 04/01/2021 12:00:00 AM EDT eCW1 [facility] Unknown [address] [facility] [place] [address] 02/27/2021 12:00:00 AM EDT eCW1 ([facility] Unknown [address] [facility] [place] [address] 02/25/2021 12:00:00 AM EDT eCW1 ([facility] Outpatient [address] [facility] [place] [address] 02/09/2021 12:00:00 AM EDT eCW1 ([facility] Unknown [address] [facility] [place] [address] 02/09/2021 12:00:00 AM EDT eCW1 ([facility]) Outpatient Attender: Christian Valiente MD Main office - [place] 12/30/2020 11:00:00 AM EDT MEDENT ([facility]) Unknown [address] [facility] [place] [address] 12/15/2020 12:00:00 AM EDT eCW1 ([facility]) Unknown [address] [facility] [address] 12/04/2020 12:00:00 AM EDT eCW1 ([facility]) Outpatient [address] [facility] [place] [address] 10/10/2020 12:00:00 AM EST eCW1 ([facility]) Unknown [address] [facility] [place] [address] 09/11/2020 12:00:00 AM EST eCW1 ([facility]) [place] [address] [facility] [place] [address] 09/02/2020 12:00:00 AM EST eCW1 ([facility]) Unknown [address] [facility] [place] [address] 08/21/2020 12:00:00 AM EST eCW1 ([facility]) Outpatient [address] [place] [address], [place] [address] 07/24/2020 12:00:00 AM EST eCW1 ([facility]) Unknown [address] [facility] [place] [address] 07/24/2020 12:00:00 AM EST eCW1 ([facility]) [place] [address] [facility] [place] [address] 07/10/2020 12:00:00 AM EST eCW1 ([facility]) Unknown [address] [facility] [place] [address] 07/08/2020 12:00:00 AM EST eCW1 ([facility]) Unknown [address] [facility] [place] [address] 07/07/2020 12:00:00 AM EST eCW1 ([facility]) Outpatient [address] [facility] [place] [address] 07/04/2020 12:00:00 AM EST eCW1 ([facility]) Unknown [address] [facility] [place] [address] 07/04/2020 12:00:00 AM EST eCW1 ([facility]) Unknown [address] [facility] [place] [address] 07/03/2020 12:00:00 AM EST eCW1 ([facility]) Unknown [address] [facility] [place] [address] 07/03/2020 12:00:00 AM EST eCW1 ([facility]) Unknown [address] [facility] [place] [address] 07/03/2020 12:00:00 AM EST eCW1 ([facility]) Office Visit, Est Pt., Level 4 PC [address] [place] [address] 06/13/2020 12:00:00 AM EDT eCW1 ([facility]) Unknown [address] [facility] [place] [address] 06/10/2020 12:00:00 AM EDT eCW1 ([facility]) Unknown [address] [facility] [place] [address] 06/09/2020 12:00:00 AM EDT eCW1 ([facility]) Unknown [address] [facility] [place] [address] 05/29/2020 12:00:00 AM EDT eCW1 ([facility]) Outpatient [address] [facility] [place] [address] 05/27/2020 12:00:00 AM EDT eCW1 ([facility]) Unknown [address] [facility] [place] [address] 05/26/2020 12:00:00 AM EDT eCW1 ([facility]) Unknown [address] [facility] [place] [address] 05/26/2020 12:00:00 AM EDT eCW1 ([facility]) Outpatient Attender: Christian Valiente MD Main office - [place] 05/12/2020 10:00:00 AM EDT MEDENT ([facility]) Immunizations Vaccine Date Status Description Data Source(s) COVID-19 VACCINE Moderna 11/19/2020 12:00:00 AM EDT completed [facility] Vaccine Series Complete: YESThis Data wa s Submitted to [facility] Via [employer]. COVID-19 VACCINE Moderna 10/22/2020 12:00:00 AM EST completed [facility] Vaccine Series Complete: NOThis Data was Submitted to [facility] Via [employer]. 07/24/2020 11:41:00 AM EST completed e CW1 ([facility]) 07/24/2020 11:41:00 AM EST completed e CW1 ([facility]) 07/24/2020 11:41:00 AM EST completed e CW1 ([facility]) 07/24/2020 11:41:00 AM EST completed e CW1 ([facility]) 07/24/2020 11:41:00 AM EST completed e CW1 ([facility]) 07/24/2020 11:41:00 AM EST completed e CW1 ([facility]) 07/24/2020 11:41:00 AM EST completed e CW1 ([facility]) 07/24/2020 11:41:00 AM EST completed e CW1 ([facility]) 07/24/2020 11:41:00 AM EST completed e CW1 ([facility]) 07/24/2020 11:41:00 AM EST completed e CW1 ([facility]) 07/24/2020 11:41:00 AM EST completed e CW1 ([facility]) 07/24/2020 11:41:00 AM EST completed e CW1 ([facility]) 07/24/2020 11:41:00 AM EST completed e CW1 ([facility]) 07/24/2020 11:41:00 AM EST completed e CW1 ([facility]) 07/24/2020 11:41:00 AM EST completed e CW1 ([facility]) 07/24/2020 11:41:00 AM EST completed e CW1 ([facility]) Medications Medication Brand Name Start Date Product Form Dose Route Admi nistrative Instructions Pharmacy Instructions Status Indications Reaction Description Data Source(s) Wheelchair - Wheelchair - 05/28/2021 12:00:00 AM EDT active Wheelchair - eCW1 ([facility]) Wheelchair - Wheelchair - 05/28/2021 12:00:00 AM EDT active Wheelchair - eCW1 ([facility]) dimethyl fumarate 240 MG Delayed Release Oral Capsule Dimeth yl Fumarate 07/11/2020 12:00:00 AM EST active MEDENT ([facility]) Bactroban 2% UNK 07/04/2020 12:00:00 AM EST activ e Bactroban 2% eCW1 ([facility]) Bactroban 2% UNK 07/04/2020 12:00:00 AM EST activ e Bactroban 2% eCW1 ([facility]) Bactroban 2% UNK 07/04/2020 12:00:00 AM EST activ e Bactroban 2% eCW1 ([facility]) Bactroban 2% UNK 07/04/2020 12:00:00 AM EST activ e Bactroban 2% eCW1 ([facility]) Bactroban 2% UNK 07/04/2020 12:00:00 AM EST activ e Bactroban 2% eCW1 ([facility]) Bactroban 2% UNK 07/04/2020 12:00:00 AM EST activ e Bactroban 2% eCW1 ([facility]) Bactroban 2% UNK 07/04/2020 12:00:00 AM EST activ e Bactroban 2% eCW1 ([facility]) Bactroban 2% UNK 07/04/2020 12:00:00 AM EST activ e Bactroban 2% eCW1 ([facility]) Bactroban 2% UNK 07/04/2020 12:00:00 AM EST activ e Bactroban 2% eCW1 ([facility]) Bactroban 2% UNK 07/04/2020 12:00:00 AM EST activ e Bactroban 2% eCW1 ([facility]) Bactroban 2% UNK 07/04/2020 12:00:00 AM EST activ e Bactroban 2% eCW1 ([facility]) Bactroban 2% UNK 07/04/2020 12:00:00 AM EST activ e Bactroban 2% eCW1 ([facility]) Ciprofloxacin 500 MG Oral Tablet Ciprofloxacin HCl 500 MG Ciprofloxacin HCl 500 MG 07/03/2020 12:00:00 AM EST 1.0 {tablet} activ e Ciprofloxacin HCl 500 MG eCW1 ([facility]) Ciprofloxacin 500 MG Oral Tablet Ciprofloxacin HCl 500 MG Ciprofloxacin HCl 500 MG 07/03/2020 12:00:00 AM EST 1.0 {tablet} activ e Ciprofloxacin HCl 500 MG eCW1 ([facility]) Ciprofloxacin 500 MG Oral Tablet Ciprofloxacin HCl 500 MG Ciprofloxacin HCl 500 MG 07/03/2020 12:00:00 AM EST 1.0 {tablet} activ e Ciprofloxacin HCl 500 MG eCW1 ([facility]) Ciprofloxacin 500 MG Oral Tablet Ciprofloxacin HCl 500 MG Ciprofloxacin HCl 500 MG 07/03/2020 12:00:00 AM EST 1.0 {tablet} activ e Ciprofloxacin HCl 500 MG eCW1 ([facility]) Ciprofloxacin 500 MG Oral Tablet Ciprofloxacin HCl 500 MG Ciprofloxacin HCl 500 MG 07/03/2020 12:00:00 AM EST 1.0 {tablet} activ e Ciprofloxacin HCl 500 MG eCW1 ([facility]) Ciprofloxacin 500 MG Oral Tablet Ciprofloxacin HCl 500 MG Ciprofloxacin HCl 500 MG 07/03/2020 12:00:00 AM EST 1.0 {tablet} activ e Ciprofloxacin HCl 500 MG eCW1 ([facility]) Ciprofloxacin 500 MG Oral Tablet Ciprofloxacin HCl 500 MG Ciprofloxacin HCl 500 MG 07/03/2020 12:00:00 AM EST 1.0 {tablet} activ e Ciprofloxacin HCl 500 MG eCW1 ([facility]) Ciprofloxacin 500 MG Oral Tablet Ciprofloxacin HCl 500 MG Ciprofloxacin HCl 500 MG 07/03/2020 12:00:00 AM EST 1.0 {tablet} activ e Ciprofloxacin HCl 500 MG eCW1 ([facility]) Ciprofloxacin 500 MG Oral Tablet Ciprofloxacin HCl 500 MG Ciprofloxacin HCl 500 MG 07/03/2020 12:00:00 AM EST 1.0 {tablet} activ e Ciprofloxacin HCl 500 MG eCW1 ([facility]) Ciprofloxacin 500 MG Oral Tablet Ciprofloxacin HCl 500 MG Ciprofloxacin HCl 500 MG 07/03/2020 12:00:00 AM EST 1.0 {tablet} activ e Ciprofloxacin HCl 500 MG eCW1 ([facility]) Ciprofloxacin 500 MG Oral Tablet Ciprofloxacin HCl 500 MG Ciprofloxacin HCl 500 MG 07/03/2020 12:00:00 AM EST 1.0 {tablet} activ e Ciprofloxacin HCl 500 MG eCW1 ([facility]) Ciprofloxacin 500 MG Oral Tablet Ciprofloxacin HCl 500 MG Ciprofloxacin HCl 500 MG 07/03/2020 12:00:00 AM EST 1.0 {tablet} activ e Ciprofloxacin HCl 500 MG eCW1 ([facility]) Ciprofloxacin 500 MG Oral Tablet Ciprofloxacin HCl 500 MG Ciprofloxacin HCl 500 MG 07/03/2020 12:00:00 AM EST 1.0 {tablet} activ e Ciprofloxacin HCl 500 MG eCW1 ([facility]) Sulfamethoxazole 800 MG / Trimethoprim 1 60 MG Oral Tablet [Bactrim] Bactrim DS 800-160 MG Bactrim DS 800-160 MG 05/29/2020 12:00:00 AM EDT 1.0 {table t} active Bactrim DS 800-160 MG eCW1 ( [facility]) Sulfamethoxazole 800 MG / Trimethoprim 1 60 MG Oral Tablet [Bactrim] Bactrim DS 800-160 MG Bactrim DS 800-160 MG 05/29/2020 12:00:00 AM EDT 1.0 {table t} active Bactrim DS 800-160 MG eCW1 ( [facility]) Sulfamethoxazole 800 MG / Trimethoprim 1 60 MG Oral Tablet [Bactrim] Bactrim DS 800-160 MG Bactrim DS 800-160 MG 05/29/2020 12:00:00 AM EDT 1.0 {table t} active Bactrim DS 800-160 MG eCW1 ( [facility]) Sulfamethoxazole 800 MG / Trimethoprim 1 60 MG Oral Tablet [Bactrim] Bactrim DS 800-160 MG Bactrim DS 800-160 MG 05/29/2020 12:00:00 AM EDT 1.0 {table t} active Bactrim DS 800-160 MG eCW1 ( [facility]) Sulfamethoxazole 800 MG / Trimethoprim 1 60 MG Oral Tablet [Bactrim] Bactrim DS 800-160 MG Bactrim DS 800-160 MG 05/29/2020 12:00:00 AM EDT 1.0 {table t} active Bactrim DS 800-160 MG eCW1 ( [facility]) Sulfamethoxazole 800 MG / Trimethoprim 1 60 MG Oral Tablet [Bactrim] Bactrim DS 800-160 MG Bactrim DS 800-160 MG 05/29/2020 12:00:00 AM EDT 1.0 {table t} active Bactrim DS 800-160 MG eCW1 ( [facility]) Sulfamethoxazole 800 MG / Trimethoprim 1 60 MG Oral Tablet [Bactrim] Bactrim DS 800-160 MG Bactrim DS 800-160 MG 05/29/2020 12:00:00 AM EDT 1.0 {table t} active Bactrim DS 800-160 MG eCW1 ( [facility]) NITROFURANTOIN, MACROCRYSTALS 25 MG / Ni trofurantoin, Monohydrate 75 MG Oral Capsule [Macrobid] Macrobid 100 MG Macrobid 100 MG 05/27/2020 12:00:00 AM EDT 1.0 {capsule_with_food} active Macrobid 100 MG eCW1 ([facility]) NITROFURANTOIN, MACROCRYSTALS 25 MG / Ni trofurantoin, Monohydrate 75 MG Oral Capsule [Macrobid] Macrobid 100 MG Macrobid 100 MG 05/27/2020 12:00:00 AM EDT 1.0 {capsule_with_food} active Macrobid 100 MG eCW1 ([facility]) NITROFURANTOIN, MACROCRYSTALS 25 MG / Ni trofurantoin, Monohydrate 75 MG Oral Capsule [Macrobid] Macrobid 100 MG Macrobid 100 MG 05/27/2020 12:00:00 AM EDT 1.0 {capsule_with_food} active Macrobid 100 MG eCW1 ([facility]) NITROFURANTOIN, MACROCRYSTALS 25 MG / Ni trofurantoin, Monohydrate 75 MG Oral Capsule [Macrobid] Macrobid 100 MG Macrobid 100 MG 05/27/2020 12:00:00 AM EDT 1.0 {capsule_with_food} active Macrobid 100 MG eCW1 ([facility]) NITROFURANTOIN, MACROCRYSTALS 25 MG / Ni trofurantoin, Monohydrate 75 MG Oral Capsule [Macrobid] Macrobid 100 MG Macrobid 100 MG 05/27/2020 12:00:00 AM EDT 1.0 {capsule_with_food} active Macrobid 100 MG eCW1 ([facility]) NITROFURANTOIN, MACROCRYSTALS 25 MG / Ni trofurantoin, Monohydrate 75 MG Oral Capsule [Macrobid] Macrobid 100 MG Macrobid 100 MG 05/27/2020 12:00:00 AM EDT 1.0 {capsule_with_food} active Macrobid 100 MG eCW1 ([facility]) NITROFURANTOIN, MACROCRYSTALS 25 MG / Ni trofurantoin, Monohydrate 75 MG Oral Capsule [Macrobid] Macrobid 100 MG Macrobid 100 MG 05/27/2020 12:00:00 AM EDT 1.0 {capsule_with_food} active Macrobid 100 MG eCW1 ([facility]) Insurance Providers Payer name Policy type / Coverage type Policy ID Covered constitution party ID Covered constitution party's relationship to cooper Policy Cooper Plan Information [id number] A MEDICARE COMPLETE [id number] Medicaid [facility] Part B [id number] Self [id number] [facility] Commercial [id number] Self [id number] [place] [id number] 22899.0 Self [id number] Medicaid [place] Medigap Part B [id number] 81929.0 Self [id number] [facility] ([facility]) Commercial [id number] Self [id number] [facility] [id number] 08439.0 Self [id number] [place] [id number] 95559.0 Self [id number] [facility] ([facility]) Commercial [id number] Self [id number] Medicaid [facility] Part B [id number] 98066.0 Self [id number] [facility] ([facility]) Commercial [id number] Self [id number] [place] [facility] Commercial [id number] Self [id number] [place] [facility] [place] [id number] Self [id number] MEDICARE COMPLETE [id number] SP [id number] ANSI-Medicaid [id number] ANSI-Medicare Part B [id number] ANSI-Medicaid [id number] ANSI-Medicare Part B [id number] ANSI-Medicaid [id number] ANSI-Medicare Part B [id number] ANSI-Medicaid [id number] ANSI-Medicare Part B [id number] ANSI-Medicaid [id number] ANSI-Medicare Part B [id number] ANSI-Medicaid [id number] ANSI-Medicare Part B [id number] ANSI-Medicaid [id number] ANSI-Medicare Part B [id number] ANSI-Medicare Part B [id number] ANSI-Medicaid [id number] ANSI-Medicaid [id number] ANSI-Medicare Part B [id number] ANSI-Medicare Part B [id number] ANSI-Medicaid [id number] ANSI-Medicaid [id number] ANSI-Medicare Part B [id number] ANSI-Medicaid [id number] ANSI-Medicare Part B [id number] ANSI-Medicaid [id number] ANSI-Medicare Part B [id number] ANSI-Medicare Part B [id number] ANSI-Medicaid [id number] ANSI-Medicare Part B [id number] ANSI-Medicaid [id number] ANSI-Medicaid [id number] ANSI-Medicare Part B [id number] ANSI-Medicare Part B [id number] ANSI-Medicaid [id number] ANSI-Medicaid [id number] ANSI-Medicare Part B [id number] ANSI-Medicare Part B [id number] ANSI-Medicaid [id number] ANSI-Medicare Part B [id number] ANSI-Medicaid [id number] ANSI-Medicare Part B [id number] ANSI-Medicaid [id number] ANSI-Medicare Part B [id number] ANSI-Medicaid [id number] [facility] [id number] ANSI-Medicaid [id number] MEDICARE COMPLETE [id number] SP [id number] [facility] [employer] BiotechnologyB[facility]ITAL[facility] [employer] [id number] Self [id number] Medicaid [facility] Part B [id number] 47045.0 Self [id number] [place] [facility] [employer] [id number] Self [id number] MEDICARE COMPLETE-UHC O [id number] S [id number] MEDICARE [id number] SP [id number] A Medicaid [facility] Part B [id number] 62274.0 Self [id number] [place] [facility]) [employer] [id number] Self [id number] SELF PAY UNAVAILABLE SP UNAVAILA BLE [id number] Medicaid [place] Medigap Part B [id number] 54307.0 Self [id number] [facility] MEDICAID [id number] SP [id number] MEDICARE COMPLETE [id number] SP [id number] MEDICARE COMPLETE [id number] SP [id number] [place] [id number] SP [id number] MEDICARE COMPLETE-UHC O [id number] S [id number] MEDICAID M [id number] S [id number] MEDICARE COMPLETE [id number] SP [id number] MEDICAID [id number] SP [id number] MEDICARE [id number] SP [id number] MEDICARE COMPLETE [id number] SP [id number] ANS-Medicaid [id number] [facility]-Medicare Part B [id number] Problems, Conditions, and Diagnoses Code Display Name Description Problem Type Effective Dates Data Source(s) G82.20 00548897 Paraplegia Problem 05/28/2021 12:00:00 AM ED T eCW1 ([facility]) Surgeries/Procedures Procedure Description Date Indications Data Source(s) Unclassified biologics 02/09/2021 12:00:00 AM EDT eCW1 ([facility]) Unclassified biologics 07/24/2020 12:00:00 AM EST [facility] [facility]) Results ID Date Data Source Reticulocyte Count Sysmex 07/09/2020 12:00:00 AM EST eCW1 ([facility]) Name Value Range Interpretation Code Description Data Steffanie rce(s) Supporting Document(s) 1.7 0.5-1.5 W1 ([facility]) ID Date Data Source LIPID PANEL (CARDIAC RISK) 07/09/2020 12:00:00 AM EST eCW1 ( [facility]) Name Value Range Interpretation Code Description Data Steffanie rce(s) Supporting Document(s) Cholesterol in LDL [Mass/volume] in Serum or Plasma by calculation 89 <100 LDL CHOLESTEROL eCW1 ([facility]) Triglyceride [Mass/volume] in Serum or Plasma by calculation 160 <150 TRIGLYCERIDES LEVEL eCW1 ([facility]) Cholesterol [Moles/volume] in Serum or Plasma 172 <200 CHOLESTEROL LEVEL eCW1 ([facility]) Cholesterol in HDL [Moles/volume] in Serum or Plasma 51 >40 HDL CHOLESTEROL eCW1 ([facility]) 3.372 <5 CHOLESTEROL RISK RATIO eCW1 ([facility]) 121 NON-HDL-C eCW1 ([facility]) ID Date Data Source VITAMIN D 25-HYDROXY 07/09/2020 12:00:00 AM EST eCW1 ([facility]) Name Value Range Interpretation Code Description Data Steffanie rce(s) Supporting Document(s) 57.2 30.0-100.0 TOTAL 25(OH) VITAMIN D eC W1 ([facility]) ID Date Data Source PTH INTACT 07/09/2020 12:00:00 AM EST eCW1 ([facility]) Name Value Range Interpretation Code Description Data Steffanie rce(s) Supporting Document(s) 69.3 18.5-88.0 PTH INTACT eCW1 ([facility]) ID Date Data Source [id number] 07/09/2020 12:00:00 AM EST eCW1 ([facility]) Name Value Range Interpretation Code Description Data Steffanie rce(s) Supporting Document(s) Hemoglobin A1c/Hemoglobin.total in Blood 5.3 eCW1 ([facility]) ID Date Data Source FREE T4 & TSH PANEL 07/09/2020 12:00:00 AM EST eCW1 ([facility]) Name Value Range Interpretation Code Description Data Steffanie rce(s) Supporting Document(s) 0.91 0.76-1.46 FREE T4 eCW1 ([facility]) 1.160 0.358-3.740 THYROID STIMULATING HORM ONE eCW1 ([facility]) ID Date Data Source Comprehensive Metabolic Profile (CMP) 07/09/2020 12:00:00 AM EST eCW1 ([facility]) Name Value Range Interpretation Code Description Data Steffanie rce(s) Supporting Document(s) 23 7-18 BLOOD UREA NITROGEN eCW1 ([facility]) > 60.0 >39 GLOMERULAR FILTRATION RATE eCW 1 ([facility]) 78 70-100 GLUCOSE, FASTING eCW1 ([facility]) 0.66 0.55-1.30 CREATININE FOR GFR eCW1 ([facility]) 4.1 3.5-5.1 POTASSIUM SERUM eCW1 ([facility]) 31 21-32 CARBON DIOXIDE LEVEL eCW1 ([facility]) 140 136-145 SODIUM LEVEL eCW1 ([facility]) 105 98-107 CHLORIDE LEVEL eCW1 ([facility]) 9.5 8.8-10.2 CALCIUM LEVEL eCW1 ([facility]) 20 7-37 AST/SGOT eCW1 ([facility]) 36 12-78 ALT/SGPT eCW1 ([facility]) 0.3 0.2-1.0 BILIRUBIN,TOTAL eCW1 ([facility]) 77 45-117 ALKALINE PHOSPHATASE eCW1 ([facility]) 6.8 6.4-8.2 TOTAL PROTEIN eCW1 ([facility]) 3.5 3.2-5.2 ALBUMIN eCW1 ([facility]) 1.1 1.2-2.2 ALBUMIN/GLOBULIN RATIO eCW1 ([facility]) ID Date Data Source CBC with Differential 07/09/2020 12:00:00 AM EST eCW1 ([facility]) Name Value Range Interpretation Code Description Data Steffanie rce(s) Supporting Document(s) 4.6 4.0-10.0 WHITE BLOOD COUNT eCW1 ([facility]) 3.87 4.00-5.40 RED BLOOD COUNT eCW1 ([facility]) 98.7 80.0-96.0 MEAN CORPUSCULAR VOLUME e CW1 ([facility]) 12.4 12.0-15.5 HEMOGLOBIN eCW1 ([facility]) 38.2 36.0-47.0 HEMATOCRIT eCW1 ([facility]) 32.0 27.0-33.0 MEAN CORPUSCULAR HEMOGLOB IN eCW1 ([facility]) 61.6 36.0-66.0 NEUTROPHILS % eCW1 ([facility]) 13.2 11.5-14.5 RED CELL DISTRIBUTION WID TH eCW1 ([facility]) 32.5 32.0-36.5 MEAN CORPUSCULAR HGB CONC eCW1 ([facility]) 16.4 24.0-44.0 LYMPH % eCW1 ([facility]) 251 150-450 PLATELET COUNT, AUTOMATED eCW1 ([facility]) 2.8 1.5-8.5 NEUTROPHILS # eCW1 ([facility]) 7.6 0.0-3.0 EOS % eCW1 ([facility]) 1.1 0.0-1.0 BASO % eCW1 ([facility]) 12.9 0.0-5.0 MONO % eCW1 ([facility]) 0.4 0.0-0.5 EOS # eCW1 ([facility]) 0.6 0.0-0.8 MONO # eCW1 ([facility]) 0.1 0.0-0.2 BASO # eCW1 ([facility]) 0.8 1.5-5.0 LYMPH # eCW1 ([facility]) ID Date Data Source UA URINALYSIS 07/03/2020 04:36:19 AM EST eCW1 ([facility]) Name Value Range Interpretation Code Description Data Steffanie rce(s) Supporting Document(s) Laboratory studies (set) UA URINALYS IS eCW1 ([facility]) ID Date Data Source URINE CULTURE 05/29/2020 05:49:45 AM EDT W1 ([facility]) Name Value Range Interpretation Code Description Data Steffanie rce(s) Supporting Document(s) Laboratory studies (set) URINE CULTU RE W1 ([facility]) ID Date Data Source Urinalysis, no micro 05/27/2020 12:55:13 PM EDT eCW1 ([facility]) Name Value Range Interpretation Code Description Data Steffanie rce(s) Supporting Document(s) 9.0 pH W1 ([facility]) + Nitrate eCW1 ([facility]) 2+ Leukocyte eCW1 ([facility]) 1.005 Spec gravity eCW1 ([facility]) nl Glucose eCW1 ([facility]) neg Ketones eCW1 ([facility]) trace Protein eCW1 ([facility]) neg Urobili eCW1 ([facility]) 50 Blood eCW1 ([facility]) neg Bilirubin eCW1 ([facility]) yes Internal QC Acceptable (Y/N) e CW1 ([facility]) Procedure Social History Code Duration Value Status Description Data Source(s ) Smoking 02/09/2021 12:00:00 AM EDT Never Smoker completed Never S moker eCW1 ([facility]) Smoking 02/09/2021 12:00:00 AM EDT Never Smoker completed Never S moker eCW1 ([facility]) Smoking 02/09/2021 12:00:00 AM EDT Never Smoker completed Never S moker eCW1 ([facility]) Smoking 02/09/2021 12:00:00 AM EDT Never Smoker completed Never S moker eCW1 ([facility]) Smoking 02/09/2021 12:00:00 AM EDT Never Smoker completed Never S moker eCW1 ([facility]) Smoking 02/09/2021 12:00:00 AM EDT Never Smoker completed Never S moker eCW1 ([facility]) Smoking 02/09/2021 12:00:00 AM EDT Never Smoker completed Never S moker eCW1 ([facility]) Smoking 02/09/2021 12:00:00 AM EDT Never Smoker completed Never S moker eCW1 ([facility]) Smoking 10/10/2020 12:00:00 AM EST Never Smoker completed Never S moker eCW1 ([facility]) Smoking 10/10/2020 12:00:00 AM EST Never Smoker completed Never S moker eCW1 ([facility]) Smoking 10/10/2020 12:00:00 AM EST Never Smoker completed Never S moker eCW1 ([facility]) Smoking 07/04/2020 12:00:00 AM EST Never Smoker completed Never S moker eCW1 ([facility]) Smoking 07/04/2020 12:00:00 AM EST Never Smoker completed Never S moker eCW1 ([facility]) Smoking 07/04/2020 12:00:00 AM EST Never Smoker completed Never S moker eCW1 ([facility]) Smoking 07/04/2020 12:00:00 AM EST Never Smoker completed Never S moker eCW1 ([facility]) Smoking 07/04/2020 12:00:00 AM EST Never Smoker completed Never S moker eCW1 ([facility]) Smoking 07/04/2020 12:00:00 AM EST Never Smoker completed Never S moker eCW1 ([facility]) Smoking 07/04/2020 12:00:00 AM EST Never Smoker completed Never S moker eCW1 ([facility]) Smoking 07/04/2020 12:00:00 AM EST Never Smoker completed Never S moker eCW1 ([facility]) Smoking 07/04/2020 12:00:00 AM EST Never Smoker completed Never S moker eCW1 ([facility]) Smoking 07/04/2020 12:00:00 AM EST Never Smoker completed Never S moker eCW1 ([facility]) Smoking 07/04/2020 12:00:00 AM EST Never Smoker completed Never S moker eCW1 ([facility]) Smoking 07/04/2020 12:00:00 AM EST Never Smoker completed Never S moker eCW1 ([facility]) Smoking 06/13/2020 12:00:00 AM EDT Never Smoker completed Never S moker eCW1 ([facility]) Smoking 06/13/2020 12:00:00 AM EDT Never Smoker completed Never S moker eCW1 ([facility]) Smoking 06/13/2020 12:00:00 AM EDT Never Smoker completed Never S moker eCW1 ([facility]) Smoking 05/27/2020 12:00:00 AM EDT Never Smoker completed Never S moker eCW1 ([facility]) Smoking 05/27/2020 12:00:00 AM EDT Never Smoker completed Never S moker eCW1 ([facility]) Smoking 05/27/2020 12:00:00 AM EDT Never Smoker completed Never S moker eCW1 ([facility]) Smoking 05/27/2020 12:00:00 AM EDT Never Smoker completed Never S moker eCW1 ([facility]) Vital Signs ID Date Data Source UNK Name Value Range Interpretation Code Description Data Source(s) Body temperature 97.8 [degF] 97.8 [degF] eCW1 ( [facility]) Systolic blood pressure 138 mm[Hg] 138 mm[Hg] e CW1 ([facility]) Diastolic blood pressure 70 mm[Hg] 70 mm[Hg] eCW1 ([facility]) Body weight 163.6 [lb_av] 163.6 [lb_av] eCW1 ([facility]) Body height 64 [in_i] 64 [in_i] eCW1 ([facility]) Body mass index (BMI) [Ratio] 28.08 kg/m2 28.08 kg/m2 eCW1 ([facility]) Heart rate 120 /min 120 /min eCW1 ([facility]) Respiratory rate 18 /min 18 /min eCW1 ([facility]) Body weight 155 [lb_av] 155 [lb_av] eCW1 ([facility]) Body height 64 [in_i] 64 [in_i] eCW1 ([facility]) Body mass index (BMI) [Ratio] 26.60 kg/m2 26.60 kg/m2 eCW1 ([facility]) Heart rate 108 /min 108 /min eCW1 ([facility]) Respiratory rate 18 /min 18 /min eCW1 ([facility]) Body temperature 98.9 [degF] 98.9 [degF] eCW1 ( [facility]) Systolic blood pressure 130 mm[Hg] 130 mm[Hg] e CW1 ([facility]) Diastolic blood pressure 72 mm[Hg] 72 mm[Hg] eCW1 ([facility]) Body weight [lb_av] eCW1 ([facility]) Body height 64 [in_i] 64 [in_i] eCW1 ([facility]) Body mass index (BMI) [Ratio] 26.64 kg/m2 26.64 kg/m2 eCW1 ([facility]) Heart rate 98 /min 98 /min eCW1 ([facility]) Respiratory rate 18 /min 18 /min eCW1 ([facility]) Body temperature 97.1 [degF] 97.1 [degF] eCW1 ( [facility]) Systolic blood pressure 130 mm[Hg] 130 mm[Hg] e CW1 ([facility]) Diastolic blood pressure 82 mm[Hg] 82 mm[Hg] eCW1 ([facility]) Body weight 155.2 [lb_av] 155.2 [lb_av] eCW1 ([facility]) Body height 64 [in_i] 64 [in_i] eCW1 ([facility]) Body mass index (BMI) [Ratio] 26.64 kg/m2 26.64 kg/m2 eCW1 ([facility]) Heart rate 98 /min 98 /min eCW1 ([facility]) Respiratory rate 18 /min 18 /min eCW1 ([facility]) Body temperature 97.7 [degF] 97.7 [degF] eCW1 ( [facility]) Systolic blood pressure 122 mm[Hg] 122 mm[Hg] e CW1 ([facility]) Diastolic blood pressure 74 mm[Hg] 74 mm[Hg] eCW1 ([facility]) Body weight 156 [lb_av] 156 [lb_av] eCW1 ([facility]) Body height 64 [in_i] 64 [in_i] eCW1 ([facility]) Body mass index (BMI) [Ratio] 26.77 kg/m2 26.77 kg/m2 eCW1 ([facility]) Heart rate 121 /min 121 /min eCW1 ([facility]) Respiratory rate 18 /min 18 /min eCW1 ([facility]) Body temperature 98.6 [degF] 98.6 [degF] eCW1 ( [facility]) Systolic blood pressure 130 mm[Hg] 130 mm[Hg] e CW1 ([facility]) Diastolic blood pressure 78 mm[Hg] 78 mm[Hg] eCW1 ([facility]) Patient Treatment Plan of Care Planned Activity Planned Date Details Description Data Source (s) Wheelchair - 05/28/2021 12:00:00 AM EDT e CW1 ([facility]) Wheelchair - 05/28/2021 12:00:00 AM EDT e CW1 ([facility]) Bactroban 2% 07/04/2020 12:00:00 AM EST e CW1 ([facility]) Bactroban 2% 07/04/2020 12:00:00 AM EST e CW1 ([facility]) Bactroban 2% 07/04/2020 12:00:00 AM EST e CW1 ([facility]) Bactroban 2% 07/04/2020 12:00:00 AM EST e CW1 ([facility]) Bactroban 2% 07/04/2020 12:00:00 AM EST e CW1 ([facility]) Bactroban 2% 07/04/2020 12:00:00 AM EST e CW1 ([facility]) Bactroban 2% 07/04/2020 12:00:00 AM EST e CW1 ([facility]) Bactroban 2% 07/04/2020 12:00:00 AM EST e CW1 ([facility]) Bactroban 2% 07/04/2020 12:00:00 AM EST e CW1 ([facility]) Bactroban 2% 07/04/2020 12:00:00 AM EST e CW1 ([facility]) Bactroban 2% 07/04/2020 12:00:00 AM EST e CW1 ([facility]) Bactroban 2% 07/04/2020 12:00:00 AM EST e CW1 ([facility]) Ciprofloxacin 500 MG Oral Tablet 07/03/2020 12:00:00 AM EST eCW1 ([facility]) Ciprofloxacin 500 MG Oral Tablet 07/03/2020 12:00:00 AM EST eCW1 ([facility]) Ciprofloxacin 500 MG Oral Tablet 07/03/2020 12:00:00 AM EST eCW1 ([facility]) Ciprofloxacin 500 MG Oral Tablet 07/03/2020 12:00:00 AM EST eCW1 ([facility]) Ciprofloxacin 500 MG Oral Tablet 07/03/2020 12:00:00 AM EST eCW1 ([facility]) Ciprofloxacin 500 MG Oral Tablet 07/03/2020 12:00:00 AM EST eCW1 ([facility]) Ciprofloxacin 500 MG Oral Tablet 07/03/2020 12:00:00 AM EST eCW1 ([facility]) Ciprofloxacin 500 MG Oral Tablet 07/03/2020 12:00:00 AM EST eCW1 ([facility]) Ciprofloxacin 500 MG Oral Tablet 07/03/2020 12:00:00 AM EST eCW1 ([facility]) Ciprofloxacin 500 MG Oral Tablet 07/03/2020 12:00:00 AM EST eCW1 ([facility]) Ciprofloxacin 500 MG Oral Tablet 07/03/2020 12:00:00 AM EST eCW1 ([facility]) Ciprofloxacin 500 MG Oral Tablet 07/03/2020 12:00:00 AM EST eCW1 ([facility]) Ciprofloxacin 500 MG Oral Tablet 07/03/2020 12:00:00 AM EST eCW1 ([facility]) Sulfamethoxazole 800 MG / Trimethoprim 160 MG Oral Tab let [Bactrim] 05/29/2020 12:00:00 AM EDT eCW1 ([facility]) Sulfamethoxazole 800 MG / Trimethoprim 160 MG Oral Tab let [Bactrim] 05/29/2020 12:00:00 AM EDT eCW1 ([facility]) Sulfamethoxazole 800 MG / Trimethoprim 160 MG Oral Tab let [Bactrim] 05/29/2020 12:00:00 AM EDT eCW1 ([facility]) Sulfamethoxazole 800 MG / Trimethoprim 160 MG Oral Tab let [Bactrim] 05/29/2020 12:00:00 AM EDT eCW1 ([facility]) NITROFURANTOIN, MACROCRYSTALS 25 MG / Ni trofurantoin, Monohydrate 75 MG Oral Capsule [Macrobid] 05/27/2020 12:00:00 AM EDT eC W1 ([facility]) NITROFURANTOIN, MACROCRYSTALS 25 MG / Ni trofurantoin, Monohydrate 75 MG Oral Capsule [Macrobid] 05/27/2020 12:00:00 AM EDT eC W1 ([facility]) NITROFURANTOIN, MACROCRYSTALS 25 MG / Ni trofurantoin, Monohydrate 75 MG Oral Capsule [Macrobid] 05/27/2020 12:00:00 AM EDT eC W1 ([facility]) NITROFURANTOIN, MACROCRYSTALS 25 MG / Ni trofurantoin, Monohydrate 75 MG Oral Capsule [Macrobid] 05/27/2020 12:00:00 AM EDT eC W1 ([facility])
[2021-06-24 08:18] LABS: BASO # 0.1 10^3/uL (0.0-0.2); BASO % 0.7 % (0.0-1.0); EOS # 0.1 10^3/uL (0.0-0.5); EOS % 1.1 % (0.0-3.0); HEMATOCRIT 42.2 % (36.0-47.0); HEMOGLOBIN 13.7 g/dl (12.0-15.5); LYMPH # 0.3 10^3/uL (1.5-5.0); LYMPH % 4.4 % (24.0-44.0); MEAN CORPUSCULAR HEMOGLOBIN 30.8 pg (27.0-33.0); MEAN CORPUSCULAR HGB CONC 32.5 g/dl (32.0-36.5); MEAN CORPUSCULAR VOLUME 94.8 fl (80.0-96.0); MONO # 0.5 10^3/uL (0.0-0.8); MONO % 6.5 % (2.0-8.0); NEUTROPHILS # 6.2 10^3/uL (1.5-8.5); NEUTROPHILS % 86.9 % (36.0-66.0); PLATELET COUNT, AUTOMATED 205 10^3/uL (150-450); RED BLOOD COUNT 4.45 10^6/uL (4.00-5.40); WHITE BLOOD COUNT 7.1 10^3/uL (4.0-10.0)
[2021-06-24 08:57] LABS: BLOOD UREA NITROGEN 20 MG/DL (7-18); CALCIUM LEVEL 10.1 MG/DL (8.8-10.2); CARBON DIOXIDE LEVEL 28 MEQ/L (21-32); CHLORIDE LEVEL 108 MEQ/L (98-107); CREATININE FOR GFR 0.66 MG/DL (0.55-1.30); GLOMERULAR FILTRATION RATE > 60.0 (>39); GLUCOSE, FASTING 110 MG/DL (70-100); POTASSIUM SERUM 3.8 MEQ/L (3.5-5.1); SODIUM LEVEL 140 MEQ/L (136-145)
--- NOTE | 2021-06-24 10:10 | REP ---
INDICATION: r/o obstructive pyelo. COMPARISON: Multiple the latest 06/07/2019 also without contrast TECHNIQUE: Standard helical technique without intravenous or oral bowel preparatory contrast. FINDINGS: Chronic changes are seen in the lung bases status quo. There are bilateral nonobstructing nephroliths. There is evidence of chronic atrophic right renal scarring. This is difficult to evaluate without intravenous contrast administration. There are no ureteroliths. There are no urinary bladder calcifications. Once again, there is irregularity of the zee of the urinary bladder and irregular urinary bladder wall thickening. There is no significant change in appearance of the abdominal aorta or para-regions. The liver, spleen, pancreas, and adrenal glands are essentially unchanged. There is no significant change in appearance of the bowel loops or the mesenteries. There is no evidence of free fluid or free air. No gross mass or adenopathy is identified. Bone window technique throughout the examination shows the bones to be demineralized with chronic spinal degenerative changes status quo. IMPRESSION: 1. There is no evidence of obstructive uropathy. Chronic renal changes suspected as described above. Consider follow-up with contrast enhanced exam if clinically relevant. 2. Chronic changes involving the urinary bladder as described above. Acute disease superimposed upon chronic change cannot be ruled out. 3. Other findings as described above. <Electronically signed by Hector Yates > 06/24/21 [id number]
[2021-06-24 12:30] VITALS: BP 145/72
== END 2021-06-24 14:26 | disposition home or self-care (01) ==
LOC: M ED 06:49
DX: N39.0 Urinary tract infection, site not specified (principal); E78.5 Hyperlipidemia, unspecified; K76.0 Fatty (change of) liver, not elsewhere classified; G35 Multiple sclerosis; M81.8 Other osteoporosis without current pathological fracture; Z79.82 Long term (current) use of aspirin; Z79.899 Other long term (current) drug therapy; Z88.0 Allergy status to penicillin; Z88.1 Allergy status to other antibiotic agents; Z87.19 Personal history of other diseases of the digestive system; Z87.440 Personal history of urinary (tract) infections; Z98.890 Other specified postprocedural states; Z87.442 Personal history of urinary calculi

== ENCOUNTER → 2021-08-13 | Outpatient (CLI) | payer MEDICARE, MEDICAID ==
--- NOTE | 2021-08-13 09:10 | REPMRS ---
Patient History The patient states she has not had a clinical breast exam in over a year. No known family history of cancer. Tomosynthesis is performed. Volpara breast density is c. Tyrer-Cuzick lifetime risk of breast cancer 4.9%. Patient states no breast complaints today. Patient has signed MRS History Sheet. Digital Woman Screen Mammo: August 13, 2021 - Exam #: [id number] Bilateral CC and MLO view(s) were taken. Technologist: Sofia Amaro, Technologist Prior study comparison: July 10, 2018, bilateral digital woman screen mammo performed at [facility]. June 20, 2017, digital woman screen mammo performed at [facility]. FINDINGS: The breast tissue is heterogeneously dense. This may lower the sensitivity of mammography. There has been no change in the appearance of the mammogram from the prior studies. There is a moderate amount of residual fibroglandular tissue which is fairly symmetric. There is no interval development of dominant mass, areas of architectural distortion, or clustered microcalcification typical of malignancy. Assessment: BI-RADS/ACR category 1 mammogram. Negative Mammogram. Recommendation Routine screening mammogram in 1 year (for women over age 40). This mammogram was interpreted with the aid of an FDA-approved computer-aided dectection system. Electronically Signed By: Robert Dong MD 08/13/21 0910
== END ==
LOC: M WHC 07:54
PROVIDERS: ATTEND Family Medicine
DX: Z12.31 Encounter for screening mammogram for malignant neoplasm of breast (principal)

== ENCOUNTER 2021-08-23 14:41 | Emergency (ER) | payer MEDICARE, MEDICAID ==
[~2021-08-23] VITALS: Ht 162.6 cm; Wt 64.5 kg
[2021-08-23 15:28] LABS: BASO # 0.1 10^3/uL (0.0-0.2); BASO % 0.8 % (0.0-1.0); EOS # 0.2 10^3/uL (0.0-0.5); EOS % 2.6 % (0.0-3.0); HEMATOCRIT 41.8 % (36.0-47.0); HEMOGLOBIN 13.5 g/dl (12.0-15.5); LYMPH # 0.9 10^3/uL (1.5-5.0); LYMPH % 13.2 % (24.0-44.0); MEAN CORPUSCULAR HEMOGLOBIN 30.5 pg (27.0-33.0); MEAN CORPUSCULAR HGB CONC 32.3 g/dl (32.0-36.5); MEAN CORPUSCULAR VOLUME 94.6 fl (80.0-96.0); MONO # 0.7 10^3/uL (0.0-0.8); MONO % 11.1 % (2.0-8.0); NEUTROPHILS # 4.7 10^3/uL (1.5-8.5); NEUTROPHILS % 72.1 % (36.0-66.0); PLATELET COUNT, AUTOMATED 234 10^3/uL (150-450); RED BLOOD COUNT 4.42 10^6/uL (4.00-5.40); WHITE BLOOD COUNT 6.5 10^3/uL (4.0-10.0)
--- NOTE | 2021-08-23 15:34 | REP ---
INDICATION: fall COMPARISON: 06/07/2019 TECHNIQUE: Axial noncontrast images from the skull base to the thoracic inlet with coronal reformations. This CT examination was performed using the following dose reduction techniques: Automated exposure control, adjustment of mA and/or kv according to the patient's size, and use of iterative reconstruction technique. FINDINGS: Atrophy with periventricular leukomalacia, small old infarctions and microvascular ischemic changes is appreciated. The ventricles and sulci are symmetric. Dong-white differentiation is maintained. There is no evidence for acute intracranial hemorrhage, mass/mass effect, pathology or infarction. No extra-axial fluid collection. Calvarium is intact. Paranasal sinuses and mastoid air cells are clear. IMPRESSION: Atrophy and microvascular ischemic changes. No acute intracranial hemorrhage, infarction, or mass/mass effect. <Electronically signed by Rafael Elkins > 08/23/21 [id number]
[2021-08-23 16:00] LABS: BLOOD UREA NITROGEN 24 MG/DL (7-18); CALCIUM LEVEL 9.7 MG/DL (8.8-10.2); CARBON DIOXIDE LEVEL 29 MEQ/L (21-32); CHLORIDE LEVEL 109 MEQ/L (98-107); CREATININE FOR GFR 0.64 MG/DL (0.55-1.30); GLOMERULAR FILTRATION RATE > 60.0 (>39); GLUCOSE, FASTING 108 MG/DL (70-100); MAGNESIUM LEVEL 2.2 MG/DL (1.8-2.4); POTASSIUM SERUM 3.9 MEQ/L (3.5-5.1); SODIUM LEVEL 142 MEQ/L (136-145); THYROID STIMULATING HORMONE 0.963 uIU/ML (0.358-3.740)
--- NOTE | 2021-08-23 16:09 | ECGEPIP ---
[facility] - ED Test Date: 2021-08-23 Pat Name: TONI CUEVAS Department: Room: - Gender: Female Critical Care Physician Assistant: : [id number] Requested By: Marietta Sarkar Order Number: [id number] Reading MD: Marietta Sarkar Measurements Intervals [place] Rate: 89 P: 12 NC: 138 QRS: -18 QRSD: 76 T: -5 QT: 354 QTc: 430 Interpretive Statements Normal sinus rhythm Possible Lateral infarct , age undetermined prwp low voltage NSTTW abnormalities Electronically Signed on 08-23-2021 16:09:29 EST by Marietta Sarkar
[2021-08-23 16:15] VITALS: BP 132/75
== END 2021-08-23 16:28 | disposition left against medical advice (07) ==
LOC: M ED 14:41
DX: R55 Syncope and collapse (principal); E78.5 Hyperlipidemia, unspecified; F33.9 Major depressive disorder, recurrent, unspecified; G35 Multiple sclerosis; K21.9 Gastro-esophageal reflux disease without esophagitis; Z79.899 Other long term (current) drug therapy; Z88.0 Allergy status to penicillin; Z88.1 Allergy status to other antibiotic agents

== ENCOUNTER → 2021-08-25 | Outpatient (REF) | payer MEDICARE, MEDICAID ==
[2021-08-25 10:58] LABS: APPEARANCE, URINE CLOUDY (CLEAR); BACTERIA, URINE AUTO NEGATIVE (NEGATIVE); BILIRUBIN, URINE AUTO NEGATIVE (NEGATIVE); BLOOD, URINE BLOOD NEGATIVE (NEGATIVE); CALCIUM OXALATE CRYSTALS MODERATE; COLOR, URINE YELLOW (YELLOW); GLUCOSE, URINE (UA) AUTO NEGATIVE (NEGATIVE); KETONE, URINE AUTO NEGATIVE (NEGATIVE); LEUKOCYTE ESTERASE, URINE AUTO 2+ (NEGATIVE); NITRITE, URINE AUTO NEGATIVE (NEGATIVE); PROTEIN, URINE AUTO NEGATIVE (NEGATIVE); RBC, URINE AUTO 3 /HPF (0-3); SPECIFIC GRAVITY URINE AUTO 1.019 (1.002-1.035); SQUAMOUS EPITHELIAL CELL UR AU 0 /HPF (0-6); UROBILINOGEN, URINE AUTO 0.2 mg/dL (0.0-2.0); WBC, URINE AUTO 22 /HPF (0-3)
== END ==
LOC: M SFHCPLAZ 10:16
PROVIDERS: ATTEND Family Medicine
DX: N39.0 Urinary tract infection, site not specified (principal)

== ENCOUNTER → 2021-10-22 | Outpatient (CLI) | payer MEDICARE, MEDICAID ==
[~2021-10-22] MED LIST changes: -OMEP-221; +OMEP40CA5
[2021-10-22 15:26] LABS: BASO % 0.8 % (0.0-1.0); EOS # 0.3 10^3/uL (0.0-0.5); EOS % 5.8 % (0.0-3.0); HEMATOCRIT 45.3 % (36.0-47.0); HEMOGLOBIN 14.5 g/dl (12.0-15.5); LYMPH # 0.9 10^3/uL (1.5-5.0); LYMPH % 17.6 % (24.0-44.0); MEAN CORPUSCULAR HEMOGLOBIN 30.3 pg (27.0-33.0); MEAN CORPUSCULAR VOLUME 94.8 fl (80.0-96.0); MONO # 0.5 10^3/uL (0.0-0.8); MONO % 9.5 % (2.0-8.0); NEUTROPHILS # 3.2 10^3/uL (1.5-8.5); NEUTROPHILS % 66.1 % (36.0-66.0); PLATELET COUNT, AUTOMATED 226 10^3/uL (150-450); RED BLOOD COUNT 4.78 10^6/uL (4.00-5.40); WHITE BLOOD COUNT 4.8 10^3/uL (4.0-10.0)
[2021-10-22 15:29] LABS: INR 0.9; PROTHROMBIN TIME 12.5 SECONDS (12.7-14.5)
[2021-10-22 15:30] LABS: PARTIAL THROMBOPLASTIN TIME 27.7 SECONDS (25.9-37.0)
[2021-10-22 15:49] LABS: ALBUMIN 4.3 GM/DL (3.2-5.2); ALT/SGPT 31 U/L (12-78); BILIRUBIN,TOTAL 0.7 MG/DL (0.2-1.0); BLOOD UREA NITROGEN 26 MG/DL (7-18); CALCIUM LEVEL 10.8 MG/DL (8.8-10.2); CARBON DIOXIDE LEVEL 32 MEQ/L (21-32); CHLORIDE LEVEL 105 MEQ/L (98-107); CREATININE FOR GFR 0.75 MG/DL (0.55-1.30); GLOMERULAR FILTRATION RATE > 60.0 (>39); GLUCOSE, FASTING 94 MG/DL (70-100); POTASSIUM SERUM 5.3 MEQ/L (3.5-5.1); SODIUM LEVEL 139 MEQ/L (136-145); TOTAL PROTEIN 8.2 GM/DL (6.4-8.2)
[2021-10-22 15:56] LABS: PTH INTACT 66.1 PG/ML (18.5-88.0); TOTAL 25(OH) VITAMIN D 45.3 NG/ML (30.0-100.0)
[2021-10-26 10:46] LABS: ALBUMIN % 58.5 % (55.8-66.1); ALPHA-1-GLOBULIN % 3.7 % (2.9-4.9); ALPHA-2-GLOBULINS 1.16 GM/DL (0.42-0.99); ALPHA-2-GLOBULINS % 14.1 % (7.1-11.8); BETA-1-GLOBULINS 0.44 GM/DL (0.28-0.60); BETA-1-GLOBULINS % 5.4 % (4.7-7.2); BETA-2-GLOBULINS 0.37 GM/DL (0.19-0.55); BETA-2-GLOBULINS % 4.5 % (3.2-6.5); GAMMA GLOBULIN % 13.8 % (11.1-18.8); GAMMA GLOBULINS 1.13 GM/DL (0.65-1.58)
== END ==
LOC: M PLALAB 13:27
PROVIDERS: ATTEND Family Medicine
DX: D72.819 Decreased white blood cell count, unspecified (principal); E55.9 Vitamin D deficiency, unspecified; K76.0 Fatty (change of) liver, not elsewhere classified

== ENCOUNTER → 2022-03-25 | Outpatient (CLI) | payer MEDICARE, MEDICAID ==
[~2022-03-25] MED LIST changes: -DICL1GEL; +DICL3GEL2
[2022-03-25 18:55] LABS: ALBUMIN 4.1 GM/DL (3.2-5.2); ALT/SGPT 35 U/L (12-78); BILIRUBIN,TOTAL 0.5 MG/DL (0.2-1.0); BLOOD UREA NITROGEN 24 MG/DL (7-18); CALCIUM LEVEL 9.9 MG/DL (8.8-10.2); CARBON DIOXIDE LEVEL 30 MEQ/L (21-32); CHLORIDE LEVEL 105 MEQ/L (98-107); CHOLESTEROL LEVEL 196 MG/DL (<200); CREATININE FOR GFR 0.63 MG/DL (0.55-1.30); FREE T4 0.82 NG/DL (0.76-1.46); GLOMERULAR FILTRATION RATE > 60.0 (>39); GLUCOSE, FASTING 110 MG/DL (70-100); HDL CHOLESTEROL 69 MG/DL (>40); LDL CHOLESTEROL 116 MG/DL (<100); MAGNESIUM LEVEL 2.2 MG/DL (1.8-2.4); NON-HDL-C 127 MG/DL; PTH INTACT 102.9 PG/ML (18.5-88.0); SODIUM LEVEL 140 MEQ/L (136-145); TOTAL 25(OH) VITAMIN D 48.5 NG/ML (30.0-100.0); TOTAL PROTEIN 7.9 GM/DL (6.4-8.2); TRIGLYCERIDES LEVEL 54 MG/DL (<150)
[2022-03-26 00:06] LABS: HEMOGLOBIN A1c 5.3 %
== END ==
LOC: M PLALAB 13:30
PROVIDERS: ATTEND Family Medicine
DX: E55.9 Vitamin D deficiency, unspecified (principal); K76.0 Fatty (change of) liver, not elsewhere classified; E78.2 Mixed hyperlipidemia; Z79.899 Other long term (current) drug therapy

== ENCOUNTER 2022-08-22 22:38 | Emergency (ER) | payer MEDICAID, MEDICARE ==
[~2022-08-22] VITALS: Ht 162.6 cm; Wt 77.7 kg
[2022-08-22] MEDS ORDERED: NS 500 ML IV ONE (22:50)
[2022-08-22 23:07] LABS: BASO # 0.1 10^3/uL (0.0-0.2); BASO % 0.6 % (0.0-1.0); EOS # 0.1 10^3/uL (0.0-0.5); EOS % 0.7 % (0.0-3.0); HEMATOCRIT 42.3 % (36.0-47.0); HEMOGLOBIN 13.6 g/dl (12.0-15.5); LYMPH # 0.6 10^3/uL (1.5-5.0); LYMPH % 7.5 % (24.0-44.0); MEAN CORPUSCULAR HEMOGLOBIN 30.4 pg (27.0-33.0); MEAN CORPUSCULAR HGB CONC 32.2 g/dl (32.0-36.5); MEAN CORPUSCULAR VOLUME 94.6 fl (80.0-96.0); MONO # 0.7 10^3/uL (0.0-0.8); MONO % 8.4 % (2.0-8.0); NEUTROPHILS # 6.8 10^3/uL (1.5-8.5); NEUTROPHILS % 82.6 % (36.0-66.0); PLATELET COUNT, AUTOMATED 216 10^3/uL (150-450); RED BLOOD COUNT 4.47 10^6/uL (4.00-5.40); WHITE BLOOD COUNT 8.2 10^3/uL (4.0-10.0)
[2022-08-22 23:30] LABS: CK-MB VALUE MASS < 1.0 NG/ML (<3.6); LIPASE 46 U/L (12-53)
[2022-08-22 23:32] LABS: ALBUMIN 4.1 G/DL (3.2-5.2); ALKALINE PHOSPHATASE 68 U/L (46-116); ALT/SGPT 21 U/L (7.0-40); AST/SGOT 23 U/L (<34); BILIRUBIN,DIRECT < 0.1 MG/DL (<0.4); BILIRUBIN,TOTAL 0.3 MG/DL (0.3-1.2); TOTAL PROTEIN 7.3 G/DL (5.7-8.2)
[2022-08-22 23:35] LABS: CPK CREATINE PHOSPHOKINASE 39 U/L (34-145); MB/CK RELATIVE INDEX 2.56 (< OR =4)
[2022-08-22 23:48] LABS: RSV AMPLIFICATION NEGATIVE (NEGATIVE)
[2022-08-23 01:30] VITALS: BP 132/59
== END 2022-08-23 03:05 | disposition home or self-care (01) ==
LOC: EDBD 22:38 → M ED 22:38
DX: G35 Multiple sclerosis (principal); K57.92 Diverticulitis of intestine, part unspecified, without perforation or abscess without bleeding; M81.0 Age-related osteoporosis without current pathological fracture; K75.81 Nonalcoholic steatohepatitis (NASH); Z79.899 Other long term (current) drug therapy; Z88.0 Allergy status to penicillin; Z88.8 Allergy status to other drugs, medicaments and biological substances

== ENCOUNTER 2022-11-17 09:56 | Observation (INO) | payer MEDICARE, MEDICAID ==
[~2022-11-17] VITALS: Ht 162.6 cm; Wt 77.7 kg
[2022-11-17] MEDS ORDERED: ASPI-226 PO (10:07)
[2022-11-17 10:28] LABS: BASO % 0.4 % (0.0-1.0); EOS % 0.5 % (0.0-3.0); HEMATOCRIT 42.9 % (36.0-47.0); HEMOGLOBIN 13.7 g/dl (12.0-15.5); LYMPH # 0.6 10^3/uL (1.5-5.0); LYMPH % 7.2 % (24.0-44.0); MEAN CORPUSCULAR HEMOGLOBIN 30.7 pg (27.0-33.0); MEAN CORPUSCULAR HGB CONC 31.9 g/dl (32.0-36.5); MEAN CORPUSCULAR VOLUME 96.2 fl (80.0-96.0); MONO # 0.7 10^3/uL (0.0-0.8); MONO % 7.9 % (2.0-8.0); NEUTROPHILS # 6.9 10^3/uL (1.5-8.5); NEUTROPHILS % 83.6 % (36.0-66.0); PLATELET COUNT, AUTOMATED 224 10^3/uL (150-450); RED BLOOD COUNT 4.46 10^6/uL (4.00-5.40); WHITE BLOOD COUNT 8.2 10^3/uL (4.0-10.0)
[2022-11-17 11:06] LABS: ALBUMIN 4.3 G/DL (3.2-5.2); ALKALINE PHOSPHATASE 68 U/L (46-116); ALT/SGPT 23 U/L (7.0-40); AST/SGOT 18 U/L (<34); BILIRUBIN,DIRECT 0.2 MG/DL (<0.4); BILIRUBIN,TOTAL 0.8 MG/DL (0.3-1.2); BLOOD UREA NITROGEN 27 MG/DL (9-23); CALCIUM LEVEL 10.1 MG/DL (8.3-10.6); CARBON DIOXIDE LEVEL 29 MMOL/L (20-31); CHLORIDE LEVEL 103 MMOL/L (98-107); CREATININE FOR GFR 0.64 MG/DL (0.55-1.30); GLOMERULAR FILTRATION RATE > 60.0 (>39); GLUCOSE, FASTING 104 MG/DL (74-106); POTASSIUM SERUM 4.3 MMOL/L (3.5-5.1); SODIUM LEVEL 138 MMOL/L (136-145); THYROID STIMULATING HORMONE 1.227 uIU/ML (0.55-4.78); TOTAL PROTEIN 7.5 G/DL (5.7-8.2)
[2022-11-17] MEDS ORDERED: NS 500 ML IV ONE (11:40)
[2022-11-17 11:49] LABS: RSV AMPLIFICATION NEGATIVE (NEGATIVE)
[2022-11-17] MEDS ORDERED: MULT-90 PO (16:12)
[2022-11-17] MEDS ORDERED: VITA200012 PO (16:12)
[2022-11-17] MEDS ORDERED: TECF120C PO (16:18)
[2022-11-17] MEDS ORDERED: HOME MED LIST COMPLETE! XX SCH (16:20)
[2022-11-17] MEDS ORDERED: DIME240C PO (16:38)
[2022-11-17 17:18] LABS: TOTAL 25(OH) VITAMIN D 52.9 NG/ML (20.0-100.0)
[2022-11-17] MEDS: LevoFLOXacin 750 MG TABLET PO SCH (18:36)
[2022-11-17 19:25] LABS: CPK CREATINE PHOSPHOKINASE 37 U/L (34-145)
[2022-11-17 20:00] VITALS: BP 141/70
[2022-11-17] MEDS: BACLOFEN 10 MG TAB PO SCH (22:48)
[2022-11-17] MEDS: NORTRIPTYLINE 10 MG CAP PO SCH (23:17)
[2022-11-18 06:00] VITALS: BP 129/78
[2022-11-18 08:23] LABS: HEMATOCRIT 38.9 % (36.0-47.0); HEMOGLOBIN 12.3 g/dl (12.0-15.5); MEAN CORPUSCULAR HGB CONC 31.6 g/dl (32.0-36.5); PLATELET COUNT, AUTOMATED 197 10^3/uL (150-450); RED BLOOD COUNT 3.97 10^6/uL (4.00-5.40); WHITE BLOOD COUNT 5.2 10^3/uL (4.0-10.0)
[2022-11-18 08:45] LABS: BLOOD UREA NITROGEN 22 MG/DL (9-23); CALCIUM LEVEL 9.2 MG/DL (8.3-10.6); CARBON DIOXIDE LEVEL 28 MMOL/L (20-31); CHLORIDE LEVEL 106 MMOL/L (98-107); CREATININE FOR GFR 0.57 MG/DL (0.55-1.30); GLOMERULAR FILTRATION RATE > 60.0 (>39); GLUCOSE, FASTING 89 MG/DL (74-106); POTASSIUM SERUM 4.2 MMOL/L (3.5-5.1); SODIUM LEVEL 140 MMOL/L (136-145)
[2022-11-18] MEDS: OMEPRAZOLE 20MG CAP PO SCH (09:05)
[2022-11-18] MEDS: NORTRIPTYLINE 10 MG CAP PO SCH ×2 (09:05→21:44)
[2022-11-18] MEDS: LORATADINE 10 MG TAB PO SCH (09:05)
[2022-11-18] MEDS: ASPIRIN 81MG ENTERIC TABLET PO SCH (09:05)
[2022-11-18] MEDS: BACLOFEN 10 MG TAB PO SCH ×3 (09:05→21:44)
[2022-11-18] MEDS: ENOXAPARIN 40MG/0.4ML SYRINGE (J1650 PER 10MG) SC SCH (09:06)
[2022-11-18] MEDS: TECFIDERA 240 MG PO SCH ×2 (09:08→21:44)
[2022-11-18 14:00] VITALS: BP 127/65
[2022-11-18] MEDS: LevoFLOXacin 750 MG TABLET PO SCH (17:38)
[2022-11-18 20:00] VITALS: BP 121/72
[2022-11-19 06:00] VITALS: BP 120/60
[2022-11-19] MEDS: NORTRIPTYLINE 10 MG CAP PO SCH ×2 (09:00→22:25)
[2022-11-19] MEDS: TECFIDERA 240 MG PO SCH ×2 (09:00→22:25)
[2022-11-19] MEDS: LORATADINE 10 MG TAB PO SCH (09:00)
[2022-11-19] MEDS: BACLOFEN 10 MG TAB PO SCH ×3 (09:00→22:25)
[2022-11-19] MEDS: OMEPRAZOLE 20MG CAP PO SCH (09:00)
[2022-11-19] MEDS: ASPIRIN 81MG ENTERIC TABLET PO SCH (09:00)
[2022-11-19] MEDS: ENOXAPARIN 40MG/0.4ML SYRINGE (J1650 PER 10MG) SC SCH (09:05)
[2022-11-19 09:20] VITALS: BP 113/60
[2022-11-19 11:02] LABS: BLOOD UREA NITROGEN 27 MG/DL (9-23); CARBON DIOXIDE LEVEL 27 MMOL/L (20-31); CHLORIDE LEVEL 102 MMOL/L (98-107); GLOMERULAR FILTRATION RATE > 60.0 (>39); GLUCOSE, FASTING 160 MG/DL (74-106); MAGNESIUM LEVEL 1.6 MG/DL (1.8-2.4); POTASSIUM SERUM 3.6 MMOL/L (3.5-5.1); SODIUM LEVEL 137 MMOL/L (136-145)
[2022-11-19] MEDS ORDERED: POTASSIUM CHLORIDE 10MEQ SR TABLET PO ONE (13:00)
[2022-11-19] MEDS: MAG SULF 1GM/100ML (MAG RUN) 1 GM in IV 1 EA IV SCH ×3 (13:27→16:06)
[2022-11-19 14:00] VITALS: BP 115/69
[2022-11-19 15:57] VITALS: BP 110/67
[2022-11-19 21:05] VITALS: BP 116/67
[2022-11-20 06:00] VITALS: BP 138/77
[2022-11-20 06:52] LABS: BLOOD UREA NITROGEN 30 MG/DL (9-23); CALCIUM LEVEL 9.1 MG/DL (8.3-10.6); CARBON DIOXIDE LEVEL 28 MMOL/L (20-31); CHLORIDE LEVEL 106 MMOL/L (98-107); CREATININE FOR GFR 0.58 MG/DL (0.55-1.30); GLOMERULAR FILTRATION RATE > 60.0 (>39); GLUCOSE, FASTING 101 MG/DL (74-106); POTASSIUM SERUM 4.6 MMOL/L (3.5-5.1); SODIUM LEVEL 135 MMOL/L (136-145)
[2022-11-20] MEDS: TECFIDERA 240 MG PO SCH ×2 (09:00→21:00)
[2022-11-20] MEDS: OMEPRAZOLE 20MG CAP PO SCH (09:27)
[2022-11-20] MEDS: LORATADINE 10 MG TAB PO SCH (09:27)
[2022-11-20] MEDS: NORTRIPTYLINE 10 MG CAP PO SCH ×2 (09:27→22:26)
[2022-11-20] MEDS: ASPIRIN 81MG ENTERIC TABLET PO SCH (09:27)
[2022-11-20] MEDS: BACLOFEN 10 MG TAB PO SCH ×3 (09:27→22:26)
[2022-11-20] MEDS: ENOXAPARIN 40MG/0.4ML SYRINGE (J1650 PER 10MG) SC SCH (09:28)
[2022-11-20 14:00] VITALS: BP 130/79
[2022-11-20 21:00] VITALS: BP 133/78
[2022-11-21 06:00] VITALS: BP 116/67
[2022-11-21] MEDS: TECFIDERA 240 MG PO SCH ×2 (09:00→21:00)
[2022-11-21] MEDS: BACLOFEN 10 MG TAB PO SCH ×3 (09:42→22:27)
[2022-11-21] MEDS: LORATADINE 10 MG TAB PO SCH (09:42)
[2022-11-21] MEDS: OMEPRAZOLE 20MG CAP PO SCH (09:42)
[2022-11-21] MEDS: ASPIRIN 81MG ENTERIC TABLET PO SCH (09:42)
[2022-11-21] MEDS: NORTRIPTYLINE 10 MG CAP PO SCH ×2 (09:42→22:27)
[2022-11-21] MEDS: ENOXAPARIN 40MG/0.4ML SYRINGE (J1650 PER 10MG) SC SCH (09:43)
[2022-11-21 14:00] VITALS: BP 134/81
[2022-11-21 20:50] VITALS: BP 120/72
[2022-11-22 06:00] VITALS: BP 104/56
[2022-11-22] MEDS: OMEPRAZOLE 20MG CAP PO SCH (08:40)
[2022-11-22] MEDS: BACLOFEN 10 MG TAB PO SCH ×3 (08:40→22:15)
[2022-11-22] MEDS: NORTRIPTYLINE 10 MG CAP PO SCH ×2 (08:40→22:13)
[2022-11-22] MEDS: ASPIRIN 81MG ENTERIC TABLET PO SCH (08:40)
[2022-11-22] MEDS: LORATADINE 10 MG TAB PO SCH (08:40)
[2022-11-22] MEDS: TECFIDERA 240 MG PO SCH ×2 (08:41→22:16)
[2022-11-22] MEDS: ENOXAPARIN 40MG/0.4ML SYRINGE (J1650 PER 10MG) SC SCH (08:41)
[2022-11-22 22:14] VITALS: BP 132/78
[2022-11-23 05:00] VITALS: BP 133/69
[2022-11-23] MEDS: ASPIRIN 81MG ENTERIC TABLET PO SCH (09:38)
[2022-11-23] MEDS: NORTRIPTYLINE 10 MG CAP PO SCH (09:38)
[2022-11-23] MEDS: BACLOFEN 10 MG TAB PO SCH (09:38)
[2022-11-23] MEDS: ENOXAPARIN 40MG/0.4ML SYRINGE (J1650 PER 10MG) SC SCH (09:38)
[2022-11-23] MEDS: LORATADINE 10 MG TAB PO SCH (09:38)
[2022-11-23] MEDS: OMEPRAZOLE 20MG CAP PO SCH (09:38)
[2022-11-23] MEDS: TECFIDERA 240 MG PO SCH (13:18)
== END 2022-11-23 14:24 ==
LOC: M ED 09:56 → EDBD 09:56 → M ED INP 09:57 → ENRESERVTM 16:53 → ENRESERVDT 16:53 → M MSPAV 17:32
PROVIDERS: ADMIT Internal Medicine; ATTEND Internal Medicine
DX: R53.1 Weakness (principal); R26.9 Unspecified abnormalities of gait and mobility; R29.6 Repeated falls; R82.71 Bacteriuria; N39.0 Urinary tract infection, site not specified; G35 Multiple sclerosis; M81.0 Age-related osteoporosis without current pathological fracture; K76.0 Fatty (change of) liver, not elsewhere classified; J30.2 Other seasonal allergic rhinitis; N31.9 Neuromuscular dysfunction of bladder, unspecified; K21.9 Gastro-esophageal reflux disease without esophagitis; Z99.3 Dependence on wheelchair; R00.0 Tachycardia, unspecified; Z79.82 Long term (current) use of aspirin; Z79.899 Other long term (current) drug therapy; Z88.0 Allergy status to penicillin; Z88.1 Allergy status to other antibiotic agents
CPT/HCPCS: 36415; 70450; 73521; 80048; 80076; 81001; 82140; 82306; 82550; 83605; 83735; 84443; 85025; 85027; 87088; 87631; 87635; 93005; 96361; 96372; 96374; 97162; 97165; 97530; 97535; 99285; G0378; J1650; J3475

== ENCOUNTER → 2022-11-24 | Outpatient (REF) ==
[~2022-11-24] MED LIST changes: +ASPI-226 PO; +DIME240C PO; +MULT-90 PO; +TECF120C PO; +VITA200012 PO
[2022-11-24 11:15] LABS: HEMATOCRIT 40.2 % (36.0-47.0); MEAN CORPUSCULAR HEMOGLOBIN 31.7 pg (27.0-33.0); MEAN CORPUSCULAR HGB CONC 32.3 g/dl (32.0-36.5); PLATELET COUNT, AUTOMATED 239 10^3/uL (150-450)
[2022-11-24 11:51] LABS: BLOOD UREA NITROGEN 25 MG/DL (9-23); CARBON DIOXIDE LEVEL 31 MMOL/L (20-31); CHLORIDE LEVEL 103 MMOL/L (98-107); CREATININE FOR GFR 0.53 MG/DL (0.55-1.30); GLOMERULAR FILTRATION RATE > 60.0 (>39); GLUCOSE, FASTING 95 MG/DL (74-106); POTASSIUM SERUM 3.9 MMOL/L (3.5-5.1); SODIUM LEVEL 142 MMOL/L (136-145)
== END ==
PROVIDERS: ATTEND Physician Assistant
DX: G35 Multiple sclerosis (principal)

== ENCOUNTER → 2022-12-01 | Outpatient (REF) ==
[2022-12-01 09:21] LABS: HEMATOCRIT 39.7 % (36.0-47.0); HEMOGLOBIN 12.6 g/dl (12.0-15.5); MEAN CORPUSCULAR HGB CONC 31.7 g/dl (32.0-36.5); MEAN CORPUSCULAR VOLUME 97.8 fl (80.0-96.0); PLATELET COUNT, AUTOMATED 261 10^3/uL (150-450); RED BLOOD COUNT 4.06 10^6/uL (4.00-5.40); WHITE BLOOD COUNT 5.9 10^3/uL (4.0-10.0)
[2022-12-01 09:56] LABS: BLOOD UREA NITROGEN 20 MG/DL (9-23); CALCIUM LEVEL 9.4 MG/DL (8.3-10.6); CARBON DIOXIDE LEVEL 29 MMOL/L (20-31); CHLORIDE LEVEL 106 MMOL/L (98-107); CREATININE FOR GFR 0.51 MG/DL (0.55-1.30); GLOMERULAR FILTRATION RATE > 60.0 (>39); GLUCOSE, FASTING 91 MG/DL (74-106); POTASSIUM SERUM 4.1 MMOL/L (3.5-5.1); SODIUM LEVEL 141 MMOL/L (136-145)
== END ==
PROVIDERS: ATTEND Physician Assistant
DX: G35 Multiple sclerosis (principal)

== ENCOUNTER → 2022-12-15 | Outpatient (REF) ==
[2022-12-15 11:04] LABS: EOS # 0.3 10^3/uL (0.0-0.5); EOS % 7.1 % (0.0-3.0); HEMATOCRIT 41.6 % (36.0-47.0); HEMOGLOBIN 13.2 g/dl (12.0-15.5); LYMPH # 0.6 10^3/uL (1.5-5.0); LYMPH % 15.2 % (24.0-44.0); MEAN CORPUSCULAR HEMOGLOBIN 31.4 pg (27.0-33.0); MEAN CORPUSCULAR HGB CONC 31.7 g/dl (32.0-36.5); MEAN CORPUSCULAR VOLUME 98.8 fl (80.0-96.0); MONO # 0.5 10^3/uL (0.0-0.8); NEUTROPHILS # 2.7 10^3/uL (1.5-8.5); NEUTROPHILS % 65.2 % (36.0-66.0); PLATELET COUNT, AUTOMATED 239 10^3/uL (150-450); RED BLOOD COUNT 4.21 10^6/uL (4.00-5.40); WHITE BLOOD COUNT 4.1 10^3/uL (4.0-10.0)
== END ==
PROVIDERS: ATTEND Physician Assistant
DX: N39.0 Urinary tract infection, site not specified (principal)

== ENCOUNTER → 2022-12-27 | Outpatient (REF) | payer MEDICARE, MEDICAID, OTHER ==
[2022-12-27 16:07] LABS: HEMATOCRIT 43.1 % (36.0-47.0); HEMOGLOBIN 13.6 g/dl (12.0-15.5); MEAN CORPUSCULAR HEMOGLOBIN 30.8 pg (27.0-33.0); MEAN CORPUSCULAR HGB CONC 31.6 g/dl (32.0-36.5); MEAN CORPUSCULAR VOLUME 97.7 fl (80.0-96.0); PLATELET COUNT, AUTOMATED 277 10^3/uL (150-450); RED BLOOD COUNT 4.41 10^6/uL (4.00-5.40); WHITE BLOOD COUNT 6.6 10^3/uL (4.0-10.0)
[2022-12-27 16:59] LABS: ERYTHROCYTE SEDIMENTATION RATE 46 mm/hr (0-30)
[2022-12-27 17:22] LABS: C REACTIVE PROTEIN QUANTITATIV < 0.40 MG/DL (<1.0)
[2022-12-27 17:24] LABS: ALBUMIN 3.9 G/DL (3.2-5.2); ALKALINE PHOSPHATASE 85 U/L (46-116); ALT/SGPT 31 U/L (7.0-40); AST/SGOT 24 U/L (<34); BILIRUBIN,TOTAL 0.4 MG/DL (0.3-1.2); BLOOD UREA NITROGEN 20 MG/DL (9-23); CALCIUM LEVEL 10.2 MG/DL (8.3-10.6); CARBON DIOXIDE LEVEL 29 MMOL/L (20-31); CHLORIDE LEVEL 103 MMOL/L (98-107); CREATININE FOR GFR 0.55 MG/DL (0.55-1.30); GLOMERULAR FILTRATION RATE > 60.0 (>39); GLUCOSE, FASTING 107 MG/DL (74-106); POTASSIUM SERUM 4.2 MMOL/L (3.5-5.1); SODIUM LEVEL 138 MMOL/L (136-145); TOTAL PROTEIN 7.3 G/DL (5.7-8.2)
[2022-12-27 17:25] LABS: URIC ACID 4.7 MG/DL (3.1-7.8)
== END ==
PROVIDERS: ATTEND Internal Medicine
DX: M25.571 Pain in right ankle and joints of right foot (principal)

== ENCOUNTER → 2022-12-31 | Outpatient (REF) ==
[2022-12-31 09:39] LABS: BASO # 0.1 10^3/uL (0.0-0.2); BASO % 1.1 % (0.0-1.0); EOS # 0.3 10^3/uL (0.0-0.5); EOS % 6.7 % (0.0-3.0); HEMATOCRIT 40.4 % (36.0-47.0); HEMOGLOBIN 12.9 g/dl (12.0-15.5); LYMPH # 0.8 10^3/uL (1.5-5.0); LYMPH % 18.2 % (24.0-44.0); MEAN CORPUSCULAR HEMOGLOBIN 30.9 pg (27.0-33.0); MEAN CORPUSCULAR HGB CONC 31.9 g/dl (32.0-36.5); MEAN CORPUSCULAR VOLUME 96.9 fl (80.0-96.0); MONO # 0.5 10^3/uL (0.0-0.8); MONO % 11.5 % (2.0-8.0); NEUTROPHILS # 2.9 10^3/uL (1.5-8.5); NEUTROPHILS % 62.3 % (36.0-66.0); PLATELET COUNT, AUTOMATED 238 10^3/uL (150-450); RED BLOOD COUNT 4.17 10^6/uL (4.00-5.40); WHITE BLOOD COUNT 4.6 10^3/uL (4.0-10.0)
== END ==
PROVIDERS: ATTEND Physician Assistant
DX: G35 Multiple sclerosis (principal)

== ENCOUNTER → 2023-03-07 | Outpatient (REF) | payer MEDICARE, MEDICAID, OTHER ==
[2023-03-07 09:27] LABS: HEMATOCRIT 40.6 % (36.0-47.0); HEMOGLOBIN 12.9 g/dl (12.0-15.5); MEAN CORPUSCULAR HEMOGLOBIN 30.5 pg (27.0-33.0); MEAN CORPUSCULAR HGB CONC 31.8 g/dl (32.0-36.5); PLATELET COUNT, AUTOMATED 233 10^3/uL (150-450); RED BLOOD COUNT 4.23 10^6/uL (4.00-5.40); WHITE BLOOD COUNT 5.7 10^3/uL (4.0-10.0)
[2023-03-07 09:52] LABS: BLOOD UREA NITROGEN 19 MG/DL (9-23); CALCIUM LEVEL 9.8 MG/DL (8.3-10.6); CARBON DIOXIDE LEVEL 29 MMOL/L (20-31); CHLORIDE LEVEL 101 MMOL/L (98-107); CREATININE FOR GFR 0.52 MG/DL (0.55-1.30); GLOMERULAR FILTRATION RATE > 60.0 (>39); GLUCOSE, FASTING 115 MG/DL (74-106); POTASSIUM SERUM 4.2 MMOL/L (3.5-5.1); SODIUM LEVEL 139 MMOL/L (136-145)
== END ==
PROVIDERS: ATTEND Internal Medicine
DX: G35 Multiple sclerosis (principal)

== ENCOUNTER → 2023-04-30 | Outpatient (REF) | payer MEDICARE, MEDICAID ==
[~2023-04-30] MED LIST changes: +LORA-1041 PO; -LORA-674 PO
== END ==
PROVIDERS: ATTEND Internal Medicine
DX: R82.998 Other abnormal findings in urine (principal)

== ENCOUNTER → 2023-06-08 | Outpatient (REF) | payer MEDICARE, MEDICAID ==
[2023-06-08 10:52] LABS: HEMATOCRIT 41.3 % (36.0-47.0); HEMOGLOBIN 13.3 g/dl (12.0-15.5); MEAN CORPUSCULAR HEMOGLOBIN 30.6 pg (27.0-33.0); MEAN CORPUSCULAR HGB CONC 32.2 g/dl (32.0-36.5); MEAN CORPUSCULAR VOLUME 94.9 fl (80.0-96.0); PLATELET COUNT, AUTOMATED 257 10^3/uL (150-450); RED BLOOD COUNT 4.35 10^6/uL (4.00-5.40); WHITE BLOOD COUNT 4.6 10^3/uL (4.0-10.0)
[2023-06-08 11:19] LABS: BLOOD UREA NITROGEN 18 MG/DL (9-23); CALCIUM LEVEL 9.6 MG/DL (8.3-10.6); CARBON DIOXIDE LEVEL 31 MMOL/L (20-31); CHLORIDE LEVEL 101 MMOL/L (98-107); CREATININE FOR GFR 0.59 MG/DL (0.55-1.30); GLOMERULAR FILTRATION RATE > 60.0 (>39); GLUCOSE, FASTING 90 MG/DL (74-106); POTASSIUM SERUM 4.1 MMOL/L (3.5-5.1); SODIUM LEVEL 140 MMOL/L (136-145)
== END ==
PROVIDERS: ATTEND Internal Medicine
DX: G35 Multiple sclerosis (principal)

== ENCOUNTER → 2023-07-08 | Outpatient (REF) | payer MEDICARE, MEDICAID ==
[2023-07-08 07:07] LABS: BASO % 0.7 % (0.0-1.0); EOS # 0.4 10^3/uL (0.0-0.5); EOS % 6.6 % (0.0-3.0); HEMATOCRIT 38.9 % (36.0-47.0); HEMOGLOBIN 12.8 g/dl (12.0-15.5); LYMPH # 0.9 10^3/uL (1.5-5.0); LYMPH % 16.6 % (24.0-44.0); MEAN CORPUSCULAR HEMOGLOBIN 30.7 pg (27.0-33.0); MEAN CORPUSCULAR HGB CONC 32.9 g/dl (32.0-36.5); MEAN CORPUSCULAR VOLUME 93.3 fl (80.0-96.0); MONO # 0.7 10^3/uL (0.0-0.8); NEUTROPHILS # 3.5 10^3/uL (1.5-8.5); NEUTROPHILS % 63.7 % (36.0-66.0); PLATELET COUNT, AUTOMATED 236 10^3/uL (150-450); RED BLOOD COUNT 4.17 10^6/uL (4.00-5.40); WHITE BLOOD COUNT 5.4 10^3/uL (4.0-10.0)
[2023-07-08 07:37] LABS: ALBUMIN 3.5 G/DL (3.2-5.2); ALKALINE PHOSPHATASE 83 U/L (46-116); ALT/SGPT 36 U/L (7.0-40); AST/SGOT 19 U/L (<34); BILIRUBIN,TOTAL 0.3 MG/DL (0.3-1.2); BLOOD UREA NITROGEN 20 MG/DL (9-23); CALCIUM LEVEL 9.6 MG/DL (8.3-10.6); CARBON DIOXIDE LEVEL 26 MMOL/L (20-31); CHLORIDE LEVEL 104 MMOL/L (98-107); CREATININE FOR GFR 0.45 MG/DL (0.55-1.30); GLOMERULAR FILTRATION RATE > 60.0 (>39); GLUCOSE, FASTING 100 MG/DL (74-106); POTASSIUM SERUM 4.2 MMOL/L (3.5-5.1); SODIUM LEVEL 138 MMOL/L (136-145); TOTAL PROTEIN 6.8 G/DL (5.7-8.2)
[2023-07-08 07:44] LABS: HEPATITIS B SURFACE ANTIBODY NEGATIVE (POSITIVE)
== END ==
PROVIDERS: ATTEND Internal Medicine
DX: G35 Multiple sclerosis (principal)

== ENCOUNTER → 2023-08-05 | Outpatient (REF) | payer MEDICARE, MEDICAID | PROVIDERS: ATTEND Physician Assistant | DX: R05.9 Cough, unspecified (principal) ==

== ENCOUNTER → 2023-09-05 | Outpatient (REF) | payer MEDICARE, MEDICAID ==
[~2023-09-05] MED LIST changes: +LEVO1TAB40 PO
[2023-09-05 18:19] LABS: HEMATOCRIT 42.3 % (36.0-47.0); HEMOGLOBIN 13.4 g/dl (12.0-15.5); MEAN CORPUSCULAR HEMOGLOBIN 29.9 pg (27.0-33.0); MEAN CORPUSCULAR HGB CONC 31.7 g/dl (32.0-36.5); MEAN CORPUSCULAR VOLUME 94.4 fl (80.0-96.0); PLATELET COUNT, AUTOMATED 320 10^3/uL (150-450); RED BLOOD COUNT 4.48 10^6/uL (4.00-5.40); WHITE BLOOD COUNT 5.8 10^3/uL (4.0-10.0)
[2023-09-05 18:46] LABS: BLOOD UREA NITROGEN 22 MG/DL (9-23); CALCIUM LEVEL 9.9 MG/DL (8.3-10.6); CARBON DIOXIDE LEVEL 28 MMOL/L (20-31); CHLORIDE LEVEL 102 MMOL/L (98-107); CREATININE FOR GFR 0.53 MG/DL (0.55-1.30); GLOMERULAR FILTRATION RATE > 60.0 (>39); GLUCOSE, FASTING 102 MG/DL (74-106); POTASSIUM SERUM 4.2 MMOL/L (3.5-5.1); SODIUM LEVEL 137 MMOL/L (136-145)
== END ==
PROVIDERS: ATTEND Internal Medicine
DX: R82.998 Other abnormal findings in urine (principal); Z79.899 Other long term (current) drug therapy

== ENCOUNTER 2023-09-06 23:04 | Emergency (ER) | payer MEDICARE, MEDICAID ==
[~2023-09-06 23:04] MED LIST changes: -LEVO1TAB40 PO
[2023-09-06 23:57] VITALS: TEMP 99.5
[2023-09-07 00:23] LABS: BASO # 0.1 10^3/uL (0.0-0.2); BASO % 0.3 % (0.0-1.0); EOS # 0.1 10^3/uL (0.0-0.5); EOS % 0.8 % (0.0-3.0); HEMATOCRIT 38.5 % (36.0-47.0); HEMOGLOBIN 12.7 g/dl (12.0-15.5); LYMPH # 0.9 10^3/uL (1.5-5.0); LYMPH % 5.8 % (24.0-44.0); MEAN CORPUSCULAR HEMOGLOBIN 31.1 pg (27.0-33.0); MEAN CORPUSCULAR VOLUME 94.1 fl (80.0-96.0); MONO # 1.1 10^3/uL (0.0-0.8); MONO % 7.2 % (2.0-8.0); NEUTROPHILS # 13.2 10^3/uL (1.5-8.5); NEUTROPHILS % 85.4 % (36.0-66.0); PLATELET COUNT, AUTOMATED 277 10^3/uL (150-450); RED BLOOD COUNT 4.09 10^6/uL (4.00-5.40); WHITE BLOOD COUNT 15.4 10^3/uL (4.0-10.0)
[2023-09-07 00:56] LABS: BLOOD UREA NITROGEN 18 MG/DL (9-23); CALCIUM LEVEL 9.3 MG/DL (8.3-10.6); CARBON DIOXIDE LEVEL 26 MMOL/L (20-31); CHLORIDE LEVEL 107 MMOL/L (98-107); CREATININE FOR GFR 0.46 MG/DL (0.55-1.30); GLOMERULAR FILTRATION RATE > 60.0 (>39); GLUCOSE, FASTING 122 MG/DL (74-106); POTASSIUM SERUM 4.8 MMOL/L (3.5-5.1); SODIUM LEVEL 138 MMOL/L (136-145)
[2023-09-07] MEDS ORDERED: LEVO1TAB40 PO (01:57)
[2023-09-07] MEDS ORDERED: LevoFLOXacin 750 MG TABLET PO ONE (02:00)
[2023-09-07 02:15] VITALS: BP 116/59; O2SAT 94
== END 2023-09-07 03:15 | disposition home or self-care (01) ==
LOC: M ED 23:04
DX: N39.0 Urinary tract infection, site not specified (principal); R31.9 Hematuria, unspecified; K21.9 Gastro-esophageal reflux disease without esophagitis; E55.9 Vitamin D deficiency, unspecified; Z79.82 Long term (current) use of aspirin; Z79.899 Other long term (current) drug therapy; Z88.0 Allergy status to penicillin; Z88.8 Allergy status to other drugs, medicaments and biological substances

== ENCOUNTER → 2023-09-12 | Outpatient (REF) | payer MEDICARE, MEDICAID ==
[~2023-09-12] MED LIST changes: +LEVO1TAB40 PO
[2023-09-12 11:59] LABS: HEMATOCRIT 33.6 % (36.0-47.0); HEMOGLOBIN 10.9 g/dl (12.0-15.5); MEAN CORPUSCULAR HEMOGLOBIN 30.7 pg (27.0-33.0); MEAN CORPUSCULAR HGB CONC 32.4 g/dl (32.0-36.5); MEAN CORPUSCULAR VOLUME 94.6 fl (80.0-96.0); PLATELET COUNT, AUTOMATED 285 10^3/uL (150-450); RED BLOOD COUNT 3.55 10^6/uL (4.00-5.40)
[2023-09-12 12:19] LABS: BLOOD UREA NITROGEN 11 MG/DL (9-23); CALCIUM LEVEL 9.8 MG/DL (8.3-10.6); CARBON DIOXIDE LEVEL 30 MMOL/L (20-31); CHLORIDE LEVEL 104 MMOL/L (98-107); CREATININE FOR GFR 0.53 MG/DL (0.55-1.30); GLOMERULAR FILTRATION RATE > 60.0 (>39); GLUCOSE, FASTING 119 MG/DL (74-106); POTASSIUM SERUM 3.4 MMOL/L (3.5-5.1); SODIUM LEVEL 136 MMOL/L (136-145)
== END ==
PROVIDERS: ATTEND Internal Medicine
DX: G35 Multiple sclerosis (principal)

== ENCOUNTER → 2023-12-05 | Outpatient (REF) | payer MEDICARE, MEDICAID ==
[2023-12-05 11:41] LABS: HEMATOCRIT 40.4 % (36.0-47.0); MEAN CORPUSCULAR HEMOGLOBIN 30.2 pg (27.0-33.0); MEAN CORPUSCULAR HGB CONC 32.2 g/dl (32.0-36.5); PLATELET COUNT, AUTOMATED 245 10^3/uL (150-450); WHITE BLOOD COUNT 5.4 10^3/uL (4.0-10.0)
[2023-12-05 12:16] LABS: BLOOD UREA NITROGEN 15 MG/DL (9-23); CALCIUM LEVEL 9.6 MG/DL (8.3-10.6); CARBON DIOXIDE LEVEL 31 MMOL/L (20-31); CHLORIDE LEVEL 103 MMOL/L (98-107); GLOMERULAR FILTRATION RATE > 60.0 (>39); GLUCOSE, FASTING 96 MG/DL (74-106); POTASSIUM SERUM 3.8 MMOL/L (3.5-5.1); SODIUM LEVEL 140 MMOL/L (136-145)
== END ==
PROVIDERS: ATTEND Internal Medicine
DX: G35 Multiple sclerosis (principal)

== ENCOUNTER → 2023-12-14 | Outpatient (REF) | payer MEDICARE, MEDICAID | PROVIDERS: ATTEND Physician Assistant | DX: M54.9 Dorsalgia, unspecified (principal); Z53.8 Procedure and treatment not carried out for other reasons ==

== ENCOUNTER → 2023-12-15 | Outpatient (REF) | payer MEDICARE, MEDICAID ==
[2023-12-15 11:10] LABS: BASO % 0.6 % (0.0-1.0); EOS # 0.2 10^3/uL (0.0-0.5); EOS % 3.1 % (0.0-3.0); HEMATOCRIT 40.8 % (36.0-47.0); HEMOGLOBIN 13.3 g/dl (12.0-15.5); LYMPH # 0.5 10^3/uL (1.5-5.0); LYMPH % 7.1 % (24.0-44.0); MEAN CORPUSCULAR HEMOGLOBIN 29.8 pg (27.0-33.0); MEAN CORPUSCULAR HGB CONC 32.6 g/dl (32.0-36.5); MEAN CORPUSCULAR VOLUME 91.5 fl (80.0-96.0); MONO # 0.5 10^3/uL (0.0-0.8); MONO % 8.2 % (2.0-8.0); NEUTROPHILS # 5.1 10^3/uL (1.5-8.5); NEUTROPHILS % 80.7 % (36.0-66.0); PLATELET COUNT, AUTOMATED 231 10^3/uL (150-450); RED BLOOD COUNT 4.46 10^6/uL (4.00-5.40); WHITE BLOOD COUNT 6.4 10^3/uL (4.0-10.0)
[2023-12-15 11:32] LABS: BLOOD UREA NITROGEN 15 MG/DL (9-23); CARBON DIOXIDE LEVEL 28 MMOL/L (20-31); CHLORIDE LEVEL 101 MMOL/L (98-107); CREATININE FOR GFR 0.54 MG/DL (0.55-1.30); GLOMERULAR FILTRATION RATE > 60.0 (>39); GLUCOSE, FASTING 99 MG/DL (74-106); POTASSIUM SERUM 3.9 MMOL/L (3.5-5.1); SODIUM LEVEL 138 MMOL/L (136-145)
== END ==
PROVIDERS: ATTEND Physician Assistant
DX: M54.9 Dorsalgia, unspecified (principal)

== ENCOUNTER → 2023-12-16 | Outpatient (REF) | payer MEDICARE, MEDICAID ==
[2023-12-16 14:49] LABS: HEMATOCRIT 36.9 % (36.0-47.0); HEMOGLOBIN 11.8 g/dl (12.0-15.5); MEAN CORPUSCULAR HEMOGLOBIN 29.8 pg (27.0-33.0); MEAN CORPUSCULAR VOLUME 93.2 fl (80.0-96.0); PLATELET COUNT, AUTOMATED 232 10^3/uL (150-450); RED BLOOD COUNT 3.96 10^6/uL (4.00-5.40); WHITE BLOOD COUNT 10.4 10^3/uL (4.0-10.0)
[2023-12-16 15:21] LABS: BLOOD UREA NITROGEN 17 MG/DL (9-23); CALCIUM LEVEL 9.7 MG/DL (8.3-10.6); CARBON DIOXIDE LEVEL 28 MMOL/L (20-31); CHLORIDE LEVEL 99 MMOL/L (98-107); CREATININE FOR GFR 0.61 MG/DL (0.55-1.30); GLOMERULAR FILTRATION RATE > 60.0 (>39); GLUCOSE, FASTING 87 MG/DL (74-106); POTASSIUM SERUM 3.6 MMOL/L (3.5-5.1); SODIUM LEVEL 136 MMOL/L (136-145)
== END ==
PROVIDERS: ATTEND Physician Assistant
DX: R05.9 Cough, unspecified (principal); Z79.899 Other long term (current) drug therapy

== ENCOUNTER → 2023-12-19 | Outpatient (REF) | payer MEDICARE, MEDICAID | PROVIDERS: ATTEND Physician Assistant | DX: R82.998 Other abnormal findings in urine (principal) ==

== ENCOUNTER → 2024-01-09 | Outpatient (REF) | payer MEDICARE, MEDICAID ==
[2024-01-09 11:35] LABS: BASO # 0.1 10^3/uL (0.0-0.2); BASO % 0.9 % (0.0-1.0); EOS # 0.3 10^3/uL (0.0-0.5); EOS % 6.1 % (0.0-3.0); HEMATOCRIT 39.5 % (36.0-47.0); HEMOGLOBIN 12.7 g/dl (12.0-15.5); LYMPH % 17.2 % (24.0-44.0); MEAN CORPUSCULAR HEMOGLOBIN 29.9 pg (27.0-33.0); MEAN CORPUSCULAR HGB CONC 32.2 g/dl (32.0-36.5); MEAN CORPUSCULAR VOLUME 92.9 fl (80.0-96.0); MONO # 0.4 10^3/uL (0.0-0.8); MONO % 6.4 % (2.0-8.0); NEUTROPHILS # 3.9 10^3/uL (1.5-8.5); NEUTROPHILS % 69.2 % (36.0-66.0); PLATELET COUNT, AUTOMATED 254 10^3/uL (150-450); RED BLOOD COUNT 4.25 10^6/uL (4.00-5.40); WHITE BLOOD COUNT 5.6 10^3/uL (4.0-10.0)
[2024-01-09 12:01] LABS: ALBUMIN 3.6 G/DL (3.2-5.2); ALKALINE PHOSPHATASE 112 U/L (46-116); ALT/SGPT 45 U/L (7.0-40); AST/SGOT 20 U/L (<34); BILIRUBIN,TOTAL 0.6 MG/DL (0.3-1.2); BLOOD UREA NITROGEN 16 MG/DL (9-23); CALCIUM LEVEL 9.7 MG/DL (8.3-10.6); CARBON DIOXIDE LEVEL 29 MMOL/L (20-31); CHLORIDE LEVEL 102 MMOL/L (98-107); CREATININE FOR GFR 0.47 MG/DL (0.55-1.30); GLOMERULAR FILTRATION RATE > 60.0 (>39); GLUCOSE, FASTING 111 MG/DL (74-106); POTASSIUM SERUM 3.4 MMOL/L (3.5-5.1); SODIUM LEVEL 139 MMOL/L (136-145); TOTAL PROTEIN 7.2 G/DL (5.7-8.2)
== END ==
PROVIDERS: ATTEND Physician Assistant
DX: G35 Multiple sclerosis (principal)

== ENCOUNTER 2024-02-12 14:42 | Inpatient (IN) | payer MEDICARE, MEDICAID ==
[~2024-02-12] VITALS: Ht 165.1 cm; Wt 82.7 kg
[2024-02-12] MEDS: NS 1,000 ML IV SCH (15:10)
[2024-02-12] MEDS: ACETAMINOPHEN 650MG SUPP PR ONE (15:10)
[2024-02-12 15:17] LABS: BASO % 0.2 % (0.0-1.0); EOS % 0.2 % (0.0-3.0); HEMOGLOBIN 13.2 g/dl (12.0-15.5); LYMPH # 0.6 10^3/uL (1.5-5.0); LYMPH % 4.6 % (24.0-44.0); MEAN CORPUSCULAR HEMOGLOBIN 29.9 pg (27.0-33.0); MEAN CORPUSCULAR HGB CONC 32.2 g/dl (32.0-36.5); MONO # 0.1 10^3/uL (0.0-0.8); MONO % 0.9 % (2.0-8.0); NEUTROPHILS # 11.9 10^3/uL (1.5-8.5); NEUTROPHILS % 93.7 % (36.0-66.0); PLATELET COUNT, AUTOMATED 238 10^3/uL (150-450); RED BLOOD COUNT 4.41 10^6/uL (4.00-5.40); WHITE BLOOD COUNT 12.7 10^3/uL (4.0-10.0)
[2024-02-12 15:33] LABS: INR 1.08; PARTIAL THROMBOPLASTIN TIME 22.4 SECONDS (24.8-34.2); PROTHROMBIN TIME 13.7 SECONDS (12.5-14.5)
[2024-02-12 15:38] LABS: AMYLASE 96 U/L (30-118)
[2024-02-12 15:39] LABS: ALBUMIN 3.8 G/DL (3.2-5.2); ALKALINE PHOSPHATASE 131 U/L (46-116); ALT/SGPT 35 U/L (7.0-40); AST/SGOT 18 U/L (<34); BILIRUBIN,DIRECT 0.3 MG/DL (<0.4); BILIRUBIN,TOTAL 0.8 MG/DL (0.3-1.2); BLOOD UREA NITROGEN 27 MG/DL (9-23); CALCIUM LEVEL 9.9 MG/DL (8.3-10.6); CARBON DIOXIDE LEVEL 28 MMOL/L (20-31); CHLORIDE LEVEL 104 MMOL/L (98-107); CREATININE FOR GFR 0.91 MG/DL (0.55-1.30); GLOMERULAR FILTRATION RATE > 60.0 (>39); GLUCOSE, FASTING 155 MG/DL (74-106); POTASSIUM SERUM 4.4 MMOL/L (3.5-5.1); SODIUM LEVEL 139 MMOL/L (136-145); TOTAL PROTEIN 7.7 G/DL (5.7-8.2)
[2024-02-12 15:42] LABS: APPEARANCE, URINE TURBID (CLEAR); BACTERIA, URINE AUTO 3+ (NEGATIVE); BILIRUBIN, URINE AUTO NEGATIVE (NEGATIVE); BLOOD, URINE BLOOD 1+ (NEGATIVE); COLOR, URINE YELLOW (YELLOW); GLUCOSE, URINE (UA) AUTO NEGATIVE (NEGATIVE); KETONE, URINE AUTO NEGATIVE (NEGATIVE); LEUKOCYTE ESTERASE, URINE AUTO 3+ (NEGATIVE); NITRITE, URINE AUTO NEGATIVE (NEGATIVE); PROTEIN, URINE AUTO 3+ mg/dL (NEGATIVE); RBC, URINE AUTO 112 /HPF (0-3); SPECIFIC GRAVITY URINE AUTO 1.009 (1.002-1.035); SQUAMOUS EPITHELIAL CELL UR AU 0 /HPF (0-6); UROBILINOGEN, URINE AUTO 0.2 mg/dL (0.0-2.0); WBC, URINE AUTO TNTC /HPF (0-3)
[2024-02-12 15:47] LABS: PROCALCITONIN 0.43 ng/ml
[2024-02-12] MEDS: NS 500 ML IV ONE (16:06)
[2024-02-12] MEDS: ERTAPENEM SODIUM 1 GM in NS MINI-BAG PLUS 50 ML IV ONE (16:10)
[2024-02-12] MEDS: NS IV ONE (17:20)
[2024-02-12] MEDS ORDERED: BISACODYL 10MG SUPP PR PRN (17:20)
[2024-02-12] MEDS ORDERED: ONDANSETRON 4MG TAB PO PRN (17:20)
[2024-02-12] MEDS ORDERED: MOM 30ML SUSPENSION UDC PO PRN (17:20)
[2024-02-12] MEDS ORDERED: MOM30SS2 PO (17:26)
[2024-02-12] MEDS ORDERED: ONDA-83 PO (17:26)
[2024-02-12] MEDS ORDERED: BISA10SU27 PR (17:26)
[2024-02-12] MEDS ORDERED: ACET1TAB55 PO (17:26)
[2024-02-12] MEDS ORDERED: FLEEENE12 PR (17:26)
[2024-02-12] MEDS ORDERED: ERGO500029 PO (17:26)
[2024-02-12] MEDS ORDERED: HOME MED LIST COMPLETE! XX SCH (17:30)
[2024-02-12] MEDS: SODIUM CHLORIDE 0.9% 1000ML IV SCH (19:35)
[2024-02-12 20:28] VITALS: BP 101/56; TEMP 99.6; O2SAT 98
[2024-02-12] MEDS: NS 1,000 ML IV ONE (20:35)
[2024-02-12] MEDS: BACLOFEN 10 MG TAB PO SCH (21:00)
[2024-02-12] MEDS: HEPARIN SOD (PORCINE) 5000UNITS/ML 1ML VIAL/SYRINGE SC SCH (22:54)
[2024-02-12 23:28] VITALS: BP 100/51; TEMP 99.7; O2SAT 92
[2024-02-13] VITALS (22 sets, daily range): BP systolic 83–113; BP diastolic 50–59; TEMP 97.1–100.4; O2SAT 89–100
[2024-02-13] MEDS: NS 500 ML IV ONE (03:02)
[2024-02-13 06:08] LABS: HEMATOCRIT 33.2 % (36.0-47.0); MEAN CORPUSCULAR HEMOGLOBIN 29.4 pg (27.0-33.0); MEAN CORPUSCULAR HGB CONC 31.9 g/dl (32.0-36.5); PLATELET COUNT, AUTOMATED 171 10^3/uL (150-450); RED BLOOD COUNT 3.61 10^6/uL (4.00-5.40); WHITE BLOOD COUNT 25.8 10^3/uL (4.0-10.0)
[2024-02-13 06:09] LABS: HEMOGLOBIN 10.6 g/dl (12.0-15.5)
[2024-02-13 06:29] LABS: ALBUMIN 2.5 G/DL (3.2-5.2); BILIRUBIN,TOTAL 0.5 MG/DL (0.3-1.2); CALCIUM LEVEL 8.1 MG/DL (8.3-10.6); CREATININE FOR GFR 1.33 MG/DL (0.55-1.30); GLOMERULAR FILTRATION RATE 41.3 (>39); POTASSIUM SERUM 4.1 MMOL/L (3.5-5.1); TOTAL PROTEIN 5.6 G/DL (5.7-8.2)
[2024-02-13] MEDS ORDERED: LR 1,000 ML IV SCH (07:00)
[2024-02-13] MEDS: ERTAPENEM SODIUM 1 GM in NS MINI-BAG PLUS 50 ML IV SCH (10:01)
[2024-02-13 11:13] LABS: C REACTIVE PROTEIN QUANTITATIV 16.4 MG/DL (<1.0)
[2024-02-13 11:26] LABS: ERYTHROCYTE SEDIMENTATION RATE 40 mm/hr (0-30)
[2024-02-13 12:26] LABS: ALBUMIN 2.7 G/DL (3.2-5.2); CALCIUM LEVEL 8.3 MG/DL (8.3-10.6); CREATININE FOR GFR 1.51 MG/DL (0.55-1.30); GLOMERULAR FILTRATION RATE 35.7 (>39); PHOSPHORUS LEVEL 3.5 MG/DL (2.4-5.1); POTASSIUM SERUM 4.6 MMOL/L (3.5-5.1)
[2024-02-13] MEDS ORDERED: VARIBAR NECTAR 40% w/v 240ML SUSP BTL As Ordered ONE (13:24)
[2024-02-13] MEDS ORDERED: VARIBAR PUDDING 40% w/v 230ML TUBE As Ordered ONE (13:24)
[2024-02-13] MEDS ORDERED: BARIUM SULFATE 700 MG TABLET (E-Z-DISK) As Ordered ONE (13:24)
[2024-02-13] MEDS ORDERED: E-Z-PAQUE 96% w/w SUSP 176GM BTL As Ordered ONE (13:24)
[2024-02-13] MEDS ORDERED: fentaNYL 100 MCG/2 ML INJECTION As Ordered ONE (15:03)
[2024-02-13] MEDS ORDERED: dexmedeTOMIDine (4MCG/ML)200MCG/50ML BTL (PRECEDEX) As Ordered ONE (15:03)
[2024-02-13] MEDS ORDERED: propofoL 200 MG/20 ML VIAL As Ordered ONE (15:03)
[2024-02-13] MEDS ORDERED: LIDOCAINE 2% 100MG/5ML SDV (FOR ANES.) As Ordered ONE (15:03)
[2024-02-13] MEDS ORDERED: ACETAMINOPHEN 1000MG 100ML IV BAG As Ordered ONE (15:03)
[2024-02-13] MEDS ORDERED: ROCURONIUM BROMIDE 50MG/5ML VIAL As Ordered ONE (15:03)
[2024-02-13] MEDS ORDERED: ONDANSETRON 4MG 2ML VIAL As Ordered ONE (15:03)
[2024-02-13] MEDS ORDERED: MIDAZOLAM INJ 2MG/2ML VIAL As Ordered ONE (15:03)
[2024-02-13] MEDS: ISOVUE-300 61% 100ML VIAL As Ordered ONE (15:06)
[2024-02-13] MEDS: ASPIRIN 81MG ENTERIC TABLET PO SCH (16:12)
[2024-02-13] MEDS: BACLOFEN 10 MG TAB PO SCH (16:12)
[2024-02-13] MEDS: ACETAMINOPHEN TAB 650MG DOSE (2X325MG) PO PRN (16:12)
[2024-02-13] MEDS: NORTRIPTYLINE 10 MG CAP PO SCH (16:13)
[2024-02-13] MEDS: FUROSEMIDE 100MG/10ML VIAL IV ONE (17:28)
[2024-02-13] MEDS ORDERED: METOPROLOL 5 MG/5 ML VIAL IV STA (19:00)
[2024-02-13] MEDS: METOPROLOL 5 MG/5 ML VIAL IV SCH (19:20)
[2024-02-13 19:32] LABS: HEMATOCRIT 32.6 % (36.0-47.0); HEMOGLOBIN 10.6 g/dl (12.0-15.5); MEAN CORPUSCULAR HEMOGLOBIN 29.6 pg (27.0-33.0); MEAN CORPUSCULAR HGB CONC 32.5 g/dl (32.0-36.5); MEAN CORPUSCULAR VOLUME 91.1 fl (80.0-96.0); PLATELET COUNT, AUTOMATED 127 10^3/uL (150-450); RED BLOOD COUNT 3.58 10^6/uL (4.00-5.40); WHITE BLOOD COUNT 19.5 10^3/uL (4.0-10.0)
[2024-02-13 19:57] LABS: LYMPHOCYTES 2 % (16-44); METAMYELOCYTES 2 % (0-0); MONOCYTES 1 % (0-5); NEUTROPHILS 91 % (28-66); PLATELET ESTIMATE DECREASED (NORMAL); TOXIC VACUOLATION 2+
[2024-02-13 20:02] LABS: C REACTIVE PROTEIN QUANTITATIV 28.8 MG/DL (<1.0)
[2024-02-13 20:03] LABS: MB/CK RELATIVE INDEX 0.86 (< OR =4)
[2024-02-13 20:09] LABS: PROCALCITONIN 36.9 ng/ml
[2024-02-13 20:12] LABS: ALBUMIN 2.6 G/DL (3.2-5.2); BILIRUBIN,TOTAL 0.4 MG/DL (0.3-1.2); CALCIUM LEVEL 8.4 MG/DL (8.3-10.6); CREATININE FOR GFR 1.32 MG/DL (0.55-1.30); GLOMERULAR FILTRATION RATE 41.7 (>39); MAGNESIUM LEVEL 1.5 MG/DL (1.8-2.4); POTASSIUM SERUM 3.3 MMOL/L (3.5-5.1)
[2024-02-13 20:13] LABS: ERYTHROCYTE SEDIMENTATION RATE 89 mm/hr (0-30)
[2024-02-13] MEDS: POTASSIUM CHLORIDE 10MEQ SR TABLET PO ONE (21:00)
[2024-02-13] MEDS: SODIUM CHLORIDE 0.9% 1000ML IV ONE (21:01)
[2024-02-13] MEDS: DOCUSATE SODIUM 100MG CAPSULE PO SCH (21:01)
[2024-02-13] MEDS: MAG SULF 1GM/100ML (MAG RUN) 1 GM in IV 1 EA IV SCH (21:01)
[2024-02-13] MEDS: DIGOXIN INJ 0.5 MG/2 ML AMP IV STA (21:23)
[2024-02-13] MEDS: ENOXAPARIN 80MG/0.8ML SYRINGE (J1650 PER 10MG) SC SCH (21:55)
[2024-02-13 22:00] LABS: CK-MB VALUE MASS 2.2 NG/ML (<3.6)
[2024-02-13 22:02] LABS: MB/CK RELATIVE INDEX 0.99 (< OR =4)
[2024-02-14] VITALS (22 sets, daily range): BP systolic 96–131; BP diastolic 50–65; TEMP 97.9–99.9; O2SAT 92–100
[2024-02-14 01:46] LABS: CK-MB VALUE MASS 2.3 NG/ML (<3.6)
[2024-02-14 01:49] LABS: MB/CK RELATIVE INDEX 1.12 (< OR =4)
[2024-02-14 05:56] LABS: BASO % 0.2 % (0.0-1.0); EOS # 0.1 10^3/uL (0.0-0.5); EOS % 0.5 % (0.0-3.0); HEMATOCRIT 31.1 % (36.0-47.0); HEMOGLOBIN 10.1 g/dl (12.0-15.5); LYMPH # 0.8 10^3/uL (1.5-5.0); LYMPH % 5.4 % (24.0-44.0); MEAN CORPUSCULAR HEMOGLOBIN 29.4 pg (27.0-33.0); MEAN CORPUSCULAR HGB CONC 32.5 g/dl (32.0-36.5); MEAN CORPUSCULAR VOLUME 90.7 fl (80.0-96.0); MONO # 0.4 10^3/uL (0.0-0.8); MONO % 2.6 % (2.0-8.0); NEUTROPHILS # 13.7 10^3/uL (1.5-8.5); NEUTROPHILS % 90.6 % (36.0-66.0); PLATELET COUNT, AUTOMATED 123 10^3/uL (150-450); RED BLOOD COUNT 3.43 10^6/uL (4.00-5.40); WHITE BLOOD COUNT 15.1 10^3/uL (4.0-10.0)
[2024-02-14 06:21] LABS: ALBUMIN 2.5 G/DL (3.2-5.2); CALCIUM LEVEL 8.6 MG/DL (8.3-10.6); CREATININE FOR GFR 0.98 MG/DL (0.55-1.30); GLOMERULAR FILTRATION RATE 58.7 (>39); PHOSPHORUS LEVEL 2.8 MG/DL (2.4-5.1); POTASSIUM SERUM 3.4 MMOL/L (3.5-5.1)
[2024-02-14 06:28] LABS: PROCALCITONIN 22.24 ng/ml
[2024-02-14] MEDS: DOCUSATE SOD LIQ 100MG/10ML UDC PO SCH (09:29)
[2024-02-14] MEDS: NORTRIPTYLINE 10 MG CAP PO SCH (09:29)
[2024-02-14] MEDS: ASPIRIN 81MG CHEW TABLET PEG SCH (09:29)
[2024-02-14] MEDS: KCL 20MEQ IN 0.45NS 1000ML 1,000 ML IV SCH (11:49)
[2024-02-14 12:52] LABS: THYROID STIMULATING HORMONE 1.513 uIU/ML (0.55-4.78)
[2024-02-14] MEDS: DIGOXIN 0.125 MG TAB PO ONE (13:20)
[2024-02-14] MEDS: BACLOFEN 10 MG TAB PO SCH (17:08)
[2024-02-14] MEDS: DIGOXIN 0.25 MG TAB PO ONE (17:08)
[2024-02-15] VITALS (8 sets, daily range): BP systolic 120–140; BP diastolic 52–76; TEMP 96.8–98.6; O2SAT 94–96
[2024-02-15] MEDS: DIGOXIN 0.125 MG TAB PO ONE (00:42)
[2024-02-15 05:57] LABS: BASO % 0.2 % (0.0-1.0); EOS # 0.2 10^3/uL (0.0-0.5); EOS % 1.4 % (0.0-3.0); HEMATOCRIT 30.2 % (36.0-47.0); LYMPH # 0.7 10^3/uL (1.5-5.0); LYMPH % 6.2 % (24.0-44.0); MEAN CORPUSCULAR HEMOGLOBIN 29.6 pg (27.0-33.0); MEAN CORPUSCULAR HGB CONC 33.1 g/dl (32.0-36.5); MEAN CORPUSCULAR VOLUME 89.3 fl (80.0-96.0); MONO # 0.5 10^3/uL (0.0-0.8); MONO % 4.5 % (2.0-8.0); NEUTROPHILS # 10.3 10^3/uL (1.5-8.5); NEUTROPHILS % 86.6 % (36.0-66.0); PLATELET COUNT, AUTOMATED 129 10^3/uL (150-450); RED BLOOD COUNT 3.38 10^6/uL (4.00-5.40); WHITE BLOOD COUNT 11.9 10^3/uL (4.0-10.0)
[2024-02-15 06:17] LABS: ALBUMIN 2.2 G/DL (3.2-5.2); BLOOD UREA NITROGEN 28 MG/DL (9-23); CALCIUM LEVEL 8.7 MG/DL (8.3-10.6); CARBON DIOXIDE LEVEL 25 MMOL/L (20-31); CHLORIDE LEVEL 107 MMOL/L (98-107); CREATININE FOR GFR 0.49 MG/DL (0.55-1.30); GLOMERULAR FILTRATION RATE > 60.0 (>39); GLUCOSE, FASTING 100 MG/DL (74-106); PHOSPHORUS LEVEL 1.8 MG/DL (2.4-5.1); POTASSIUM SERUM 3.5 MMOL/L (3.5-5.1); SODIUM LEVEL 138 MMOL/L (136-145)
[2024-02-15] MEDS ORDERED: MAG SULF 1GM/100ML (MAG RUN) 1 GM in IV 1 EA IV SCH (07:55)
[2024-02-15] MEDS ORDERED: ASPIRIN 81MG CHEW TABLET PO SCH (09:00)
[2024-02-15] MEDS: BACTRIM 160MG/800MG DS TAB PO SCH (09:29)
[2024-02-15] MEDS: MIRALAX *UNIT DOSE* 17GM PACKET PO SCH (09:30)
[2024-02-15] MEDS: RIVAROXABAN 20MG TAB (XARELTO) PO SCH (09:30)
[2024-02-15 10:45] LABS: MAGNESIUM LEVEL 1.6 MG/DL (1.8-2.4)
[2024-02-15] MEDS: FLEET OIL RETENTION ENEMA PR SCH (10:52)
[2024-02-15] MEDS: POTASSIUM PHOSPHATE INJ 30 MMOL in D5W 500 ML IV ONE (11:53)
[2024-02-15] MEDS: MAG SULF 1GM/100ML (MAG RUN) 1 GM in IV 1 EA IV SCH (12:31)
[2024-02-15] MEDS ORDERED: XARE20TA PO (14:09)
[2024-02-15] MEDS: AMOXICILLIN 500 MG CAP PO SCH (15:01)
[2024-02-15] MEDS: LIDOCAINE 5% (LIDODERM) PATCH TD SCH (17:27)
[2024-02-15 18:55] LABS: DIGOXIN LEVEL 1.2 NG/ML (0.8-2.0)
[2024-02-15 18:56] LABS: ALBUMIN 2.3 G/DL (3.2-5.2); BLOOD UREA NITROGEN 21 MG/DL (9-23); CALCIUM LEVEL 8.3 MG/DL (8.3-10.6); CARBON DIOXIDE LEVEL 25 MMOL/L (20-31); CHLORIDE LEVEL 107 MMOL/L (98-107); CREATININE FOR GFR 0.43 MG/DL (0.55-1.30); GLOMERULAR FILTRATION RATE > 60.0 (>39); GLUCOSE, FASTING 116 MG/DL (74-106); MAGNESIUM LEVEL 2.6 MG/DL (1.8-2.4); PHOSPHORUS LEVEL 3.3 MG/DL (2.4-5.1); SODIUM LEVEL 136 MMOL/L (136-145)
[2024-02-15] MEDS ORDERED: CEFDINIR 300 MG CAP (OMNICEF) PO SCH (21:00)
[2024-02-16] MEDS ORDERED: UNRESOLVED PATIENT OWN MED ORDER XX SCH (00:01)
[2024-02-16 00:22] VITALS: BP 136/70; TEMP 97.2; O2SAT 95
[2024-02-16 04:50] VITALS: BP 134/70; TEMP 97.9; O2SAT 95
[2024-02-16 06:08] LABS: BASO % 0.2 % (0.0-1.0); EOS # 0.2 10^3/uL (0.0-0.5); EOS % 3.7 % (0.0-3.0); HEMATOCRIT 30.4 % (36.0-47.0); HEMOGLOBIN 10.1 g/dl (12.0-15.5); LYMPH # 0.9 10^3/uL (1.5-5.0); LYMPH % 13.1 % (24.0-44.0); MEAN CORPUSCULAR HEMOGLOBIN 29.4 pg (27.0-33.0); MEAN CORPUSCULAR HGB CONC 33.2 g/dl (32.0-36.5); MEAN CORPUSCULAR VOLUME 88.4 fl (80.0-96.0); MONO # 0.7 10^3/uL (0.0-0.8); MONO % 10.8 % (2.0-8.0); NEUTROPHILS # 4.7 10^3/uL (1.5-8.5); NEUTROPHILS % 71.9 % (36.0-66.0); PLATELET COUNT, AUTOMATED 142 10^3/uL (150-450); RED BLOOD COUNT 3.44 10^6/uL (4.00-5.40); WHITE BLOOD COUNT 6.5 10^3/uL (4.0-10.0)
[2024-02-16 06:46] LABS: PROCALCITONIN 2.26 ng/ml
[2024-02-16 06:53] LABS: ALBUMIN 2.2 G/DL (3.2-5.2); BLOOD UREA NITROGEN 17 MG/DL (9-23); CALCIUM LEVEL 8.3 MG/DL (8.3-10.6); CARBON DIOXIDE LEVEL 27 MMOL/L (20-31); CHLORIDE LEVEL 105 MMOL/L (98-107); CREATININE FOR GFR 0.44 MG/DL (0.55-1.30); GLOMERULAR FILTRATION RATE > 60.0 (>39); GLUCOSE, FASTING 90 MG/DL (74-106); PHOSPHORUS LEVEL 2.5 MG/DL (2.4-5.1); POTASSIUM SERUM 3.8 MMOL/L (3.5-5.1); SODIUM LEVEL 135 MMOL/L (136-145)
[2024-02-16] MEDS ORDERED: AMOX500C PO (07:47)
[2024-02-16 09:00] VITALS: BP 135/72; TEMP 97.3; O2SAT 95
== END 2024-02-16 10:52 | DRG 853 ==
LOC: M ED 14:42 → EDBD 14:42 → M ED INP 17:09 → M PCU 20:15 → M MSPAV 02-15 02:33
PROVIDERS: ADMIT Internal Medicine; ATTEND Student in an Organized Health Care Education/Training Program
PROC: B246ZZZ Ultrasonography of Right and Left Heart (ICD-10-PCS; 2024-02-13)
PROC: 0T778DZ Dilation of Left Ureter with Intraluminal Device, Via Natural or Artificial Opening Endoscopic (ICD-10-PCS; principal; 2024-02-13 14:30)
DX: A41.51 Sepsis due to Escherichia coli [E. coli] (principal); G93.41 Metabolic encephalopathy; N17.0 Acute kidney failure with tubular necrosis; N39.0 Urinary tract infection, site not specified; N13.6 Pyonephrosis; E87.20 Acidosis, unspecified; G35 Multiple sclerosis; K75.81 Nonalcoholic steatohepatitis (NASH); N31.9 Neuromuscular dysfunction of bladder, unspecified; K21.9 Gastro-esophageal reflux disease without esophagitis; M81.0 Age-related osteoporosis without current pathological fracture; R53.81 Other malaise; Z66 Do not resuscitate; I48.0 Paroxysmal atrial fibrillation; R13.10 Dysphagia, unspecified; R33.9 Retention of urine, unspecified; R60.0 Localized edema; D64.9 Anemia, unspecified; Z99.3 Dependence on wheelchair; Z87.81 Personal history of (healed) traumatic fracture; Z87.442 Personal history of urinary calculi; Z79.82 Long term (current) use of aspirin; Z79.899 Other long term (current) drug therapy; Z88.1 Allergy status to other antibiotic agents; Z79.01 Long term (current) use of anticoagulants; Z88.0 Allergy status to penicillin

== ENCOUNTER → 2024-02-16 | Outpatient (REF) | payer MEDICARE, MEDICAID ==
[~2024-02-16] MED LIST changes: +AMOX500C PO; +BISA10SU27 PR; +ERGO500029 PO; +FLEEENE12 PR; +MOM30SS2 PO; +ONDA-83 PO; +XARE20TA PO
== END ==
PROVIDERS: ATTEND Internal Medicine
DX: G35 Multiple sclerosis (principal); Z53.8 Procedure and treatment not carried out for other reasons

== ENCOUNTER → 2024-02-20 | Outpatient (REF) | payer MEDICARE, MEDICAID ==
[2024-02-20 15:27] LABS: HEMATOCRIT 35.3 % (36.0-47.0); HEMOGLOBIN 11.3 g/dl (12.0-15.5); MEAN CORPUSCULAR HEMOGLOBIN 29.4 pg (27.0-33.0); MEAN CORPUSCULAR VOLUME 91.9 fl (80.0-96.0); PLATELET COUNT, AUTOMATED 342 10^3/uL (150-450); RED BLOOD COUNT 3.84 10^6/uL (4.00-5.40); WHITE BLOOD COUNT 6.6 10^3/uL (4.0-10.0)
[2024-02-20 15:50] LABS: BLOOD UREA NITROGEN 12 MG/DL (9-23); CALCIUM LEVEL 9.7 MG/DL (8.3-10.6); CARBON DIOXIDE LEVEL 28 MMOL/L (20-31); CHLORIDE LEVEL 101 MMOL/L (98-107); CREATININE FOR GFR 0.41 MG/DL (0.55-1.30); GLOMERULAR FILTRATION RATE > 60.0 (>39); GLUCOSE, FASTING 138 MG/DL (74-106); SODIUM LEVEL 135 MMOL/L (136-145)
== END ==
PROVIDERS: ATTEND Physician Assistant
DX: G35 Multiple sclerosis (principal)

== ENCOUNTER → 2024-02-27 | Outpatient (REF) | payer MEDICARE, MEDICAID ==
[2024-02-27 11:16] LABS: HEMOGLOBIN 11.5 g/dl (12.0-15.5); MEAN CORPUSCULAR HGB CONC 31.1 g/dl (32.0-36.5); MEAN CORPUSCULAR VOLUME 93.4 fl (80.0-96.0); PLATELET COUNT, AUTOMATED 429 10^3/uL (150-450); RED BLOOD COUNT 3.96 10^6/uL (4.00-5.40); WHITE BLOOD COUNT 6.7 10^3/uL (4.0-10.0)
[2024-02-27 11:40] LABS: BLOOD UREA NITROGEN 13 MG/DL (9-23); CALCIUM LEVEL 9.5 MG/DL (8.3-10.6); CARBON DIOXIDE LEVEL 28 MMOL/L (20-31); CHLORIDE LEVEL 102 MMOL/L (98-107); CREATININE FOR GFR 0.47 MG/DL (0.55-1.30); GLOMERULAR FILTRATION RATE > 60.0 (>39); GLUCOSE, FASTING 104 MG/DL (74-106); POTASSIUM SERUM 4.2 MMOL/L (3.5-5.1); SODIUM LEVEL 137 MMOL/L (136-145)
== END ==
PROVIDERS: ATTEND Physician Assistant
DX: G35 Multiple sclerosis (principal)

== ENCOUNTER → 2024-04-05 | Outpatient (REF) | payer MEDICARE, MEDICAID ==
[2024-04-05 17:33] LABS: BASO # 0.1 10^3/uL (0.0-0.2); EOS # 0.5 10^3/uL (0.0-0.5); HEMATOCRIT 37.2 % (36.0-47.0); LYMPH # 1.2 10^3/uL (1.5-5.0); LYMPH % 22.1 % (24.0-44.0); MEAN CORPUSCULAR HEMOGLOBIN 29.8 pg (27.0-33.0); MEAN CORPUSCULAR HGB CONC 32.3 g/dl (32.0-36.5); MEAN CORPUSCULAR VOLUME 92.3 fl (80.0-96.0); MONO # 0.6 10^3/uL (0.0-0.8); MONO % 12.1 % (2.0-8.0); NEUTROPHILS # 2.9 10^3/uL (1.5-8.5); NEUTROPHILS % 55.6 % (36.0-66.0); PLATELET COUNT, AUTOMATED 355 10^3/uL (150-450); RED BLOOD COUNT 4.03 10^6/uL (4.00-5.40); WHITE BLOOD COUNT 5.2 10^3/uL (4.0-10.0)
[2024-04-05 17:58] LABS: BLOOD UREA NITROGEN 23 MG/DL (9-23); CALCIUM LEVEL 9.7 MG/DL (8.3-10.6); CARBON DIOXIDE LEVEL 31 MMOL/L (20-31); CHLORIDE LEVEL 102 MMOL/L (98-107); GLOMERULAR FILTRATION RATE > 60.0 (>39); GLUCOSE, FASTING 103 MG/DL (74-106); POTASSIUM SERUM 4.5 MMOL/L (3.5-5.1); SODIUM LEVEL 137 MMOL/L (136-145)
== END ==
PROVIDERS: ATTEND Physician Assistant
DX: N20.0 Calculus of kidney (principal)

== ENCOUNTER → 2024-04-18 | Outpatient (REF) | payer MEDICARE, MEDICAID ==
[~2024-04-18] MED LIST changes: +BACTDSTA PO; +GUAI5EL PO
== END ==
PROVIDERS: ATTEND Internal Medicine
DX: R05.9 Cough, unspecified (principal); N20.0 Calculus of kidney; R50.9 Fever, unspecified; R31.0 Gross hematuria

== ENCOUNTER → 2024-04-18 | Outpatient (REF) | payer MEDICARE, MEDICAID ==
[2024-04-18 17:53] LABS: AMORPHOUS SEDIMENT SMALL (NEGATIVE); APPEARANCE, URINE TURBID (CLEAR); BACTERIA, URINE AUTO NEGATIVE (NEGATIVE); BILIRUBIN, URINE AUTO NEGATIVE (NEGATIVE); BLOOD, URINE BLOOD 3+ (NEGATIVE); COLOR, URINE RED (YELLOW); GLUCOSE, URINE (UA) AUTO NEGATIVE (NEGATIVE); KETONE, URINE AUTO TRACE mg/dL (NEGATIVE); LEUKOCYTE ESTERASE, URINE AUTO 2+ (NEGATIVE); MUCUS, URINE SMALL (NEGATIVE); NITRITE, URINE AUTO NEGATIVE (NEGATIVE); PROTEIN, URINE AUTO 3+ mg/dL (NEGATIVE); RBC, URINE AUTO TNTC /HPF (0-3); SPECIFIC GRAVITY URINE AUTO 1.013 (1.002-1.035); SQUAMOUS EPITHELIAL CELL UR AU 0 /HPF (0-6); TRANSITIONAL EPITHELIAL AUTO 6 /HPF; UROBILINOGEN, URINE AUTO 0.2 mg/dL (0.0-2.0); WBC, URINE AUTO TNTC /HPF (0-3)
== END ==
PROVIDERS: ATTEND Internal Medicine
DX: R05.9 Cough, unspecified (principal); R31.0 Gross hematuria; R50.9 Fever, unspecified; N20.0 Calculus of kidney

== ENCOUNTER → 2024-04-19 | Outpatient (REF) | payer MEDICARE, MEDICAID ==
[2024-04-19 15:02] LABS: BASO % 0.4 % (0.0-1.0); EOS # 0.2 10^3/uL (0.0-0.5); EOS % 2.3 % (0.0-3.0); HEMATOCRIT 38.5 % (36.0-47.0); HEMOGLOBIN 12.1 g/dl (12.0-15.5); LYMPH # 0.9 10^3/uL (1.5-5.0); LYMPH % 10.8 % (24.0-44.0); MEAN CORPUSCULAR HEMOGLOBIN 29.2 pg (27.0-33.0); MEAN CORPUSCULAR HGB CONC 31.4 g/dl (32.0-36.5); MEAN CORPUSCULAR VOLUME 92.8 fl (80.0-96.0); MONO # 0.9 10^3/uL (0.0-0.8); MONO % 10.8 % (2.0-8.0); NEUTROPHILS # 6.2 10^3/uL (1.5-8.5); NEUTROPHILS % 75.3 % (36.0-66.0); PLATELET COUNT, AUTOMATED 297 10^3/uL (150-450); RED BLOOD COUNT 4.15 10^6/uL (4.00-5.40); WHITE BLOOD COUNT 8.2 10^3/uL (4.0-10.0)
[2024-04-19 15:19] LABS: BLOOD UREA NITROGEN 19 MG/DL (9-23); CALCIUM LEVEL 9.4 MG/DL (8.3-10.6); CARBON DIOXIDE LEVEL 27 MMOL/L (20-31); CHLORIDE LEVEL 101 MMOL/L (98-107); CREATININE FOR GFR 0.52 MG/DL (0.55-1.30); GLOMERULAR FILTRATION RATE > 60.0 (>39); GLUCOSE, FASTING 100 MG/DL (74-106); POTASSIUM SERUM 3.6 MMOL/L (3.5-5.1); SODIUM LEVEL 134 MMOL/L (136-145)
== END ==
PROVIDERS: ATTEND Physician Assistant
DX: G35 Multiple sclerosis (principal)

== ENCOUNTER → 2024-04-23 | Outpatient (REF) | payer MEDICARE, MEDICAID | PROVIDERS: ATTEND Physician Assistant | DX: Z53.8 Procedure and treatment not carried out for other reasons (principal) ==

== ENCOUNTER → 2024-04-27 | Outpatient (CLI) | payer MEDICARE, MEDICAID | LOC: M RAD 07:49 | PROVIDERS: ATTEND Physician Assistant | DX: Z01.818 Encounter for other preprocedural examination (principal); R94.31 Abnormal electrocardiogram [ECG] [EKG] ==

== ENCOUNTER → 2024-05-07 | Outpatient (REF) | payer MEDICAID, MEDICARE ==
[2024-05-07 09:27] LABS: BASO % 0.5 % (0.0-1.0); EOS # 0.3 10^3/uL (0.0-0.5); EOS % 3.6 % (0.0-3.0); HEMATOCRIT 36.1 % (36.0-47.0); HEMOGLOBIN 11.4 g/dl (12.0-15.5); LYMPH # 0.9 10^3/uL (1.5-5.0); LYMPH % 11.3 % (24.0-44.0); MEAN CORPUSCULAR HEMOGLOBIN 28.6 pg (27.0-33.0); MEAN CORPUSCULAR HGB CONC 31.6 g/dl (32.0-36.5); MEAN CORPUSCULAR VOLUME 90.7 fl (80.0-96.0); MONO # 0.8 10^3/uL (0.0-0.8); MONO % 10.5 % (2.0-8.0); NEUTROPHILS # 5.7 10^3/uL (1.5-8.5); NEUTROPHILS % 73.8 % (36.0-66.0); PLATELET COUNT, AUTOMATED 344 10^3/uL (150-450); RED BLOOD COUNT 3.98 10^6/uL (4.00-5.40); WHITE BLOOD COUNT 7.7 10^3/uL (4.0-10.0)
[2024-05-07 09:51] LABS: ALBUMIN 2.8 G/DL (3.2-5.2); ALKALINE PHOSPHATASE 124 U/L (46-116); ALT/SGPT 63 U/L (7.0-40); AST/SGOT 52 U/L (<34); BILIRUBIN,TOTAL 0.2 MG/DL (0.3-1.2); BLOOD UREA NITROGEN 17 MG/DL (9-23); CALCIUM LEVEL 9.5 MG/DL (8.3-10.6); CARBON DIOXIDE LEVEL 24 MMOL/L (20-31); CHLORIDE LEVEL 106 MMOL/L (98-107); CREATININE FOR GFR 0.56 MG/DL (0.55-1.30); GLOMERULAR FILTRATION RATE > 60.0 (>39); GLUCOSE, FASTING 104 MG/DL (74-106); POTASSIUM SERUM 3.5 MMOL/L (3.5-5.1); SODIUM LEVEL 139 MMOL/L (136-145); TOTAL PROTEIN 7.2 G/DL (5.7-8.2)
== END ==
PROVIDERS: ATTEND Physician Assistant
DX: Z01.818 Encounter for other preprocedural examination (principal)

== ENCOUNTER 2024-05-08 16:00 | Inpatient (IN) | payer MEDICARE, MEDICAID ==
[~2024-05-08] VITALS: Ht 165.1 cm; Wt 78.3 kg
[~2024-05-08 16:00] MED LIST changes: -BACTDSTA PO; -GUAI5EL PO
[2024-05-08 17:08] LABS: VENOUS HCO3 22.1 MMOL/L (23.0-27.0); VENOUS O2 SATURATION 55.5 % (60.0-80.0); VENOUS PARTIAL PRESSURE CO2 44.4 mmHg (38.0-50.0); VENOUS PH 7.314 UNITS (7.330-7.430); VENOUS STANDARD HCO3 20.4 MMOL/L; VENOUS TOTAL CO2 23.4 MMOL/L (24.0-28.0)
[2024-05-08 17:11] LABS: BASO % 0.2 % (0.0-1.0); EOS % 0.3 % (0.0-3.0); HEMATOCRIT 29.8 % (36.0-47.0); HEMOGLOBIN 9.6 g/dl (12.0-15.5); LYMPH # 1.1 10^3/uL (1.5-5.0); LYMPH % 6.7 % (24.0-44.0); MEAN CORPUSCULAR HEMOGLOBIN 28.9 pg (27.0-33.0); MEAN CORPUSCULAR HGB CONC 32.2 g/dl (32.0-36.5); MEAN CORPUSCULAR VOLUME 89.8 fl (80.0-96.0); MONO # 0.8 10^3/uL (0.0-0.8); MONO % 5.2 % (2.0-8.0); NEUTROPHILS # 13.8 10^3/uL (1.5-8.5); NEUTROPHILS % 87.2 % (36.0-66.0); PLATELET COUNT, AUTOMATED 270 10^3/uL (150-450); RED BLOOD COUNT 3.32 10^6/uL (4.00-5.40); WHITE BLOOD COUNT 15.8 10^3/uL (4.0-10.0)
[2024-05-08 17:33] LABS: ALBUMIN 2.6 G/DL (3.2-5.2); BILIRUBIN,DIRECT 0.1 MG/DL (<0.4); BILIRUBIN,TOTAL 0.3 MG/DL (0.3-1.2); CALCIUM LEVEL 8.8 MG/DL (8.3-10.6); CREATININE FOR GFR 1.54 MG/DL (0.55-1.30); GLOMERULAR FILTRATION RATE 34.9 (>39); POTASSIUM SERUM 2.9 MMOL/L (3.5-5.1); THYROID STIMULATING HORMONE 1.403 uIU/ML (0.55-4.78); TOTAL PROTEIN 6.7 G/DL (5.7-8.2)
[2024-05-08 17:49] LABS: MAGNESIUM LEVEL 1.6 MG/DL (1.8-2.4)
[2024-05-08] MEDS: KCL 10MEQ/100ML SWI (KRUN) 10 MEQ in IV 1 EA IV ONE ×2 (18:00→20:52)
[2024-05-08] MEDS: MAG SULF 1GM/100ML (MAG RUN) 1 GM in IV 1 EA IV ONE (19:50)
[2024-05-08] MEDS ORDERED: FLEEENE12 PR (19:59)
[2024-05-08] MEDS ORDERED: BACTDSTA PO (19:59)
[2024-05-08] MEDS ORDERED: GUAI5EL PO (19:59)
[2024-05-08] MEDS ORDERED: HOME MED LIST COMPLETE! XX SCH (20:00)
[2024-05-08] MEDS: ERTAPENEM SODIUM 1 GM in NS MINI-BAG PLUS 50 ML IV ONE (20:04)
[2024-05-08] MEDS: NS 1,000 ML IV SCH (20:06)
[2024-05-08] MEDS ORDERED: ONDANSETRON 4MG TAB PO PRN (21:05)
[2024-05-08] MEDS ORDERED: BISACODYL 10MG SUPP PR PRN (21:05)
[2024-05-08] MEDS ORDERED: guaiFENesin SYRUP 200MG 10ML UDC PO PRN (21:05)
[2024-05-08] MEDS ORDERED: FLEET ENEMA PR PRN (21:05)
[2024-05-08] MEDS: BACLOFEN 10 MG TAB PO SCH (21:33)
[2024-05-08] MEDS: KCL 20MEQ in NS 1000ML 1,000 ML IV SCH (22:04)
[2024-05-09] VITALS (13 sets, daily range): BP systolic 108–130; BP diastolic 54–80; TEMP 97–101.1; O2SAT 85–100
[2024-05-09] MEDS: ACETAMINOPHEN TAB 650MG DOSE (2X325MG) PO PRN (05:48)
[2024-05-09 05:51] LABS: HEMATOCRIT 29.3 % (36.0-47.0); HEMOGLOBIN 9.3 g/dl (12.0-15.5); MEAN CORPUSCULAR HEMOGLOBIN 28.7 pg (27.0-33.0); MEAN CORPUSCULAR HGB CONC 31.7 g/dl (32.0-36.5); MEAN CORPUSCULAR VOLUME 90.4 fl (80.0-96.0); PLATELET COUNT, AUTOMATED 220 10^3/uL (150-450); RED BLOOD COUNT 3.24 10^6/uL (4.00-5.40); WHITE BLOOD COUNT 13.7 10^3/uL (4.0-10.0)
[2024-05-09 06:21] LABS: ALBUMIN 2.4 G/DL (3.2-5.2); ALKALINE PHOSPHATASE 112 U/L (46-116); ALT/SGPT 42 U/L (7.0-40); AST/SGOT 27 U/L (<34); BILIRUBIN,TOTAL < 0.2 MG/DL (0.3-1.2); BLOOD UREA NITROGEN 30 MG/DL (9-23); CALCIUM LEVEL 8.8 MG/DL (8.3-10.6); CARBON DIOXIDE LEVEL 22 MMOL/L (20-31); CHLORIDE LEVEL 105 MMOL/L (98-107); CREATININE FOR GFR 1.26 MG/DL (0.55-1.30); GLUCOSE, FASTING 107 MG/DL (74-106); POTASSIUM SERUM 3.6 MMOL/L (3.5-5.1); SODIUM LEVEL 134 MMOL/L (136-145); TOTAL PROTEIN 6.2 G/DL (5.7-8.2)
[2024-05-09] MEDS ORDERED: HEPARIN SOD (PORCINE) 5000UNITS/ML 1ML VIAL/SYRINGE SC SCH (09:00)
[2024-05-09] MEDS: METOPROLOL TART 25 MG TABLET PO ONE (09:26)
[2024-05-09] MEDS: NORTRIPTYLINE 10 MG CAP PO SCH (09:26)
[2024-05-09 10:14] LABS: THYROID STIMULATING HORMONE 1.252 uIU/ML (0.55-4.78)
[2024-05-09] MEDS: METOPROLOL TART 25 MG TABLET PO SCH (20:13)
[2024-05-09] MEDS: ERTAPENEM SODIUM 1 GM in NS MINI-BAG PLUS 50 ML IV SCH (20:13)
[2024-05-10] VITALS (10 sets, daily range): BP systolic 108–156; BP diastolic 58–82; TEMP 97–98.6; O2SAT 96–99
[2024-05-10] MEDS: NORTRIPTYLINE 10 MG CAP PO SCH (08:08)
[2024-05-10 08:35] LABS: HEMATOCRIT 28.3 % (36.0-47.0); HEMOGLOBIN 8.9 g/dl (12.0-15.5); MEAN CORPUSCULAR HEMOGLOBIN 28.1 pg (27.0-33.0); MEAN CORPUSCULAR HGB CONC 31.4 g/dl (32.0-36.5); MEAN CORPUSCULAR VOLUME 89.3 fl (80.0-96.0); PLATELET COUNT, AUTOMATED 231 10^3/uL (150-450); RED BLOOD COUNT 3.17 10^6/uL (4.00-5.40); WHITE BLOOD COUNT 10.6 10^3/uL (4.0-10.0)
[2024-05-10 09:13] LABS: BLOOD UREA NITROGEN 24 MG/DL (9-23); CALCIUM LEVEL 8.9 MG/DL (8.3-10.6); CARBON DIOXIDE LEVEL 23 MMOL/L (20-31); CHLORIDE LEVEL 113 MMOL/L (98-107); CREATININE FOR GFR 0.71 MG/DL (0.55-1.30); GLOMERULAR FILTRATION RATE > 60.0 (>39); GLUCOSE, FASTING 90 MG/DL (74-106); POTASSIUM SERUM 4.4 MMOL/L (3.5-5.1); SODIUM LEVEL 139 MMOL/L (136-145)
[2024-05-10] MEDS: METOPROLOL 5 MG/5 ML VIAL IV ONE (17:45)
[2024-05-10] MEDS ORDERED: METOPROLOL TART 25 MG TABLET PO SCH (20:00)
[2024-05-10] MEDS: METOPROLOL TART 25 MG TABLET PO SCH (20:15)
[2024-05-10] MEDS ORDERED: PILL CUTTER 1 EACH XX ONE (20:17)
[2024-05-11 03:58] VITALS: BP 118/63; TEMP 97; O2SAT 98
[2024-05-11 06:25] LABS: HEMATOCRIT 26.9 % (36.0-47.0); HEMOGLOBIN 8.7 g/dl (12.0-15.5); MEAN CORPUSCULAR HEMOGLOBIN 28.3 pg (27.0-33.0); MEAN CORPUSCULAR HGB CONC 32.3 g/dl (32.0-36.5); MEAN CORPUSCULAR VOLUME 87.6 fl (80.0-96.0); PLATELET COUNT, AUTOMATED 268 10^3/uL (150-450); RED BLOOD COUNT 3.07 10^6/uL (4.00-5.40)
[2024-05-11 06:48] LABS: BLOOD UREA NITROGEN 23 MG/DL (9-23); CALCIUM LEVEL 8.8 MG/DL (8.3-10.6); CARBON DIOXIDE LEVEL 22 MMOL/L (20-31); CHLORIDE LEVEL 111 MMOL/L (98-107); CREATININE FOR GFR 0.59 MG/DL (0.55-1.30); GLOMERULAR FILTRATION RATE > 60.0 (>39); GLUCOSE, FASTING 99 MG/DL (74-106); POTASSIUM SERUM 3.6 MMOL/L (3.5-5.1); SODIUM LEVEL 137 MMOL/L (136-145)
[2024-05-11 07:50] VITALS: BP 132/63; TEMP 98.3; O2SAT 99
[2024-05-11 11:09] VITALS: BP 138/60; TEMP 98.1; O2SAT 100
[2024-05-11 15:28] VITALS: BP 135/63; TEMP 99; O2SAT 99
[2024-05-11] MEDS: AMPICILLIN SOD 2 GM in D5W MINI-BAG PLUS 100 ML IV SCH (19:49)
[2024-05-11 19:53] VITALS: BP 136/65; TEMP 97.3; O2SAT 98
[2024-05-11 23:21] VITALS: BP 133/64; TEMP 98.1; O2SAT 95
[2024-05-12 03:46] VITALS: BP 140/70; TEMP 98.5; O2SAT 96
[2024-05-12 07:02] LABS: HEMATOCRIT 28.4 % (36.0-47.0); HEMOGLOBIN 9.4 g/dl (12.0-15.5); MEAN CORPUSCULAR HGB CONC 33.1 g/dl (32.0-36.5); MEAN CORPUSCULAR VOLUME 87.7 fl (80.0-96.0); PLATELET COUNT, AUTOMATED 308 10^3/uL (150-450); RED BLOOD COUNT 3.24 10^6/uL (4.00-5.40); WHITE BLOOD COUNT 7.4 10^3/uL (4.0-10.0)
[2024-05-12 07:22] LABS: BLOOD UREA NITROGEN 17 MG/DL (9-23); CALCIUM LEVEL 8.9 MG/DL (8.3-10.6); CARBON DIOXIDE LEVEL 25 MMOL/L (20-31); CHLORIDE LEVEL 105 MMOL/L (98-107); CREATININE FOR GFR 0.58 MG/DL (0.55-1.30); GLOMERULAR FILTRATION RATE > 60.0 (>39); GLUCOSE, FASTING 93 MG/DL (74-106); POTASSIUM SERUM 3.6 MMOL/L (3.5-5.1); SODIUM LEVEL 135 MMOL/L (136-145)
[2024-05-12 07:31] VITALS: BP 155/76; TEMP 97.4; O2SAT 97
[2024-05-12 11:41] VITALS: BP 156/76; TEMP 97.3; O2SAT 98
[2024-05-12 15:58] VITALS: BP 142/68; TEMP 97.7; O2SAT 97
[2024-05-12 19:40] VITALS: BP 155/70; TEMP 97.2; O2SAT 99
[2024-05-12 23:44] VITALS: BP 140/65; TEMP 97; O2SAT 98
[2024-05-13 03:27] VITALS: BP 131/63; TEMP 96.9; O2SAT 96
[2024-05-13 06:48] LABS: HEMATOCRIT 29.7 % (36.0-47.0); HEMOGLOBIN 9.6 g/dl (12.0-15.5); MEAN CORPUSCULAR HEMOGLOBIN 27.8 pg (27.0-33.0); MEAN CORPUSCULAR HGB CONC 32.3 g/dl (32.0-36.5); MEAN CORPUSCULAR VOLUME 86.1 fl (80.0-96.0); PLATELET COUNT, AUTOMATED 345 10^3/uL (150-450); RED BLOOD COUNT 3.45 10^6/uL (4.00-5.40); WHITE BLOOD COUNT 8.1 10^3/uL (4.0-10.0)
[2024-05-13 07:15] LABS: BLOOD UREA NITROGEN 15 MG/DL (9-23); CALCIUM LEVEL 9.3 MG/DL (8.3-10.6); CARBON DIOXIDE LEVEL 27 MMOL/L (20-31); CHLORIDE LEVEL 107 MMOL/L (98-107); CREATININE FOR GFR 0.59 MG/DL (0.55-1.30); GLOMERULAR FILTRATION RATE > 60.0 (>39); GLUCOSE, FASTING 98 MG/DL (74-106); POTASSIUM SERUM 3.7 MMOL/L (3.5-5.1); SODIUM LEVEL 135 MMOL/L (136-145)
[2024-05-13 07:22] VITALS: BP 133/68; TEMP 97
[2024-05-13 12:00] VITALS: BP 130/70; TEMP 97.1; O2SAT 96
[2024-05-13 19:20] VITALS: BP 123/60; TEMP 97.3; O2SAT 97
[2024-05-14] VITALS (12 sets, daily range): BP systolic 118–146; BP diastolic 58–67; TEMP 94.3–98.9; O2SAT 96–100
[2024-05-14 05:55] LABS: HEMATOCRIT 30.4 % (36.0-47.0); MEAN CORPUSCULAR HGB CONC 32.9 g/dl (32.0-36.5); MEAN CORPUSCULAR VOLUME 88.1 fl (80.0-96.0); PLATELET COUNT, AUTOMATED 354 10^3/uL (150-450); RED BLOOD COUNT 3.45 10^6/uL (4.00-5.40); WHITE BLOOD COUNT 9.1 10^3/uL (4.0-10.0)
[2024-05-14 06:26] LABS: BLOOD UREA NITROGEN 16 MG/DL (9-23); CALCIUM LEVEL 8.8 MG/DL (8.3-10.6); CARBON DIOXIDE LEVEL 29 MMOL/L (20-31); CHLORIDE LEVEL 104 MMOL/L (98-107); CREATININE FOR GFR 0.63 MG/DL (0.55-1.30); GLOMERULAR FILTRATION RATE > 60.0 (>39); GLUCOSE, FASTING 98 MG/DL (74-106); SODIUM LEVEL 138 MMOL/L (136-145)
[2024-05-14] MEDS ORDERED: HYDROMORPHONE HCL 0.5 MG/ 0.5 ML SYRINGE IV PRN (09:55)
[2024-05-14] MEDS ORDERED: fentaNYL 100 MCG/2 ML INJECTION IV PRN (09:55)
[2024-05-14] MEDS: LR 1,000 ML IV SCH (09:55)
[2024-05-14] MEDS ORDERED: oxyCODONE 5MG TAB PO PRN (09:55)
[2024-05-14] MEDS ORDERED: ONDANSETRON 4MG 2ML VIAL IV PRN (09:55)
[2024-05-15 01:30] VITALS: BP 143/70; TEMP 97.3; O2SAT 96
[2024-05-15 04:09] VITALS: BP 115/54; TEMP 97.9; O2SAT 92
[2024-05-15 06:45] LABS: HEMATOCRIT 27.6 % (36.0-47.0); MEAN CORPUSCULAR HEMOGLOBIN 28.8 pg (27.0-33.0); MEAN CORPUSCULAR HGB CONC 32.6 g/dl (32.0-36.5); MEAN CORPUSCULAR VOLUME 88.5 fl (80.0-96.0); PLATELET COUNT, AUTOMATED 391 10^3/uL (150-450); RED BLOOD COUNT 3.12 10^6/uL (4.00-5.40)
[2024-05-15 07:10] LABS: BLOOD UREA NITROGEN 13 MG/DL (9-23); CALCIUM LEVEL 8.8 MG/DL (8.3-10.6); CARBON DIOXIDE LEVEL 29 MMOL/L (20-31); CHLORIDE LEVEL 105 MMOL/L (98-107); GLOMERULAR FILTRATION RATE > 60.0 (>39); GLUCOSE, FASTING 109 MG/DL (74-106); SODIUM LEVEL 140 MMOL/L (136-145)
[2024-05-15 12:00] VITALS: BP 107/52; TEMP 97.3; O2SAT 97
[2024-05-15] MEDS: MOM 30ML SUSPENSION UDC PO PRN (17:42)
[2024-05-15] MEDS: AMOXICILLIN 500 MG CAP PO SCH (18:31)
[2024-05-15 19:45] VITALS: BP 121/53; TEMP 97.9; O2SAT 94
[2024-05-15] MEDS ORDERED: AMOXICILLIN 500 MG CAP PO SCH (21:00)
[2024-05-16 04:25] VITALS: BP 114/62; TEMP 97.5; O2SAT 95
[2024-05-16 06:13] LABS: BASO % 0.4 % (0.0-1.0); EOS # 0.5 10^3/uL (0.0-0.5); EOS % 7.5 % (0.0-3.0); HEMATOCRIT 28.3 % (36.0-47.0); LYMPH # 1.3 10^3/uL (1.5-5.0); LYMPH % 18.4 % (24.0-44.0); MEAN CORPUSCULAR HEMOGLOBIN 28.3 pg (27.0-33.0); MEAN CORPUSCULAR HGB CONC 31.8 g/dl (32.0-36.5); MONO # 0.9 10^3/uL (0.0-0.8); MONO % 12.3 % (2.0-8.0); NEUTROPHILS # 4.2 10^3/uL (1.5-8.5); NEUTROPHILS % 60.5 % (36.0-66.0); PLATELET COUNT, AUTOMATED 394 10^3/uL (150-450); RED BLOOD COUNT 3.18 10^6/uL (4.00-5.40)
[2024-05-16 06:34] LABS: BLOOD UREA NITROGEN 15 MG/DL (9-23); CALCIUM LEVEL 9.3 MG/DL (8.3-10.6); CARBON DIOXIDE LEVEL 31 MMOL/L (20-31); CHLORIDE LEVEL 104 MMOL/L (98-107); CREATININE FOR GFR 0.87 MG/DL (0.55-1.30); GLOMERULAR FILTRATION RATE > 60.0 (>39); GLUCOSE, FASTING 89 MG/DL (74-106); POTASSIUM SERUM 4.3 MMOL/L (3.5-5.1); SODIUM LEVEL 137 MMOL/L (136-145)
[2024-05-16 09:55] VITALS: BP 118/59
[2024-05-16] MEDS ORDERED: METO1TAB87 PO (10:28)
[2024-05-16] MEDS ORDERED: AMOX500C PO (10:28)
== END 2024-05-16 11:23 | DRG 659 ==
LOC: M ED 16:00 → EDBD 16:00 → M ED INP 20:49 → M MSPAV 05-09 00:12 → M PCU 05-09 11:27 → M MSPAV 05-15 01:28
PROVIDERS: ADMIT Preventive Medicine Undersea and Hyperbaric Medicine; ATTEND Hospitalist
PROC: B246ZZZ Ultrasonography of Right and Left Heart (ICD-10-PCS; 2024-05-09)
PROC: 0TP98DZ Removal of Intraluminal Device from Ureter, Via Natural or Artificial Opening Endoscopic (ICD-10-PCS; 2024-05-14)
PROC: 0TC78ZZ Extirpation of Matter from Left Ureter, Via Natural or Artificial Opening Endoscopic (ICD-10-PCS; 2024-05-14)
PROC: 0T748DZ Dilation of Left Kidney Pelvis with Intraluminal Device, Via Natural or Artificial Opening Endoscopic (ICD-10-PCS; principal; 2024-05-14 08:40)
DX: T83.511A Infection and inflammatory reaction due to indwelling urethral catheter, initial encounter (principal); A41.81 Sepsis due to Enterococcus; G93.41 Metabolic encephalopathy; N17.9 Acute kidney failure, unspecified; N13.1 Hydronephrosis with ureteral stricture, not elsewhere classified; N39.0 Urinary tract infection, site not specified; G35 Multiple sclerosis; K76.0 Fatty (change of) liver, not elsewhere classified; N31.9 Neuromuscular dysfunction of bladder, unspecified; K21.9 Gastro-esophageal reflux disease without esophagitis; M81.0 Age-related osteoporosis without current pathological fracture; R53.81 Other malaise; I48.0 Paroxysmal atrial fibrillation; I25.2 Old myocardial infarction; Z66 Do not resuscitate; E87.6 Hypokalemia; E83.42 Hypomagnesemia; B96.20 Unspecified Escherichia coli [E. coli] as the cause of diseases classified elsewhere; Z96.0 Presence of urogenital implants; Y84.6 Urinary catheterization as the cause of abnormal reaction of the patient, or of later complication, without mention of misadventure at the time of the procedure; N26.1 Atrophy of kidney (terminal); B96.1 Klebsiella pneumoniae [K. pneumoniae] as the cause of diseases classified elsewhere; Z99.3 Dependence on wheelchair; Z87.81 Personal history of (healed) traumatic fracture; Z79.82 Long term (current) use of aspirin; Z88.1 Allergy status to other antibiotic agents; Z79.899 Other long term (current) drug therapy; Z88.0 Allergy status to penicillin

== ENCOUNTER → 2024-05-08 | Outpatient (REF) ==
[2024-05-08 14:24] LABS: HEMATOCRIT 31.5 % (36.0-47.0); HEMOGLOBIN 10.1 g/dl (12.0-15.5); MEAN CORPUSCULAR HEMOGLOBIN 28.9 pg (27.0-33.0); MEAN CORPUSCULAR HGB CONC 32.1 g/dl (32.0-36.5); PLATELET COUNT, AUTOMATED 289 10^3/uL (150-450); WHITE BLOOD COUNT 18.9 10^3/uL (4.0-10.0)
[2024-05-08 14:55] LABS: CALCIUM LEVEL 9.9 MG/DL (8.3-10.6); CREATININE FOR GFR 1.48 MG/DL (0.55-1.30); GLOMERULAR FILTRATION RATE 36.5 (>39); POTASSIUM SERUM 3.4 MMOL/L (3.5-5.1)
== END ==
PROVIDERS: ATTEND Internal Medicine
DX: R41.82 Altered mental status, unspecified (principal); R31.9 Hematuria, unspecified

== ENCOUNTER → 2024-05-08 | Outpatient (REF) | PROVIDERS: ATTEND Internal Medicine | DX: R41.82 Altered mental status, unspecified (principal); R31.9 Hematuria, unspecified; Z96.89 Presence of other specified functional implants; N20.1 Calculus of ureter; S72.3 Fracture of shaft of femur ==

== ENCOUNTER → 2024-05-23 | Outpatient (REF) ==
[~2024-05-23] MED LIST changes: +BACTDSTA PO; +GUAI5EL PO; +METO1TAB87 PO
[2024-05-23 09:09] LABS: HEMATOCRIT 32.6 % (36.0-47.0); HEMOGLOBIN 10.2 g/dl (12.0-15.5); MEAN CORPUSCULAR HEMOGLOBIN 28.8 pg (27.0-33.0); MEAN CORPUSCULAR HGB CONC 31.3 g/dl (32.0-36.5); MEAN CORPUSCULAR VOLUME 92.1 fl (80.0-96.0); PLATELET COUNT, AUTOMATED 385 10^3/uL (150-450); RED BLOOD COUNT 3.54 10^6/uL (4.00-5.40); WHITE BLOOD COUNT 7.7 10^3/uL (4.0-10.0)
[2024-05-23 09:38] LABS: BLOOD UREA NITROGEN 19 MG/DL (9-23); CALCIUM LEVEL 9.8 MG/DL (8.3-10.6); CARBON DIOXIDE LEVEL 26 MMOL/L (20-31); CHLORIDE LEVEL 107 MMOL/L (98-107); CREATININE FOR GFR 0.67 MG/DL (0.55-1.30); GLOMERULAR FILTRATION RATE > 60.0 (>39); GLUCOSE, FASTING 98 MG/DL (74-106); SODIUM LEVEL 140 MMOL/L (136-145)
== END ==
PROVIDERS: ATTEND Internal Medicine
DX: G35 Multiple sclerosis (principal)

== ENCOUNTER → 2024-06-25 | Outpatient (REF) | payer MEDICARE, MEDICAID ==
[2024-06-25 11:07] LABS: BASO % 0.7 % (0.0-1.0); EOS # 0.4 10^3/uL (0.0-0.5); EOS % 7.1 % (0.0-3.0); HEMOGLOBIN 11.8 g/dl (12.0-15.5); MEAN CORPUSCULAR HEMOGLOBIN 29.2 pg (27.0-33.0); MEAN CORPUSCULAR HGB CONC 31.1 g/dl (32.0-36.5); MEAN CORPUSCULAR VOLUME 94.1 fl (80.0-96.0); MONO # 0.5 10^3/uL (0.0-0.8); MONO % 8.5 % (2.0-8.0); NEUTROPHILS # 3.8 10^3/uL (1.5-8.5); NEUTROPHILS % 66.5 % (36.0-66.0); PLATELET COUNT, AUTOMATED 281 10^3/uL (150-450); RED BLOOD COUNT 4.04 10^6/uL (4.00-5.40); WHITE BLOOD COUNT 5.7 10^3/uL (4.0-10.0)
[2024-06-25 11:37] LABS: ALBUMIN 3.3 G/DL (3.2-5.2); ALKALINE PHOSPHATASE 107 U/L (35-104); ALT/SGPT 18 U/L (7.0-40); AST/SGOT 10 U/L (<34); BILIRUBIN,TOTAL 0.3 MG/DL (0.3-1.2); BLOOD UREA NITROGEN 32 MG/DL (9-23); CALCIUM LEVEL 10.6 MG/DL (8.3-10.6); CARBON DIOXIDE LEVEL 30 MMOL/L (20-31); CHLORIDE LEVEL 102 MMOL/L (98-107); CREATININE FOR GFR 0.54 MG/DL (0.55-1.30); GLOMERULAR FILTRATION RATE > 60.0 (>39); GLUCOSE, FASTING 128 MG/DL (74-106); POTASSIUM SERUM 3.8 MMOL/L (3.5-5.1); SODIUM LEVEL 140 MMOL/L (136-145); TOTAL PROTEIN 7.5 G/DL (5.7-8.2)
== END ==
PROVIDERS: ATTEND Internal Medicine
DX: N18.9 Chronic kidney disease, unspecified (principal)

== ENCOUNTER → 2024-07-04 | Outpatient (REF) | payer MEDICARE, MEDICAID | PROVIDERS: ATTEND Internal Medicine | DX: Z01.818 Encounter for other preprocedural examination (principal); Z79.899 Other long term (current) drug therapy ==

== ENCOUNTER 2024-07-13 07:07 | Day surgery (SDC) | payer MEDICARE, MEDICAID ==
[~2024-07-13] VITALS: Ht 162.6 cm; Wt 78.2 kg
[~2024-07-13 07:07] MED LIST changes: +FURO20TA2 PO; +JUVE1POW PO; +UNRESOLVED CLARIFICATION ENTRY XX SCH
[2024-07-13] MEDS ORDERED: LR 1,000 ML IV SCH (07:35)
[2024-07-13] MEDS ORDERED: ECOT81TA5 PO (08:12)
[2024-07-13] MEDS ORDERED: propofoL 200 MG/20 ML VIAL As Ordered ONE (08:43)
[2024-07-13] MEDS ORDERED: LIDOCAINE 2% 100MG/5ML SDV (FOR ANES.) As Ordered ONE (08:43)
[2024-07-13] MEDS ORDERED: ONDANSETRON 4MG 2ML VIAL As Ordered ONE (08:43)
[2024-07-13] MEDS ORDERED: fentaNYL 100 MCG/2 ML INJECTION As Ordered ONE (08:44)
[2024-07-13] MEDS ORDERED: MIDAZOLAM INJ 2MG/2ML VIAL As Ordered ONE (08:44)
[2024-07-13] MEDS: CIPROFLOXACIN 400 MG in IV 1 EA IV ONE (09:17)
[2024-07-13] MEDS ORDERED: PHENYLephrine 500MCG 5ML (100MCG/ML) SYRINGE As Ordered ONE (09:23)
[2024-07-13] MEDS ORDERED: ePHEDrine SULFATE 25 MG/5 ML(5MG/ML) SYRINGE As Ordered ONE (09:23)
[2024-07-13] MEDS: ISOVUE-300 61% 100ML VIAL As Ordered ONE (09:26)
[2024-07-13] MEDS ORDERED: dexmedeTOMIDine (4MCG/ML)200MCG/50ML BTL (PRECEDEX) As Ordered ONE (09:27)
[2024-07-13] MEDS ORDERED: ACETAMINOPHEN 1000MG/100ML IV BAG As Ordered ONE (09:42)
[2024-07-13] MEDS ORDERED: HYDROMORPHONE HCL 0.5 MG/ 0.5 ML SYRINGE IV PRN (09:55)
[2024-07-13] MEDS ORDERED: oxyCODONE 5MG TAB PO PRN (09:55)
[2024-07-13] MEDS ORDERED: ONDANSETRON 4MG 2ML VIAL IV PRN (09:55)
[2024-07-13] MEDS ORDERED: fentaNYL 100 MCG/2 ML INJECTION IV PRN (09:55)
[2024-07-13] MEDS ORDERED: MACR100C43 PO (09:57)
[2024-07-13 11:34] VITALS: BP 126/61; TEMP 97; O2SAT 95
== END 2024-07-13 11:45 | disposition home or self-care (01) ==
LOC: M SDC 07:07
PROVIDERS: ATTEND Urology
DX: N20.1 Calculus of ureter (principal); N28.86 Ureteritis cystica; I48.91 Unspecified atrial fibrillation; Z88.0 Allergy status to penicillin; Z88.1 Allergy status to other antibiotic agents; Z79.899 Other long term (current) drug therapy
CPT/HCPCS: 52354; 52356; 76000; 82365; C1769; C2617; J0131; J0744; J1100; J2250; J2371; J2405; J3010; Q9967

== ENCOUNTER → 2024-08-06 | Outpatient (REF) | payer MEDICARE, MEDICAID ==
[~2024-08-06] MED LIST changes: +ECOT81TA5 PO; -UNRESOLVED CLARIFICATION ENTRY XX SCH
[2024-08-06 10:30] LABS: HEMATOCRIT 38.7 % (36.0-47.0); HEMOGLOBIN 12.2 g/dl (12.0-15.5); MEAN CORPUSCULAR HGB CONC 31.5 g/dl (32.0-36.5); MEAN CORPUSCULAR VOLUME 91.9 fl (80.0-96.0); PLATELET COUNT, AUTOMATED 287 10^3/uL (150-450); RED BLOOD COUNT 4.21 10^6/uL (4.00-5.40); WHITE BLOOD COUNT 8.5 10^3/uL (4.0-10.0)
[2024-08-06 10:58] LABS: BLOOD UREA NITROGEN 37 MG/DL (9-23); CALCIUM LEVEL 10.3 MG/DL (8.3-10.6); CARBON DIOXIDE LEVEL 29 MMOL/L (20-31); CHLORIDE LEVEL 102 MMOL/L (98-107); GLOMERULAR FILTRATION RATE > 60.0 (>39); GLUCOSE, FASTING 123 MG/DL (74-106); POTASSIUM SERUM 4.4 MMOL/L (3.5-5.1); SODIUM LEVEL 139 MMOL/L (136-145)
== END ==
PROVIDERS: ATTEND Internal Medicine
DX: G35 Multiple sclerosis (principal)

== ENCOUNTER → 2024-11-07 | Outpatient (REF) | payer MEDICARE, MEDICAID ==
[2024-11-07 08:45] LABS: HEMATOCRIT 37.3 % (36.0-47.0); HEMOGLOBIN 11.7 g/dl (12.0-15.5); MEAN CORPUSCULAR HGB CONC 31.4 g/dl (32.0-36.5); MEAN CORPUSCULAR VOLUME 89.2 fl (80.0-96.0); PLATELET COUNT, AUTOMATED 284 10^3/uL (150-450); RED BLOOD COUNT 4.18 10^6/uL (4.00-5.40); WHITE BLOOD COUNT 5.8 10^3/uL (4.0-10.0)
[2024-11-07 09:19] LABS: BLOOD UREA NITROGEN 25 MG/DL (9-23); CALCIUM LEVEL 9.3 MG/DL (8.3-10.6); CARBON DIOXIDE LEVEL 29 MMOL/L (20-31); CHLORIDE LEVEL 104 MMOL/L (98-107); CREATININE FOR GFR 0.51 MG/DL (0.55-1.30); GLOMERULAR FILTRATION RATE > 60.0 (>39); GLUCOSE, FASTING 102 MG/DL (74-106); POTASSIUM SERUM 3.8 MMOL/L (3.5-5.1); SODIUM LEVEL 142 MMOL/L (136-145)
== END ==
PROVIDERS: ATTEND Internal Medicine
DX: G35 Multiple sclerosis (principal)

== ENCOUNTER → 2024-12-14 | Outpatient (REF) | payer MEDICARE, MEDICAID ==
[2024-12-14 14:04] LABS: HEMATOCRIT 36.3 % (36.0-47.0); HEMOGLOBIN 11.6 g/dl (12.0-15.5); MEAN CORPUSCULAR VOLUME 87.7 fl (80.0-96.0); PLATELET COUNT, AUTOMATED 257 10^3/uL (150-450); RED BLOOD COUNT 4.14 10^6/uL (4.00-5.40); WHITE BLOOD COUNT 12.3 10^3/uL (4.0-10.0)
[2024-12-14 14:43] LABS: BLOOD UREA NITROGEN 24 MG/DL (9-23); CALCIUM LEVEL 9.3 MG/DL (8.3-10.6); CARBON DIOXIDE LEVEL 28 MMOL/L (20-31); CHLORIDE LEVEL 101 MMOL/L (98-107); CREATININE FOR GFR 0.48 MG/DL (0.55-1.30); GLOMERULAR FILTRATION RATE > 90.0 (>39); GLUCOSE, FASTING 105 MG/DL (74-106); POTASSIUM SERUM 4.5 MMOL/L (3.5-5.1); SODIUM LEVEL 138 MMOL/L (136-145)
[2024-12-14 17:50] LABS: APPEARANCE, URINE CLOUDY (CLEAR); BACTERIA, URINE AUTO 1+ (NEGATIVE); BILIRUBIN, URINE AUTO NEGATIVE (NEGATIVE); BLOOD, URINE BLOOD 1+ (NEGATIVE); COLOR, URINE AMBER (YELLOW); GLUCOSE, URINE (UA) AUTO NEGATIVE (NEGATIVE); KETONE, URINE AUTO NEGATIVE (NEGATIVE); LEUKOCYTE ESTERASE, URINE AUTO 3+ (NEGATIVE); NITRITE, URINE AUTO NEGATIVE (NEGATIVE); PROTEIN, URINE AUTO 2+ mg/dL (NEGATIVE); RBC, URINE AUTO 8 /HPF (0-3); SPECIFIC GRAVITY URINE AUTO 1.013 (1.002-1.035); SQUAMOUS EPITHELIAL CELL UR AU 0 /HPF (0-6); UROBILINOGEN, URINE AUTO 0.2 mg/dL (0.0-2.0); WBC, URINE AUTO TNTC /HPF (0-3)
== END ==
PROVIDERS: ATTEND Internal Medicine
DX: R41.82 Altered mental status, unspecified (principal)

== ENCOUNTER → 2024-12-17 | Outpatient (REF) | payer MEDICARE, MEDICAID ==
[2024-12-17 08:07] LABS: HEMATOCRIT 35.4 % (36.0-47.0); HEMOGLOBIN 11.4 g/dl (12.0-15.5); MEAN CORPUSCULAR HEMOGLOBIN 28.4 pg (27.0-33.0); MEAN CORPUSCULAR HGB CONC 32.2 g/dl (32.0-36.5); MEAN CORPUSCULAR VOLUME 88.1 fl (80.0-96.0); PLATELET COUNT, AUTOMATED 253 10^3/uL (150-450); RED BLOOD COUNT 4.02 10^6/uL (4.00-5.40); WHITE BLOOD COUNT 5.2 10^3/uL (4.0-10.0)
[2024-12-17 08:40] LABS: BLOOD UREA NITROGEN 18 MG/DL (9-23); CALCIUM LEVEL 9.1 MG/DL (8.3-10.6); CARBON DIOXIDE LEVEL 30 MMOL/L (20-31); CHLORIDE LEVEL 101 MMOL/L (98-107); CREATININE FOR GFR 0.47 MG/DL (0.55-1.30); GLOMERULAR FILTRATION RATE > 90.0 (>39); GLUCOSE, FASTING 101 MG/DL (74-106); POTASSIUM SERUM 3.5 MMOL/L (3.5-5.1); SODIUM LEVEL 139 MMOL/L (136-145)
== END ==
PROVIDERS: ATTEND Internal Medicine
DX: R41.82 Altered mental status, unspecified (principal)

== ENCOUNTER → 2025-04-11 | Outpatient (REF) | payer MEDICARE, MEDICAID ==
[2025-04-12 14:00] LABS: AMORPHOUS SEDIMENT LARGE (NEGATIVE); APPEARANCE, URINE CLOUDY (CLEAR); BACTERIA, URINE AUTO 1+ (NEGATIVE); BILIRUBIN, URINE AUTO NEGATIVE (NEGATIVE); BLOOD, URINE BLOOD 1+ (NEGATIVE); GLUCOSE, URINE (UA) AUTO NEGATIVE (NEGATIVE); KETONE, URINE AUTO NEGATIVE (NEGATIVE); LEUKOCYTE ESTERASE, URINE AUTO 3+ (NEGATIVE); MUCUS, URINE SMALL (NEGATIVE); NITRITE, URINE AUTO POSITIVE (NEGATIVE); PROTEIN, URINE AUTO 2+ mg/dL (NEGATIVE); RBC, URINE AUTO 6 /HPF (0-3); SPECIFIC GRAVITY URINE AUTO 1.013 (1.002-1.035); SQUAMOUS EPITHELIAL CELL UR AU 1 /HPF (0-6); UROBILINOGEN, URINE AUTO 0.2 mg/dL (0.0-2.0); WBC, URINE AUTO TNTC /HPF (0-3)
== END ==
PROVIDERS: ATTEND Nurse Practitioner Women's Health
DX: R05.9 Cough, unspecified (principal); Z79.899 Other long term (current) drug therapy

== ENCOUNTER → 2025-04-12 | Outpatient (REF) | payer MEDICARE, MEDICAID ==
[2025-04-12 09:18] LABS: BASO # 0.0 10^3/uL (0.0-0.2); BASO % 0.2 % (0.0-1.0); EOS # 0.1 10^3/uL (0.0-0.5); EOS % 0.8 % (0.0-3.0); LYMPH # 0.7 10^3/uL (1.5-5.0); LYMPH % 4.5 % (24.0-44.0); MONO # 1.2 10^3/uL (0.0-0.8); MONO % 8.5 % (2.0-8.0); NEUTROPHILS # 12.2 10^3/uL (1.5-8.5); NEUTROPHILS % 85.4 % (36.0-66.0); PLATELET COUNT, AUTOMATED 364 10^3/uL (150-450)
[2025-04-12 10:04] LABS: CALCIUM LEVEL 9.4 MG/DL (8.3-10.6); CARBON DIOXIDE LEVEL 28.0 MMOL/L (20-31); CHLORIDE LEVEL 101.0 MMOL/L (98-107); CREATININE FOR GFR 0.75 MG/DL (0.55-1.30); GLOMERULAR FILTRATION RATE 82.0 (>39); POTASSIUM SERUM 4.1 MMOL/L (3.5-5.1); SODIUM LEVEL 138.0 MMOL/L (136-145)
== END ==
PROVIDERS: ATTEND Nurse Practitioner Women's Health
DX: N39.0 Urinary tract infection, site not specified (principal); R05.9 Cough, unspecified

== ENCOUNTER → 2025-04-12 | Outpatient (REF) | payer MEDICARE, MEDICAID | PROVIDERS: ATTEND Physician Assistant | DX: R05.9 Cough, unspecified (principal) ==

== ENCOUNTER → 2025-04-15 | Outpatient (REF) | payer MEDICARE, MEDICAID ==
[2025-04-15 11:49] LABS: PLATELET COUNT, AUTOMATED 357 10^3/uL (150-450)
[2025-04-15 12:15] LABS: CALCIUM LEVEL 9.2 MG/DL (8.3-10.6); CARBON DIOXIDE LEVEL 27.0 MMOL/L (20-31); CHLORIDE LEVEL 103.0 MMOL/L (98-107); CREATININE FOR GFR 0.71 MG/DL (0.55-1.30); GLOMERULAR FILTRATION RATE 87.5 (>39); POTASSIUM SERUM 4.3 MMOL/L (3.5-5.1); SODIUM LEVEL 140.0 MMOL/L (136-145)
== END ==
PROVIDERS: ATTEND Nurse Practitioner Family
DX: D72.829 Elevated white blood cell count, unspecified (principal)

== ENCOUNTER → 2025-05-15 | Outpatient (REF) | payer MEDICARE, MEDICAID ==
[~2025-05-15] MED LIST changes: +DICL3GEL13; -DICL3GEL2
[2025-05-15 13:30] LABS: PLATELET COUNT, AUTOMATED 293 10^3/uL (150-450)
[2025-05-15 13:59] LABS: CALCIUM LEVEL 9.9 MG/DL (8.3-10.6); CARBON DIOXIDE LEVEL 31.0 MMOL/L (20-31); CHLORIDE LEVEL 100.0 MMOL/L (98-107); CREATININE FOR GFR 0.73 MG/DL (0.55-1.30); GLOMERULAR FILTRATION RATE 84.7 (>39); POTASSIUM SERUM 3.9 MMOL/L (3.5-5.1); SODIUM LEVEL 139.0 MMOL/L (136-145)
== END ==
PROVIDERS: ATTEND Internal Medicine
DX: I10 Essential (primary) hypertension (principal)

== ENCOUNTER → 2025-06-17 | Outpatient (REF) | payer MEDICARE, MEDICAID ==
[2025-06-17 11:00] LABS: BASO # 0.0 10^3/uL (0.0-0.2); BASO % 0.5 % (0.0-1.0); EOS # 0.4 10^3/uL (0.0-0.5); EOS % 4.9 % (0.0-3.0); LYMPH # 1.0 10^3/uL (1.5-5.0); LYMPH % 13.0 % (24.0-44.0); MONO # 0.6 10^3/uL (0.0-0.8); MONO % 7.4 % (2.0-8.0); NEUTROPHILS # 5.7 10^3/uL (1.5-8.5); NEUTROPHILS % 73.9 % (36.0-66.0); PLATELET COUNT, AUTOMATED 293 10^3/uL (150-450)
[2025-06-17 11:33] LABS: ALT/SGPT 19 U/L (7.0-40); AST/SGOT 16 U/L (<34); CALCIUM LEVEL 9.9 MG/DL (8.3-10.6); CARBON DIOXIDE LEVEL 29 MMOL/L (20-31); CHLORIDE LEVEL 100 MMOL/L (98-107); CREATININE FOR GFR 0.61 MG/DL (0.55-1.30); GLOMERULAR FILTRATION RATE > 90.0 (>39); POTASSIUM SERUM 3.6 MMOL/L (3.5-5.1); SODIUM LEVEL 139 MMOL/L (136-145)
== END ==
PROVIDERS: ATTEND Internal Medicine
DX: G35.D Multiple sclerosis, unspecified (principal); Z79.899 Other long term (current) drug therapy

== ENCOUNTER → 2025-06-24 | Outpatient (REF) | payer MEDICARE, MEDICAID | PROVIDERS: ATTEND Nurse Practitioner Family | DX: E55.9 Vitamin D deficiency, unspecified (principal) ==

== ENCOUNTER → 2025-08-05 | Outpatient (REF) | payer MEDICARE, MEDICAID ==
[~2025-08-05] MED LIST changes: -BACTDSTA PO; +SULF-8 PO
[2025-08-05 13:02] LABS: PLATELET COUNT, AUTOMATED 242 10^3/uL (150-450)
[2025-08-05 13:36] LABS: CALCIUM LEVEL 9.6 MG/DL (8.3-10.6); CARBON DIOXIDE LEVEL 29 MMOL/L (20-31); CHLORIDE LEVEL 101 MMOL/L (98-107); CREATININE FOR GFR 0.56 MG/DL (0.55-1.30); GLOMERULAR FILTRATION RATE > 90.0 (>39); POTASSIUM SERUM 3.6 MMOL/L (3.5-5.1); SODIUM LEVEL 139 MMOL/L (136-145)
== END ==
PROVIDERS: ATTEND Internal Medicine
DX: I10 Essential (primary) hypertension (principal)

== ENCOUNTER → 2025-08-12 | Outpatient (REF) | payer MEDICARE, MEDICAID ==
[2025-08-12 12:46] LABS: PLATELET COUNT, AUTOMATED 212 10^3/uL (150-450)
[2025-08-12 13:19] LABS: CALCIUM LEVEL 10.0 MG/DL (8.3-10.6); CARBON DIOXIDE LEVEL 30 MMOL/L (20-31); CHLORIDE LEVEL 101 MMOL/L (98-107); CREATININE FOR GFR 0.60 MG/DL (0.55-1.30); GLOMERULAR FILTRATION RATE > 90.0 (>39); POTASSIUM SERUM 3.8 MMOL/L (3.5-5.1); SODIUM LEVEL 141 MMOL/L (136-145)
== END ==
PROVIDERS: ATTEND Internal Medicine
DX: R06.02 Shortness of breath (principal); R05.9 Cough, unspecified

== ENCOUNTER → 2025-08-12 | Outpatient (REF) | payer MEDICARE, MEDICAID | PROVIDERS: ATTEND Internal Medicine | DX: R06.02 Shortness of breath (principal) ==